=== PATIENT | male | born 1950 | race Hispanic/Latino ===

== ENCOUNTER 2019-01-22 21:35 | Emergency (ER) | payer BC, MEDICARE | END 2019-01-23 02:55 | disposition home or self-care (01) | LOC: C.ER 21:35 ==

== ENCOUNTER 2019-02-26 14:25 | Inpatient (IN) | payer MEDICARE, BC ==
[2019-02-26] MEDS ORDERED: Morphine 4 MG/ML VIAL ONE ×2 (15:11→16:55)
[2019-02-26 15:12] LABS: BASO # 0.1 K/uL (0.0-0.2); BASO % 1.3 % (0.0-2.0); EOS % 0.8 % (0.0-4.0); HEMOGLOBIN 13.7 g/dL (12.0-18.0); LYMPH # 1.5 K/uL (1.0-4.3); LYMPH % 22.8 % (20.0-40.0); MEAN CELL VOLUME 80.5 fL (80.0-94.0); MEAN CORPUSCULAR HEMOGLOBIN 26.8 pg (27.0-31.0); MEAN CORPUSCULAR HGB CONC 33.2 g/dL (33.0-37.0); MEAN PLATELET VOLUME 9.8 fL (7.2-11.7); MONO # 0.5 K/uL (0.0-0.8); MONO % 8.5 % (0.0-10.0); NEUT # 4.2 K/uL (1.8-7.0); NEUT % 66.6 % (50.0-75.0); NRBC % 0.1 % (0.0-2.0); RBC 5.13 Mil/uL (4.40-5.90); WHITE BLOOD COUNT 6.4 K/uL (4.8-10.8)
--- NOTE | 2019-02-26 15:15 | C.PDOC ---
History Of Present Illness 68 y/o male with a PMHx of [place] x4, CAD with stent placement, diabetes, HLD, and s/p bilateral AKA, presents today with complaints of chest pain for the past 2 days. Associated with SOB and nausea. Patient states he was lying down, resting, when pain began. Pain is described as sharp and radiates to his left shoulder and under left breast. Additionally, patient notes his right AKA was recent, and he is experiencing pain to the right stump site. He denies any vomiting, diarrhea, abdominal pain, diaphoresis, or other complaints. Time Seen by Provider: 02/26/19 14:40 Chief Complaint (Nursing): Chest Pain History Per: Patient History/Exam Limitations: no limitations Onset/Duration Of Symptoms: Days (x 2) Current Symptoms Are (Timing): Still Present Past Medical History Reviewed: Historical Data, Nursing Documentation, Vital Signs Vital Signs: Last Vital Signs Temp 98.1 F 02/26/19 14:47 Pulse 83 02/26/19 14:30 Resp 18 02/26/19 14:30 BP 107/55 L 02/26/19 14:30 Pulse Ox 100 02/26/19 14:30 - Medical History PMH: Anxiety, CAD, COPD, Depression, Diabetes, HTN, Hypercholesterolemia, Hyperlipidemia Denies: Chronic Kidney Disease Surgical History: Coronary Stent Other Surgeries: Bilateral above knee amputation - [facility] Procedures DETACHMENT AT RIGHT 3RD TOE, COMPLETE, OPEN APPROACH (12/02/15) ING HERNIA REP-GRAFT NOS (01/31/00) Family History: States: Unknown Family Hx - Social History Hx Alcohol Use: No Hx Substance Use: No - Immunization History Hx Tetanus Toxoid Vaccination: No Hx Influenza Vaccination: No Hx Pneumococcal Vaccination: No Review Of Systems Except As Marked, All Systems Reviewed And Found Negative. Constitutional: Negative for: Fever, Sweats Cardiovascular: Positive for: Chest Pain Respiratory: Positive for: Shortness of Breath Gastrointestinal: Positive for: Nausea. Negative for: Vomiting, Abdominal Pain, Diarrhea Musculoskeletal: Positive for: Shoulder Pain Skin: Negative for: Rash Neurological: Negative for: Weakness, Numbness, Dizziness Physical Exam - Physical Exam Appears: Non-toxic, No Acute Distress Skin: Warm, Dry, No Diaphoretic Head: Atraumatic, Normacephalic Eye(s): bilateral: Normal Inspection, PERRL, EOMI Neck: Normal ROM Chest: Symmetrical, No Deformity, No Tenderness Cardiovascular: Rhythm Regular, No Murmur, No JVD Respiratory: Normal Breath Sounds, No Accessory Muscle Use Gastrointestinal/Abdominal: Soft, No Tenderness, No Distention Extremity: Other (B/L AKA, no apparent lesions or open wounds; There is a bandage covering right stump, no drainage) Neurological/Psych: Oriented x3, Normal Speech ED Course And Treatment - Laboratory Results Result Diagrams: 02/26/19 15:08 02/26/19 15:08 ECG: Interpreted By Me, Viewed By Me Interpretation Of ECG: Left axis deviation, Left anterior fascicular block Rate From EC O2 Sat by Pulse Oximetry: 100 (RA) Pulse Ox Interpretation: Normal - Other Rad CXR X-Ray: Read By Radiologist Interpretation: Accession No. : [id number]. Patient Name / ID : HEAVEN ALVES / [id number]. Exam Date : 02/26/2019 15:34:42 ( Approved ). Study Comment : Sex / Age : M / [id number]. Creator : Walt Ghotra MD. Dictator : Walt Ghotra MD. Inspector : Food Assembler Kitchen : Walt Ghotra MD. Approver2 : Report Date : 02/26/2019 16:26:43. My Comment : * . Date of service: 02/26/2019. PROCEDURE: CHEST RADIOGRAPH, 1 VIEW. HISTORY: chest pain. COMPARISON: None available. FINDINGS: LUNGS: Clear. PLEURA: No pneumothorax or pleural fluid seen. CARDIOVASCULAR: No aortic atherosclerotic calcification present. Normal. OSSEOUS STRUCTURES: No significant abnormalities. VISUALIZED UPPER ABDOMEN: Normal. OTHER FINDINGS: None. IMPRESSION: No active disease. Medical Decision Making Medical Decision Making: Impression: Right stump pain, Chest pain, r/o OK Plan: - Blood work w/ cardiac enzymes - EKG - Chest x-ray - 4 mg IV Morphine - Reassess 17:12 Paged medicine on-call, Dr. Gomez. Awaiting call back. Disposition - Disposition Disposition: HOME/ ROUTINE Disposition Time: 17:23 Condition: GOOD - Clinical Impression Clinical Impression: Chest pain - Scribe Statement The provider has reviewed the documentation as recorded by the Yelena Hughes Provider Attestation: All medical record entries made by the Yelena were at my direction and personally dictated by me. I have reviewed the chart and agree that the record accurately reflects my personal performance of the history, physical exam, medical decision making, and the department course for this patient. I have also personally directed, reviewed, and agree with the discharge instructions and disposition.
[2019-02-26 15:23] LABS: ALB/GLOB RATIO 1.3 (1.0-2.1); ALBUMIN 3.8 g/dL (3.5-5.0); ALT/SGPT 13 U/L (21-72); AST/SGOT 17 U/L (17-59); BLOOD UREA NITROGEN 12 mg/dL (9-20); CALCIUM 9.1 mg/dl (8.6-10.4); GFR NON-AFRICAN AMERICAN > 60
--- NOTE | 2019-02-26 16:30 | RAD ---
Date of service: 02/26/2019 PROCEDURE: CHEST RADIOGRAPH, 1 VIEW HISTORY: chest pain COMPARISON: None available. FINDINGS: LUNGS: Clear. PLEURA: No pneumothorax or pleural fluid seen. CARDIOVASCULAR: No aortic atherosclerotic calcification present. Normal. OSSEOUS STRUCTURES: No significant abnormalities. VISUALIZED UPPER ABDOMEN: Normal. OTHER FINDINGS: None. IMPRESSION: No active disease.
--- NOTE | 2019-02-26 19:23 | CP.PCM.HP ---
History of Present Illness - History of Present Illness History of Present Illness: 68 y/o male with a PMHx of [place] x4, CAD with stent placement, diabetes, HLD, and s/p bilateral AKA, presents today with complaints of chest pain for the past 2 days. Associated with SOB and nausea. Patient states he was lying down, resting, when pain began. Pain is described as sharp and radiates to his left shoulder and under left breast. Additionally, patient notes his right AKA was recent, and he is experiencing pain to the right stump site Present on Admission - Present on Admission Any Indicators Present on Admission: No Review of Systems - Constitutional Constitutional: Weakness. absent: Fever, Weight Loss - EENT Eyes: absent: As Per HPI, Blind Spots, Blurred Vision, Change in Vision, Decreased Night Vision, Diplopia, Discharge, Dry Eye, Exophthalmos, Floaters, Irritation, Itchy Eyes, Loss of Peripheral Vision, Pain, Photophobia, Requires Corrective Lenses, Sees Flashes, Spots in Vision, Tunnel Vision, Other Visual Disturbances, Loss of Vision, Other Nose/Mouth/Throat: absent: As Per HPI, Epistaxis, Nasal Congestion, Nasal Discharge, Nasal Obstruction, Nasal Trauma, Nose Pain, Post Nasal Drip, Sinus Pain, Sinus Pressure, Bleeding Gums, Change in Voice, Dental Pain, Dry Mouth, Dysphagia, Halitosis, Hoarsness, Lip Swelling, Mouth Lesions, Mouth Pain, Odynophagia, Sore Throat, Throat Swelling, Tongue Swelling, Facial Pain, Neck Pain, Neck Mass, Other - Cardiovascular Cardiovascular: Chest Pain at Rest, Dyspnea on Exertion - Respiratory Respiratory: absent: As Per HPI, Cough, Dyspnea, Hemoptysis, Dyspnea on Exertion, Wheezing, Snoring, Stridor, Pain on Inspiration, Chest Congestion, Excessive Mucous Production, Change in Mucous Color, Pain with Coughing, Other - Gastrointestinal Gastrointestinal: absent: As Per HPI, Abdominal Pain, Belching, Bloating, Change in Bowel Habits, Change in Stool Character, Coffee Ground Emesis, Constipation, Cramping, Diarrhea, Dyspepsia, Dysphagia, Early Satiety, Excessive Flatus, Fecal Incontinence, Heartburn, Hematemesis, Hematochezia, Loose Stools, Melena, Nausea, Odynophagia, Temesmus, Vomiting, Other - Genitourinary Genitourinary: absent: As Per HPI, Change in Urinary Stream, Difficulty Urinating, Dysuria, Flank Pain, Hematuria, Pyuria, Nocturia, Urinary Incontinence, Urinary Frequency, Urinary Hesitance, Urinary Urgency, Voiding Freq/Small Amts, Freq UTI, Hx Renal/Bladder Calculi, Hx /Renal Surgery, Hunter dder Distension, Other - Musculoskeletal Musculoskeletal: Muscle Cramps - Integumentary Integumentary: absent: As Per HPI, Acne, Alopecia, Bleeding Lesions, Change in Hair, Change in Nails, Change in Pigmentation, Changing Lesions, Dry Skin, Erythema, Furuncle, Hirsutism, Lesions, New Lesions, Non-Healing Lesions, Photos ensitivity, Pruritus, Rash, Skin Pain, Skin Ulcer, Sores, Striae, Swelling, Unusual Bruising, Wounds, Jaundice, Other - Neurological Neurological: absent: As Per HPI, Abnormal Gait, Abnormal Hearing, Abnormal Movements, Abnormal Speech, Behavioral Changes, Burning Sensations, Confusion, Convulsions, Disequilibrium, Dizziness, Numbness, Focal Weakness, Frequent Falls, Headaches, Lack of Coordination, Loss of Vision, Memory Loss, Paresthesias, Radicular Pain, Restless Legs, Sensory Deficit, Syncope, Tingling, Tremor, Vertigo, Weakness, Other Visual Disturbances, Other Past Patient History - Infectious Disease Hx of Infectious Diseases: None - Past Medical History & Family History Past Medical History?: Yes - Past Social History Smoking Status: Heavy Smoker > 10 Cigarettes Daily - CARDIAC Hx Hypercholesterolemia: Yes Hx Hypertension: Yes - PULMONARY Hx Chronic Obstructive Pulmonary Disease (COPD): Yes - NEUROLOGICAL Hx Neurological Disorder: No - HEENT Hx Cataracts: Yes - RENAL Hx Chronic Kidney Disease: No - ENDOCRINE/METABOLIC Hx Diabetes Mellitus Type 2: Yes - HEMATOLOGICAL/ONCOLOGICAL Hx Blood Disorders: No - INTEGUMENTARY Hx Dermatological Problems: No - MUSCULOSKELETAL/RHEUMATOLOGICAL Hx Spinal Stenosis: Yes - GASTROINTESTINAL Hx Gastrointestinal Disorders: No - GENITOURINARY/GYNECOLOGICAL Hx Genitourinary Disorders: No - PSYCHIATRIC Hx Anxiety: Yes Hx Depression: Yes Hx Substance Use: No - SURGICAL HISTORY Hx Coronary Stent: Yes - ANESTHESIA Hx Anesthesia: Yes Hx Anesthesia Reactions: No Meds Allergies/Adverse Reactions: Allergies Allergy/AdvReac Type Severity Reaction Status Date / Time Penicillins AdvReac passed out Verified 01/22/19 22:03 Physical Exam - Head Exam Head Exam: ATRAUMATIC - Eye Exam Eye Exam: EOMI, Normal appearance, PERRL - ENT Exam ENT Exam: Mucous Membranes Moist, Normal Exam - Neck Exam Neck exam: Positive for: Normal Inspection - Respiratory Exam Respiratory Exam: Clear to Auscultation Bilateral, NORMAL BREATHING PATTERN - GI/Abdominal Exam GI & Abdominal Exam: Normal Bowel Sounds, Soft. absent: Tenderness - Extremities Exam Extremities exam: Negative for: calf tenderness (bilateral above-knee amputation right knee as a bandage with no discharge) - Back Exam Back exam: absent: CVA tenderness (L), CVA tenderness (R) Results - Vital Signs Recent Vital Signs: Last Vital Signs Temp 98.1 F 02/26/19 14:47 Pulse 75 02/26/19 16:47 Resp 18 02/26/19 16:47 BP 126/69 02/26/19 16:47 Pulse Ox 100 02/26/19 17:15 - Labs Result Diagrams: 02/26/19 15:08 02/26/19 15:08 Labs: Laboratory Results - last 24 hr 02/26/19 02/26/19 15:08 15:08 WBC 6.4 RBC 5.13 Hgb 13.7 Hct 41.4 MCV 80.5 MCH 26.8 L MCHC 33.2 RDW 16.0 H Plt Count 233 MPV 9.8 Neut % (Auto) 66.6 Lymph % (Auto) 22.8 [place] % (Auto) 8.5 Eos % (Auto) 0.8 Baso % (Auto) 1.3 Neut # (Auto) 4.2 Lymph # (Auto) 1.5 [place] # (Auto) 0.5 Eos # (Auto) 0.0 Baso # (Auto) 0.1 Sodium 132 Potassium 4.1 Chloride 104 Carbon Dioxide 22 Anion Gap 11 BUN 12 Creatinine 0.5 L Est GFR ( Amer) > 60 Est GFR (Non-Af Amer) > 60 Random Glucose 348 H Calcium 9.1 Total Bilirubin 0.3 AST 17 ALT 13 L Alkaline Phosphatase 108 Troponin I < 0.0120 Total Protein 6.7 Albumin 3.8 Globulin 2.9 Albumin/Globulin Ratio 1.3 Assessment & Plan (1) Type 2 diabetes mellitus with other specified complication Status: Acute Priority: High (2) CAD (coronary artery disease) Status: Chronic Priority: Medium (3) Essential (primary) hypertension Status: Chronic Priority: Medium (4) PVD (peripheral vascular disease) with claudication Status: Chronic Priority: High (5) Chest pain due to coronary artery disease Status: Acute (6) Stented coronary artery Status: Chronic
[2019-02-26] MEDS: oxyCODONE 30 mg Immediate Release Tab PO PRN (23:04)
[2019-02-26] MEDS: Insulin Detemir 100 units/ml Vial (Levemir) SC SCH (23:06)
[2019-02-27] MEDS: oxyCODONE 30 mg Immediate Release Tab PO PRN (05:55)
[2019-02-27] MEDS: (Novolin R) Insulin Human Regular 100 units/ml vial SC SCH ×4 (08:28→21:54)
[2019-02-27 08:38] LABS: CK-MB 0.75 ng/mL (0.0-3.38)
[2019-02-27] MEDS ORDERED: Perflutren Lipid Microsphere 1.5 ML SUS IV ONE (10:30)
[2019-02-27] MEDS: Enoxaparin 30 mg Syringe SC SCH ×2 (11:04→21:15)
--- NOTE | 2019-02-27 11:36 | CP.PCM.PN ---
Subjective - Date & Time of Evaluation Date of Evaluation: 02/27/19 Time of Evaluation: 11:35 - Subjective Subjective: NO FURTHER CP TNI NEG 2 SETS P/E SAME ECHO DEPRESSED LV EF ? CLOT IN LV APEX Objective - Vital Signs/Intake and Output Vital Signs (last 24 hours): Temp Pulse Resp BP Pulse Ox 99.0 F 78 20 131/75 95 02/27/19 07:04 02/27/19 07:15 02/27/19 07:04 02/27/19 11:04 02/27/19 07:04 - Medications Medications: Current Medications Aspirin (Aspirin) 325 mg PO DAILY [facility] Last Admin: 02/27/19 11:04 Dose: 325 mg Enalapril Maleate (Vasotec) 5 mg PO DAILY [facility] Last Admin: 02/27/19 11:04 Dose: 5 mg Enoxaparin Sodium (Lovenox) 30 mg SC Q12 [facility] Last Admin: 02/27/19 11:04 Dose: 30 mg Insulin Detemir (Levemir) 25 unit SC [facility] Last Admin: 02/26/19 23:06 Dose: 25 units Insulin Human Regular (Novolin R) 0 unit SC [facility]; Protocol Last Admin: 02/27/19 08:28 Dose: 6 units Metoprolol Tartrate (Lopressor) 50 mg PO BID [facility] Last Admin: 02/27/19 11:04 Dose: 50 mg Nebivolol (Bystolic) 5 mg PO DAILY [facility] Last Admin: 02/27/19 11:04 Dose: 5 mg Oxycodone HCl (Oxycodone Immediate Release Tab) 60 mg PO Q6H PRN PRN Reason: Pain, moderate (4-7) Last Admin: 02/27/19 05:55 Dose: 60 mg Pregabalin (Lyrica) 75 mg PO TID [facility] Last Admin: 02/27/19 11:04 Dose: 75 mg Rosuvastatin Calcium (Crestor) 10 mg PO [facility] - Labs Labs: 02/26/19 15:08 02/26/19 15:08 Assessment and Plan (1) Type 2 diabetes mellitus with other specified complication Status: Acute (2) CAD (coronary artery disease) Status: Chronic (3) Essential (primary) hypertension Status: Chronic (4) PVD (peripheral vascular disease) with claudication Status: Chronic (5) Chest pain due to coronary artery disease Status: Acute (6) Stented coronary artery Status: Chronic
[2019-02-27 14:44] LABS: CK-MB 0.82 ng/mL (0.0-3.38)
--- NOTE | 2019-02-27 18:34 | CP.PCM.CON ---
History of Present Illness - History of Present Illness History of Present Illness: The pt is a 68 yo man, ex smoker, with sig CV disease. THe patient has had several CT's, PAd, and coronary PCI. He has ischemic cardiomyopathy, but no h/o chf or afib. Pt had a second amputation at [facility] this year. Pt is a , and is taken care of by his son. His son often neglects him (personal observation). pt has been at [facility] for chronic pain syndromes multiple times in the last several months. Pt also has severe back and joint pain. pt now admitted for constant c\shoulder pain, that is associated with motion. TNI are negative. CXR does not show chf. An echo was performed with contrast, demonstrating markedly reduced LV EF, and a small organized non mobile apical thrombus, previously not diagnosed. Review of Systems - Review of Systems All systems: reviewed and no additional remarkable complaints except (as above.) Past Patient History - Infectious Disease Hx of Infectious Diseases: None - Past Medical History & Family History Past Medical History?: Yes - Past Social History Smoking Status: Heavy Smoker > 10 Cigarettes Daily - CARDIAC Hx Hypercholesterolemia: Yes Hx Hypertension: Yes - PULMONARY Hx Chronic Obstructive Pulmonary Disease (COPD): Yes - NEUROLOGICAL Hx Neurological Disorder: No - HEENT Hx Cataracts: Yes - RENAL Hx Chronic Kidney Disease: No - ENDOCRINE/METABOLIC Hx Diabetes Mellitus Type 2: Yes - HEMATOLOGICAL/ONCOLOGICAL Hx Blood Disorders: No - INTEGUMENTARY Hx Dermatological Problems: No - MUSCULOSKELETAL/RHEUMATOLOGICAL Hx Falls: No Hx Spinal Stenosis: Yes - GASTROINTESTINAL Hx Gastrointestinal Disorders: No - GENITOURINARY/GYNECOLOGICAL Hx Genitourinary Disorders: No - PSYCHIATRIC Hx Anxiety: Yes Hx Depression: Yes Hx Substance Use: No - SURGICAL HISTORY Hx Coronary Stent: Yes - ANESTHESIA Hx Anesthesia: Yes Hx Anesthesia Reactions: No Meds Allergies/Adverse Reactions: Allergies Allergy/AdvReac Type Severity Reaction Status Date / Time Penicillins AdvReac passed out Verified 01/22/19 22:03 - Medications Medications: Current Medications Aspirin (Aspirin) 325 mg PO DAILY [facility] Last Admin: 02/27/19 11:04 Dose: 325 mg Enalapril Maleate (Vasotec) 5 mg PO DAILY [facility] Last Admin: 02/27/19 11:04 Dose: 5 mg Enoxaparin Sodium (Lovenox) 30 mg SC Q12 [facility] Last Admin: 02/27/19 11:04 Dose: 30 mg Insulin Detemir (Levemir) 25 unit SC [facility] Last Admin: 02/26/19 23:06 Dose: 25 units Insulin Human Regular (Novolin R) 0 unit SC [facility]; Protocol Last Admin: 02/27/19 18:17 Dose: 3 units Metoprolol Tartrate (Lopressor) 50 mg PO BID [facility] Last Admin: 02/27/19 18:18 Dose: 50 mg Nebivolol (Bystolic) 5 mg PO DAILY [facility] Last Admin: 02/27/19 11:04 Dose: 5 mg Oxycodone HCl (Oxycodone Immediate Release Tab) 60 mg PO Q6H PRN PRN Reason: Pain, moderate (4-7) Last Admin: 02/27/19 05:55 Dose: 60 mg Pregabalin (Lyrica) 75 mg PO TID [facility] Last Admin: 02/27/19 18:18 Dose: 75 mg Rosuvastatin Calcium (Crestor) 10 mg PO [facility] Physical Exam - Constitutional Appears: Older Than Stated Age, Chronically Ill - Head Exam Head Exam: ATRAUMATIC - Eye Exam Eye Exam: EOMI Pupil Exam: NORMAL ACCOMODATION - ENT Exam ENT Exam: Mucous Membranes Moist - Respiratory Exam Respiratory Exam: Clear to Auscultation Bilateral, NORMAL BREATHING PATTERN - Cardiovascular Exam Cardiovascular Exam: REGULAR RHYTHM - GI/Abdominal Exam GI & Abdominal Exam: Normal Bowel Sounds - Exam External exam: NORMAL EXTERNAL EXAM - Extremities Exam Additional comments: bilateral amputee with stump clean - Back Exam Back exam: NORMAL INSPECTION - Neurological Exam Neurological exam: Alert, CN II-XII Intact, Oriented x3, Reflexes Normal - Psychiatric Exam Psychiatric exam: Normal Affect - Skin Skin Exam: Normal Color Results - Vital Signs Recent Vital Signs: Last Vital Signs Temp 98.5 F 02/27/19 15:40 Pulse 67 02/27/19 16:00 Resp 20 02/27/19 15:40 BP 115/68 02/27/19 15:40 Pulse Ox 96 02/27/19 15:40 - Labs Result Diagrams: 02/26/19 15:08 02/26/19 15:08 Labs: Laboratory Results - last 24 hr 02/26/19 02/27/19 02/27/19 21:28 07:21 13:58 POC Glucose (mg/dL) 336 H Total Creatine Kinase 26 L 30 L CK-MB (Mass) 0.75 0.82 Troponin I < 0.0120 < 0.0120 - EKG Data EKG Interpreted by: Myself EKG shows normal: Sinus rhythm (old ILMI) Assessment & Plan - Assessment and Plan (Free Text) Assessment: 1. Chronic CAD: non anginal chest pain. CAD is stable. 2 PAD: stable 3. Ischemic cardiomyopathy B elyse arb. 4. LV thrombus: organized, likely chronic: begin warfarin, low dose. Pt will need bi-weekly INR at home through [facility] while titrating INR, then weekly. 5. Plavix for cad/PAD, warfarin, stop asa, as triple anticoagulation therapy not advised. 6. Pt needs care home care an [place] placement. community services manager consultation is advised
[2019-02-27 19:46] LABS: INR 1.1; PROTHROMBIN TIME 11.9 SECONDS (9.7-12.2)
[2019-02-27 19:59] LABS: CK-MB 0.87 ng/mL (0.0-3.38)
--- NOTE | 2019-02-27 20:15 | CP.PCM.PN ---
<DavyCheng M - Last Filed: 02/28/19 00:01> Subjective - Date & Time of Evaluation Date of Evaluation: 02/27/19 Time of Evaluation: 19:30 - Subjective Subjective: Patient initially admitted to Dr. Gomez. Patient requested to be seen by Dr. Martínez, his outpatient calender tender and hospitalist service. Medicine progress note for Dr. Graff. 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 Patient described the pain as sharp stabbing pain started on left sided chest, 9/10, with radiation to left arm. Patient reported SOB due to inability to take deep breath as he was having chest pain. Patient denies nausea, vomiting, fevers, chills at that time. Patient reports pain began suddenly while he was laying down. At present time, patient reports continued chest pain; however, with improvement, currently 7/10 pain with no radiation. Patient states he shill is unable to have deep inspiration due to pain. 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, L foot 4 years approximately) Meds: Aspirin, plavix, toprolol xl, other "yellow" pill (patient usure of dosage for each medication PSHx: B/L AKA Allergies: Penicillin (reports syncopal episode) FHx: Mother - diabetes, cancer, heart issues; Father - heart problems, diabetes (patient unsure of specific details of each medical problem) SHx: former 2-3 pack tobacco smoker for 30 years; presently only 2-3 cigarette smoker, denies ETOH, denies drug use Objective - Vital Signs/Intake and Output Vital Signs (last 24 hours): Temp Pulse Resp BP Pulse Ox 98.5 F 62 20 104/67 96 02/27/19 15:40 02/27/19 18:00 02/27/19 15:40 02/27/19 18:00 02/27/19 15:40 Intake and Output: 02/27/19 02/28/19 18:59 06:59 Intake Total 520 Output Total 600 Balance -80 - Medications Medications: Current Medications Clopidogrel Bisulfate (Plavix) 75 mg PO DAILY [facility] Enalapril Maleate (Vasotec) 10 mg PO DAILY [facility] Enoxaparin Sodium (Lovenox) 30 mg SC Q12 [facility] Last Admin: 02/27/19 11:04 Dose: 30 mg Insulin Detemir (Levemir) 25 unit SC [facility] Last Admin: 02/26/19 23:06 Dose: 25 units Insulin Human Regular (Novolin R) 0 unit SC ACHS [facility]; Protocol Last Admin: 02/27/19 18:17 Dose: 3 units Metoprolol Tartrate (Lopressor) 50 mg PO BID [facility] Last Admin: 02/27/19 18:32 Dose: Not Given Oxycodone HCl (Oxycodone Immediate Release Tab) 60 mg PO Q6H PRN PRN Reason: Pain, moderate (4-7) Last Admin: 02/27/19 05:55 Dose: 60 mg Pregabalin (Lyrica) 75 mg PO TID [facility] Last Admin: 02/27/19 18:18 Dose: 75 mg Rosuvastatin Calcium (Crestor) 10 mg PO [facility] - Labs Labs: 02/26/19 15:08 02/26/19 15:08 PT 11.9 SECONDS (9.7-12.2) 02/27/19 19:28 INR 1.1 02/27/19 19:28 - Constitutional Appears: Non-toxic, No Acute Distress - Head Exam Head Exam: NORMOCEPHALIC Additional comments: multiple abrasions on top of head - chronic, healing - Eye Exam Eye Exam: EOMI, Normal appearance - ENT Exam ENT Exam: Mucous Membranes Moist - Neck Exam Neck Exam: Full ROM. absent: Tenderness - Respiratory Exam Respiratory Exam: Clear to Ausculation Bilateral, NORMAL BREATHING PATTERN. absent: Rales, Rhonchi, Wheezes - Cardiovascular Exam Cardiovascular Exam: +S1, +S2. absent: Murmur - GI/Abdominal Exam GI & Abdominal Exam: Soft, Normal Bowel Sounds. absent: Firm, Guarding, Rigid - Extremities Exam Extremities Exam: absent: Calf Tenderness, Pedal Edema Additional comments: B/L AKA No bleeding No erythema - Back Exam Back Exam: absent: CVA tenderness (L), CVA tenderness (R) - Neurological Exam Neurological Exam: Alert, Awake, Oriented x3 - Psychiatric Exam Psychiatric exam: Normal Affect, Normal Mood - Skin Skin Exam: Dry, Intact, Normal Color, Warm Assessment and Plan - Assessment and Plan (Free Text) Assessment: 68 year old male w/ PMHx of HTN, DM, CAD s/p stents, admitted for chest pain, now presents with LV apical thrombus Plan: Left ventricle thrombus - INR 1.1 - lovenox 30 mg SC Q12 - coumadin 5 mg HS - f/u AM INR - adjust coumadin dosing according - f/u cardio recs - c/w plavix, d/c aspirin as triple anticoagulation not advised CAD Non anginal chest pain - c/w plavix 75 mg daily, coumadin 5 mg HS for INR goal of 2-3 Ischemic cardiomyopathy w/ reduced EF History of hypertension - reduced EF per cardio - F/u ECHO read - metoprolol tartrate 50 mg PO BID - enalapril maleate 10 mg PO daily Chronic back pain - c/w home medication lyrica 75 mg PO TID History of HLD - c/w home medication rosuvastatin 10 mg PO HS History of diabetes - c/w home insulin levamir 25 units HS - ISS - accuchecks - hypoglyemia protocol PPx - DVT: bridging to coumadin, lovenox 30 mg SC Q12 <Red Graff - Last Filed: 02/28/19 05:28> Objective - Vital Signs/Intake and Output Vital Signs (last 24 hours): Temp Pulse Resp BP Pulse Ox 97.8 F 60 18 96/65 L 97 02/27/19 23:25 02/28/19 03:44 02/27/19 23:25 02/27/19 23:25 02/27/19 23:25 Intake and Output: 02/27/19 02/28/19 18:59 06:59 Intake Total 520 320 Output Total 600 450 Balance -80 -130 - Medications Medications: Current Medications Clopidogrel Bisulfate (Plavix) 75 mg PO DAILY [facility] Dextrose (Glutose 15) 0 gm PO ONCE PRN; Protocol PRN Reason: Hypoglycemia Protocol Dextrose (Dextrose 50% Inj) 0 ml IV STAT PRN; Protocol PRN Reason: Hypoglycemia Protocol Enalapril Maleate (Vasotec) 10 mg PO DAILY [facility] Enoxaparin Sodium (Lovenox) 30 mg SC Q12 [facility] Last Admin: 02/27/19 21:15 Dose: 30 mg Glucagon (Glucagen Diagnostic Kit) 0 mg IM STAT PRN; Protocol PRN Reason: Hypoglycemia Protocol Dextrose (Dextrose 5% In Water 1000 Ml) 1,000 mls @ 0 mls/hr IV .Q0M PRN; Protocol PRN Reason: Hypoglycemia Protocol Insulin Detemir (Levemir) 25 unit SC [facility] Last Admin: 02/27/19 22:06 Dose: 25 units Insulin Human Regular (Novolin R) 0 unit SC [facility]; Protocol Last Admin: 02/27/19 21:54 Dose: Not Given Metoprolol Tartrate (Lopressor) 50 mg PO BID [facility] Last Admin: 02/27/19 18:32 Dose: Not Given Oxycodone HCl (Oxycodone Immediate Release Tab) 60 mg PO Q6H PRN PRN Reason: Pain, moderate (4-7) Last Admin: 02/27/19 05:55 Dose: 60 mg Pregabalin (Lyrica) 75 mg PO TID [facility] Last Admin: 02/27/19 18:18 Dose: 75 mg Rosuvastatin Calcium (Crestor) 10 mg PO [facility] Last Admin: 02/27/19 21:15 Dose: 10 mg - Labs Labs: 02/26/19 15:08 02/26/19 15:08 PT 11.9 SECONDS (9.7-12.2) 02/27/19 19:28 INR 1.1 02/27/19 19:28 Addendum Addendum: 02/28/19 05:18 pt 68 yo male with hx of VA X 4 and multiple stents ischemic cardiomyopathy apical thrombus,DM hyperglycemia AKA .chronic lower back pain c/ cp recurrent since couple of weeks and going to hospital for that , lives with son , pt states it is difficult for him to take his meds due to AKA and son is not home most of the time . PT needs senior living placement as he is finding difficult to take care of himself . son lives with him and son has been resistant for fathers senior living placement .will consult case manger .
[2019-02-27] MEDS: Insulin Detemir 100 units/ml Vial (Levemir) SC SCH (22:06)
--- NOTE | 2019-02-27 23:36 | CARD ---
APPROVED REPORT Date of service: 02/26/2019 EKG Measurement Heart [id number] CT [id number] <Conclusion> Normal sinus rhythm Low voltage QRS Left anterior fascicular block Inferior infarct, age undetermined Anterolateral infarct, age undetermined Abnormal ECG
[2019-02-28] MEDS ORDERED: Glucagon Recombinant 1 mg Inj IM PRN (00:04)
[2019-02-28] MEDS ORDERED: Dextrose 50% SYRINGE Inj (50 ml) IV PRN (00:04)
[2019-02-28] MEDS: (Novolin R) Insulin Human Regular 100 units/ml vial SC SCH ×4 (08:10→21:52)
[2019-02-28 08:43] LABS: BASO % 0.5 % (0.0-2.0); EOS # 0.1 K/uL (0.0-0.7); EOS % 2.6 % (0.0-4.0); HEMOGLOBIN 12.7 g/dL (12.0-18.0); LYMPH # 2.1 K/uL (1.0-4.3); LYMPH % 36.1 % (20.0-40.0); MEAN CORPUSCULAR HEMOGLOBIN 26.8 pg (27.0-31.0); MEAN CORPUSCULAR HGB CONC 32.7 g/dL (33.0-37.0); MEAN PLATELET VOLUME 9.6 fL (7.2-11.7); MONO # 0.7 K/uL (0.0-0.8); NEUT # 2.8 K/uL (1.8-7.0); NEUT % 48.8 % (50.0-75.0); RBC 4.75 Mil/uL (4.40-5.90); RED CELL DISTRIBUTION WIDTH 16.3 % (11.5-14.5); WHITE BLOOD COUNT 5.7 K/uL (4.8-10.8)
[2019-02-28 08:52] LABS: INR 1.1; PROTHROMBIN TIME 11.9 SECONDS (9.7-12.2)
[2019-02-28 09:00] LABS: ALB/GLOB RATIO 1.2 (1.0-2.1); ALBUMIN 3.4 g/dL (3.5-5.0); ALT/SGPT < 6 U/L (21-72); AST/SGOT 13 U/L (17-59); BLOOD UREA NITROGEN 18 mg/dL (9-20); GFR NON-AFRICAN AMERICAN > 60
[2019-02-28] MEDS: Enoxaparin 30 mg Syringe SC SCH ×2 (09:10→21:54)
--- NOTE | 2019-02-28 17:17 | CARD ---
APPROVED REPORT Date of service: 02/27/2019 EXAM: Two-dimensional and M-mode echocardiogram with Doppler and color Doppler. 2D DIMENSIONS IVSd1.3 (0.7-1.1cm)LVDd6.2 (3.9-5.9cm) PWd1.3 (0.7-1.1cm)LA Mbfmva89 (18-58mL) LVDs5.2 (2.5-4.0cm)FS (%) 16.0 % LVEF (%)40.0 (>50%)LVEF (Carlson's)43 % M-Mode DIMENSIONS Left Atrium (MM)4.43 (2.5-4.0cm)Aortic Root4.48 (2.2-3.7cm) Aortic Cusp Exc.2.71 (1.5-2.0cm) Mitral Valve MV E Amijlfch44.2cm/sMV A Rpwpfmhv15.5cm/sE/A ratio0.4 TDI Lateral E' Peak V3.19cm/sMedial E' Peak V4.22cm/sE/Lateral E'11.0 E/Medial E'8.3 LEFT VENTRICLE The Left Ventricle is moderately dilated. There is mild concentric left ventricular hypertrophy. Left ventricle systolic function is moderately impaired. The Ejection Fraction is 40 %. There is global hypokinesis of the left ventricle. There is dyskinetic apex. Tissue Doppler imaging reveals abnormal left ventricular diastolic dysfunction. The apical thrombus is medium enhanced with DEFINITY contrast. RIGHT VENTRICLE The right ventricle is normal size. There is normal right ventricular wall thickness. Systolic function is moderately reduced. ATRIA The left atrium is mildly dilated. The right atrium is mildly dilated. The interatrial septum is intact with no evidence for an atrial septal defect. AORTIC VALVE The aortic valve is normal in structure. No aortic regurgitation is present. There is no aortic valvular stenosis. There is no aortic valvular vegetation. MITRAL VALVE The mitral valve is normal in structure. There is no evidence of mitral valve prolapse. There is no mitral valve stenosis. There is no mitral valve regurgitation noted. TRICUSPID VALVE The tricuspid valve is normal in structure. There is no tricuspid valve regurgitation noted. There is no tricuspid valve prolapse or vegetation. There is no tricuspid valve stenosis. PULMONIC VALVE The pulmonic valve is not well visualized. There is no pulmonic valvular regurgitation. GREAT VESSELS The aortic root is mildly enlarged. PERICARDIAL EFFUSION There is no significant pericardial effusion. <Conclusion> Left ventricle systolic function is moderately impaired. The Ejection Fraction is 40 %. Hypertensive hear disease. Diastolic dysfunction. The apical thrombus is medium enhanced with DEFINITY contrast. No aortic regurgitation is present. There is no mitral valve regurgitation noted. There is no tricuspid valve regurgitation noted. There is no pulmonic valvular regurgitation.
--- NOTE | 2019-02-28 17:58 | CP.PCM.PN ---
<Jacobo Edwards E - Last Filed: 02/28/19 18:32> Subjective - Date & Time of Evaluation Date of Evaluation: 02/28/19 Time of Evaluation: 09:45 - Subjective Subjective: Medicine note ( Dr. Gaxiola's service) Patient was seen and examined at bedside as he was having his breakfast. Patient states that he is doing well and has no acute complaints or issues. As per nursing staff, patient had no acute issues overnight. During this encounter, patient is very agreeable to going to a permanent facility for care. Objective - Vital Signs/Intake and Output Vital Signs (last 24 hours): Temp Pulse Resp BP Pulse Ox 98.0 F 57 L 20 110/63 97 02/28/19 16:26 02/28/19 16:26 02/28/19 16:26 02/28/19 16:26 02/28/19 16:26 Intake and Output: 02/28/19 02/28/19 06:59 18:59 Intake Total 320 600 Output Total 450 Balance -130 600 - Medications Medications: Current Medications Clopidogrel Bisulfate (Plavix) 75 mg PO DAILY [facility] Last Admin: 02/28/19 09:16 Dose: 75 mg Dextrose (Glutose 15) 0 gm PO ONCE PRN; Protocol PRN Reason: Hypoglycemia Protocol Dextrose (Dextrose 50% Inj) 0 ml IV STAT PRN; Protocol PRN Reason: Hypoglycemia Protocol Enalapril Maleate (Vasotec) 10 mg PO DAILY [facility] Last Admin: 02/28/19 09:16 Dose: 10 mg Enoxaparin Sodium (Lovenox) 30 mg SC Q12 [facility] Last Admin: 02/28/19 09:10 Dose: 30 mg Glucagon (Glucagen Diagnostic Kit) 0 mg IM STAT PRN; Protocol PRN Reason: Hypoglycemia Protocol Dextrose (Dextrose 5% In Water 1000 Ml) 1,000 mls @ 0 mls/hr IV .Q0M PRN; Protocol PRN Reason: Hypoglycemia Protocol Insulin Detemir (Levemir) 25 unit SC HS [facility] Last Admin: 02/27/19 22:06 Dose: 25 units Insulin Human Regular (Novolin R) 0 unit SC ACHS [facility]; Protocol Last Admin: 02/28/19 11:39 Dose: 6 units Metoprolol Tartrate (Lopressor) 50 mg PO BID [facility] Last Admin: 02/28/19 09:16 Dose: 50 mg Oxycodone/Acetaminophen (Percocet 5/325 Mg Tab) 1 tab PO Q4H PRN PRN Reason: Pain, moderate (4-7) Stop: 03/03/19 11:01 Pregabalin (Lyrica) 75 mg PO TID [facility] Last Admin: 02/28/19 13:22 Dose: 75 mg Rosuvastatin Calcium (Crestor) 10 mg PO HS [facility] Last Admin: 02/27/19 21:15 Dose: 10 mg - Labs Labs: 02/28/19 08:37 02/28/19 08:37 PT 11.9 SECONDS (9.7-12.2) 02/28/19 08:37 INR 1.1 02/28/19 08:37 APTT 33 SECONDS (21-34) 02/28/19 08:37 - Constitutional Appears: No Acute Distress - Head Exam Head Exam: ATRAUMATIC Additional comments: Multiple scattered healed abrasion on the scalp area - Eye Exam Eye Exam: EOMI - ENT Exam ENT Exam: Mucous Membranes Moist - Respiratory Exam Respiratory Exam: Clear to Ausculation Bilateral, NORMAL BREATHING PATTERN. absent: Prolonged Expiratory Phase, Rhonchi, Wheezes, Respiratory Distress - Cardiovascular Exam Cardiovascular Exam: REGULAR RHYTHM, +S1, +S2. absent: Murmur - GI/Abdominal Exam GI & Abdominal Exam: Soft, Normal Bowel Sounds. absent: Distended, Firm, Guarding, Rigid, Tenderness - Extremities Exam Additional comments: B/L AKA No bleeding No erythema - Neurological Exam Neurological Exam: Alert, Awake, Oriented x3 - Psychiatric Exam Psychiatric exam: Normal Affect - Skin Skin Exam: Normal Color Assessment and Plan (1) Left ventricular thrombus Assessment & Plan: Consultation: Cardiology, Dr. Martínez---> Help appreciated Labs/Imaging: - INR 1.1, repeat INR:1.1 after Coumadin 5mg PO once (02/27/19) - Echo(02/26/19): Diastolic dysfunction. Apical thrombus is medium. Please refer to the EMR for complete impression Management: - lovenox 30 mg SC Q12 - coumadin 7.5 mg HS, f/u INR (03/01/19) Status: Acute (2) Stented coronary artery Assessment & Plan: Continue home medications: - Plavix 75mg PO daily - Lopressor 50mg PO BID - Crestor 10mg PO HS Status: Chronic (3) Ischemic cardiomyopathy Assessment & Plan: Echo (02/26/19): Diastolic dysfunction. LV is systolic function is moderately impaired. EF is 40%. Hypertensive heart disease. Please refer to the EMR for official report Medications: -metoprolol tartrate 50 mg PO BID - enalapril maleate 10 mg PO daily Status: Acute (4) History of hyperlipidemia Assessment & Plan: Crestor 10mg PO HS Status: Acute (5) History of diabetes mellitus Assessment & Plan: Accuchecks ISS- medium dose protocol Levemir 25 units SC HS Hypoglycemia protocol Status: Acute (6) Chronic back pain Assessment & Plan: - Lyrica 75mg PO TID - Percocet 5/325mg 1 tab PO Q4H PRN Status: Acute (7) Prophylactic measure Assessment & Plan: DVT: Lovenox 30mg SC Q12H bridging to coumadin GI: Protonix 40mg PO daily Disposition: awaiting therapeutic INR and possible NH placement pending insurance All plans and management discussed with Dr. Gaxiola Status: Acute <Rigoberto Gaxiola - Last Filed: 03/01/19 07:57> Objective - Vital Signs/Intake and Output Vital Signs (last 24 hours): Temp Pulse Resp BP Pulse Ox 97.6 F 61 20 103/61 97 02/28/19 23:45 03/01/19 01:54 02/28/19 23:45 02/28/19 23:45 02/28/19 23:45 - Medications Medications: Current Medications Clopidogrel Bisulfate (Plavix) 75 mg PO DAILY [facility] Last Admin: 02/28/19 09:16 Dose: 75 mg Dextrose (Glutose 15) 0 gm PO ONCE PRN; Protocol PRN Reason: Hypoglycemia Protocol Dextrose (Dextrose 50% Inj) 0 ml IV STAT PRN; Protocol PRN Reason: Hypoglycemia Protocol Enalapril Maleate (Vasotec) 10 mg PO DAILY [facility] Last Admin: 02/28/19 09:16 Dose: 10 mg Enoxaparin Sodium (Lovenox) 30 mg SC Q12 [facility] Last Admin: 02/28/19 21:54 Dose: 30 mg Glucagon (Glucagen Diagnostic Kit) 0 mg IM STAT PRN; Protocol PRN Reason: Hypoglycemia Protocol Dextrose (Dextrose 5% In Water 1000 Ml) 1,000 mls @ 0 mls/hr IV .Q0M PRN; Protocol PRN Reason: Hypoglycemia Protocol Insulin Detemir (Levemir) 25 unit SC [facility] Last Admin: 02/28/19 21:51 Dose: 25 units Insulin Human Regular (Novolin R) 0 unit SC ACHS [facility]; Protocol Last Admin: 02/28/19 21:52 Dose: 2 units Metoprolol Tartrate (Lopressor) 50 mg PO BID [facility] Last Admin: 02/28/19 18:15 Dose: Not Given Oxycodone/Acetaminophen (Percocet 5/325 Mg Tab) 1 tab PO Q4H PRN PRN Reason: Pain, moderate (4-7) Stop: 03/03/19 11:01 Last Admin: 03/01/19 03:03 Dose: 1 tab Pantoprazole Sodium (Protonix Ec Tab) 40 mg PO DAILY [facility] Pregabalin (Lyrica) 75 mg PO TID [facility] Last Admin: 02/28/19 18:11 Dose: 75 mg Rosuvastatin Calcium (Crestor) 10 mg PO HS [facility] Last Admin: 02/28/19 21:51 Dose: 10 mg - Labs Labs: 02/28/19 08:37 02/28/19 08:37 PT 11.9 SECONDS (9.7-12.2) 02/28/19 08:37 INR 1.1 02/28/19 08:37 APTT 33 SECONDS (21-34) 02/28/19 08:37 Attending/Attestation - Attestation I have personally seen and examined this patient.: Yes I have fully participated in the care of the patient.: Yes I have reviewed all pertinent clinical information, including history, physical exam and plan: Yes Notes (Text): Medical attending: Patient was seen and examined by me with the manager of medical. We went over the above note and I agree with the above The patient explained to us his previous times going to [facility] a lot and we also discussed his home living situatio as well The patient does not feel safe at home. There is no one there to help him he says. He has a son, however he explains the son does not care for him at all and he is often hungry, without medications, and not able to move far since he has bilateral AKA. The patient explained that in the past the son has always brought him back home, but this time he no longer wants to go home but to go to a fdc. I discussed with the weekend behavioral health case manager the situation. Rigoberto Gaxiola
[2019-02-28] MEDS: Oxycodone/Acetaminophen 5/325 mg Tab PO PRN ×2 (18:12→23:05)
[2019-02-28] MEDS: Insulin Detemir 100 units/ml Vial (Levemir) SC SCH (21:51)
[2019-03-01] MEDS: Oxycodone/Acetaminophen 5/325 mg Tab PO PRN ×4 (03:03→21:38)
--- NOTE | 2019-03-01 06:24 | CP.PCM.PN ---
<Cheng Bhatti - Last Filed: 03/01/19 06:21> Subjective - Date & Time of Evaluation Date of Evaluation: 03/01/19 Time of Evaluation: 06:00 - Subjective Subjective: Medicine progress note for hospitalist Dr. Gaxiola. Pt seen and examined at bedside. pt continues to have focal, non radiating, chest pain on left side. Denies fevers,chill, nausea, vomiting, diarrhea, constipation abdominal pain. Objective - Vital Signs/Intake and Output Vital Signs (last 24 hours): Temp Pulse Resp BP Pulse Ox 97.6 F 61 20 103/61 97 02/28/19 23:45 03/01/19 01:54 02/28/19 23:45 02/28/19 23:45 02/28/19 23:45 Intake and Output: 02/28/19 03/01/19 18:59 06:59 Intake Total 600 Balance 600 - Medications Medications: Current Medications Clopidogrel Bisulfate (Plavix) 75 mg PO DAILY [facility] Last Admin: 02/28/19 09:16 Dose: 75 mg Dextrose (Glutose 15) 0 gm PO ONCE PRN; Protocol PRN Reason: Hypoglycemia Protocol Dextrose (Dextrose 50% Inj) 0 ml IV STAT PRN; Protocol PRN Reason: Hypoglycemia Protocol Enalapril Maleate (Vasotec) 10 mg PO DAILY [facility] Last Admin: 02/28/19 09:16 Dose: 10 mg Enoxaparin Sodium (Lovenox) 30 mg SC Q12 [facility] Last Admin: 02/28/19 21:54 Dose: 30 mg Glucagon (Glucagen Diagnostic Kit) 0 mg IM STAT PRN; Protocol PRN Reason: Hypoglycemia Protocol Dextrose (Dextrose 5% In Water 1000 Ml) 1,000 mls @ 0 mls/hr IV .Q0M PRN; Protocol PRN Reason: Hypoglycemia Protocol Insulin Detemir (Levemir) 25 unit SC HS [facility] Last Admin: 02/28/19 21:51 Dose: 25 units Insulin Human Regular (Novolin R) 0 unit SC ACHS [facility]; Protocol Last Admin: 02/28/19 21:52 Dose: 2 units Metoprolol Tartrate (Lopressor) 50 mg PO BID [facility] Last Admin: 02/28/19 18:15 Dose: Not Given Oxycodone/Acetaminophen (Percocet 5/325 Mg Tab) 1 tab PO Q4H PRN PRN Reason: Pain, moderate (4-7) Stop: 03/03/19 11:01 Last Admin: 03/01/19 03:03 Dose: 1 tab Pantoprazole Sodium (Protonix Ec Tab) 40 mg PO DAILY [facility] Pregabalin (Lyrica) 75 mg PO TID [facility] Last Admin: 02/28/19 18:11 Dose: 75 mg Rosuvastatin Calcium (Crestor) 10 mg PO HS [facility] Last Admin: 02/28/19 21:51 Dose: 10 mg - Labs Labs: 02/28/19 08:37 02/28/19 08:37 PT 11.9 SECONDS (9.7-12.2) 02/28/19 08:37 INR 1.1 02/28/19 08:37 APTT 33 SECONDS (21-34) 02/28/19 08:37 - Constitutional Appears: Non-toxic, No Acute Distress, Older Than Stated Age, Chronically Ill - Head Exam Head Exam: NORMOCEPHALIC Additional comments: multiple abrasions on top of head - chronic, healing - Eye Exam Eye Exam: EOMI, Normal appearance - ENT Exam ENT Exam: Mucous Membranes Moist - Respiratory Exam Respiratory Exam: Clear to Ausculation Bilateral, NORMAL BREATHING PATTERN. absent: Rales, Rhonchi, Wheezes - Cardiovascular Exam Cardiovascular Exam: +S1, +S2. absent: Murmur - GI/Abdominal Exam GI & Abdominal Exam: Soft, Normal Bowel Sounds. absent: Guarding, Rigid - Extremities Exam Additional comments: B/L AKA No bleeding No erythema - Back Exam Back Exam: absent: CVA tenderness (L), CVA tenderness (R) - Neurological Exam Neurological Exam: Alert, Awake, Oriented x3 - Psychiatric Exam Psychiatric exam: Normal Affect, Normal Mood - Skin Skin Exam: Dry, Intact, Normal Color, Warm Assessment and Plan - Assessment and Plan (Free Text) Assessment: 68 year old male w/ PMHx of HTN, DM, CAD s/p stents, admitted for chest pain, now presents with LV apical thrombus Plan: Left ventricle thrombus - INR remains at 1.1 post coumadin 5mg - c/w lovenox 30 mg SC Q12 - coumadin 7.5 mg last night, f/u AM lab - adjust coumadin evening dose accordingly - f/u cardio recs - c/w plavix, d/c aspirin as triple anticoagulation not advised CAD Non anginal chest pain - c/w plavix 75 mg daily, coumadin 5 mg HS for INR goal of 2-3 Ischemic cardiomyopathy w/ reduced EF History of hypertension - reduced EF per cardio - F/u ECHO read - metoprolol tartrate 50 mg PO BID - enalapril maleate 10 mg PO daily Chronic back pain - c/w home medication lyrica 75 mg PO TID History of HLD - c/w home medication rosuvastatin 10 mg PO HS History of diabetes - c/w home insulin levamir 25 units HS - will adjust insulin as BS persistently > 250 - ISS - accuchecks - hypoglyemia protocol PPx - DVT: bridging to coumadin, lovenox 30 mg SC Q12 <Rigoberto Gaxiola H - Last Filed: 03/01/19 10:22> Objective - Vital Signs/Intake and Output Vital Signs (last 24 hours): Temp Pulse Resp BP Pulse Ox 98.1 F 56 L 20 130/70 97 03/01/19 07:00 03/01/19 07:00 03/01/19 07:00 03/01/19 09:05 03/01/19 07:00 - Medications Medications: Current Medications Clopidogrel Bisulfate (Plavix) 75 mg PO DAILY [facility] Last Admin: 03/01/19 09:05 Dose: 75 mg Dextrose (Glutose 15) 0 gm PO ONCE PRN; Protocol PRN Reason: Hypoglycemia Protocol Dextrose (Dextrose 50% Inj) 0 ml IV STAT PRN; Protocol PRN Reason: Hypoglycemia Protocol Enalapril Maleate (Vasotec) 10 mg PO DAILY [facility] Last Admin: 03/01/19 09:05 Dose: 10 mg Enoxaparin Sodium (Lovenox) 30 mg SC Q12 [facility] Last Admin: 03/01/19 09:05 Dose: 30 mg Glucagon (Glucagen Diagnostic Kit) 0 mg IM STAT PRN; Protocol PRN Reason: Hypoglycemia Protocol Dextrose (Dextrose 5% In Water 1000 Ml) 1,000 mls @ 0 mls/hr IV .Q0M PRN; Protocol PRN Reason: Hypoglycemia Protocol Insulin Detemir (Levemir) 25 unit SC HS [facility] Last Admin: 02/28/19 21:51 Dose: 25 units Insulin Human Regular (Novolin R) 0 unit SC ACHS [facility]; Protocol Last Admin: 03/01/19 08:14 Dose: 4 units Metoprolol Tartrate (Lopressor) 50 mg PO BID [facility] Last Admin: 03/01/19 09:05 Dose: 50 mg Oxycodone/Acetaminophen (Percocet 5/325 Mg Tab) 1 tab PO Q4H PRN PRN Reason: Pain, moderate (4-7) Stop: 03/03/19 11:01 Last Admin: 03/01/19 08:33 Dose: 1 tab Pantoprazole Sodium (Protonix Ec Tab) 40 mg PO DAILY [facility] Last Admin: 03/01/19 09:08 Dose: 40 mg Pregabalin (Lyrica) 75 mg PO TID [facility] Last Admin: 03/01/19 09:05 Dose: 75 mg Rosuvastatin Calcium (Crestor) 10 mg PO HS [facility] Last Admin: 02/28/19 21:51 Dose: 10 mg - Labs Labs: 03/01/19 08:20 03/01/19 08:20 PT 11.9 SECONDS (9.7-12.2) 03/01/19 08:20 INR 1.1 03/01/19 08:20 APTT 36 SECONDS (21-34) H 03/01/19 08:20 Attending/Attestation - Attestation I have personally seen and examined this patient.: Yes I have fully participated in the care of the patient.: Yes I have reviewed all pertinent clinical information, including history, physical exam and plan: Yes Notes (Text): Medical attending: Patient was seen and examined by me with the medical claims specialist. We went over the above note and I agree with the above Last night the INR was low so we gave Coumadin 7.5, this morning the INR is still low. Continue with the lovenox SC BID Tonight again 7.5 and follow INR Patient reported he has pain bilateral AKA stumps. As mentioned previously the patient does not feel safe at home. There is no one there to help him he says. He has a son, however he explains the son does not care for him at all and he is often hungry, without medications, and not able to move far since he has bilateral AKA. The patient explained that in the past the son has always brought him back home, but this time he no longer wants to go home but to go to a longterm. Rigoberto Gaxiola
[2019-03-01] MEDS: (Novolin R) Insulin Human Regular 100 units/ml vial SC SCH ×5 (08:14→22:12)
[2019-03-01 08:32] LABS: BASO % 0.6 % (0.0-2.0); EOS # 0.1 K/uL (0.0-0.7); EOS % 1.9 % (0.0-4.0); HEMOGLOBIN 13.6 g/dL (12.0-18.0); LYMPH # 2.2 K/uL (1.0-4.3); LYMPH % 36.4 % (20.0-40.0); MEAN CELL VOLUME 81.2 fL (80.0-94.0); MEAN CORPUSCULAR HEMOGLOBIN 26.6 pg (27.0-31.0); MEAN CORPUSCULAR HGB CONC 32.8 g/dL (33.0-37.0); MEAN PLATELET VOLUME 9.6 fL (7.2-11.7); MONO # 0.7 K/uL (0.0-0.8); MONO % 11.4 % (0.0-10.0); NEUT % 49.7 % (50.0-75.0); RBC 5.1 Mil/uL (4.40-5.90); RED CELL DISTRIBUTION WIDTH 16.1 % (11.5-14.5)
[2019-03-01 08:37] LABS: INR 1.1; PROTHROMBIN TIME 11.9 SECONDS (9.7-12.2)
[2019-03-01] MEDS: Enoxaparin 30 mg Syringe SC SCH ×2 (09:05→21:28)
[2019-03-01] MEDS: Pantoprazole 40 mg EC Tab PO SCH (09:08)
[2019-03-01 09:09] LABS: ALB/GLOB RATIO 1.3 (1.0-2.1); ALBUMIN 3.8 g/dL (3.5-5.0); ALT/SGPT 12 U/L (21-72); AST/SGOT 15 U/L (17-59); BLOOD UREA NITROGEN 18 mg/dL (9-20); CALCIUM 9.1 mg/dl (8.6-10.4); GFR NON-AFRICAN AMERICAN > 60
[2019-03-01] MEDS: Insulin Detemir 100 units/ml Vial (Levemir) SC SCH (22:36)
[2019-03-02 07:05] LABS: BASO % 0.7 % (0.0-2.0); EOS # 0.1 K/uL (0.0-0.7); EOS % 2.3 % (0.0-4.0); HEMOGLOBIN 13.2 g/dL (12.0-18.0); LYMPH # 2.1 K/uL (1.0-4.3); LYMPH % 37.1 % (20.0-40.0); MEAN CELL VOLUME 80.9 fL (80.0-94.0); MEAN CORPUSCULAR HEMOGLOBIN 26.8 pg (27.0-31.0); MEAN CORPUSCULAR HGB CONC 33.1 g/dL (33.0-37.0); MEAN PLATELET VOLUME 9.9 fL (7.2-11.7); MONO # 0.6 K/uL (0.0-0.8); MONO % 11.2 % (0.0-10.0); NEUT # 2.8 K/uL (1.8-7.0); NEUT % 48.7 % (50.0-75.0); RBC 4.92 Mil/uL (4.40-5.90); RED CELL DISTRIBUTION WIDTH 16.1 % (11.5-14.5); WHITE BLOOD COUNT 5.8 K/uL (4.8-10.8)
[2019-03-02 07:13] LABS: INR 1.5
[2019-03-02 07:21] LABS: ALB/GLOB RATIO 1.4 (1.0-2.1); ALBUMIN 3.6 g/dL (3.5-5.0); ALT/SGPT 12 U/L (21-72); AST/SGOT 18 U/L (17-59); BLOOD UREA NITROGEN 18 mg/dL (9-20); CALCIUM 8.6 mg/dl (8.6-10.4); GFR NON-AFRICAN AMERICAN > 60
[2019-03-02] MEDS: (Novolin R) Insulin Human Regular 100 units/ml vial SC SCH ×4 (07:50→22:07)
--- NOTE | 2019-03-02 08:15 | CP.PCM.PN ---
<Tammy Cage - Last Filed: 03/02/19 11:06> Subjective - Date & Time of Evaluation Date of Evaluation: 03/02/19 Time of Evaluation: 08:11 - Subjective Subjective: PGY1 Medicine Progress Note for Dr. Short Patient seen and evaluated at bedside. Per overnight, Patient complained of 10/10 chest pain radiating to left arm. Repeat EKG and IRMA neg. Received Nitro x1.repeat EKG and IRMA neg. Received Nitro x1. Currently, Patient denies chest pain. Patient has no new complaints. Tolerating diet without issue. Per Patient, he says he does not have help at home. Patient states he is unable to get into WC ever since getting his second amputation a couple months ago (Left LE). Patient reports he does not have assistance with ADLs at home. Patient would like to go to nursing facility. Patient otherwise denies headache, shortness of breath, abdominal pain, fever, chills, nausea/vomiting. Objective - Vital Signs/Intake and Output Vital Signs (last 24 hours): Temp Pulse Resp BP Pulse Ox 97.6 F 57 L 20 127/70 98 03/02/19 07:00 03/02/19 07:00 03/02/19 07:00 03/02/19 07:00 03/02/19 07:00 Intake and Output: 03/02/19 03/02/19 06:59 18:59 Intake Total 500 Output Total 350 Balance 150 - Medications Medications: Current Medications Clopidogrel Bisulfate (Plavix) 75 mg PO DAILY [facility] Last Admin: 03/01/19 09:05 Dose: 75 mg Dextrose (Glutose 15) 0 gm PO ONCE PRN; Protocol PRN Reason: Hypoglycemia Protocol Dextrose (Dextrose 50% Inj) 0 ml IV STAT PRN; Protocol PRN Reason: Hypoglycemia Protocol Enalapril Maleate (Vasotec) 10 mg PO DAILY [facility] Last Admin: 03/01/19 09:05 Dose: 10 mg Enoxaparin Sodium (Lovenox) 30 mg SC Q12 [facility] Last Admin: 03/01/19 21:28 Dose: 30 mg Glucagon (Glucagen Diagnostic Kit) 0 mg IM STAT PRN; Protocol PRN Reason: Hypoglycemia Protocol Dextrose (Dextrose 5% In Water 1000 Ml) 1,000 mls @ 0 mls/hr IV .Q0M PRN; Protocol PRN Reason: Hypoglycemia Protocol Insulin Detemir (Levemir) 25 unit SC [facility] Last Admin: 03/01/19 22:36 Dose: 25 units Insulin Human Regular (Novolin R) 0 unit SC [facility]; Protocol Last Admin: 03/02/19 07:50 Dose: 4 units Metoprolol Tartrate (Lopressor) 50 mg PO BID [facility] Last Admin: 03/01/19 17:30 Dose: Not Given Oxycodone/Acetaminophen (Percocet 5/325 Mg Tab) 1 tab PO Q4H PRN PRN Reason: Pain, moderate (4-7) Stop: 03/03/19 11:01 Last Admin: 03/01/19 21:38 Dose: 1 tab Pantoprazole Sodium (Protonix Ec Tab) 40 mg PO DAILY [facility] Last Admin: 03/01/19 09:08 Dose: 40 mg Pregabalin (Lyrica) 75 mg PO TID [facility] Last Admin: 03/01/19 17:29 Dose: 75 mg Rosuvastatin Calcium (Crestor) 10 mg PO [facility] Last Admin: 03/01/19 21:28 Dose: 10 mg - Labs Labs: 03/02/19 06:54 03/02/19 06:54 PT 16.0 SECONDS (9.7-12.2) H 03/02/19 06:54 INR 1.5 03/02/19 06:54 APTT 38 SECONDS (21-34) H 03/02/19 06:54 - Additional Findings Additional findings: - Constitutional Appears: Non-toxic, No Acute Distress, Older Than Stated Age, Chronically Ill - Head Exam Head Exam: NORMOCEPHALIC Additional comments: multiple abrasions on top of head - chronic, healing - Eye Exam Eye Exam: EOMI, Normal appearance - ENT Exam ENT Exam: Mucous Membranes Moist - Respiratory Exam Respiratory Exam: Clear to Ausculation Bilateral, NORMAL BREATHING PATTERN. absent: Rales, Rhonchi, Wheezes - Cardiovascular Exam Cardiovascular Exam: +S1, +S2. absent: Murmur - GI/Abdominal Exam GI & Abdominal Exam: Soft, Normal Bowel Sounds. absent: Guarding, Rigid - Extremities Exam Additional comments: B/L AKA No bleeding No erythema - Back Exam Back Exam: absent: CVA tenderness (L), CVA tenderness (R) - Neurological Exam Neurological Exam: Alert, Awake, Oriented x3 - Psychiatric Exam Psychiatric exam: Normal Affect, Normal Mood - Skin Skin Exam: Dry, Intact, Normal Color, Warm Assessment and Plan - Assessment and Plan (Free Text) Assessment: 68 year old male w/ PMHx of HTN, DM, CAD s/p stents, admitted for chest pain, now presents with LV apical thrombus Left ventricle thrombus - INR 03/02: 1.5 - Coumadin 5mg HS today - Continue lovenox 30 mg SC Q12 - Adjust coumadin evening dose accordingly - Cardiology consulted (Dr. Martínez); recommendations appreciated - c/w plavix, d/c aspirin, as triple anticoagulation not advised Chronic CAD - Non anginal chest pain - Continue plavix 75 mg daily - Continue coumadin 5 mg HS for INR goal of 2-3 - INR: 03/02 --> 1.5 - Monitor INR Ischemic cardiomyopathy w/ reduced EF - Patient has History of hypertension - Cardiology consulted (Dr. Martínez); recommendations appreciated - Start low dose Warfarin - ECHO: - Continue metoprolol tartrate 50 mg PO BID - Continue enalapril maleate 10 mg PO daily Chronic back pain - c/w home medication lyrica 75 mg PO TID History of HLD - c/w home medication rosuvastatin 10 mg PO HS History of diabetes - c/w home insulin levamir 25 units HS - will adjust insulin as BS persistently > 250 - ISS - Accuchecks ACHS - hypoglyemia protocol PAD - S/P Bilateral AKA (most recent was left AKA amputation 2 months ago) - Educated on complete cessation of tobacco use (Patient down to 2 cigarettes per day) PPx / Dispo - DVT: On warfarin currently; follow up INR tomorrow. - GI: Protonix 40mg PO daily - PT/OT: Recommends [facility] - Social: Patient is bedbound and unable to get into without assistance. vegetable worker consulted; will follow-up on recommendations Patient seen and case discussed in detail with Dr. Short <Jenn Short - Last Filed: 03/02/19 13:40> Objective - Vital Signs/Intake and Output Vital Signs (last 24 hours): Temp Pulse Resp BP Pulse Ox 97.6 F 58 L 20 120/70 98 03/02/19 07:00 03/02/19 11:23 03/02/19 07:00 03/02/19 09:05 03/02/19 07:00 Intake and Output: 03/02/19 03/02/19 06:59 18:59 Intake Total 500 Output Total 350 Balance 150 - Medications Medications: Current Medications Clopidogrel Bisulfate (Plavix) 75 mg PO DAILY [facility] Last Admin: 03/02/19 09:02 Dose: 75 mg Dextrose (Glutose 15) 0 gm PO ONCE PRN; Protocol PRN Reason: Hypoglycemia Protocol Dextrose (Dextrose 50% Inj) 0 ml IV STAT PRN; Protocol PRN Reason: Hypoglycemia Protocol Enalapril Maleate (Vasotec) 10 mg PO DAILY [facility] Last Admin: 03/02/19 09:05 Dose: 10 mg Enoxaparin Sodium (Lovenox) 30 mg SC Q12 [facility] Last Admin: 03/02/19 09:07 Dose: 30 mg Glucagon (Glucagen Diagnostic Kit) 0 mg IM STAT PRN; Protocol PRN Reason: Hypoglycemia Protocol Dextrose (Dextrose 5% In Water 1000 Ml) 1,000 mls @ 0 mls/hr IV .Q0M PRN; Protocol PRN Reason: Hypoglycemia Protocol Insulin Detemir (Levemir) 25 unit SC [facility] Last Admin: 03/01/19 22:36 Dose: 25 units Insulin Human Regular (Novolin R) 0 unit SC [facility]; Protocol Last Admin: 03/02/19 11:46 Dose: 4 units Metoprolol Tartrate (Lopressor) 50 mg PO BID [facility] Last Admin: 03/02/19 09:07 Dose: 50 mg Oxycodone/Acetaminophen (Percocet 5/325 Mg Tab) 1 tab PO Q4H PRN PRN Reason: Pain, moderate (4-7) Stop: 03/03/19 11:01 Last Admin: 03/02/19 13:00 Dose: 1 tab Pantoprazole Sodium (Protonix Ec Tab) 40 mg PO DAILY [facility] Last Admin: 03/02/19 09:07 Dose: 40 mg Pregabalin (Lyrica) 75 mg PO TID [facility] Last Admin: 03/02/19 13:00 Dose: 75 mg Rosuvastatin Calcium (Crestor) 10 mg PO [facility] Last Admin: 03/01/19 21:28 Dose: 10 mg Warfarin Sodium (Coumadin) 5 mg PO 1800 [facility] Stop: 03/02/19 18:01 - Labs Labs: 03/02/19 06:54 03/02/19 06:54 PT 16.0 SECONDS (9.7-12.2) H 03/02/19 06:54 INR 1.5 03/02/19 06:54 APTT 38 SECONDS (21-34) H 03/02/19 06:54 Attending/Attestation - Attestation I have personally seen and examined this patient.: Yes I have fully participated in the care of the patient.: Yes I have reviewed all pertinent clinical information, including history, physical exam and plan: Yes Notes (Text): Patient has no pain,c/o he needs help at home and wants to go to Rehab. PT recommending rehab. We spoke to the CW. Patient finished his days of rehab. He cannot go to rehab. we have to d/c home with home care. We will give Coumadin with lovenox. d/c Coumadin when INR goes upt ot 2.0. CW spoke to his son and asking him to meet us to discuss about his care at home
[2019-03-02] MEDS: Oxycodone/Acetaminophen 5/325 mg Tab PO PRN ×2 (09:02→13:00)
[2019-03-02] MEDS: Enoxaparin 30 mg Syringe SC SCH ×2 (09:07→22:08)
[2019-03-02] MEDS: Pantoprazole 40 mg EC Tab PO SCH (09:07)
--- NOTE | 2019-03-02 10:55 | CARD ---
APPROVED REPORT Date of service: 03/01/2019 EKG Measurement Heart [id number] <Conclusion> Sinus bradycardia Left axis deviation Inferior infarct, age undetermined Anterolateral infarct, age undetermined Abnormal ECG
[2019-03-02] MEDS: Insulin Detemir 100 units/ml Vial (Levemir) SC SCH (22:08)
[2019-03-03] MEDS: Oxycodone/Acetaminophen 5/325 mg Tab PO PRN (04:46)
[2019-03-03] MEDS: (Novolin R) Insulin Human Regular 100 units/ml vial SC SCH ×4 (07:52→21:10)
[2019-03-03 08:04] LABS: ALB/GLOB RATIO 1.3 (1.0-2.1); ALBUMIN 3.7 g/dL (3.5-5.0); ALT/SGPT 15 U/L (21-72); AST/SGOT 17 U/L (17-59); BLOOD UREA NITROGEN 21 mg/dL (9-20); CALCIUM 9.1 mg/dl (8.6-10.4); GFR NON-AFRICAN AMERICAN > 60
[2019-03-03 08:17] LABS: INR 1.5; PROTHROMBIN TIME 16.5 SECONDS (9.7-12.2)
[2019-03-03 08:21] LABS: BASO % 0.6 % (0.0-2.0); EOS # 0.1 K/uL (0.0-0.7); EOS % 1.3 % (0.0-4.0); HEMOGLOBIN 13.6 g/dL (12.0-18.0); LYMPH # 1.7 K/uL (1.0-4.3); LYMPH % 31.9 % (20.0-40.0); MEAN CELL VOLUME 80.9 fL (80.0-94.0); MEAN CORPUSCULAR HEMOGLOBIN 26.9 pg (27.0-31.0); MEAN CORPUSCULAR HGB CONC 33.3 g/dL (33.0-37.0); MEAN PLATELET VOLUME 10.6 fL (7.2-11.7); MONO # 0.6 K/uL (0.0-0.8); MONO % 10.6 % (0.0-10.0); NEUT # 2.9 K/uL (1.8-7.0); NEUT % 55.6 % (50.0-75.0); NRBC % 0.1 % (0.0-2.0); RBC 5.07 Mil/uL (4.40-5.90); WHITE BLOOD COUNT 5.2 K/uL (4.8-10.8)
[2019-03-03] MEDS: Enoxaparin 30 mg Syringe SC SCH (09:03)
[2019-03-03] MEDS: Pantoprazole 40 mg EC Tab PO SCH (09:04)
--- NOTE | 2019-03-03 09:47 | CP.PCM.PN ---
<Jairo Rosenthal - Last Filed: 03/03/19 17:59> Subjective - Date & Time of Evaluation Date of Evaluation: 03/03/19 Time of Evaluation: 09:46 - Subjective Subjective: PGY-1 Medicine Progress Note for Dr. Short Patient seen and examined at bedside this AM, in no acute distress. No overnight events reported. We are continuing to monitor INR level for goal of 2-3. He denies any active chest pain, palpitations, sob. Does endorse some intermittent discomfort of his RLE s/p 2nd amputation a few months ago. Otherwise, no acute somatic complaints. Patient reports he does not have much help at home for ADLs, has difficulty with transfers to/from wheelchair and is primarily bedbound/on the couch. Patient would ideally benefit from snf but state he would like rehab. Conversations were had regarding home services. Objective - Vital Signs/Intake and Output Vital Signs (last 24 hours): Temp Pulse Resp BP Pulse Ox 97.8 F 59 L 20 112/63 96 03/03/19 07:00 03/03/19 07:00 03/03/19 07:00 03/03/19 09:04 03/03/19 07:00 Intake and Output: 03/03/19 03/03/19 06:59 18:59 Intake Total 500 Output Total 1300 Balance -800 - Medications Medications: Current Medications Acetaminophen (Tylenol 325mg Tab) 650 mg PO Q6 PRN PRN Reason: Pain, Mild (1-3) Last Admin: 03/02/19 18:10 Dose: 650 mg Clopidogrel Bisulfate (Plavix) 75 mg PO DAILY [facility] Last Admin: 03/03/19 09:03 Dose: 75 mg Dextrose (Glutose 15) 0 gm PO ONCE PRN; Protocol PRN Reason: Hypoglycemia Protocol Dextrose (Dextrose 50% Inj) 0 ml IV STAT PRN; Protocol PRN Reason: Hypoglycemia Protocol Docusate Sodium (Colace) 100 mg PO DAILY [facility] Last Admin: 03/03/19 09:03 Dose: 100 mg Enalapril Maleate (Vasotec) 10 mg PO DAILY [facility] Last Admin: 03/03/19 09:04 Dose: 10 mg Enoxaparin Sodium (Lovenox) 80 mg SC Q12 [facility] Glucagon (Glucagen Diagnostic Kit) 0 mg IM STAT PRN; Protocol PRN Reason: Hypoglycemia Protocol Insulin Detemir (Levemir) 25 unit SC [facility] Last Admin: 03/02/19 22:08 Dose: 25 units Insulin Human Regular (Novolin R) 0 unit SC ACHS [facility]; Protocol Last Admin: 03/03/19 07:52 Dose: 6 units Metoprolol Tartrate (Lopressor) 50 mg PO BID [facility] Last Admin: 03/03/19 09:03 Dose: 50 mg Oxycodone/Acetaminophen (Percocet 5/325 Mg Tab) 1 tab PO Q4H PRN PRN Reason: Pain, moderate (4-7) Stop: 03/03/19 11:01 Last Admin: 03/03/19 04:46 Dose: 1 tab Pantoprazole Sodium (Protonix Ec Tab) 40 mg PO DAILY [facility] Last Admin: 03/03/19 09:04 Dose: 40 mg Pregabalin (Lyrica) 75 mg PO TID [facility] Last Admin: 03/03/19 09:03 Dose: 75 mg Rosuvastatin Calcium (Crestor) 10 mg PO HS [facility] Last Admin: 03/02/19 22:07 Dose: 10 mg Warfarin Sodium (Coumadin) 5 mg PO 1800 [facility] Stop: 03/03/19 18:01 - Labs Labs: 03/03/19 07:16 03/03/19 07:16 PT 16.5 SECONDS (9.7-12.2) H 03/03/19 07:16 INR 1.5 03/03/19 07:16 APTT 37.0 SECONDS (21-34) H 03/03/19 07:16 - Constitutional Appears: Non-toxic, No Acute Distress - Head Exam Head Exam: ATRAUMATIC, NORMAL INSPECTION, NORMOCEPHALIC - Eye Exam Eye Exam: EOMI, Normal appearance, PERRL Pupil Exam: NORMAL ACCOMODATION - ENT Exam ENT Exam: Mucous Membranes Moist, Normal Exam - Neck Exam Neck Exam: Full ROM, Normal Inspection - Respiratory Exam Respiratory Exam: Clear to Ausculation Bilateral, NORMAL BREATHING PATTERN. absent: Accessory Muscle Use, Rales, Rhonchi, Wheezes, Respiratory Distress, Stridor - Cardiovascular Exam Cardiovascular Exam: REGULAR RHYTHM, +S1, +S2 - GI/Abdominal Exam GI & Abdominal Exam: Soft, Normal Bowel Sounds. absent: Distended, Firm, Guarding, Rigid, Tenderness, Rebound - Extremities Exam Extremities Exam: Normal Capillary Refill Additional comments: b/l AKA - Back Exam Back Exam: NORMAL INSPECTION - Neurological Exam Neurological Exam: Alert, Awake, CN II-XII Intact, Oriented x3 - Skin Skin Exam: Dry, Intact, Normal Color, Warm Assessment and Plan - Assessment and Plan (Free Text) Assessment: 68 year old male w/ PMHx of HTN, DM, CAD s/p stents, admitted for chest pain, now presents with LV apical thrombus Plan: Left ventricle thrombus - INR (03/03): 1.5 - to give another Coumadin 5mg PO HS today - Continue lovenox 30 mg SC Q12 - Adjust coumadin evening dose accordingly - Cardiology consulted (Dr. Martínez); recommendations appreciated -INR goal 2-3 Hx of CAD with stent placement -Plavix 75 mg daily -Coumadin 5 mg HS for INR goal of 2-3 Ischemic cardiomyopathy w/ reduced EF - Patient has History of hypertension - Cardiology consulted (Dr. Martínez); recommendations appreciated - Start low dose Warfarin, continue to monitor INR and adjust evening dose accordingly -metoprolol tartrate 50 mg PO BID -enalapril maleate 10 mg PO daily Chronic back pain -lyrica 75 mg PO TID History of HLD -rosuvastatin 10 mg PO HS DM -c/w home insulin levamir 25 units HS -Novolog 5 units ACBL -ISS -Accuchecks ACHS -hypoglyemia protocol PAD -s/p Bilateral AKA (most recent was left AKA amputation 2 months ago) -educated on complete cessation of tobacco use (Patient down to 2 cigarettes per day) PPx, Diet, Disposition -DVT ppx: On warfarin currently; follow up INR tomorrow. -GI ppx: Protonix 40mg PO daily -Diet: HHD -PT/OT on case Case discussed with Dr. Deja Rosenthal DO, PGY-1 <Jenn Short - Last Filed: 03/07/19 10:51> Objective - Vital Signs/Intake and Output Vital Signs (last 24 hours): Temp Pulse Resp BP Pulse Ox 98.2 F 55 L 20 110/59 L 95 03/03/19 15:00 03/03/19 16:00 03/03/19 15:00 03/03/19 15:00 03/03/19 15:00 Intake and Output: 03/03/19 03/03/19 06:59 18:59 Intake Total 500 354 Output Total 1300 900 Balance -800 -546 - Medications Medications: Current Medications Acetaminophen (Tylenol 325mg Tab) 650 mg PO Q6 PRN PRN Reason: Pain, Mild (1-3) Last Admin: 03/03/19 17:07 Dose: 650 mg Clopidogrel Bisulfate (Plavix) 75 mg PO DAILY [facility] Last Admin: 03/03/19 09:03 Dose: 75 mg Dextrose (Glutose 15) 0 gm PO ONCE PRN; Protocol PRN Reason: Hypoglycemia Protocol Dextrose (Dextrose 50% Inj) 0 ml IV STAT PRN; Protocol PRN Reason: Hypoglycemia Protocol Docusate Sodium (Colace) 100 mg PO DAILY [facility] Last Admin: 03/03/19 09:03 Dose: 100 mg Enalapril Maleate (Vasotec) 10 mg PO DAILY [facility] Last Admin: 03/03/19 09:04 Dose: 10 mg Enoxaparin Sodium (Lovenox) 80 mg SC Q12 [facility] Last Admin: 03/03/19 10:05 Dose: Not Given Glucagon (Glucagen Diagnostic Kit) 0 mg IM STAT PRN; Protocol PRN Reason: Hypoglycemia Protocol Insulin Aspart (Novolog) 5 unit SC ACBL [facility] Insulin Detemir (Levemir) 25 unit SC HS [facility] Last Admin: 03/02/19 22:08 Dose: 25 units Insulin Human Regular (Novolin R) 0 unit SC ACHS [facility]; Protocol Last Admin: 03/03/19 17:08 Dose: 4 units Metoprolol Tartrate (Lopressor) 50 mg PO BID [facility] Last Admin: 03/03/19 17:07 Dose: 50 mg Pantoprazole Sodium (Protonix Ec Tab) 40 mg PO DAILY [facility] Last Admin: 03/03/19 09:04 Dose: 40 mg Pregabalin (Lyrica) 75 mg PO TID [facility] Last Admin: 03/03/19 17:07 Dose: 75 mg Rosuvastatin Calcium (Crestor) 10 mg PO HS [facility] Last Admin: 03/02/19 22:07 Dose: 10 mg - Labs Labs: 03/03/19 07:16 03/03/19 07:16 PT 16.5 SECONDS (9.7-12.2) H 03/03/19 07:16 INR 1.5 03/03/19 07:16 APTT 37.0 SECONDS (21-34) H 03/03/19 07:16 Attending/Attestation - Attestation I have personally seen and examined this patient.: Yes I have fully participated in the care of the patient.: Yes I have reviewed all pertinent clinical information, including history, physical exam and plan: Yes Notes (Text): seen and examined with the resident. Patient wants to go long term. Lives in a rented apartment with his son. His son works and doesn't help him.Patient cannot transfer himself. Discharge plan discuss with [facility] 1.LV thrombus-continue coumadin with lovenox,follow INR 2.Ischemic cardiomyopathy,lo EF,CAD,PVD 3.Bilat aka 4.DM follow INR,patient cannot go home without proper home care arrangements.we will follow with [facility]
[2019-03-03] MEDS: Enoxaparin 80 mg Syringe SC SCH ×2 (10:05→21:11)
[2019-03-03] MEDS: Insulin Detemir 100 units/ml Vial (Levemir) SC SCH (21:10)
[2019-03-04 06:48] LABS: BASO % 0.6 % (0.0-2.0); EOS # 0.1 K/uL (0.0-0.7); EOS % 1.6 % (0.0-4.0); HEMOGLOBIN 13.7 g/dL (12.0-18.0); LYMPH # 2.5 K/uL (1.0-4.3); LYMPH % 38.7 % (20.0-40.0); MEAN CELL VOLUME 80.9 fL (80.0-94.0); MEAN CORPUSCULAR HEMOGLOBIN 26.2 pg (27.0-31.0); MEAN CORPUSCULAR HGB CONC 32.4 g/dL (33.0-37.0); MEAN PLATELET VOLUME 10.6 fL (7.2-11.7); MONO # 0.8 K/uL (0.0-0.8); MONO % 12.5 % (0.0-10.0); NEUT % 46.6 % (50.0-75.0); NRBC % 0.1 % (0.0-2.0); RBC 5.24 Mil/uL (4.40-5.90); RED CELL DISTRIBUTION WIDTH 16.5 % (11.5-14.5); WHITE BLOOD COUNT 6.5 K/uL (4.8-10.8)
[2019-03-04 06:57] LABS: INR 1.6; PROTHROMBIN TIME 17.5 SECONDS (9.7-12.2)
--- NOTE | 2019-03-04 07:07 | CP.PCM.PN ---
<Jairo Rosenthal - Last Filed: 03/04/19 14:50> Subjective - Date & Time of Evaluation Date of Evaluation: 03/04/19 Time of Evaluation: 07:06 - Subjective Subjective: PGY-1 Medicine Progress Note for Dr. Short Patient seen and examined at bedside this AM, pleasant and sitting comfortably by bedside . He denies any active chest pain, palpitations, sob, cough, abdominal pain. 12 pt ROS reviewed and otherwise negative. Patient is on low dose coumadin with continued monitoring of INR, with goal of 2-3. Patient requires more assistance at home with ADLs, will f/u with CM on possible home services. Objective - Vital Signs/Intake and Output Vital Signs (last 24 hours): Temp Pulse Resp BP Pulse Ox 97.8 F 54 L 20 125/69 97 03/04/19 04:37 03/04/19 04:37 03/04/19 04:37 03/04/19 04:37 03/04/19 04:37 Intake and Output: 03/04/19 03/04/19 06:59 18:59 Intake Total 480 Output Total 400 Balance 80 - Medications Medications: Current Medications Acetaminophen (Tylenol 325mg Tab) 650 mg PO Q6 PRN PRN Reason: Pain, Mild (1-3) Last Admin: 03/04/19 03:11 Dose: 650 mg Clopidogrel Bisulfate (Plavix) 75 mg PO DAILY [facility] Last Admin: 03/03/19 09:03 Dose: 75 mg Dextrose (Glutose 15) 0 gm PO ONCE PRN; Protocol PRN Reason: Hypoglycemia Protocol Dextrose (Dextrose 50% Inj) 0 ml IV STAT PRN; Protocol PRN Reason: Hypoglycemia Protocol Docusate Sodium (Colace) 100 mg PO DAILY [facility] Last Admin: 03/03/19 09:03 Dose: 100 mg Enalapril Maleate (Vasotec) 10 mg PO DAILY [facility] Last Admin: 03/03/19 09:04 Dose: 10 mg Enoxaparin Sodium (Lovenox) 80 mg SC Q12 [facility] Last Admin: 03/03/19 21:11 Dose: 80 mg Glucagon (Glucagen Diagnostic Kit) 0 mg IM STAT PRN; Protocol PRN Reason: Hypoglycemia Protocol Insulin Aspart (Novolog) 5 unit SC ACBL [facility] Insulin Detemir (Levemir) 30 unit SC HS [facility] Last Admin: 03/03/19 21:10 Dose: 30 units Insulin Human Regular (Novolin R) 0 unit SC ACHS [facility]; Protocol Metoprolol Tartrate (Lopressor) 50 mg PO BID [facility] Last Admin: 03/03/19 17:07 Dose: 50 mg Pantoprazole Sodium (Protonix Ec Tab) 40 mg PO DAILY [facility] Last Admin: 03/03/19 09:04 Dose: 40 mg Pregabalin (Lyrica) 75 mg PO TID [facility] Last Admin: 03/03/19 17:07 Dose: 75 mg Rosuvastatin Calcium (Crestor) 10 mg PO HS [facility] Last Admin: 03/03/19 21:10 Dose: 10 mg Tramadol HCl (Ultram) 50 mg PO TID PRN PRN Reason: Pain, moderate (4-7) Last Admin: 03/03/19 23:02 Dose: 50 mg Warfarin Sodium (Coumadin) 2.5 mg PO ONCE ONE Stop: 03/04/19 18:42 - Labs Labs: 03/04/19 06:36 03/03/19 07:16 PT 17.5 SECONDS (9.7-12.2) H 03/04/19 06:36 INR 1.6 03/04/19 06:36 APTT 38.0 SECONDS (21-34) H 03/04/19 06:36 - Constitutional Appears: Non-toxic, No Acute Distress - Head Exam Head Exam: ATRAUMATIC, NORMAL INSPECTION, NORMOCEPHALIC - Eye Exam Eye Exam: EOMI, Normal appearance, PERRL Pupil Exam: NORMAL ACCOMODATION - ENT Exam ENT Exam: Mucous Membranes Moist, Normal Exam - Neck Exam Neck Exam: Full ROM, Normal Inspection - Respiratory Exam Respiratory Exam: Clear to Ausculation Bilateral, NORMAL BREATHING PATTERN. absent: Accessory Muscle Use, Rales, Rhonchi, Wheezes, Respiratory Distress, Stridor - Cardiovascular Exam Cardiovascular Exam: REGULAR RHYTHM, +S1, +S2 - GI/Abdominal Exam GI & Abdominal Exam: Soft, Normal Bowel Sounds. absent: Distended, Firm, Guarding, Rigid, Tenderness, Rebound - Extremities Exam Extremities Exam: Full ROM, Normal Capillary Refill Additional comments: b/l AKA - Back Exam Back Exam: NORMAL INSPECTION - Neurological Exam Neurological Exam: Alert, Awake, Oriented x3 - Skin Skin Exam: Dry, Intact, Normal Color, Warm Assessment and Plan - Assessment and Plan (Free Text) Assessment: 68 year old male w/ PMHx of HTN, DM, CAD s/p stents, admitted for chest pain, now presents with LV apical thrombus Plan: Left ventricle thrombus - INR (03/04): 1.6 -will give 7.5 mg coumadin this evening -remains on therapeutic lovenox 80 mg SC daily -adjust coumadin evening dose accordingly -Cardiology consulted (Dr. Martínez); recommendations appreciated -INR goal 2-3 Hx of CAD with stent placement -Plavix 75 mg daily -Coumadin 5 mg HS for INR goal of 2-3 -not on ASA, as triple anticoagulation is not recommended per Cardiology Ischemic cardiomyopathy w/ reduced EF - Patient has History of hypertension - Cardiology consulted (Dr. Martínez); recommendations appreciated - Start low dose Warfarin, continue to monitor INR and adjust evening dose accordingly -metoprolol tartrate 50 mg PO BID -enalapril maleate 10 mg PO daily Chronic back pain -lyrica 75 mg PO TID History of HLD -rosuvastatin 10 mg PO HS DM -c/w home insulin levemir 25 units HS -Novolog 5 units ACBL -ISS -Accuchecks ACHS -hypoglyemia protocol PAD -s/p Bilateral AKA (most recent was left AKA amputation 2 months ago) -educated on complete cessation of tobacco use (Patient down to 2 cigarettes per day) PPx, Diet, Disposition -DVT ppx: On warfarin currently; follow up INR tomorrow. -GI ppx: Protonix 40mg PO daily -Diet: HHD -PT/OT on case Case discussed with Dr. Deja Rosenthal DO, PGY-1 <Jenn Short - Last Filed: 03/07/19 10:58> Objective - Vital Signs/Intake and Output Vital Signs (last 24 hours): Temp Pulse Resp BP Pulse Ox 97.9 F 52 L 20 140/80 96 03/07/19 07:00 03/07/19 07:00 03/07/19 07:00 03/07/19 09:44 03/07/19 07:00 Intake and Output: 03/07/19 03/07/19 06:59 18:59 Output Total 400 Balance -400 - Medications Medications: Current Medications Acetaminophen (Tylenol 325mg Tab) 650 mg PO Q6 PRN PRN Reason: Pain, Mild (1-3) Last Admin: 03/05/19 11:55 Dose: 650 mg Clopidogrel Bisulfate (Plavix) 75 mg PO DAILY [facility] Last Admin: 03/07/19 09:43 Dose: 75 mg Dextrose (Glutose 15) 0 gm PO ONCE PRN; Protocol PRN Reason: Hypoglycemia Protocol Dextrose (Dextrose 50% Inj) 0 ml IV STAT PRN; Protocol PRN Reason: Hypoglycemia Protocol Docusate Sodium (Colace) 100 mg PO DAILY [facility] Last Admin: 03/07/19 09:43 Dose: 100 mg Enalapril Maleate (Vasotec) 10 mg PO DAILY [facility] Last Admin: 03/07/19 09:44 Dose: 10 mg Glucagon (Glucagen Diagnostic Kit) 0 mg IM STAT PRN; Protocol PRN Reason: Hypoglycemia Protocol Hydrocortisone (Cortizone 0.5% Cream) 1 applic TOP BID [facility] Last Admin: 03/07/19 09:45 Dose: 1 applic Insulin Aspart (Novolog) 5 unit SC ACBL [facility] Last Admin: 03/07/19 08:34 Dose: 5 units Insulin Detemir (Levemir) 20 unit SC HS [facility] Insulin Detemir (Levemir) 15 unit SC ACB [facility] Insulin Human Regular (Novolin R) 0 unit SC ACHS [facility]; Protocol Last Admin: 03/07/19 08:35 Dose: 4 units Metoprolol Tartrate (Lopressor) 50 mg PO BID [facility] Last Admin: 03/07/19 09:45 Dose: Not Given Pantoprazole Sodium (Protonix Ec Tab) 40 mg PO DAILY [facility] Last Admin: 03/07/19 09:44 Dose: 40 mg Pregabalin (Lyrica) 75 mg PO TID [facility] Last Admin: 03/07/19 09:43 Dose: 75 mg Rosuvastatin Calcium (Crestor) 10 mg PO HS [facility] Last Admin: 03/06/19 21:38 Dose: 10 mg Tramadol HCl (Ultram) 50 mg PO TID PRN PRN Reason: Pain, moderate (4-7) Last Admin: 03/07/19 04:44 Dose: 50 mg Warfarin Sodium (Coumadin) 6 mg PO 1800 [facility] Stop: 03/07/19 18:01 - Labs Labs: 03/05/19 07:57 03/05/19 07:57 PT 23.2 SECONDS (9.7-12.2) H 03/07/19 07:16 INR 2.1 03/07/19 07:16 APTT 47.0 SECONDS (21-34) H 03/07/19 07:16 Attending/Attestation - Attestation I have personally seen and examined this patient.: Yes I have fully participated in the care of the patient.: Yes I have reviewed all pertinent clinical information, including history, physical exam and plan: Yes Notes (Text): seen and examined,lying comfortable, c/o pain,continue lyrica, Today's INR 1.6,give coumadin 7.5mg tonight,INR goal 2 to 3 Patient cannot manage himself at home.follow up with [facility] .
[2019-03-04 07:11] LABS: ALB/GLOB RATIO 1.4 (1.0-2.1); ALBUMIN 3.7 g/dL (3.5-5.0); ALT/SGPT 17 U/L (21-72); AST/SGOT 21 U/L (17-59); BLOOD UREA NITROGEN 20 mg/dL (9-20); CALCIUM 8.6 mg/dl (8.6-10.4); GFR NON-AFRICAN AMERICAN > 60
[2019-03-04] MEDS: (Novolin R) Insulin Human Regular 100 units/ml vial SC SCH ×4 (08:09→21:36)
[2019-03-04] MEDS: (Novolog) Insulin Aspart, Recombinant 100 u/ml 10 ml vial SC SCH (08:10)
[2019-03-04] MEDS: Pantoprazole 40 mg EC Tab PO SCH (09:53)
[2019-03-04] MEDS: Enoxaparin 80 mg Syringe SC SCH ×2 (10:08→21:37)
[2019-03-04] MEDS: Insulin Detemir 100 units/ml Vial (Levemir) SC SCH (21:36)
--- NOTE | 2019-03-05 07:00 | CP.PCM.PN ---
<Jairo Rosenthal - Last Filed: 03/05/19 13:57> Subjective - Date & Time of Evaluation Date of Evaluation: 03/05/19 Time of Evaluation: 07:00 - Subjective Subjective: PGY-1 Medicine Progress Note for Dr. Short Patient seen and examined at bedside this AM, in no acute distress. INR continues to trend upward, will continue to monitor for goal of 2-3. Several attempts have been made by SW to reach out to patient's son, who has not followed up. Patient remains an unsafe discharge. He lives on the 2nd floor of a 6 family building with no means of opening the door for home services to enter, no means of checking his bloodwork at home. SW continuing to coordinate. Objective - Vital Signs/Intake and Output Vital Signs (last 24 hours): Temp Pulse Resp BP Pulse Ox 97.7 F 58 L 20 112/67 96 03/04/19 23:35 03/04/19 23:35 03/04/19 23:35 03/04/19 23:35 03/04/19 23:35 Intake and Output: 03/04/19 03/05/19 18:59 06:59 Intake Total 540 Output Total 1150 1050 Balance -610 -1050 - Medications Medications: Current Medications Acetaminophen (Tylenol 325mg Tab) 650 mg PO Q6 PRN PRN Reason: Pain, Mild (1-3) Last Admin: 03/04/19 03:11 Dose: 650 mg Clopidogrel Bisulfate (Plavix) 75 mg PO DAILY [facility] Last Admin: 03/04/19 10:09 Dose: 75 mg Dextrose (Glutose 15) 0 gm PO ONCE PRN; Protocol PRN Reason: Hypoglycemia Protocol Dextrose (Dextrose 50% Inj) 0 ml IV STAT PRN; Protocol PRN Reason: Hypoglycemia Protocol Docusate Sodium (Colace) 100 mg PO DAILY [facility] Last Admin: 03/04/19 09:53 Dose: 100 mg Enalapril Maleate (Vasotec) 10 mg PO DAILY [facility] Last Admin: 03/04/19 10:11 Dose: 10 mg Enoxaparin Sodium (Lovenox) 80 mg SC Q12 [facility] Last Admin: 03/04/19 21:37 Dose: 80 mg Glucagon (Glucagen Diagnostic Kit) 0 mg IM STAT PRN; Protocol PRN Reason: Hypoglycemia Protocol Insulin Aspart (Novolog) 5 unit SC ACBL [facility] Last Admin: 03/04/19 08:10 Dose: 5 units Insulin Detemir (Levemir) 30 unit SC [facility] Last Admin: 03/04/19 21:36 Dose: 30 units Insulin Human Regular (Novolin R) 0 unit SC ACHS [facility]; Protocol Last Admin: 03/04/19 21:36 Dose: 2 units Metoprolol Tartrate (Lopressor) 50 mg PO BID [facility] Last Admin: 03/04/19 17:24 Dose: Not Given Pantoprazole Sodium (Protonix Ec Tab) 40 mg PO DAILY [facility] Last Admin: 03/04/19 09:53 Dose: 40 mg Pregabalin (Lyrica) 75 mg PO TID [facility] Last Admin: 03/04/19 17:20 Dose: 75 mg Rosuvastatin Calcium (Crestor) 10 mg PO [facility] Last Admin: 03/04/19 21:37 Dose: 10 mg Tramadol HCl (Ultram) 50 mg PO TID PRN PRN Reason: Pain, moderate (4-7) Last Admin: 03/05/19 00:55 Dose: 50 mg - Labs Labs: 03/04/19 06:36 03/04/19 06:36 PT 17.5 SECONDS (9.7-12.2) H 03/04/19 06:36 INR 1.6 03/04/19 06:36 APTT 38.0 SECONDS (21-34) H 03/04/19 06:36 - Constitutional Appears: Non-toxic, No Acute Distress - Head Exam Head Exam: ATRAUMATIC, NORMAL INSPECTION, NORMOCEPHALIC - Eye Exam Eye Exam: EOMI, Normal appearance, PERRL Pupil Exam: NORMAL ACCOMODATION - ENT Exam ENT Exam: Mucous Membranes Moist, Normal Exam - Neck Exam Neck Exam: Full ROM, Normal Inspection - Respiratory Exam Respiratory Exam: Clear to Ausculation Bilateral, NORMAL BREATHING PATTERN. absent: Accessory Muscle Use, Rales, Rhonchi, Wheezes, Respiratory Distress - Cardiovascular Exam Cardiovascular Exam: REGULAR RHYTHM, +S1, +S2 - GI/Abdominal Exam GI & Abdominal Exam: Soft, Normal Bowel Sounds. absent: Distended, Firm, Guarding, Tenderness, Rebound - Extremities Exam Extremities Exam: Full ROM, Normal Capillary Refill, Normal Inspection Additional comments: b/l AKA - Neurological Exam Neurological Exam: Alert, Awake, Oriented x3 - Skin Skin Exam: Dry, Intact, Normal Color, Warm Assessment and Plan - Assessment and Plan (Free Text) Assessment: 68 year old male w/ PMHx of HTN, DM, CAD s/p stents, admitted for chest pain, now presents with LV apical thrombus Plan: Left ventricle thrombus - INR (03/05): 1.6 -remains on therapeutic lovenox 80 mg SC daily -adjust coumadin evening dose accordingly -Cardiology consulted (Dr. Ruth); recommendations appreciated -INR goal 2-3 Hx of CAD with stent placement -Plavix 75 mg daily -Coumadin 5 mg HS for INR goal of 2-3 -not on ASA, as triple anticoagulation is not recommended per Cardiology Ischemic cardiomyopathy w/ reduced EF - Patient has History of hypertension - Cardiology consulted (Dr. Ruth); recommendations appreciated - Start low dose Warfarin, continue to monitor INR and adjust evening dose accordingly -metoprolol tartrate 50 mg PO BID -enalapril maleate 10 mg PO daily Chronic back pain -lyrica 75 mg PO TID History of HLD -rosuvastatin 10 mg PO HS DM -c/w home insulin levemir 25 units HS -Novolog 5 units ACBL -ISS -Accuchecks ACHS -hypoglyemia protocol PAD -s/p Bilateral AKA (most recent was left AKA amputation 2 months ago) -educated on complete cessation of tobacco use (Patient down to 2 cigarettes per day) PPx, Diet, Disposition -DVT ppx: On warfarin currently; follow up INR tomorrow. -GI ppx: Protonix 40mg PO daily -Diet: HHD -PT/OT on case Case discussed with Dr. Deja Rosenthal DO, PGY-1 <Jenn Short - Last Filed: 03/07/19 11:38> Objective - Vital Signs/Intake and Output Vital Signs (last 24 hours): Temp Pulse Resp BP Pulse Ox 97.9 F 52 L 20 140/80 96 03/07/19 07:00 03/07/19 07:00 03/07/19 07:00 03/07/19 09:44 03/07/19 07:00 Intake and Output: 03/07/19 03/07/19 06:59 18:59 Output Total 400 Balance -400 - Medications Medications: Current Medications Acetaminophen (Tylenol 325mg Tab) 650 mg PO Q6 PRN PRN Reason: Pain, Mild (1-3) Last Admin: 03/05/19 11:55 Dose: 650 mg Clopidogrel Bisulfate (Plavix) 75 mg PO DAILY [facility] Last Admin: 03/07/19 09:43 Dose: 75 mg Dextrose (Glutose 15) 0 gm PO ONCE PRN; Protocol PRN Reason: Hypoglycemia Protocol Dextrose (Dextrose 50% Inj) 0 ml IV STAT PRN; Protocol PRN Reason: Hypoglycemia Protocol Docusate Sodium (Colace) 100 mg PO DAILY [facility] Last Admin: 03/07/19 09:43 Dose: 100 mg Enalapril Maleate (Vasotec) 10 mg PO DAILY [facility] Last Admin: 03/07/19 09:44 Dose: 10 mg Glucagon (Glucagen Diagnostic Kit) 0 mg IM STAT PRN; Protocol PRN Reason: Hypoglycemia Protocol Hydrocortisone (Cortizone 0.5% Cream) 1 applic TOP BID [facility] Last Admin: 03/07/19 09:45 Dose: 1 applic Insulin Aspart (Novolog) 5 unit SC ACBL [facility] Last Admin: 03/07/19 08:34 Dose: 5 units Insulin Detemir (Levemir) 20 unit SC HS [facility] Insulin Detemir (Levemir) 15 unit SC ACB [facility] Insulin Human Regular (Novolin R) 0 unit SC [facility]; Protocol Last Admin: 03/07/19 08:35 Dose: 4 units Metoprolol Tartrate (Lopressor) 50 mg PO BID [facility] Last Admin: 03/07/19 09:45 Dose: Not Given Pantoprazole Sodium (Protonix Ec Tab) 40 mg PO DAILY [facility] Last Admin: 03/07/19 09:44 Dose: 40 mg Pregabalin (Lyrica) 75 mg PO TID [facility] Last Admin: 03/07/19 09:43 Dose: 75 mg Rosuvastatin Calcium (Crestor) 10 mg PO HS [facility] Last Admin: 03/06/19 21:38 Dose: 10 mg Tramadol HCl (Ultram) 50 mg PO TID PRN PRN Reason: Pain, moderate (4-7) Last Admin: 03/07/19 04:44 Dose: 50 mg Warfarin Sodium (Coumadin) 6 mg PO 1800 [facility] Stop: 03/07/19 18:01 - Labs Labs: 03/05/19 07:57 03/05/19 07:57 PT 23.2 SECONDS (9.7-12.2) H 03/07/19 07:16 INR 2.1 03/07/19 07:16 APTT 47.0 SECONDS (21-34) H 03/07/19 07:16 Attending/Attestation - Attestation I have personally seen and examined this patient.: Yes I have fully participated in the care of the patient.: Yes I have reviewed all pertinent clinical information, including history, physical exam and plan: Yes Notes (Text): Seen and examined with the resident plan discussed continue lovenox and coumadin,follow INR,goal INR 2-3 Discussed with SW about dishcarge plan,Patient follows Dr ruth. Arrange to have home blood test and call DR Ruth to adjust the coumadin dose.
[2019-03-05] MEDS: (Novolin R) Insulin Human Regular 100 units/ml vial SC SCH ×4 (07:31→21:33)
[2019-03-05] MEDS: (Novolog) Insulin Aspart, Recombinant 100 u/ml 10 ml vial SC SCH ×3 (07:32→11:34)
[2019-03-05 08:12] LABS: BASO % 0.9 % (0.0-2.0); EOS # 0.1 K/uL (0.0-0.7); EOS % 1.8 % (0.0-4.0); HEMOGLOBIN 14.5 g/dL (12.0-18.0); LYMPH % 36.4 % (20.0-40.0); MEAN CELL VOLUME 80.9 fL (80.0-94.0); MEAN CORPUSCULAR HGB CONC 33.4 g/dL (33.0-37.0); MEAN PLATELET VOLUME 11.1 fL (7.2-11.7); MONO # 0.6 K/uL (0.0-0.8); MONO % 10.2 % (0.0-10.0); NEUT # 2.8 K/uL (1.8-7.0); NEUT % 50.7 % (50.0-75.0); NRBC % 0.1 % (0.0-2.0); RBC 5.36 Mil/uL (4.40-5.90); RED CELL DISTRIBUTION WIDTH 15.9 % (11.5-14.5); WHITE BLOOD COUNT 5.5 K/uL (4.8-10.8)
[2019-03-05 08:14] LABS: INR 1.6; PROTHROMBIN TIME 17.3 SECONDS (9.7-12.2)
[2019-03-05 08:38] LABS: ALB/GLOB RATIO 1.4 (1.0-2.1); ALT/SGPT 23 U/L (21-72); AST/SGOT 23 U/L (17-59); BLOOD UREA NITROGEN 19 mg/dL (9-20); CALCIUM 9.1 mg/dl (8.6-10.4); GFR NON-AFRICAN AMERICAN > 60
[2019-03-05] MEDS: Enoxaparin 80 mg Syringe SC SCH ×2 (09:26→21:38)
[2019-03-05] MEDS: Pantoprazole 40 mg EC Tab PO SCH (09:26)
[2019-03-05] MEDS: Insulin Detemir 100 units/ml Vial (Levemir) SC SCH (21:39)
[2019-03-06] MEDS: (Novolog) Insulin Aspart, Recombinant 100 u/ml 10 ml vial SC SCH ×2 (07:39→12:15)
[2019-03-06] MEDS: (Novolin R) Insulin Human Regular 100 units/ml vial SC SCH ×4 (07:40→21:33)
[2019-03-06 07:45] VITALS: RESP 20
--- NOTE | 2019-03-06 07:53 | CP.PCM.PN ---
<Jairo Rosenthal - Last Filed: 03/06/19 10:56> Subjective - Date & Time of Evaluation Date of Evaluation: 03/06/19 Time of Evaluation: 07:52 - Subjective Subjective: PGY-1 Medicine Progress Note for Dr. Short Patient seen and examined sitting by bedside this AM. No acute overnight events reported. Denies any chest pain, palpitations, sob. INR continues to increase slowly, monitoring for goal of 2-3. Spoke to patient's son on phone about discharge plans, need for home services setup and means of accessing patient's apartment. Son says that he is off from work on Saturday and can come to speak to SW then. He may be able to provide set of keys. If patient ends up being discharged today, he will need home blood checks and lovenox per Dr. Short. There might be an issue with compliance. Objective - Vital Signs/Intake and Output Vital Signs (last 24 hours): Temp Pulse Resp BP Pulse Ox 98.2 F 60 20 126/76 95 03/06/19 07:00 03/06/19 07:00 03/06/19 07:00 03/06/19 07:00 03/06/19 07:00 Intake and Output: 03/06/19 03/06/19 06:59 18:59 Intake Total 500 Output Total 850 Balance -350 - Medications Medications: Current Medications Acetaminophen (Tylenol 325mg Tab) 650 mg PO Q6 PRN PRN Reason: Pain, Mild (1-3) Last Admin: 03/05/19 11:55 Dose: 650 mg Clopidogrel Bisulfate (Plavix) 75 mg PO DAILY [facility] Last Admin: 03/05/19 09:25 Dose: 75 mg Dextrose (Glutose 15) 0 gm PO ONCE PRN; Protocol PRN Reason: Hypoglycemia Protocol Dextrose (Dextrose 50% Inj) 0 ml IV STAT PRN; Protocol PRN Reason: Hypoglycemia Protocol Docusate Sodium (Colace) 100 mg PO DAILY [facility] Last Admin: 03/05/19 09:26 Dose: 100 mg Enalapril Maleate (Vasotec) 10 mg PO DAILY [facility] Last Admin: 03/05/19 09:26 Dose: 10 mg Enoxaparin Sodium (Lovenox) 80 mg SC Q12 [facility] Last Admin: 03/05/19 21:38 Dose: 80 mg Glucagon (Glucagen Diagnostic Kit) 0 mg IM STAT PRN; Protocol PRN Reason: Hypoglycemia Protocol Hydrocortisone (Cortizone 0.5% Cream) 1 applic TOP BID [facility] Last Admin: 03/05/19 17:35 Dose: 1 appful Insulin Aspart (Novolog) 5 unit SC ACBL [facility] Last Admin: 03/06/19 07:39 Dose: 5 units Insulin Detemir (Levemir) 30 unit SC HS [facility] Last Admin: 03/05/19 21:39 Dose: 30 units Insulin Human Regular (Novolin R) 0 unit SC ACHS [facility]; Protocol Last Admin: 03/06/19 07:40 Dose: 6 units Metoprolol Tartrate (Lopressor) 50 mg PO BID [facility] Last Admin: 03/05/19 17:34 Dose: Not Given Pantoprazole Sodium (Protonix Ec Tab) 40 mg PO DAILY [facility] Last Admin: 03/05/19 09:26 Dose: 40 mg Pregabalin (Lyrica) 75 mg PO TID [facility] Last Admin: 03/05/19 17:31 Dose: 75 mg Rosuvastatin Calcium (Crestor) 10 mg PO [facility] Last Admin: 03/05/19 21:37 Dose: 10 mg Tramadol HCl (Ultram) 50 mg PO TID PRN PRN Reason: Pain, moderate (4-7) Last Admin: 03/05/19 21:38 Dose: 50 mg - Labs Labs: 03/05/19 07:57 03/05/19 07:57 PT 17.3 SECONDS (9.7-12.2) H 03/05/19 07:57 INR 1.6 03/05/19 07:57 APTT 45.0 SECONDS (21-34) H D 03/05/19 07:57 - Constitutional Appears: Non-toxic, No Acute Distress - Head Exam Head Exam: ATRAUMATIC, NORMAL INSPECTION, NORMOCEPHALIC - Eye Exam Eye Exam: EOMI, Normal appearance, PERRL Pupil Exam: NORMAL ACCOMODATION - ENT Exam ENT Exam: Mucous Membranes Moist, Normal Exam - Neck Exam Neck Exam: Full ROM, Normal Inspection - Respiratory Exam Respiratory Exam: Clear to Ausculation Bilateral, NORMAL BREATHING PATTERN. absent: Accessory Muscle Use, Rales, Rhonchi, Wheezes, Respiratory Distress, Stridor - Cardiovascular Exam Cardiovascular Exam: REGULAR RHYTHM, +S1, +S2 - GI/Abdominal Exam GI & Abdominal Exam: Soft, Normal Bowel Sounds. absent: Distended, Firm, Guarding, Rigid, Tenderness, Rebound - Extremities Exam Extremities Exam: Full ROM, Normal Capillary Refill Additional comments: b/l AKA - Back Exam Back Exam: NORMAL INSPECTION - Neurological Exam Neurological Exam: Alert, Awake, Oriented x3 - Psychiatric Exam Psychiatric exam: Normal Affect, Normal Mood - Skin Skin Exam: Dry, Intact, Normal Color, Warm Assessment and Plan - Assessment and Plan (Free Text) Assessment: 68 year old male w/ PMHx of HTN, DM, CAD s/p stents, admitted for chest pain, now presents with LV apical thrombus. Plan: Left ventricle thrombus - INR (03/06): 1.7 -remains on therapeutic lovenox 80 mg SC daily -adjust coumadin evening dose accordingly -Cardiology consulted (Dr. Martínez); recommendations appreciated -INR goal 2-3 Hx of CAD with stent placement -Plavix 75 mg daily -Coumadin 5 mg HS for INR goal of 2-3 -not on ASA, as triple anticoagulation is not recommended per Cardiology Ischemic cardiomyopathy w/ reduced EF - Patient has History of hypertension - Cardiology consulted (Dr. Martínez); recommendations appreciated - Start low dose Warfarin, continue to monitor INR and adjust evening dose accordingly -metoprolol tartrate 50 mg PO BID -enalapril maleate 10 mg PO daily Chronic back pain -lyrica 75 mg PO TID History of HLD -rosuvastatin 10 mg PO HS DM -c/w home insulin levemir 25 units HS -Novolog 5 units ACBL -ISS -Accuchecks ACHS -hypoglyemia protocol PAD -s/p Bilateral AKA (most recent was left AKA amputation 2 months ago) -educated on complete cessation of tobacco use (Patient down to 2 cigarettes per day) PPx, Diet, Disposition -DVT ppx: On warfarin currently; follow up INR tomorrow. -GI ppx: Protonix 40mg PO daily -Diet: HHD -PT/OT on case Case discussed with Dr. Deja Rosenthal DO, PGY-1 <Jenn Short - Last Filed: 03/07/19 11:31> Objective - Vital Signs/Intake and Output Vital Signs (last 24 hours): Temp Pulse Resp BP Pulse Ox 97.9 F 52 L 20 140/80 96 03/07/19 07:00 03/07/19 07:00 03/07/19 07:00 03/07/19 09:44 03/07/19 07:00 Intake and Output: 03/07/19 03/07/19 06:59 18:59 Output Total 400 Balance -400 - Medications Medications: Current Medications Acetaminophen (Tylenol 325mg Tab) 650 mg PO Q6 PRN PRN Reason: Pain, Mild (1-3) Last Admin: 03/05/19 11:55 Dose: 650 mg Clopidogrel Bisulfate (Plavix) 75 mg PO DAILY [facility] Last Admin: 03/07/19 09:43 Dose: 75 mg Dextrose (Glutose 15) 0 gm PO ONCE PRN; Protocol PRN Reason: Hypoglycemia Protocol Dextrose (Dextrose 50% Inj) 0 ml IV STAT PRN; Protocol PRN Reason: Hypoglycemia Protocol Docusate Sodium (Colace) 100 mg PO DAILY [facility] Last Admin: 03/07/19 09:43 Dose: 100 mg Enalapril Maleate (Vasotec) 10 mg PO DAILY [facility] Last Admin: 03/07/19 09:44 Dose: 10 mg Glucagon (Glucagen Diagnostic Kit) 0 mg IM STAT PRN; Protocol PRN Reason: Hypoglycemia Protocol Hydrocortisone (Cortizone 0.5% Cream) 1 applic TOP BID [facility] Last Admin: 03/07/19 09:45 Dose: 1 applic Insulin Aspart (Novolog) 5 unit SC ACBL [facility] Last Admin: 03/07/19 08:34 Dose: 5 units Insulin Detemir (Levemir) 20 unit SC HS [facility] Insulin Detemir (Levemir) 15 unit SC ACB [facility] Insulin Human Regular (Novolin R) 0 unit SC ACHS [facility]; Protocol Last Admin: 03/07/19 08:35 Dose: 4 units Metoprolol Tartrate (Lopressor) 50 mg PO BID [facility] Last Admin: 03/07/19 09:45 Dose: Not Given Pantoprazole Sodium (Protonix Ec Tab) 40 mg PO DAILY [facility] Last Admin: 03/07/19 09:44 Dose: 40 mg Pregabalin (Lyrica) 75 mg PO TID [facility] Last Admin: 03/07/19 09:43 Dose: 75 mg Rosuvastatin Calcium (Crestor) 10 mg PO HS [facility] Last Admin: 03/06/19 21:38 Dose: 10 mg Tramadol HCl (Ultram) 50 mg PO TID PRN PRN Reason: Pain, moderate (4-7) Last Admin: 03/07/19 04:44 Dose: 50 mg Warfarin Sodium (Coumadin) 6 mg PO 1800 [facility] Stop: 03/07/19 18:01 - Labs Labs: 03/05/19 07:57 03/05/19 07:57 PT 23.2 SECONDS (9.7-12.2) H 03/07/19 07:16 INR 2.1 03/07/19 07:16 APTT 47.0 SECONDS (21-34) H 03/07/19 07:16 Attending/Attestation - Attestation I have personally seen and examined this patient.: Yes I have fully participated in the care of the patient.: Yes I have reviewed all pertinent clinical information, including history, physical exam and plan: Yes Notes (Text): seen and examined with the resident. patient is lying on chair comfortable Patient should go home on Lovenox and coumadin.Need to have INR monitored.Son is willing to discuss with SW about options . As per patient son doesn't help and he caanot reach the door to open it for home care service. we will follow ZEE
[2019-03-06 08:25] LABS: INR 1.7; PROTHROMBIN TIME 18.4 SECONDS (9.7-12.2)
[2019-03-06] MEDS: Enoxaparin 80 mg Syringe SC SCH ×2 (09:06→21:38)
[2019-03-06] MEDS: Pantoprazole 40 mg EC Tab PO SCH (09:06)
[2019-03-06] MEDS ORDERED: Oxycodone/Acetaminophen 5/325 mg Tab PO ONE (21:12)
[2019-03-06] MEDS: Insulin Detemir 100 units/ml Vial (Levemir) SC SCH (21:37)
--- NOTE | 2019-03-07 00:06 | CP.PCM.PN ---
<ChristophSudeepkain - Last Filed: 03/07/19 00:03> Subjective - Date & Time of Evaluation Date of Evaluation: 03/07/19 Time of Evaluation: 00:03 - Subjective Subjective: Medicine Progress Note for Dr. Short's service S/E at bedside Reported moderate amount of pain in his right foot, states he has not gotten his home pain meds Denies fevers, chills, chest pain, sob, n.v, constipation or diarrhea. Objective - Vital Signs/Intake and Output Vital Signs (last 24 hours): Temp Pulse Resp BP Pulse Ox 98.6 F 54 L 20 104/63 97 03/06/19 15:00 03/06/19 15:00 03/06/19 15:00 03/06/19 15:00 03/06/19 15:00 Intake and Output: 03/06/19 03/07/19 18:59 06:59 Output Total 400 Balance -400 - Medications Medications: Current Medications Acetaminophen (Tylenol 325mg Tab) 650 mg PO Q6 PRN PRN Reason: Pain, Mild (1-3) Last Admin: 03/05/19 11:55 Dose: 650 mg Clopidogrel Bisulfate (Plavix) 75 mg PO DAILY [facility] Last Admin: 03/06/19 09:05 Dose: 75 mg Dextrose (Glutose 15) 0 gm PO ONCE PRN; Protocol PRN Reason: Hypoglycemia Protocol Dextrose (Dextrose 50% Inj) 0 ml IV STAT PRN; Protocol PRN Reason: Hypoglycemia Protocol Docusate Sodium (Colace) 100 mg PO DAILY [facility] Last Admin: 03/06/19 09:06 Dose: 100 mg Enalapril Maleate (Vasotec) 10 mg PO DAILY [facility] Last Admin: 03/06/19 09:05 Dose: 10 mg Enoxaparin Sodium (Lovenox) 80 mg SC Q12 [facility] Last Admin: 03/06/19 21:38 Dose: 80 mg Glucagon (Glucagen Diagnostic Kit) 0 mg IM STAT PRN; Protocol PRN Reason: Hypoglycemia Protocol Hydrocortisone (Cortizone 0.5% Cream) 1 applic TOP BID [facility] Last Admin: 03/06/19 17:31 Dose: 1 applic Insulin Aspart (Novolog) 5 unit SC ACBL [facility] Last Admin: 03/06/19 12:15 Dose: 5 units Insulin Detemir (Levemir) 30 unit SC HS [facility] Last Admin: 03/06/19 21:37 Dose: 30 units Insulin Human Regular (Novolin R) 0 unit SC ACHS [facility]; Protocol Last Admin: 03/06/19 21:33 Dose: Not Given Metoprolol Tartrate (Lopressor) 50 mg PO BID [facility] Last Admin: 03/06/19 17:32 Dose: Not Given Pantoprazole Sodium (Protonix Ec Tab) 40 mg PO DAILY [facility] Last Admin: 03/06/19 09:06 Dose: 40 mg Pregabalin (Lyrica) 75 mg PO TID [facility] Last Admin: 03/06/19 17:28 Dose: 75 mg Rosuvastatin Calcium (Crestor) 10 mg PO [facility] Last Admin: 03/06/19 21:38 Dose: 10 mg Tramadol HCl (Ultram) 50 mg PO TID PRN PRN Reason: Pain, moderate (4-7) Last Admin: 03/06/19 11:14 Dose: 50 mg - Labs Labs: 03/05/19 07:57 03/05/19 07:57 PT 18.4 SECONDS (9.7-12.2) H 03/06/19 08:08 INR 1.7 03/06/19 08:08 APTT 45.0 SECONDS (21-34) H D 03/05/19 07:57 - Additional Findings Additional findings: - Constitutional Appears: Non-toxic, No Acute Distress - Head Exam Head Exam: ATRAUMATIC, NORMAL INSPECTION, NORMOCEPHALIC - Eye Exam Eye Exam: EOMI, Normal appearance, PERRL Pupil Exam: NORMAL ACCOMODATION - ENT Exam ENT Exam: Mucous Membranes Moist, Normal Exam - Neck Exam Neck Exam: Full ROM, Normal Inspection - Respiratory Exam Respiratory Exam: Clear to Ausculation Bilateral, NORMAL BREATHING PATTERN. absent: Accessory Muscle Use, Rales, Rhonchi, Wheezes, Respiratory Distress - Cardiovascular Exam Cardiovascular Exam: REGULAR RHYTHM, +S1, +S2 - GI/Abdominal Exam GI & Abdominal Exam: Soft, Normal Bowel Sounds. absent: Distended, Firm, Guarding, Tenderness, Rebound - Extremities Exam Extremities Exam: Full ROM, Normal Capillary Refill, Normal Inspection Additional comments: b/l AKA - Neurological Exam Neurological Exam: Alert, Awake, Oriented x3 - Skin Skin Exam: Dry, Intact, Normal Color, Warm Assessment and Plan - Assessment and Plan (Free Text) Assessment: 68 year old male w/ PMHx of HTN, DM, CAD s/p stents, admitted for chest pain, now presents with LV apical thrombus. Plan: Left ventricle thrombus - INR (03/06): 1.7 -remains on therapeutic lovenox 80 mg SC daily -adjust coumadin evening dose accordingly -Cardiology consulted (Dr. Martínez); recommendations appreciated -INR goal 2-3 Hx of CAD with stent placement -Plavix 75 mg daily -Coumadin 5 mg HS for INR goal of 2-3 -not on ASA, as triple anticoagulation is not recommended per Cardiology Ischemic cardiomyopathy w/ reduced EF - Patient has History of hypertension - Cardiology consulted (Dr. Martínez); recommendations appreciated - Start low dose Warfarin, continue to monitor INR and adjust evening dose accordingly -metoprolol tartrate 50 mg PO BID -enalapril maleate 10 mg PO daily Chronic back pain -lyrica 75 mg PO TID History of HLD -rosuvastatin 10 mg PO HS DM -c/w home insulin levemir 25 units HS -Novolog 5 units ACBL -ISS -Accuchecks ACHS -hypoglyemia protocol PAD -s/p Bilateral AKA (most recent was left AKA amputation 2 months ago) - given 1 x dose of percocet, recommend confirming home narcotics for better pain control -educated on complete cessation of tobacco use (Patient down to 2 cigarettes per day) PPx, Diet, Disposition -DVT ppx: On warfarin currently; follow up INR tomorrow. -GI ppx: Protonix 40mg PO daily -Diet: HHD -PT/OT on case Case discussed with Dr. Deja Rosenthal DO, PGY-1 <Jenn Short - Last Filed: 03/07/19 11:02> Objective - Vital Signs/Intake and Output Vital Signs (last 24 hours): Temp Pulse Resp BP Pulse Ox 97.9 F 52 L 20 140/80 96 03/07/19 07:00 03/07/19 07:00 03/07/19 07:00 03/07/19 09:44 03/07/19 07:00 Intake and Output: 03/07/19 03/07/19 06:59 18:59 Output Total 400 Balance -400 - Medications Medications: Current Medications Acetaminophen (Tylenol 325mg Tab) 650 mg PO Q6 PRN PRN Reason: Pain, Mild (1-3) Last Admin: 03/05/19 11:55 Dose: 650 mg Clopidogrel Bisulfate (Plavix) 75 mg PO DAILY [facility] Last Admin: 03/07/19 09:43 Dose: 75 mg Dextrose (Glutose 15) 0 gm PO ONCE PRN; Protocol PRN Reason: Hypoglycemia Protocol Dextrose (Dextrose 50% Inj) 0 ml IV STAT PRN; Protocol PRN Reason: Hypoglycemia Protocol Docusate Sodium (Colace) 100 mg PO DAILY [facility] Last Admin: 03/07/19 09:43 Dose: 100 mg Enalapril Maleate (Vasotec) 10 mg PO DAILY [facility] Last Admin: 03/07/19 09:44 Dose: 10 mg Glucagon (Glucagen Diagnostic Kit) 0 mg IM STAT PRN; Protocol PRN Reason: Hypoglycemia Protocol Hydrocortisone (Cortizone 0.5% Cream) 1 applic TOP BID [facility] Last Admin: 03/07/19 09:45 Dose: 1 applic Insulin Aspart (Novolog) 5 unit SC ACBL [facility] Last Admin: 03/07/19 08:34 Dose: 5 units Insulin Detemir (Levemir) 20 unit SC HS [facility] Insulin Detemir (Levemir) 15 unit SC ACB [facility] Insulin Human Regular (Novolin R) 0 unit SC ACHS [facility]; Protocol Last Admin: 03/07/19 08:35 Dose: 4 units Metoprolol Tartrate (Lopressor) 50 mg PO BID [facility] Last Admin: 03/07/19 09:45 Dose: Not Given Pantoprazole Sodium (Protonix Ec Tab) 40 mg PO DAILY [facility] Last Admin: 03/07/19 09:44 Dose: 40 mg Pregabalin (Lyrica) 75 mg PO TID [facility] Last Admin: 03/07/19 09:43 Dose: 75 mg Rosuvastatin Calcium (Crestor) 10 mg PO HS [facility] Last Admin: 03/06/19 21:38 Dose: 10 mg Tramadol HCl (Ultram) 50 mg PO TID PRN PRN Reason: Pain, moderate (4-7) Last Admin: 03/07/19 04:44 Dose: 50 mg Warfarin Sodium (Coumadin) 6 mg PO 1800 [facility] Stop: 03/07/19 18:01 - Labs Labs: 03/05/19 07:57 04/25/19 07:57 PT 23.2 SECONDS (9.7-12.2) H 03/07/19 07:16 INR 2.1 03/07/19 07:16 APTT 47.0 SECONDS (21-34) H 03/07/19 07:16 Attending/Attestation - Attestation I have personally seen and examined this patient.: Yes I have fully participated in the care of the patient.: Yes I have reviewed all pertinent clinical information, including history, physical exam and plan: Yes Notes (Text): seen and examined by me. lying comfortable INR 2.1 today,continue Coumadin,Discharge home with home care arrangement.Patient is bilateral AKA. Having difficulty in opening the door for home care service.Follow SW
[2019-03-07 07:41] LABS: INR 2.1; PROTHROMBIN TIME 23.2 SECONDS (9.7-12.2)
[2019-03-07] MEDS: (Novolog) Insulin Aspart, Recombinant 100 u/ml 10 ml vial SC SCH ×2 (08:34→11:55)
[2019-03-07] MEDS: (Novolin R) Insulin Human Regular 100 units/ml vial SC SCH ×4 (08:35→21:21)
[2019-03-07] MEDS: Pantoprazole 40 mg EC Tab PO SCH (09:44)
[2019-03-07] MEDS ORDERED: Enoxaparin 30 mg Syringe SC SCH (10:00)
[2019-03-07] MEDS: Insulin Detemir 100 units/ml Vial (Levemir) SC SCH (21:21)
[2019-03-07] MEDS ORDERED: Oxycodone/Acetaminophen 5/325 mg Tab PO ONE (22:53)
--- NOTE | 2019-03-08 00:47 | CP.PCM.PN ---
Subjective - Date & Time of Evaluation Date of Evaluation: 03/08/19 Time of Evaluation: 00:44 - Subjective Subjective: Medicine Progress note for Dr. Angel's service S/E at bedside Reported pain in his left leg Denies fevers, chest pain, sob, n/v, constipation or diarrhea, and dysuria. Objective - Vital Signs/Intake and Output Vital Signs (last 24 hours): Temp Pulse Resp BP Pulse Ox 98 F 64 20 111/66 95 03/07/19 17:12 03/07/19 17:12 03/07/19 17:12 03/07/19 17:12 03/07/19 17:12 Intake and Output: 03/07/19 03/08/19 18:59 06:59 Intake Total 480 Output Total 850 Balance -370 - Medications Medications: Current Medications Acetaminophen (Tylenol 325mg Tab) 650 mg PO Q6 PRN PRN Reason: Pain, Mild (1-3) Last Admin: 03/05/19 11:55 Dose: 650 mg Clopidogrel Bisulfate (Plavix) 75 mg PO DAILY [facility] Last Admin: 03/07/19 09:43 Dose: 75 mg Dextrose (Glutose 15) 0 gm PO ONCE PRN; Protocol PRN Reason: Hypoglycemia Protocol Dextrose (Dextrose 50% Inj) 0 ml IV STAT PRN; Protocol PRN Reason: Hypoglycemia Protocol Docusate Sodium (Colace) 100 mg PO DAILY [facility] Last Admin: 03/07/19 09:43 Dose: 100 mg Enalapril Maleate (Vasotec) 10 mg PO DAILY [facility] Last Admin: 03/07/19 09:44 Dose: 10 mg Glucagon (Glucagen Diagnostic Kit) 0 mg IM STAT PRN; Protocol PRN Reason: Hypoglycemia Protocol Hydrocortisone (Cortizone 0.5% Cream) 1 applic TOP BID [facility] Last Admin: 03/07/19 18:04 Dose: 1 applic Insulin Aspart (Novolog) 5 unit SC ACBL [facility] Last Admin: 03/07/19 11:55 Dose: 5 units Insulin Detemir (Levemir) 20 unit SC HS [facility] Last Admin: 03/07/19 21:21 Dose: 20 units Insulin Detemir (Levemir) 15 unit SC ACB [facility] Insulin Human Regular (Novolin R) 0 unit SC ACHS [facility]; Protocol Last Admin: 03/07/19 21:21 Dose: Not Given Metoprolol Tartrate (Lopressor) 50 mg PO BID [facility] Last Admin: 03/07/19 17:38 Dose: 50 mg Pantoprazole Sodium (Protonix Ec Tab) 40 mg PO DAILY [facility] Last Admin: 03/07/19 09:44 Dose: 40 mg Pregabalin (Lyrica) 75 mg PO TID [facility] Last Admin: 03/07/19 17:37 Dose: 75 mg Rosuvastatin Calcium (Crestor) 10 mg PO HS [facility] Last Admin: 03/07/19 21:21 Dose: 10 mg Tramadol HCl (Ultram) 50 mg PO TID PRN PRN Reason: Pain, moderate (4-7) Last Admin: 03/07/19 21:43 Dose: 50 mg - Labs Labs: 03/05/19 07:57 03/05/19 07:57 PT 23.2 SECONDS (9.7-12.2) H 03/07/19 07:16 INR 2.1 03/07/19 07:16 APTT 47.0 SECONDS (21-34) H 03/07/19 07:16 - Additional Findings Additional findings: - Constitutional Appears: Non-toxic, No Acute Distress - Head Exam Head Exam: ATRAUMATIC, NORMAL INSPECTION, NORMOCEPHALIC - Eye Exam Eye Exam: EOMI, Normal appearance, PERRL Pupil Exam: NORMAL ACCOMODATION - ENT Exam ENT Exam: Mucous Membranes Moist, Normal Exam - Neck Exam Neck Exam: Full ROM, Normal Inspection - Respiratory Exam Respiratory Exam: Clear to Ausculation Bilateral, NORMAL BREATHING PATTERN. absent: Accessory Muscle Use, Rales, Rhonchi, Wheezes, Respiratory Distress - Cardiovascular Exam Cardiovascular Exam: REGULAR RHYTHM, +S1, +S2 - GI/Abdominal Exam GI & Abdominal Exam: Soft, Normal Bowel Sounds. absent: Distended, Firm, Guarding, Tenderness, Rebound - Extremities Exam Extremities Exam: Full ROM, Normal Capillary Refill, Normal Inspection Additional comments: b/l AKA - Neurological Exam Neurological Exam: Alert, Awake, Oriented x3 - Skin Skin Exam: Dry, Intact, Normal Color, Warm Assessment and Plan - Assessment and Plan (Free Text) Assessment: 68 year old male w/ PMHx of HTN, DM, CAD s/p stents, admitted for chest pain, now presents with LV apical thrombus. Plan: Left ventricle thrombus - INR (03/06): 1.7 -remains on therapeutic lovenox 80 mg SC daily -adjust coumadin evening dose accordingly -Cardiology consulted (Dr. Martínez); recommendations appreciated -INR goal 2-3 Hx of CAD with stent placement -Plavix 75 mg daily -Coumadin 5 mg HS for INR goal of 2-3 -not on ASA, as triple anticoagulation is not recommended per Cardiology Ischemic cardiomyopathy w/ reduced EF - Patient has History of hypertension - Cardiology consulted (Dr. Martínez); recommendations appreciated - Start low dose Warfarin, continue to monitor INR and adjust evening dose accordingly -metoprolol tartrate 50 mg PO BID -enalapril maleate 10 mg PO daily Chronic back pain -lyrica 75 mg PO TID History of HLD -rosuvastatin 10 mg PO HS DM -c/w home insulin levemir 25 units HS -Novolog 5 units ACBL -ISS -Accuchecks ACHS -hypoglyemia protocol PAD -s/p Bilateral AKA (most recent was left AKA amputation 2 months ago) - given 1 x dose of percocet, recommend confirming home narcotics for better pain control -educated on complete cessation of tobacco use (Patient down to 2 cigarettes per day) PPx, Diet, Disposition -DVT ppx: On warfarin currently; follow up INR tomorrow. -GI ppx: Protonix 40mg PO daily -Diet: HHD -PT/OT on case Case discussed with Dr. Deja Hawthorne, PGY-1
[2019-03-08] MEDS: Insulin Detemir 100 units/ml Vial (Levemir) SC SCH ×2 (07:55→22:24)
[2019-03-08] MEDS: (Novolog) Insulin Aspart, Recombinant 100 u/ml 10 ml vial SC SCH ×2 (07:57→12:20)
[2019-03-08] MEDS: (Novolin R) Insulin Human Regular 100 units/ml vial SC SCH ×4 (07:57→21:41)
[2019-03-08 08:09] LABS: INR 2.1; PROTHROMBIN TIME 23.5 SECONDS (9.7-12.2)
[2019-03-08 08:20] LABS: HEMOGLOBIN 14.1 g/dL (12.0-18.0); MEAN CELL VOLUME 81.2 fL (80.0-94.0); MEAN CORPUSCULAR HEMOGLOBIN 27.2 pg (27.0-31.0); MEAN CORPUSCULAR HGB CONC 33.5 g/dL (33.0-37.0); MEAN PLATELET VOLUME 10.7 fL (7.2-11.7); RBC 5.19 Mil/uL (4.40-5.90); RED CELL DISTRIBUTION WIDTH 16.4 % (11.5-14.5); WHITE BLOOD COUNT 6.1 K/uL (4.8-10.8)
[2019-03-08 08:21] LABS: ALB/GLOB RATIO 1.3 (1.0-2.1); ALBUMIN 3.8 g/dL (3.5-5.0); ALT/SGPT 32 U/L (21-72); AST/SGOT 33 U/L (17-59); BLOOD UREA NITROGEN 24 mg/dL (9-20); CALCIUM 8.9 mg/dl (8.6-10.4); GFR NON-AFRICAN AMERICAN > 60
[2019-03-08] MEDS: Pantoprazole 40 mg EC Tab PO SCH (10:03)
[2019-03-09 07:14] LABS: HEMOGLOBIN 14.4 g/dL (12.0-18.0); MEAN CORPUSCULAR HEMOGLOBIN 26.8 pg (27.0-31.0); MEAN CORPUSCULAR HGB CONC 32.7 g/dL (33.0-37.0); RBC 5.37 Mil/uL (4.40-5.90); RED CELL DISTRIBUTION WIDTH 16.5 % (11.5-14.5); WHITE BLOOD COUNT 5.9 K/uL (4.8-10.8)
--- NOTE | 2019-03-09 07:34 | CP.PCM.PN ---
<Jairo Rosenthal - Last Filed: 03/09/19 11:16> Subjective - Date & Time of Evaluation Date of Evaluation: 03/09/19 Time of Evaluation: 07:34 - Subjective Subjective: PGY-1 Medicine Progress Note for Dr. Gaxiola Patient seen and examined at bedside this AM. No acute somatic complaints or overnight events reported. Continues to have intermittent L leg pain. Denies fevers, chest pain, sob, n/v, constipation or diarrhea, and dysuria. Objective - Vital Signs/Intake and Output Vital Signs (last 24 hours): Temp Pulse Resp BP Pulse Ox 98.4 F 54 L 20 117/52 L 97 03/08/19 23:40 03/08/19 23:40 03/08/19 23:40 03/08/19 23:40 03/08/19 23:40 Intake and Output: 03/09/19 03/09/19 06:59 18:59 Output Total 600 Balance -600 - Medications Medications: Current Medications Acetaminophen (Tylenol 325mg Tab) 650 mg PO Q6 PRN PRN Reason: Pain, Mild (1-3) Last Admin: 03/09/19 01:27 Dose: 650 mg Clopidogrel Bisulfate (Plavix) 75 mg PO DAILY [facility] Last Admin: 03/08/19 10:03 Dose: 75 mg Dextrose (Glutose 15) 0 gm PO ONCE PRN; Protocol PRN Reason: Hypoglycemia Protocol Dextrose (Dextrose 50% Inj) 0 ml IV STAT PRN; Protocol PRN Reason: Hypoglycemia Protocol Docusate Sodium (Colace) 100 mg PO DAILY [facility] Last Admin: 03/08/19 14:16 Dose: 100 mg Enalapril Maleate (Vasotec) 10 mg PO DAILY [facility] Last Admin: 03/08/19 10:03 Dose: 10 mg Glucagon (Glucagen Diagnostic Kit) 0 mg IM STAT PRN; Protocol PRN Reason: Hypoglycemia Protocol Hydrocortisone (Cortizone 0.5% Cream) 1 applic TOP BID [facility] Last Admin: 03/08/19 18:54 Dose: 1 applic Insulin Aspart (Novolog) 5 unit SC ACBL [facility] Last Admin: 03/08/19 12:20 Dose: 5 units Insulin Detemir (Levemir) 20 unit SC HS [facility] Last Admin: 03/08/19 22:24 Dose: 20 units Insulin Detemir (Levemir) 15 unit SC ACB [facility] Last Admin: 03/08/19 07:55 Dose: 15 u Insulin Human Regular (Novolin R) 0 unit SC ACHS [facility]; Protocol Last Admin: 03/08/19 21:41 Dose: Not Given Metoprolol Tartrate (Lopressor) 50 mg PO BID [facility] Last Admin: 03/08/19 18:22 Dose: Not Given Pantoprazole Sodium (Protonix Ec Tab) 40 mg PO DAILY [facility] Last Admin: 03/08/19 10:03 Dose: 40 mg Pregabalin (Lyrica) 75 mg PO TID [facility] Last Admin: 03/08/19 18:53 Dose: 75 mg Rosuvastatin Calcium (Crestor) 10 mg PO HS [facility] Last Admin: 03/08/19 22:23 Dose: 10 mg Tramadol HCl (Ultram) 50 mg PO TID PRN PRN Reason: Pain, moderate (4-7) Last Admin: 03/08/19 22:23 Dose: 50 mg - Labs Labs: 03/09/19 07:01 03/08/19 07:47 PT 23.5 SECONDS (9.7-12.2) H 03/08/19 07:47 INR 2.1 03/08/19 07:47 APTT 47.0 SECONDS (21-34) H 03/07/19 07:16 - Constitutional Appears: Non-toxic, No Acute Distress - Head Exam Head Exam: ATRAUMATIC, NORMAL INSPECTION, NORMOCEPHALIC - Eye Exam Eye Exam: EOMI, Normal appearance Pupil Exam: NORMAL ACCOMODATION - ENT Exam ENT Exam: Mucous Membranes Moist, Normal Exam - Neck Exam Neck Exam: Full ROM, Normal Inspection - Respiratory Exam Respiratory Exam: Clear to Ausculation Bilateral, NORMAL BREATHING PATTERN. absent: Accessory Muscle Use, Rales, Rhonchi, Wheezes, Respiratory Distress, Stridor - Cardiovascular Exam Cardiovascular Exam: REGULAR RHYTHM, +S1, +S2 - GI/Abdominal Exam GI & Abdominal Exam: Soft, Normal Bowel Sounds - Extremities Exam Extremities Exam: Full ROM, Normal Capillary Refill. absent: Calf Tenderness, Pedal Edema Additional comments: b/l AKA - Back Exam Back Exam: NORMAL INSPECTION - Neurological Exam Neurological Exam: Alert, Awake, Oriented x3 - Skin Skin Exam: Dry, Intact, Normal Color, Warm Assessment and Plan - Assessment and Plan (Free Text) Assessment: 68 year old male w/ PMHx of HTN, DM, CAD s/p stents, admitted for chest pain, now presents with LV apical thrombus. Plan: Left ventricle thrombus - INR (03/09): 2.1 -Cardiology consulted (Dr. Martínez); recommendations appreciated Hx of CAD with stent placement -Plavix 75 mg daily -not on ASA, as triple anticoagulation is not recommended per Cardiology Ischemic cardiomyopathy w/ reduced EF - Patient has History of hypertension - Cardiology consulted (Dr. Martínez); recommendations appreciated - Start low dose Warfarin, continue to monitor INR and adjust evening dose accordingly -metoprolol tartrate 50 mg PO BID -enalapril maleate 10 mg PO daily Chronic back pain -lyrica 75 mg PO TID History of HLD -rosuvastatin 10 mg PO HS DM -c/w home insulin levemir 25 units HS -Novolog 5 units ACBL -ISS -Accuchecks ACHS -hypoglyemia protocol PAD -s/p Bilateral AKA (most recent was left AKA amputation 2 months ago) -educated on complete cessation of tobacco use (Patient down to 2 cigarettes per day) PPx, Diet, Disposition -DVT ppx: on coumadiin -GI ppx: Protonix 40mg PO daily -Diet: HHD -PT/OT on case -Dispo: Having difficulty in opening the door for home care service. Follow SW. Case discussed with Dr. Khalida Rosenthal DO, PGY-1 <Rigoberto Gaxiola - Last Filed: 03/09/19 13:46> Objective - Vital Signs/Intake and Output Vital Signs (last 24 hours): Temp Pulse Resp BP Pulse Ox 97.5 F L 55 L 20 148/86 96 03/09/19 07:00 03/09/19 07:00 03/09/19 07:00 03/09/19 09:51 03/09/19 07:00 Intake and Output: 03/09/19 03/09/19 06:59 18:59 Output Total 600 Balance -600 - Medications Medications: Current Medications Acetaminophen (Tylenol 325mg Tab) 650 mg PO Q6 PRN PRN Reason: Pain, Mild (1-3) Last Admin: 03/09/19 12:10 Dose: 650 mg Clopidogrel Bisulfate (Plavix) 75 mg PO DAILY [facility] Last Admin: 03/09/19 09:51 Dose: 75 mg Dextrose (Glutose 15) 0 gm PO ONCE PRN; Protocol PRN Reason: Hypoglycemia Protocol Dextrose (Dextrose 50% Inj) 0 ml IV STAT PRN; Protocol PRN Reason: Hypoglycemia Protocol Docusate Sodium (Colace) 100 mg PO DAILY [facility] Last Admin: 03/09/19 09:51 Dose: 100 mg Enalapril Maleate (Vasotec) 10 mg PO DAILY [facility] Last Admin: 03/09/19 09:51 Dose: 10 mg Glucagon (Glucagen Diagnostic Kit) 0 mg IM STAT PRN; Protocol PRN Reason: Hypoglycemia Protocol Hydrocortisone (Cortizone 0.5% Cream) 1 applic TOP BID [facility] Last Admin: 03/09/19 10:00 Dose: 1 applic Insulin Aspart (Novolog) 5 unit SC ACBL [facility] Last Admin: 03/09/19 12:11 Dose: 5 units Insulin Detemir (Levemir) 20 unit SC HS [facility] Last Admin: 03/08/19 22:24 Dose: 20 units Insulin Detemir (Levemir) 15 unit SC ACB [facility] Last Admin: 03/09/19 07:46 Dose: 15 u Insulin Human Regular (Novolin R) 0 unit SC [facility]; Protocol Last Admin: 03/09/19 12:22 Dose: 2 units Metoprolol Tartrate (Lopressor) 50 mg PO BID [facility] Last Admin: 03/09/19 09:53 Dose: 50 mg Pantoprazole Sodium (Protonix Ec Tab) 40 mg PO DAILY [facility] Last Admin: 03/09/19 09:52 Dose: 40 mg Pregabalin (Lyrica) 75 mg PO TID [facility] Last Admin: 03/09/19 13:04 Dose: 75 mg Rosuvastatin Calcium (Crestor) 10 mg PO [facility] Last Admin: 03/08/19 22:23 Dose: 10 mg Tramadol HCl (Ultram) 50 mg PO TID PRN PRN Reason: Pain, moderate (4-7) Last Admin: 03/09/19 09:49 Dose: 50 mg - Labs Labs: 03/09/19 07:01 03/09/19 07:01 PT 23.1 SECONDS (9.7-12.2) H 03/09/19 07:01 INR 2.1 03/09/19 07:01 APTT 47.0 SECONDS (21-34) H 03/07/19 07:16 Attending/Attestation - Attestation I have personally seen and examined this patient.: Yes I have fully participated in the care of the patient.: Yes I have reviewed all pertinent clinical information, including history, physical exam and plan: Yes Notes (Text): 03/09/19 13:44 Medical attending: Patient was seen and examined by me. Agree with the above note by the resident Patient was not in any acute distress when I came and saw this morning with the medical residents If we can confirm that caregivers can be given keys to the house then we will consider discharge soon. Rigoberto Gaxiola
[2019-03-09 07:42] LABS: ALB/GLOB RATIO 1.4 (1.0-2.1); ALBUMIN 4.1 g/dL (3.5-5.0); ALT/SGPT 33 U/L (21-72); AST/SGOT 27 U/L (17-59); BLOOD UREA NITROGEN 29 mg/dL (9-20); CALCIUM 8.9 mg/dl (8.6-10.4); GFR NON-AFRICAN AMERICAN > 60
[2019-03-09] MEDS: Insulin Detemir 100 units/ml Vial (Levemir) SC SCH ×2 (07:46→21:22)
[2019-03-09] MEDS: (Novolin R) Insulin Human Regular 100 units/ml vial SC SCH ×4 (07:46→21:57)
[2019-03-09] MEDS: (Novolog) Insulin Aspart, Recombinant 100 u/ml 10 ml vial SC SCH ×2 (07:47→12:11)
[2019-03-09 08:13] LABS: INR 2.1; PROTHROMBIN TIME 23.1 SECONDS (9.7-12.2)
[2019-03-09] MEDS: Pantoprazole 40 mg EC Tab PO SCH (09:52)
[2019-03-10 06:32] LABS: BASO % 0.6 % (0.0-2.0); EOS # 0.1 K/uL (0.0-0.7); EOS % 1.7 % (0.0-4.0); HEMOGLOBIN 13.2 g/dL (12.0-18.0); LYMPH # 2.5 K/uL (1.0-4.3); LYMPH % 40.6 % (20.0-40.0); MEAN CELL VOLUME 80.8 fL (80.0-94.0); MEAN CORPUSCULAR HEMOGLOBIN 26.9 pg (27.0-31.0); MEAN CORPUSCULAR HGB CONC 33.2 g/dL (33.0-37.0); MEAN PLATELET VOLUME 10.7 fL (7.2-11.7); MONO # 0.6 K/uL (0.0-0.8); MONO % 10.3 % (0.0-10.0); NEUT # 2.9 K/uL (1.8-7.0); NEUT % 46.8 % (50.0-75.0); NRBC % 0.1 % (0.0-2.0); RBC 4.92 Mil/uL (4.40-5.90); WHITE BLOOD COUNT 6.3 K/uL (4.8-10.8)
[2019-03-10 06:54] LABS: INR 1.8; PROTHROMBIN TIME 19.9 SECONDS (9.7-12.2)
[2019-03-10 07:09] LABS: ALB/GLOB RATIO 1.4 (1.0-2.1); ALBUMIN 3.6 g/dL (3.5-5.0); ALT/SGPT 27 U/L (21-72); AST/SGOT 28 U/L (17-59); BLOOD UREA NITROGEN 30 mg/dL (9-20); CALCIUM 8.8 mg/dl (8.6-10.4); GFR NON-AFRICAN AMERICAN > 60
--- NOTE | 2019-03-10 07:17 | CP.PCM.PN ---
<Jairo Rosenthal - Last Filed: 03/10/19 13:10> Subjective - Date & Time of Evaluation Date of Evaluation: 03/10/19 Time of Evaluation: 07:16 - Subjective Subjective: PGY-1 Medicine Progress Note for Dr. Gaxiola Patient seen and examined at bedside, in no acute distress. No acute overnight events reported. Patient's son continues to avoid social workers' messages and requests, making it difficult to obtain set of keys for renal social worker to access patient's apartment. Patient is essentially couch/bed bound at home with limited ability to transfer himself in/out of wheelchair, has difficulty opening door for home services to enter home. Safe discharge plan not yet set up. Adult Protective Services have been contacted, per SW. Objective - Vital Signs/Intake and Output Vital Signs (last 24 hours): Temp Pulse Resp BP Pulse Ox 98.5 F 50 L 20 108/62 95 03/09/19 23:40 03/09/19 23:40 03/09/19 23:40 03/09/19 23:40 03/09/19 23:40 Intake and Output: 03/10/19 03/10/19 06:59 18:59 Output Total 400 Balance -400 - Medications Medications: Current Medications Acetaminophen (Tylenol 325mg Tab) 650 mg PO Q6 PRN PRN Reason: Pain, Mild (1-3) Last Admin: 03/09/19 20:34 Dose: 650 mg Clopidogrel Bisulfate (Plavix) 75 mg PO DAILY [facility] Last Admin: 03/09/19 09:51 Dose: 75 mg Dextrose (Glutose 15) 0 gm PO ONCE PRN; Protocol PRN Reason: Hypoglycemia Protocol Dextrose (Dextrose 50% Inj) 0 ml IV STAT PRN; Protocol PRN Reason: Hypoglycemia Protocol Docusate Sodium (Colace) 100 mg PO DAILY [facility] Last Admin: 03/09/19 09:51 Dose: 100 mg Enalapril Maleate (Vasotec) 10 mg PO DAILY [facility] Last Admin: 03/09/19 09:51 Dose: 10 mg Glucagon (Glucagen Diagnostic Kit) 0 mg IM STAT PRN; Protocol PRN Reason: Hypoglycemia Protocol Hydrocortisone (Cortizone 0.5% Cream) 1 applic TOP BID [facility] Last Admin: 03/09/19 18:03 Dose: 1 applic Insulin Aspart (Novolog) 5 unit SC ACBL [facility] Last Admin: 04/29/19 12:11 Dose: 5 units Insulin Detemir (Levemir) 20 unit SC HS [facility] Last Admin: 03/09/19 21:22 Dose: 20 units Insulin Detemir (Levemir) 15 unit SC ACB [facility] Last Admin: 03/09/19 07:46 Dose: 15 u Insulin Human Regular (Novolin R) 0 unit SC ACHS [facility]; Protocol Last Admin: 03/09/19 21:57 Dose: Not Given Metoprolol Tartrate (Lopressor) 50 mg PO BID [facility] Last Admin: 03/09/19 18:03 Dose: 50 mg Pantoprazole Sodium (Protonix Ec Tab) 40 mg PO DAILY [facility] Last Admin: 03/09/19 09:52 Dose: 40 mg Pregabalin (Lyrica) 75 mg PO TID [facility] Last Admin: 03/09/19 17:59 Dose: 75 mg Rosuvastatin Calcium (Crestor) [address] [facility] Last Admin: 03/09/19 21:22 Dose: 10 mg Tramadol HCl (Ultram) 50 mg PO TID PRN PRN Reason: Pain, moderate (4-7) Last Admin: 03/10/19 02:53 Dose: 50 mg Warfarin Sodium (Coumadin) 5 mg PO 1800 [facility] Stop: 03/10/19 18:01 - Labs Labs: 03/10/19 06:23 03/10/19 06:23 PT 19.9 SECONDS (9.7-12.2) H 03/10/19 06:23 INR 1.8 03/10/19 06:23 APTT 39.0 SECONDS (21-34) H D 03/10/19 06:23 - Constitutional Appears: Non-toxic, No Acute Distress - Head Exam Head Exam: ATRAUMATIC, NORMAL INSPECTION, NORMOCEPHALIC - Eye Exam Eye Exam: EOMI, Normal appearance, PERRL Pupil Exam: NORMAL ACCOMODATION - ENT Exam ENT Exam: Mucous Membranes Moist, Normal Exam - Neck Exam Neck Exam: Full ROM, Normal Inspection - Respiratory Exam Respiratory Exam: Clear to Ausculation Bilateral, NORMAL BREATHING PATTERN. absent: Accessory Muscle Use, Rales, Rhonchi, Wheezes, Respiratory Distress, Stridor - Cardiovascular Exam Cardiovascular Exam: REGULAR RHYTHM, +S1, +S2 - GI/Abdominal Exam GI & Abdominal Exam: Soft, Normal Bowel Sounds. absent: Distended, Firm, Guarding, Rigid, Tenderness, Rebound - Extremities Exam Extremities Exam: Full ROM, Normal Capillary Refill, Normal Inspection. absent: Calf Tenderness, Pedal Edema - Back Exam Back Exam: NORMAL INSPECTION - Neurological Exam Neurological Exam: Alert, Awake, Oriented x3 - Skin Skin Exam: Dry, Intact, Normal Color, Warm Assessment and Plan - Assessment and Plan (Free Text) Assessment: 68 year old male w/ PMHx of HTN, DM, CAD s/p stents, admitted for chest pain, now presents with LV apical thrombus. Plan: Left ventricle thrombus - INR (03/10): 1.8 -will give 5 mg Coumadin this evening -INR goal 2-3 -Cardiology consulted (Dr. Martínez); recommendations appreciated Hx of CAD with stent placement -Plavix 75 mg daily -not on ASA, as triple anticoagulation is not recommended per Cardiology Ischemic cardiomyopathy w/ reduced EF - Patient has History of hypertension - Cardiology consulted (Dr. Martínez); recommendations appreciated - Start low dose Warfarin, continue to monitor INR and adjust evening dose accordingly -metoprolol tartrate 50 mg PO BID -enalapril maleate 10 mg PO daily Chronic back pain -lyrica 75 mg PO TID History of HLD -rosuvastatin 10 mg PO HS DM -c/w home insulin levemir 25 units HS -Novolog 5 units ACBL -ISS -Accuchecks ACHS -hypoglyemia protocol PAD -s/p Bilateral AKA (most recent was left AKA amputation 2 months ago) -educated on complete cessation of tobacco use (Patient down to 2 cigarettes per day) PPx, Diet, Disposition -DVT ppx: on coumadiin -GI ppx: Protonix 40mg PO daily -Diet: HHD -PT/OT on case -Dispo: Having difficulty in opening the door for home care service. Follow SW. Case discussed with Dr. Khalida Rosenthal DO, PGY-1 <Rigoberto Gaxiola - Last Filed: 03/10/19 15:44> Objective - Vital Signs/Intake and Output Vital Signs (last 24 hours): Temp Pulse Resp BP Pulse Ox 97.8 F 49 L 20 106/92 H 96 03/10/19 07:00 03/10/19 07:00 03/10/19 07:00 03/10/19 10:17 03/10/19 07:00 Intake and Output: 03/10/19 03/10/19 06:59 18:59 Output Total 400 Balance -400 - Medications Medications: Current Medications Acetaminophen (Tylenol 325mg Tab) 650 mg PO Q6 PRN PRN Reason: Pain, Mild (1-3) Last Admin: 03/09/19 20:34 Dose: 650 mg Clopidogrel Bisulfate (Plavix) 75 mg PO DAILY [facility] Last Admin: 03/10/19 10:16 Dose: 75 mg Dextrose (Glutose 15) 0 gm PO ONCE PRN; Protocol PRN Reason: Hypoglycemia Protocol Dextrose (Dextrose 50% Inj) 0 ml IV STAT PRN; Protocol PRN Reason: Hypoglycemia Protocol Docusate Sodium (Colace) 100 mg PO DAILY [facility] Last Admin: 03/10/19 10:16 Dose: Not Given Enalapril Maleate (Vasotec) 10 mg PO DAILY [facility] Last Admin: 03/10/19 10:17 Dose: 10 mg Glucagon (Glucagen Diagnostic Kit) 0 mg IM STAT PRN; Protocol PRN Reason: Hypoglycemia Protocol Hydrocortisone (Cortizone 0.5% Cream) 1 applic TOP BID [facility] Last Admin: 03/10/19 10:15 Dose: Not Given Insulin Aspart (Novolog) 5 unit SC ACBL [facility] Last Admin: 03/10/19 12:34 Dose: 5 units Insulin Detemir (Levemir) 20 unit SC HS [facility] Last Admin: 03/09/19 21:22 Dose: 20 units Insulin Detemir (Levemir) 15 unit SC ACB [facility] Last Admin: 03/10/19 08:03 Dose: 15 u Insulin Human Regular (Novolin R) 0 unit SC ACHS [facility]; Protocol Last Admin: 03/10/19 12:16 Dose: 8 units Metoprolol Tartrate (Lopressor) 50 mg PO BID [facility] Last Admin: 03/10/19 10:16 Dose: 50 mg Pantoprazole Sodium (Protonix Ec Tab) 40 mg PO DAILY [facility] Last Admin: 03/10/19 10:17 Dose: 40 mg Pregabalin (Lyrica) 75 mg PO TID [facility] Last Admin: 03/10/19 13:29 Dose: 75 mg Rosuvastatin Calcium (Crestor) [address] [facility] Last Admin: 03/09/19 21:22 Dose: 10 mg Tramadol HCl (Ultram) 50 mg PO TID PRN PRN Reason: Pain, moderate (4-7) Last Admin: 03/10/19 10:30 Dose: 50 mg Warfarin Sodium (Coumadin) 5 mg PO 1800 [facility] Stop: 03/10/19 18:01 - Labs Labs: 03/10/19 06:23 03/10/19 06:23 PT 19.9 SECONDS (9.7-12.2) H 03/10/19 06:23 INR 1.8 03/10/19 06:23 APTT 39.0 SECONDS (21-34) H D 03/10/19 06:23 Attending/Attestation - Attestation I have personally seen and examined this patient.: Yes I have fully participated in the care of the patient.: Yes I have reviewed all pertinent clinical information, including history, physical exam and plan: Yes Notes (Text): 03/10/19 15:41 Medical attending: Patient was seen and examined by me. Agree with the above n ote by the biomedical equipment tech The patient did not have any acute events overnight. I tried to call adult protective service [phone] to reach a Louisa Dominique, however the message was that they are closed I left a message. Perhaps tommorow he can be discharged however provided that [employer] have the keys to enter the house (the case workers explain that they are having a hard time working with the patient's son) Rigoberto Gaxiola
[2019-03-10] MEDS: Insulin Detemir 100 units/ml Vial (Levemir) SC SCH ×2 (08:03→21:53)
[2019-03-10] MEDS: (Novolin R) Insulin Human Regular 100 units/ml vial SC SCH ×4 (08:04→21:40)
[2019-03-10] MEDS: (Novolog) Insulin Aspart, Recombinant 100 u/ml 10 ml vial SC SCH ×2 (08:05→12:34)
[2019-03-10] MEDS: Pantoprazole 40 mg EC Tab PO SCH (10:17)
[2019-03-11] MEDS: Insulin Detemir 100 units/ml Vial (Levemir) SC SCH (08:15)
[2019-03-11] MEDS: (Novolin R) Insulin Human Regular 100 units/ml vial SC SCH ×3 (08:15→17:25)
[2019-03-11] MEDS: (Novolog) Insulin Aspart, Recombinant 100 u/ml 10 ml vial SC SCH ×2 (08:57→13:00)
[2019-03-11] MEDS: Pantoprazole 40 mg EC Tab PO SCH (09:16)
--- NOTE | 2019-03-11 09:45 | CP.PCM.DIS ---
<Jairo Rosenthal - Last Filed: 03/11/19 12:06> Provider - Provider Date of Admission: 02/26/19 17:23 Attending physician: Jenn Short MD Consults: 02/27/19 20:41 Case Management Referral Routine Comment: b/l amputation aka Physician Instructions: pt finding difficult to care for himself Reason For Exam: snf placement Reason for Referral: Discharge Planning 02/27/19 22:12 Cardiology Consult Routine Comment: Consulting Provider: Farshad Martínez Consulting Physician: Farshad Martínez Reason for Consult: chest pain Time Spent in preparation of Discharge (in minutes): 40 Diagnosis - Discharge Diagnosis (1) Left ventricular thrombus Status: Acute (2) Ischemic cardiomyopathy Status: Acute (3) Chronic pain Status: Acute (4) History of diabetes mellitus Status: Acute Hospital Course - Lab Results Lab Results: Most Recent Lab Values WBC 6.3 K/uL (4.8-10.8) 03/10/19 06:23 RBC 4.92 Mil/uL (4.40-5.90) 03/10/19 06:23 Hgb 13.2 g/dL (12.0-18.0) 03/10/19 06:23 Hct 39.8 % (35.0-51.0) 03/10/19 06:23 MCV 80.8 fL (80.0-94.0) 03/10/19 06:23 MCH 26.9 pg (27.0-31.0) L 03/10/19 06:23 MCHC 33.2 g/dL (33.0-37.0) 03/10/19 06:23 RDW 16.0 % (11.5-14.5) H 03/10/19 06:23 Plt Count 202 K/uL (130-400) 03/10/19 06:23 MPV 10.7 fL (7.2-11.7) 03/10/19 06:23 Neut % (Auto) 46.8 % (50.0-75.0) L 03/10/19 06:23 Lymph % (Auto) 40.6 % (20.0-40.0) H 03/10/19 06:23 Bond % (Auto) 10.3 % (0.0-10.0) H 03/10/19 06:23 Eos % (Auto) 1.7 % (0.0-4.0) 03/10/19 06:23 Baso % (Auto) 0.6 % (0.0-2.0) 03/10/19 06:23 Neut # (Auto) 2.9 K/uL (1.8-7.0) 03/10/19 06:23 Lymph # (Auto) 2.5 K/uL (1.0-4.3) 03/10/19 06:23 Bond # (Auto) 0.6 K/uL (0.0-0.8) 03/10/19 06:23 Eos # (Auto) 0.1 K/uL (0.0-0.7) 03/10/19 06:23 Baso # (Auto) 0.0 K/uL (0.0-0.2) 03/10/19 06:23 PT 19.9 SECONDS (9.7-12.2) H 03/10/19 06:23 INR 1.8 03/10/19 06:23 APTT 39.0 SECONDS (21-34) H D 03/10/19 06:23 Sodium 137 mmol/L (132-148) 03/10/19 06:23 Potassium 4.3 mmol/L (3.6-5.2) 03/10/19 06:23 Chloride 103 mmol/L (98-107) 03/10/19 06:23 Carbon Dioxide 24 mmol/L (22-30) 03/10/19 06:23 Anion Gap 15 (10-20) 03/10/19 06:23 BUN 30 mg/dL (9-20) H 03/10/19 06:23 Creatinine 0.9 mg/dL (0.8-1.5) 03/10/19 06:23 Est GFR ( Amer) > 60 03/10/19 06:23 Est GFR (Non-Af Amer) > 60 03/10/19 06:23 POC Glucose (mg/dL) 250 mg/dL (65-110) H 03/10/19 20:37 Random Glucose 215 mg/dL (75-110) H 03/10/19 06:23 Calcium 8.8 mg/dl (8.6-10.4) 03/10/19 06:23 Phosphorus 3.6 mg/dL (2.5-4.5) 03/10/19 06:23 Magnesium 1.9 mg/dL (1.6-2.3) 03/10/19 06:23 Total Bilirubin 0.2 mg/dL (0.2-1.3) 03/10/19 06:23 AST 28 U/L (17-59) 03/10/19 06:23 ALT 27 U/L (21-72) 03/10/19 06:23 Alkaline Phosphatase 104 U/L (38-126) 03/10/19 06:23 Total Creatine Kinase 26 U/L (55-170) L 03/01/19 21:12 CK-MB (Mass) 1.00 ng/mL (0.0-3.38) 03/01/19 21:12 Troponin I < 0.0120 ng/mL (0.00-0.120) 03/01/19 21:12 Total Protein 6.3 g/dL (6.3-8.3) 03/10/19 06:23 Albumin 3.6 g/dL (3.5-5.0) 03/10/19 06:23 Globulin 2.7 gm/dL (2.2-3.9) 03/10/19 06:23 Albumin/Globulin Ratio 1.4 (1.0-2.1) 03/10/19 06:23 - Hospital Course Hospital Course: HPI: 68 year old male with a past medical history of of SD x4, CAD with stent placement, diabetes, HLD, and s/p bilateral AKA, presents today with c omplaints of chest pain for the past 2 days. Associated with SOB and nausea. Patient states he was lying down, resting, when pain began. Pain is described as sharp and radiates to his left shoulder and under left breast. Additionally, patient notes his right AKA was recent, and he is experiencing pain to the right stump site. The following is a summary of hospital course. For full detail, please refer to EMR: Left ventricle thrombus -Cardiology consulted (Dr. Martínez); recommendations appreciated Hx of CAD with stent placement -Plavix 75 mg daily -not on ASA, as triple anticoagulation is not recommended per Cardiology Ischemic cardiomyopathy w/ reduced EF - Patient has History of hypertension - Cardiology consulted (Dr. Martínez); recommendations appreciated - Start low dose Warfarin, continue to monitor INR and adjust evening dose accordingly -metoprolol tartrate 50 mg PO BID -enalapril maleate 10 mg PO daily Chronic back pain -lyrica 75 mg PO TID History of HLD -rosuvastatin 10 mg PO HS DM -c/w home insulin levemir 25 units HS -Novolog 5 units ACBL -ISS -Accuchecks ACHS -hypoglyemia protocol PAD -s/p Bilateral AKA (most recent was left AKA amputation 2 months ago) -educated on complete cessation of tobacco use (Patient down to 2 cigarettes per day) PPx, Diet, Disposition -DVT ppx: on coumadiin -GI ppx: Protonix 40mg PO daily -Diet: HHD -PT/OT on case -Dispo: Having difficulty in opening the door for home care service. Follow SW. On discharge: Patient is medically stable for discharge to home as per Dr. Gaxiola. Patient's son (Segundo Vann) was notified and amenable to discharge plan. Patient and son will need to provide a set of keys for home service agency to enter. Arrangements have been made for lock box to store keys outside home for service agency when patient's son is not home. Patient is instructed to take medications as prescribed. Patient will need to monitor INR levels at home with twice weekly bloodwork initially and then ofelia suazo, per recommendations from Cardiology (Dr. Martínez). Script has been provided for 2 week supply of coumadin. Please take as directed and follow up with Dr. Martínez. There has been issue with patient remaining bed bound and couch bound to inability to adequately transfer himself to and from wheelchair post-2nd amputation. Patient states that son neglects him and is not frequently home. Adult Protective services agency was notified and case was opened with agent Louisa Fox . Medical attending spoke with agency on day of discharge and was informed that a home visit would occur within the next 48 hours. If symptoms worsen or persist, please return to ED immediately. - Date & Time of H&P Date of H&P: 03/11/19 Time of H&P: 12:07 Discharge Exam - Head Exam Head Exam: ATRAUMATIC, NORMAL INSPECTION, NORMOCEPHALIC - Eye Exam Eye Exam: EOMI, Normal appearance, PERRL Pupil Exam: NORMAL ACCOMODATION - ENT Exam ENT Exam: Mucous Membranes Moist, Normal Exam - Neck Exam Neck exam: Full Rom, Normal Inspection - Respiratory Exam Respiratory Exam: Clear to PA & Lateral, NORMAL BREATHING PATTERN, UNREMARKABLE. absent: Accessory Muscle Use, Respiratory Distress - Cardiovascular Exam Cardiovascular Exam: REGULAR RHYTHM, +S1, +S2 - GI/Abdominal Exam GI & Abdominal Exam: Normal Bowel Sounds, Soft, Unremarkable. absent: Distended, Firm, Guarding, Rebound, Rigid, Tenderness - Extremities Exam Additional comments: b/l AKA - Back Exam Back exam: NORMAL INSPECTION - Neurological Exam Neurological exam: Alert, CN II-XII Intact, Oriented x3 - Psychiatric Exam Psychiatric exam: Normal Affect, Normal Mood - Skin Skin Exam: Dry, Intact, Normal Color, Warm Discharge Plan - Discharge Medications Prescriptions: Clopidogrel [Plavix] 75 mg PO DAILY #30 tab Enalapril Maleate [Vasotec] 10 mg PO DAILY #30 tab Metoprolol Tartrate [Lopressor] 50 mg PO BID #60 tab Warfarin [Coumadin] 5 mg PO 1800 #14 tab - Follow Up Plan Condition: GOOD Disposition: HOME/ ROUTINE Instructions: Diabetes Exchange Diet, Vitamin K Diet, Diabetes Diet , Chest Pain (DC), Coronary Heart Disease (DC), Cardiomyopathy (DC), Warfarin, Clot Dissolving Drugs for Heart Attack or Stroke Additional Instructions: Patient is medically stable for discharge to home as per Dr. Gaxiola. Patient's son (Segundo Vann) was notified and amenable to discharge plan. Patient and son will need to provide a set of keys for home service agency to enter. Arrangements have been made for lock box to store keys outside home for service agency when patient's son is not home. Patient is instructed to take medications as prescribed. Patient will need to monitor INR levels at home with twice weekly bloodwork initially and then weekly, per recommendations from Cardiology (Dr. Martínez). Script has been provided for 2 week supply of coumadin. Please take as directed and follow up with Dr. Martínez. There has been issue with patient remaining bed bound and couch bound to inability to adequately transfer himself to and from wheelchair post-2nd amputation. Patient states that son neglects him and is not frequently home. Adult Protective services agency was notified and case was opened with agent Louisa Fox . Medical attending spoke with agency on day of discharge and was informed that a home visit would occur within the next 48 hours. If symptoms worsen or persist, please return to ED immediately. Referrals: Farshad Martínez MD [Staff Provider] - <GaxiolaRigoberto Griffin - Last Filed: 03/11/19 14:02> Provider - Provider Date of Admission: 02/26/19 17:23 Attending physician: Jenn Short MD Consults: 02/27/19 20:41 Case Management Referral Routine Comment: b/l amputation aka Physician Instructions: pt finding difficult to care for himself Reason For Exam: snf placement Reason for Referral: Discharge Planning 02/27/19 22:12 Cardiology Consult Routine Comment: Consulting Provider: Farshad Martínez Consulting Physician: Farshad Martínez Reason for Consult: chest pain Hospital Course - Lab Results Lab Results: Most Recent Lab Values WBC 6.3 K/uL (4.8-10.8) 03/10/19 06:23 RBC 4.92 Mil/uL (4.40-5.90) 03/10/19 06:23 Hgb 13.2 g/dL (12.0-18.0) 03/10/19 06:23 Hct 39.8 % (35.0-51.0) 03/10/19 06:23 MCV 80.8 fL (80.0-94.0) 03/10/19 06:23 MCH 26.9 pg (27.0-31.0) L 03/10/19 06:23 MCHC 33.2 g/dL (33.0-37.0) 03/10/19 06:23 RDW 16.0 % (11.5-14.5) H 03/10/19 06:23 Plt Count 202 K/uL (130-400) 03/10/19 06:23 MPV 10.7 fL (7.2-11.7) 03/10/19 06:23 Neut % (Auto) 46.8 % (50.0-75.0) L 03/10/19 06:23 Lymph % (Auto) 40.6 % (20.0-40.0) H 03/10/19 06:23 Bond % (Auto) 10.3 % (0.0-10.0) H 03/10/19 06:23 Eos % (Auto) 1.7 % (0.0-4.0) 03/10/19 06:23 Baso % (Auto) 0.6 % (0.0-2.0) 03/10/19 06:23 Neut # (Auto) 2.9 K/uL (1.8-7.0) 03/10/19 06:23 Lymph # (Auto) 2.5 K/uL (1.0-4.3) 03/10/19 06:23 Bond # (Auto) 0.6 K/uL (0.0-0.8) 03/10/19 06:23 Eos # (Auto) 0.1 K/uL (0.0-0.7) 03/10/19 06:23 Baso # (Auto) 0.0 K/uL (0.0-0.2) 03/10/19 06:23 PT 14.2 SECONDS (9.7-12.2) H D 03/11/19 11:25 INR 1.3 D 03/11/19 11:25 APTT 39.0 SECONDS (21-34) H D 03/10/19 06:23 Sodium 137 mmol/L (132-148) 03/10/19 06:23 Potassium 4.3 mmol/L (3.6-5.2) 03/10/19 06:23 Chloride 103 mmol/L (98-107) 03/10/19 06:23 Carbon Dioxide 24 mmol/L (22-30) 03/10/19 06:23 Anion Gap 15 (10-20) 03/10/19 06:23 BUN 30 mg/dL (9-20) H 03/10/19 06:23 Creatinine 0.9 mg/dL (0.8-1.5) 03/10/19 06:23 Est GFR ( Amer) > 60 03/10/19 06:23 Est GFR (Non-Af Amer) > 60 03/10/19 06:23 POC Glucose (mg/dL) 194 mg/dL (65-110) H 03/11/19 13:02 Random Glucose 215 mg/dL (75-110) H 03/10/19 06:23 Calcium 8.8 mg/dl (8.6-10.4) 03/10/19 06:23 Phosphorus 3.6 mg/dL (2.5-4.5) 03/10/19 06:23 Magnesium 1.9 mg/dL (1.6-2.3) 03/10/19 06:23 Total Bilirubin 0.2 mg/dL (0.2-1.3) 03/10/19 06:23 AST 28 U/L (17-59) 03/10/19 06:23 ALT 27 U/L (21-72) 03/10/19 06:23 Alkaline Phosphatase 104 U/L (38-126) 03/10/19 06:23 Total Creatine Kinase 26 U/L (55-170) L 03/01/19 21:12 CK-MB (Mass) 1.00 ng/mL (0.0-3.38) 03/01/19 21:12 Troponin I < 0.0120 ng/mL (0.00-0.120) 03/01/19 21:12 Total Protein 6.3 g/dL (6.3-8.3) 03/10/19 06:23 Albumin 3.6 g/dL (3.5-5.0) 03/10/19 06:23 Globulin 2.7 gm/dL (2.2-3.9) 03/10/19 06:23 Albumin/Globulin Ratio 1.4 (1.0-2.1) 03/10/19 06:23 Attending/Attestation - Attestation I have personally seen and examined this patient.: Yes I have fully participated in the care of the patient.: Yes I have reviewed all pertinent clinical information, including history, physical exam and plan: Yes Notes (Text): 03/11/19 13:52 Medical attending: Patient was seen and examined by me. Agree with the above note by the resident The patient was not in any acute distress when I came and saw him this morning. I then spoke with Adult Protective Services and notified them that we are intending to discharge patient soon. They explained that they may not be able to get to his home today but that they will try to be there tomorrow to speak with him. I went back and spoke with the patient again and informed him. There will be a lock box provided with the keys to the house. The keys will be provided so that the [facility] service can access the house if the family is not around to open the door and enter and see him Rigoberto Gaxiola
[2019-03-11 11:36] LABS: INR 1.3; PROTHROMBIN TIME 14.2 SECONDS (9.7-12.2)
[2019-03-11 17:23] VITALS: BP 117/68; PULSE 52; TEMP 97.8; O2SAT 96
== END 2019-03-11 19:30 | disposition home or self-care (01) | DRG 303 ==
LOC: C.ER 14:25 → C.9E 17:23 → C.6T 18:42
PROVIDERS: ADMIT Internal Medicine; ATTEND Internal Medicine
DX: I51.3 Intracardiac thrombosis, not elsewhere classified (principal); I25.10 Atherosclerotic heart disease of native coronary artery without angina pectoris; I25.2 Old myocardial infarction; J44.9 Chronic obstructive pulmonary disease, unspecified; Z95.5 Presence of coronary angioplasty implant and graft; F32.9 Major depressive disorder, single episode, unspecified; F41.9 Anxiety disorder, unspecified; E11.51 Type 2 diabetes mellitus with diabetic peripheral angiopathy without gangrene; E78.00 Pure hypercholesterolemia, unspecified; I10 Essential (primary) hypertension; I25.5 Ischemic cardiomyopathy; G89.29 Other chronic pain; M54.9 Dorsalgia, unspecified; Z79.4 Long term (current) use of insulin; Z87.891 Personal history of nicotine dependence; Z89.612 Acquired absence of left leg above knee; Z89.611 Acquired absence of right leg above knee

== ENCOUNTER 2019-03-14 20:47 | Inpatient (IN) | payer MEDICARE, BC ==
--- NOTE | 2019-03-14 21:27 | C.PDOC ---
History Of Present Illness 68-year-old male brought to the ED by ambulance for evaluation of left-sided chest pain radiating to the left arm which began 3 hours [employer]. Patient was instructed by ambulance to take Aspirin 342mg prior to their arrival. Patient has an extensive past medical history which includes CAD with stents, [place] X4, cardiomyopathy, Diabetes, Hyperlipidemia, Left Ventricular Thrombus, and is currently on Coumadin. Patient's corporate analyst is Dr. Martínez. Patient was recently admitted to [facility] for the same complaint and was discharged on 03/11. Patient denies shortness of breath, nausea, vomiting, abdominal pain. Time Seen by Provider: 03/14/19 21:04 Chief Complaint (Nursing): Upper Extremity Problem/Injury History Per: Patient, EMS History/Exam Limitations: no limitations Onset/Duration Of Symptoms: Hrs (3) Current Symptoms Are (Timing): Still Present Quality: "Pain" Severity: Moderate Additional History Per: Patient Past Medical History Reviewed: Historical Data, Nursing Documentation, Vital Signs Vital Signs: Last Vital Signs Temp 98.4 F 03/14/19 21:02 Pulse 62 03/14/19 21:02 Resp 16 03/14/19 21:02 BP 99/55 L 03/14/19 21:02 Pulse Ox 95 03/14/19 21:02 Primary Care Provider: FAMILY PROVIDER,NO - Medical History PMH: Anxiety, CAD, COPD, Depression, Diabetes, HTN, Hypercholesterolemia, Hyperlipidemia Surgical History: Coronary Stent - [facility] Procedures DETACHMENT AT RIGHT 3RD TOE, COMPLETE, OPEN APPROACH (12/02/15) ING HERNIA REP-GRAFT NOS (01/31/00) Family History: States: No Known Family Hx - Social History Hx Alcohol Use: No Hx Substance Use: No - Immunization History Hx Tetanus Toxoid Vaccination: No Hx Influenza Vaccination: No Hx Pneumococcal Vaccination: No Review Of Systems Constitutional: Negative for: Fever, Chills Cardiovascular: Positive for: Chest Pain (left-sided ) Respiratory: Negative for: Cough, Shortness of Breath Gastrointestinal: Negative for: Nausea, Vomiting, Abdominal Pain, Diarrhea Musculoskeletal: Positive for: Arm Pain (left) Skin: Negative for: Rash Neurological: Negative for: Weakness, Numbness, Headache, Dizziness Physical Exam - Physical Exam Appears: Well, Non-toxic, Other (in mild pain ) Skin: Normal Color, Warm, Dry Head: Normacephalic Eye(s): bilateral: Normal Inspection Oral Mucosa: Moist Neck: Supple Cardiovascular: Rhythm Regular, No Murmur Respiratory: Normal Breath Sounds, No Rales, No Rhonchi, No Wheezing, Other (speaking in full sentences ) Gastrointestinal/Abdominal: Normal Exam, Bowel Sounds, Soft, No Tenderness, No Guarding, No Rebound Extremity: Other (bilateral above-knee amputations ) Neurological/Psych: Oriented x3 ED Course And Treatment - Laboratory Results Result Diagrams: 03/22/19 07:54 03/22/19 07:55 ECG: Interpreted By Me, Viewed By Me (NSR 63 bpm, left axis deviation, low voltage QRS, Q waves II, III, aVF, T wave inversions I, II, aVL, V2-V6) ECG Interpretation: Abnormal O2 Sat by Pulse Oximetry: 95 (on RA) Pulse Ox Interpretation: Normal - Radiology CXR: Interpreted by Me, Viewed By Me CXR Interpretation: Yes: No Acute Disease. No: Infiltrates ( ) Progress Note: Blood work, EKG, CXR ordered and reviewed. Patient took ASA prior to ED arrival. - Physician Consult Information Physician Contacted: Arianne Rajan Outcome Of Conversation: Discussed patient with cardio (covering Dr. Martínez)- knows patient very well. Recommends IRMA x2 and if negative patient can follow up with Dr. Martínez in the office saturday/saturday. Patient to be obs tele under medicine electronic publisher Dr. Yvan Carrasco. Disposition - Disposition Disposition: HOSPITALIZED Disposition Time: 22:58 Condition: STABLE - Clinical Impression Clinical Impression: Chest pain - Scribe Statement The provider has reviewed the documentation as recorded by the Scribe (Ghislaine Carrasco) Provider Attestation: All medical record entries made by the Scribe were at my direction and pers onally dictated by me. I have reviewed the chart and agree that the record accurately reflects my personal performance of the history, physical exam, medical decision making, and the department course for this patient. I have also personally directed, reviewed, and agree with the discharge instructions and disposition. Decision To Admit - Pt Status Changed To: Hospital Disposition Of: Observation - . Bed Request Type: Telemetry Admitting Physician: Bobo Carrasco Patient Diagnosis: Chest pain
[2019-03-14 21:47] LABS: BASO # 0.1 K/uL (0.0-0.2); BASO % 0.8 % (0.0-2.0); EOS # 0.1 K/uL (0.0-0.7); EOS % 0.8 % (0.0-4.0); LYMPH # 2.6 K/uL (1.0-4.3); LYMPH % 34.9 % (20.0-40.0); MEAN CELL VOLUME 80.9 fL (80.0-94.0); MEAN CORPUSCULAR HEMOGLOBIN 26.1 pg (27.0-31.0); MEAN CORPUSCULAR HGB CONC 32.3 g/dL (33.0-37.0); MEAN PLATELET VOLUME 10.3 fL (7.2-11.7); MONO # 0.7 K/uL (0.0-0.8); MONO % 9.8 % (0.0-10.0); NEUT % 53.7 % (50.0-75.0); NRBC % 0.1 % (0.0-2.0); RBC 5.37 Mil/uL (4.40-5.90); RED CELL DISTRIBUTION WIDTH 16.3 % (11.5-14.5); WHITE BLOOD COUNT 7.5 K/uL (4.8-10.8)
[2019-03-14 21:56] LABS: INR 1.1; PROTHROMBIN TIME 12.4 SECONDS (9.7-12.2)
[2019-03-14 22:39] LABS: ALB/GLOB RATIO 1.3 (1.0-2.1); ALBUMIN 3.8 g/dL (3.5-5.0); ALT/SGPT 28 U/L (21-72); AST/SGOT 19 U/L (17-59); BLOOD UREA NITROGEN 21 mg/dL (9-20); CALCIUM 9.2 mg/dl (8.6-10.4); GFR NON-AFRICAN AMERICAN > 60
[2019-03-14 22:49] LABS: B-TYPE NATRIURETIC PEPTIDE 313 pg/mL (0-900)
[2019-03-15 00:33] VITALS: RESP 20
[2019-03-15] MEDS ORDERED: Glucagon Recombinant 1 mg Inj IM PRN (02:00)
[2019-03-15] MEDS ORDERED: Dextrose 50% SYRINGE Inj (50 ml) IV PRN (02:00)
[2019-03-15 06:33] LABS: CK-MB 1.41 ng/mL (0.0-3.38)
[2019-03-15] MEDS: (Novolog) Insulin Aspart, Recombinant 100 u/ml 10 ml vial SC SCH ×3 (08:04→17:13)
[2019-03-15] MEDS: Pantoprazole 40 mg EC Tab PO SCH (09:50)
[2019-03-15] MEDS: Enoxaparin 40 mg Syringe SC SCH (09:53)
--- NOTE | 2019-03-15 10:39 | RAD ---
Date of service: 03/14/2019 PROCEDURE: CHEST RADIOGRAPH, 1 VIEW HISTORY: CP COMPARISON: None available. FINDINGS: LUNGS: Small bibasilar opacities are noted likely atelectasis. PLEURA: No pneumothorax or pleural fluid seen. CARDIOVASCULAR: No aortic atherosclerotic calcification present. Normal. OSSEOUS STRUCTURES: No significant abnormalities. VISUALIZED UPPER ABDOMEN: Normal. OTHER FINDINGS: None. IMPRESSION: Small bibasilar opacities may represent atelectasis.
--- NOTE | 2019-03-15 13:28 | CP.PCM.HP ---
History of Present Illness - History of Present Illness History of Present Illness: Medical History PMH: Anxiety, CAD, COPD, Depression, Diabetes, HTN, Hypercholesterolemia, Hyperlipidemia Surgical History: Coronary Stent - [facility] Procedures DETACHMENT AT RIGHT 3RD TOE, COMPLETE, OPEN APPROACH (12/02/15) ING HERNIA REP-GRAFT NOS (01/31/00) Family History: States: No Known Family Hx - Social History Hx Alcohol Use: No Hx Substance Use: No - Immunization History Hx Tetanus Toxoid Vaccination: No Hx Influenza Vaccination: No Hx Pneumococcal Vaccination: No Review Of Systems Constitutional: Negative for: Fever, Chills Cardiovascular: Positive for: Chest Pain (left-sided ) Respiratory: Negative for: Cough, Shortness of Breath Gastrointestinal: Negative for: Nausea, Vomiting, Abdominal Pain, Diarrhea Musculoskeletal: Positive for: Arm Pain (left) Skin: Negative for: Rash Neurological: Negative for: Weakness, Numbness, Headache, Dizziness Past Patient History - Infectious Disease Hx of Infectious Diseases: None - Past Medical History & Family History Past Medical History?: Yes - Past Social History Smoking Status: Heavy Smoker > 10 Cigarettes Daily - CARDIAC Hx Hypercholesterolemia: Yes Hx Hypertension: Yes - PULMONARY Hx Chronic Obstructive Pulmonary Disease (COPD): Yes - NEUROLOGICAL Hx Neurological Disorder: No - HEENT Hx Cataracts: Yes - RENAL Hx Chronic Kidney Disease: No - ENDOCRINE/METABOLIC Hx Diabetes Mellitus Type 2: Yes - HEMATOLOGICAL/ONCOLOGICAL Hx Blood Disorders: No - INTEGUMENTARY Hx Dermatological Problems: No - MUSCULOSKELETAL/RHEUMATOLOGICAL Hx Falls: No Hx Spinal Stenosis: Yes - GASTROINTESTINAL Hx Gastrointestinal Disorders: No - GENITOURINARY/GYNECOLOGICAL Hx Genitourinary Disorders: No - PSYCHIATRIC Hx Anxiety: Yes Hx Depression: Yes Hx Substance Use: No - SURGICAL HISTORY Hx Coronary Stent: Yes - ANESTHESIA Hx Anesthesia: Yes Hx Anesthesia Reactions: No Meds Home Medications: Home Medication List Medication Instructions Recorded Confirmed Type Losartan [Cozaar] 50 mg PO DAILY 30 Days tab 03/23/19 Rx traMADol [Ultram] 50 mg PO TID #15 tab 03/23/19 Rx Allergies/Adverse Reactions: Allergies Allergy/AdvReac Type Severity Reaction Status Date / Time ciprofloxacin AdvReac RASH, Verified 03/19/19 07:22 ITCHINESS Penicillins AdvReac passed out Verified 01/22/19 22:03 Physical Exam - Constitutional Appears: Well - Head Exam Head Exam: ATRAUMATIC, NORMAL INSPECTION, NORMOCEPHALIC - Eye Exam Eye Exam: EOMI, Normal appearance, PERRL Pupil Exam: NORMAL ACCOMODATION, PERRL - ENT Exam ENT Exam: Mucous Membranes Moist, Normal Exam - Neck Exam Neck exam: Positive for: Normal Inspection - Respiratory Exam Respiratory Exam: Decreased Breath Sounds - Cardiovascular Exam Cardiovascular Exam: REGULAR RHYTHM, +S1, +S2 - GI/Abdominal Exam GI & Abdominal Exam: Diminished Bowel Sounds, Soft - Rectal Exam Rectal Exam: Deferred - Neurological Exam Neurological exam: Oriented x3 Results - Vital Signs Recent Vital Signs: Last Vital Signs Temp 98.6 F 03/15/19 08:53 Pulse 61 03/15/19 11:03 Resp 20 03/15/19 08:53 BP 138/66 03/15/19 08:53 Pulse Ox 98 03/15/19 08:53 - Labs Result Diagrams: 03/22/19 07:54 03/22/19 07:55 Labs: Laboratory Results - last 24 hr 03/14/19 03/14/19 03/14/19 21:44 21:44 22:20 WBC 7.5 RBC 5.37 Hgb 14.0 Hct 43.5 MCV 80.9 MCH 26.1 L MCHC 32.3 L RDW 16.3 H Plt Count 256 MPV 10.3 Neut % (Auto) 53.7 Lymph % (Auto) 34.9 [place] % (Auto) 9.8 Eos % (Auto) 0.8 Baso % (Auto) 0.8 Neut # (Auto) 4.0 Lymph # (Auto) 2.6 [place] # (Auto) 0.7 Eos # (Auto) 0.1 Baso # (Auto) 0.1 PT 12.4 H INR 1.1 APTT 27.0 Sodium 138 Potassium 4.1 Chloride 104 Carbon Dioxide 22 Anion Gap 16 BUN 21 H Creatinine 0.7 L Est GFR ( Amer) > 60 Est GFR (Non-Af Amer) > 60 POC Glucose (mg/dL) Random Glucose 316 H D Calcium 9.2 Total Bilirubin 0.2 AST 19 ALT 28 Alkaline Phosphatase 105 Total Creatine Kinase 46 L CK-MB (Mass) 1.50 Troponin I < 0.0120 NT-Pro-B Natriuret Pep 313 Total Protein 6.8 Albumin 3.8 Globulin 3.0 Albumin/Globulin Ratio 1.3 03/15/19 03/15/19 03/15/19 02:35 06:04 06:17 WBC RBC Hgb Hct MCV MCH MCHC RDW Plt Count MPV Neut % (Auto) Lymph % (Auto) [place] % (Auto) Eos % (Auto) Baso % (Auto) Neut # (Auto) Lymph # (Auto) [place] # (Auto) Eos # (Auto) Baso # (Auto) PT INR APTT Sodium Potassium Chloride Carbon Dioxide Anion Gap BUN Creatinine Est GFR ( Amer) Est GFR (Non-Af Amer) POC Glucose (mg/dL) 391 H 296 H Random Glucose Calcium Total Bilirubin AST ALT Alkaline Phosphatase Total Creatine Kinase 38 L CK-MB (Mass) 1.41 Troponin I < 0.0120 NT-Pro-B Natriuret Pep Total Protein Albumin Globulin Albumin/Globulin Ratio 03/15/19 11:56 WBC RBC Hgb Hct MCV MCH MCHC RDW Plt Count MPV Neut % (Auto) Lymph % (Auto) [place] % (Auto) Eos % (Auto) Baso % (Auto) Neut # (Auto) Lymph # (Auto) [place] # (Auto) Eos # (Auto) Baso # (Auto) PT INR APTT Sodium Potassium Chloride Carbon Dioxide Anion Gap BUN Creatinine Est GFR ( Amer) Est GFR (Non-Af Amer) POC Glucose (mg/dL) 225 H Random Glucose Calcium Total Bilirubin AST ALT Alkaline Phosphatase Total Creatine Kinase CK-MB (Mass) Troponin I NT-Pro-B Natriuret Pep Total Protein Albumin Globulin Albumin/Globulin Ratio
[2019-03-15] MEDS ORDERED: Insulin Detemir 100 units/ml Vial (Levemir) SC SCH (22:00)
[2019-03-16] MEDS ORDERED: (Novolog) Insulin Aspart, Recombinant 100 u/ml 10 ml vial SC SCH ×2 (07:30→13:22)
[2019-03-16] MEDS: (Novolog) Insulin Aspart, Recombinant 100 u/ml 10 ml vial SC SCH ×6 (08:36→21:50)
[2019-03-16] MEDS: Enoxaparin 40 mg Syringe SC SCH (09:38)
[2019-03-16] MEDS: Pantoprazole 40 mg EC Tab PO SCH (09:39)
--- NOTE | 2019-03-16 11:34 | CP.PCM.CON ---
<Rachel Law - Last Filed: 03/16/19 12:40> History of Present Illness - History of Present Illness History of Present Illness: GI Fellow PGY5 Consult Note This is a 68 year old male with a past medical history of of [place] x4, CAD with stent placement, diabetes, HLD, and s/p bilateral AKA, CHF, Ischemic Cardiomyopthay, Left ventricle Thrombus on OAC who presents with complaints of chest pain and left arm pain for the past 2 days. Associated with SOB. GI was consulted for acute abdominal pain, nausea and dry heaves. Pt reports eating a tuna sandwich at 2am and soon after had abdominal pain with nausea sensation, denies vomiting. Denies prior episodes, no prior EGD. Had a colonoscopy years ago with polyps. Denies rectal bleeding or hematemesis. Pt reports elevated BG at home with sugars in 400s, uncontrolled. ROS: A 12pt ROS was negative except as above Pmhx: As stated in HPI PsHx: As stated above SHx: Denies tobacco, drugs, etoh FH: Neg for GI malignancy Past Patient History - Infectious Disease Hx of Infectious Diseases: None - Past Medical History & Family History Past Medical History?: Yes - Past Social History Smoking Status: Heavy Smoker > 10 Cigarettes Daily - CARDIAC Hx Hypercholesterolemia: Yes Hx Hypertension: Yes - PULMONARY Hx Chronic Obstructive Pulmonary Disease (COPD): Yes - NEUROLOGICAL Hx Neurological Disorder: No - HEENT Hx Cataracts: Yes - RENAL Hx Chronic Kidney Disease: No - ENDOCRINE/METABOLIC Hx Diabetes Mellitus Type 2: Yes - HEMATOLOGICAL/ONCOLOGICAL Hx Blood Disorders: No - INTEGUMENTARY Hx Dermatological Problems: No - MUSCULOSKELETAL/RHEUMATOLOGICAL Hx Falls: No Hx Spinal Stenosis: Yes - GASTROINTESTINAL Hx Gastrointestinal Disorders: No - GENITOURINARY/GYNECOLOGICAL Hx Genitourinary Disorders: No - PSYCHIATRIC Hx Anxiety: Yes Hx Depression: Yes Hx Substance Use: No - SURGICAL HISTORY Hx Coronary Stent: Yes - ANESTHESIA Hx Anesthesia: Yes Hx Anesthesia Reactions: No Meds Allergies/Adverse Reactions: Allergies Allergy/AdvReac Type Severity Reaction Status Date / Time Penicillins AdvReac passed out Verified 01/22/19 22:03 - Medications Medications: Current Medications Aspirin (Aspirin) 325 mg PO DAILY [facility] Last Admin: 03/16/19 09:38 Dose: 325 mg Clopidogrel Bisulfate (Plavix) 75 mg PO DAILY [facility] Last Admin: 03/16/19 09:39 Dose: 75 mg Dextrose (Dextrose 50% Inj) 0 ml IV STAT PRN; Protocol PRN Reason: Hypoglycemia Protocol Dextrose (Glutose 15) 0 gm PO ONCE PRN; Protocol PRN Reason: Hypoglycemia Protocol Enoxaparin Sodium (Lovenox) 40 mg SC DAILY [facility] Last Admin: 03/16/19 09:38 Dose: 40 mg Glucagon (Glucagen Diagnostic Kit) 0 mg IM STAT PRN; Protocol PRN Reason: Hypoglycemia Protocol Dextrose (Dextrose 5% In Water 1000 Ml) 1,000 mls @ 0 mls/hr IV .Q0M PRN; Protocol PRN Reason: Hypoglycemia Protocol Ibuprofen (Motrin Tab) 800 mg PO Q8H PRN PRN Reason: Pain, moderate (4-7) Last Admin: 03/16/19 04:27 Dose: 800 mg Insulin Aspart (Novolog) 5 unit SC AC [facility] Last Admin: 03/16/19 11:16 Dose: 5 units Insulin Aspart (Novolog) 0 unit SC ACHS [facility]; Protocol Last Admin: 03/16/19 11:17 Dose: 6 unit Insulin Detemir (Levemir) 25 unit SC [facility] Last Admin: 03/15/19 21:32 Dose: 25 unit Metoprolol Tartrate (Lopressor) 50 mg PO BID [facility] Last Admin: 03/16/19 09:38 Dose: 50 mg Pantoprazole Sodium (Protonix Inj) 40 mg IVP DAILY [facility] Pregabalin (Lyrica) 75 mg PO TID [facility] Last Admin: 03/16/19 09:39 Dose: 75 mg Physical Exam - Constitutional Appears: Non-toxic, No Acute Distress, Chronically Ill - Head Exam Head Exam: ATRAUMATIC, NORMAL INSPECTION, NORMOCEPHALIC - Eye Exam Eye Exam: EOMI, Normal appearance, PERRL - ENT Exam ENT Exam: Mucous Membranes Moist, Normal Exam - Neck Exam Neck exam: Positive for: Normal Inspection - Respiratory Exam Respiratory Exam: Clear to Auscultation Bilateral, NORMAL BREATHING PATTERN - Cardiovascular Exam Cardiovascular Exam: REGULAR RHYTHM, RRR, +S1, +S2 - GI/Abdominal Exam GI & Abdominal Exam: Normal Bowel Sounds, Soft - Rectal Exam Rectal Exam: Deferred - Extremities Exam Additional comments: BL AKA - Neurological Exam Neurological exam: Alert, Oriented x3 - Psychiatric Exam Psychiatric exam: Normal Affect, Normal Mood - Skin Skin Exam: Dry, Intact, Normal Color, Warm Results - Vital Signs Recent Vital Signs: Last Vital Signs Temp 97.9 F 03/16/19 07:00 Pulse 67 03/16/19 09:28 Resp 20 03/16/19 07:00 BP 156/77 H 03/16/19 09:28 Pulse Ox 96 03/16/19 07:00 - Labs Result Diagrams: 03/14/19 21:44 03/14/19 22:20 Labs: Laboratory Results - last 24 hr 03/15/19 03/15/19 03/15/19 11:56 14:05 16:51 POC Glucose (mg/dL) 225 H 324 H Total Creatine Kinase 39 L CK-MB (Mass) 1.30 Troponin I < 0.0120 03/15/19 03/16/19 03/16/19 21:13 06:29 10:59 POC Glucose (mg/dL) 386 H 339 H 414 H* Total Creatine Kinase CK-MB (Mass) Troponin I Assessment & Plan - Assessment and Plan (Free Text) Assessment: 1. Abd pain and Nausea 2. Diabetes, uncontrolled BG 3. CAD 4. Chest pain 5. Left ventricle Thrombus -Pt with acute onset of abdominal pain likely from uncontrolled diabetes and underlying DM/gastroparesis -Recommend clear liquid diet for now and advance to small frequent meals as tolerated -Recommend tight glyciemic control -Anti-emetics prns -PPI daily -No plan for endoscopic evaluation due to significant cardiac hx and chest pain -Will continue to follow pt closely <Manav Canchola - Last Filed: 03/16/19 13:35> Meds - Medications Medications: Current Medications Aspirin (Aspirin) 325 mg PO DAILY [facility] Last Admin: 03/16/19 09:38 Dose: 325 mg Clopidogrel Bisulfate (Plavix) 75 mg PO DAILY [facility] Last Admin: 03/16/19 09:39 Dose: 75 mg Dextrose (Dextrose 50% Inj) 0 ml IV STAT PRN; Protocol PRN Reason: Hypoglycemia Protocol Dextrose (Glutose 15) 0 gm PO ONCE PRN; Protocol PRN Reason: Hypoglycemia Protocol Enoxaparin Sodium (Lovenox) 40 mg SC DAILY [facility] Last Admin: 03/16/19 09:38 Dose: 40 mg Famotidine (Pepcid) 20 mg IVP BID [facility] Glucagon (Glucagen Diagnostic Kit) 0 mg IM STAT PRN; Protocol PRN Reason: Hypoglycemia Protocol Dextrose (Dextrose 5% In Water 1000 Ml) 1,000 mls @ 0 mls/hr IV .Q0M PRN; Protocol PRN Reason: Hypoglycemia Protocol Insulin Aspart (Novolog) 0 unit SC ACHS [facility]; Protocol Last Admin: 03/16/19 11:17 Dose: 6 unit Insulin Aspart (Novolog) 8 unit SC AC PATRICK Insulin Detemir (Levemir) 25 unit SC HS [facility] Last Admin: 03/15/19 21:32 Dose: 25 unit Metoclopramide HCl (Reglan) 10 mg IVP BID PRN PRN Reason: nausea Last Admin: 03/16/19 13:09 Dose: 10 mg Metoprolol Tartrate (Lopressor) 50 mg PO BID [facility] Last Admin: 03/16/19 09:38 Dose: 50 mg Morphine Sulfate (Morphine) 2 mg IVP Q6 PRN PRN Reason: Pain, moderate (4-7) Pregabalin (Lyrica) 75 mg PO TID [facility] Last Admin: 03/16/19 13:07 Dose: 75 mg Results - Vital Signs Recent Vital Signs: Last Vital Signs Temp 97.9 F 03/16/19 07:00 Pulse 51 L 03/16/19 11:52 Resp 20 03/16/19 07:00 BP 156/77 H 03/16/19 09:28 Pulse Ox 96 03/16/19 07:00 - Labs Result Diagrams: 03/14/19 21:44 03/14/19 22:20 Labs: Laboratory Results - last 24 hr 03/15/19 03/15/19 03/15/19 14:05 16:51 21:13 POC Glucose (mg/dL) 324 H 386 H Total Creatine Kinase 39 L CK-MB (Mass) 1.30 Troponin I < 0.0120 03/16/19 03/16/19 06:29 10:59 POC Glucose (mg/dL) 339 H 414 H* Total Creatine Kinase CK-MB (Mass) Troponin I Attending/Attestation - Attestation I have personally seen and examined this patient.: Yes I have fully participated in the care of the patient.: Yes I have reviewed all pertinent clinical information: Yes Notes (Text): 03/16/19 13:29 I have seen and examined patient with GI fellow. Agree with above documentation with the following additions. In brief, this is a 68 year old male with history of CAD/[place] s/p stent on plavix, PVD s/p bilateral BKA, DM, LV thrombus, hyp erlipidemia who presents to hospital with complaint of chest pain. He describes ongoing sharp pressure like left sided chest pain that is associated with nausea. GI called for evaluation of abdominal pain which began yesterday after eating tuna sandwich. He describes a bilateral R and LLQ pain that is associated with nausea and non-bloody emesis. He denies diarrhea, fever/chills, weight loss, rectal bleeding, or change in bowel habits. He does report recent uncontrolled DM, often with FS >400. He had a colonoscopy several years ago which showed polyps as per patient, no prior EGD. Additional physical exam: Abdomen: no palpable hepato/splenomegaly, LLQ subcutaneous mobile nodule present CAD/[place] s/p stent PVD s/p bilateral BKA DM LV thrombus Abdominal pain - Clear liquid diet as tolerated - Etiology for abdominal pain is likely multifactorial in setting of uncontrolled DM - Anti-emetic therapy PRN - Continue with h2 elyse therapy - Maintain strict glycemic control - Follow up cardiology recommendations given ongoing chest pain - Currently no planned endoscopic intervention, patient is high risk for procedure with anesthesia. Will continue to monitor patient clinical course.
--- NOTE | 2019-03-16 16:56 | CP.PCM.CON ---
History of Present Illness - History of Present Illness History of Present Illness: The pt is a 68 yo man, ex smoker, with sig CV disease. THe patient has had several NV's, PAd, and coronary PCI. He has ischemic cardiomyopathy, but no h/o chf or afib. Pt had a second amputation at [place] this year. Pt is a , and is taken care of by his son. His son often neglects him (personal observation). pt has been at [facility] for chronic pain syndromes multiple times in the last several months. Pt also has severe back and joint pain. pt was recently admitted for constant c\shoulder pain, that was associated with motion. TNI was negative. CXR does not show chf. last month, an echo was performed with contrast, demonstrating markedly reduced LV EF, and a small organized non mobile apical thrombus, previously not diagnosed. Warfarin was begun. The patient now returns with abdominal pain. The shoulder pain is unchanged and chronic. GI eval was perfomed, and it is though that the patient has gastroparesis. Review of Systems - Review of Systems All systems: reviewed and no additional remarkable complaints except (as above. No N/V. last bm this AM.) Past Patient History - Infectious Disease Hx of Infectious Diseases: None - Past Medical History & Family History Past Medical History?: Yes - Past Social History Smoking Status: Heavy Smoker > 10 Cigarettes Daily - CARDIAC Hx Hypercholesterolemia: Yes Hx Hypertension: Yes - PULMONARY Hx Chronic Obstructive Pulmonary Disease (COPD): Yes - NEUROLOGICAL Hx Neurological Disorder: No - HEENT Hx Cataracts: Yes - RENAL Hx Chronic Kidney Disease: No - ENDOCRINE/METABOLIC Hx Diabetes Mellitus Type 2: Yes - HEMATOLOGICAL/ONCOLOGICAL Hx Blood Disorders: No - INTEGUMENTARY Hx Dermatological Problems: No - MUSCULOSKELETAL/RHEUMATOLOGICAL Hx Falls: No Hx Spinal Stenosis: Yes - GASTROINTESTINAL Hx Gastrointestinal Disorders: No - GENITOURINARY/GYNECOLOGICAL Hx Genitourinary Disorders: No - PSYCHIATRIC Hx Anxiety: Yes Hx Depression: Yes Hx Substance Use: No - SURGICAL HISTORY Hx Coronary Stent: Yes - ANESTHESIA Hx Anesthesia: Yes Hx Anesthesia Reactions: No Meds Allergies/Adverse Reactions: Allergies Allergy/AdvReac Type Severity Reaction Status Date / Time Penicillins AdvReac passed out Verified 01/22/19 22:03 - Medications Medications: Current Medications Aspirin (Aspirin) 325 mg PO DAILY [facility] Last Admin: 03/16/19 09:38 Dose: 325 mg Clopidogrel Bisulfate (Plavix) 75 mg PO DAILY [facility] Last Admin: 03/16/19 09:39 Dose: 75 mg Dextrose (Dextrose 50% Inj) 0 ml IV STAT PRN; Protocol PRN Reason: Hypoglycemia Protocol Dextrose (Glutose 15) 0 gm PO ONCE PRN; Protocol PRN Reason: Hypoglycemia Protocol Enoxaparin Sodium (Lovenox) 40 mg SC DAILY [facility] Last Admin: 03/16/19 09:38 Dose: 40 mg Famotidine (Pepcid) 20 mg IVP BID [facility] Glucagon (Glucagen Diagnostic Kit) 0 mg IM STAT PRN; Protocol PRN Reason: Hypoglycemia Protocol Dextrose (Dextrose 5% In Water 1000 Ml) 1,000 mls @ 0 mls/hr IV .Q0M PRN; Protocol PRN Reason: Hypoglycemia Protocol Insulin Aspart (Novolog) 0 unit SC ACHS [facility]; Protocol Last Admin: 03/16/19 11:17 Dose: 6 unit Insulin Aspart (Novolog) 8 unit SC AC [facility] Insulin Detemir (Levemir) 30 unit SC HS [facility] Metoclopramide HCl (Reglan) 10 mg IVP BID PRN PRN Reason: nausea Last Admin: 03/16/19 13:09 Dose: 10 mg Metoprolol Tartrate (Lopressor) 50 mg PO BID [facility] Last Admin: 03/16/19 09:38 Dose: 50 mg Morphine Sulfate (Morphine) 2 mg IVP Q6 PRN PRN Reason: Pain, moderate (4-7) Last Admin: 03/16/19 13:41 Dose: 2 mg Pregabalin (Lyrica) 75 mg PO TID [facility] Last Admin: 03/16/19 13:07 Dose: 75 mg Physical Exam - Constitutional Appears: Chronically Ill - Head Exam Head Exam: ATRAUMATIC - Eye Exam Eye Exam: EOMI Pupil Exam: NORMAL ACCOMODATION - ENT Exam ENT Exam: Mucous Membranes Moist - Neck Exam Neck exam: Positive for: Normal Inspection - Respiratory Exam Respiratory Exam: Clear to Auscultation Bilateral, NORMAL BREATHING PATTERN - Cardiovascular Exam Cardiovascular Exam: REGULAR RHYTHM - GI/Abdominal Exam GI & Abdominal Exam: Normal Bowel Sounds, Soft - Extremities Exam Additional comments: bilateral amputee - Back Exam Additional comments: scarring from previous heating pad - Neurological Exam Neurological exam: Alert, CN II-XII Intact, Oriented x3 - Psychiatric Exam Psychiatric exam: Anxious - Skin Skin Exam: Dry, Normal Color Results - Vital Signs Recent Vital Signs: Last Vital Signs Temp 98.6 F 03/16/19 15:00 Pulse 52 L 03/16/19 16:00 Resp 20 03/16/19 15:00 BP 163/79 H 03/16/19 15:00 Pulse Ox 98 03/16/19 15:00 - Labs Result Diagrams: 03/14/19 21:44 03/14/19 22:20 Labs: Laboratory Results - last 24 hr 03/15/19 03/15/19 03/16/19 16:51 21:13 06:29 POC Glucose (mg/dL) 324 H 386 H 339 H 03/16/19 10:59 POC Glucose (mg/dL) 414 H* - EKG Data EKG shows normal: Sinus rhythm Rate: Normal (nsr, old IMI, old AMI) Assessment & Plan - Assessment and Plan (Free Text) Assessment: 1. Left am pain is chronic, positional and non anginal. TNI are negative. 2/ Cardiomyopathy: pt is on a b elyse, needs to be on andres inhib: will add arb. 3. Pt has LV thrombus: needs INR checked weekly at home. INR is sub-therapeutic. As pt is being worked up for abd pain, will wait until w/u is complete before starting warfarin. meanwhile, lovenox 1 mg/kg min is advised until inr is 2 - 3. 4. It is not advised that pt receive triple anticoagulation, Stop asa, contine plavix 75 with warfarin upon d/c
--- NOTE | 2019-03-16 18:34 | CT ---
Date of service: 03/16/2019 PROCEDURE: CT scan abdomen pelvis 03/16/2019 HISTORY: Severe abdominal pain COMPARISON: Comparison made with CT scan of the abdomen and pelvis 05/02/2012. TECHNIQUE: Contiguous helical/transaxial sections of the abdomen pelvis performed without oral or intravenous contrast material. Additional 2D sagittal and coronal reformats generated. Radiation dose: Total exam DLP = 1217.24 mGy-cm. This CT exam was performed using one or more of the following dose reduction techniques: Automated exposure control, adjustment of the mA and/or kV according to patient size, and/or use of iterative reconstruction technique. FINDINGS: LOWER THORAX: Mild atelectasis both posterior lung bases right greater than left. There also appears to be some scattered scarring changes both lung bases. Small nodular opacity seen in the left posterior sulcus soft to represent postinflammatory sequela or scarring. Heart size within range of normal. Small hiatal hernia. LIVER: The liver exhibits normal size and attenuation pattern without masses collections or calcifications. GALLBLADDER AND BILE DUCTS: Gallbladder physiologically distended. No evidence of intraluminal gallbladder calculi. PANCREAS: Underlying pancreas is atrophic and fatty replaced however there are infiltration changes seen in the mesentery about the pancreas, particularly at the level of the pancreatic head region.. Particular at the level of the pancreatic head. There is a 7.3 mm calcification in the expected location of the distal common bile duct at the level of the pancreatic head region. Collectively the findings could be secondary to choledocholithiasis and acute pancreatitis. Additionally, there are infiltration surrounding the duodenum which could be reactive secondary to a pancreatitis. Alternately, the possibility of a inflammatory process of the duodenum such as peptic ulcer disease not excluded although the former is favored.. Clinical correlation recommended. Consider follow-up MRCP for further evaluation of these findings. SPLEEN: Spleen exhibits normal size and attenuation pattern without mass collection or calcification. ADRENALS: Slightly nodular appearing left adrenal gland. KIDNEYS AND URETERS: Kidneys demonstrate symmetric size. No evidence of nephrolithiasis or hydronephrosis. Some minimal infiltration in the perinephric fat bilaterally nonspecific. BLADDER: Urinary bladder is incompletely distended. No evidence of intraluminal urinary bladder calculi. REPRODUCTIVE: Prostate gland measures approximately 4.2 cm in transverse dimension. Prostatic calcifications present. APPENDIX: Appendix is not seen with certainty. BOWEL: Evaluation of the bowel is somewhat limited due to the lack of oral contrast material. The stomach is partially distended with food debris liquid and air.. As mentioned above, there appears to be dilatation of the proximal duodenum which is fluid-filled and questionable wall thickening. Infiltration changes in the adjacent mesentery present. It is unclear whether these findings could represent sequela of a duodenal inflammation/duodenitis or peptic ulcer disease versus of reactive changes secondary to suspected calculus within the distal common bile duct with secondary pancreatitis changes and infiltration although the latter is more likely. There is also localized dilatation of a short segment of the proximal and jejunum. Large amount of stool is present within the cecum and proximal, ascending and transverse colon consistent with fecal retention/constipation. There appears to be a few scattered colonic diverticula along the left colon however no radiographic evidence of acute diverticulitis. PERITONEUM: Infiltration changes and suspected fluid in the region the peripancreatic region particularly at the level of the head and adjacent to the duodenum. Some fluid in the right para renal space felt to be present. LYMPH NODES: Unremarkable. No enlarged lymph nodes. VASCULATURE: Unremarkable. No aortic aneurysm. Mild aortic atherosclerotic calcification or mural plaque present. Note made of what appears represent a subcutaneous stent graft right proximal thigh with an anastomosis at the level of the right femoral artery BONES: Multilevel degenerative spondylosis of the thoracic and lumbar spine. There is also a mild levoscoliosis. OTHER FINDINGS: None. IMPRESSION: Underlying pancreas is atrophic and fatty replaced however there are infiltration changes seen in the mesentery about the pancreas, particularly at the level of the pancreatic head region.. Particular at the level of the pancreatic head. There is a 7.3 mm calcification in the expected location of the distal common bile duct at the level of the pancreatic head region. Collectively the findings could be secondary to choledocholithiasis and acute pancreatitis. Additionally, there are infiltration surrounding the duodenum which is locally dilated and exhibit slight thick-walled appearance. Findings could be reactive secondary to acute pancreatitis. Alternately, the possibility of an inflammatory process of the duodenum duodenitis or peptic ulcer disease not excluded although pancreatitis related to obstructing common bile duct stone is favored. Clinical correlation recommended. Consider follow-up MRCP for further evaluation of these findings. Findings are consistent with constipation. Few scattered colonic diverticula without radiographic evidence of acute diverticulitis.
--- NOTE | 2019-03-16 19:41 | CP.PCM.PN ---
Subjective - Date & Time of Evaluation Date of Evaluation: 03/16/19 - Subjective Subjective: patient examined today c/o nausea c/o vomiting no diarrhea no dizziness no fever no shortness of breath Objective - Vital Signs/Intake and Output Vital Signs (last 24 hours): Temp Pulse Resp BP Pulse Ox 98.6 F 52 L 20 149/75 98 03/16/19 15:00 03/16/19 16:00 03/16/19 15:00 03/16/19 17:57 03/16/19 15:00 Intake and Output: 03/16/19 03/17/19 18:59 06:59 Output Total 600 Balance -600 - Medications Medications: Current Medications Clopidogrel Bisulfate (Plavix) 75 mg PO DAILY [facility] Last Admin: 03/16/19 09:39 Dose: 75 mg Dextrose (Dextrose 50% Inj) 0 ml IV STAT PRN; Protocol PRN Reason: Hypoglycemia Protocol Dextrose (Glutose 15) 0 gm PO ONCE PRN; Protocol PRN Reason: Hypoglycemia Protocol Enoxaparin Sodium (Lovenox) 60 mg SC Q12 [facility] Famotidine (Pepcid) 20 mg IVP BID [facility] Glucagon (Glucagen Diagnostic Kit) 0 mg IM STAT PRN; Protocol PRN Reason: Hypoglycemia Protocol Dextrose (Dextrose 5% In Water 1000 Ml) 1,000 mls @ 0 mls/hr IV .Q0M PRN; Protocol PRN Reason: Hypoglycemia Protocol Insulin Aspart (Novolog) 0 unit SC ACHS [facility]; Protocol Last Admin: 03/16/19 17:58 Dose: Not Given Insulin Aspart (Novolog) 8 unit SC AC [facility] Last Admin: 03/16/19 17:58 Dose: Not Given Insulin Detemir (Levemir) 30 unit SC HS [facility] Losartan Potassium (Cozaar) 50 mg PO DAILY [facility] Last Admin: 03/16/19 17:56 Dose: 50 mg Metoclopramide HCl (Reglan) 10 mg IVP BID PRN PRN Reason: nausea Last Admin: 03/16/19 13:09 Dose: 10 mg Metoprolol Tartrate (Lopressor) 50 mg PO BID [facility] Last Admin: 03/16/19 17:51 Dose: Not Given Morphine Sulfate (Morphine) 2 mg IVP Q6 PRN PRN Reason: Pain, moderate (4-7) Last Admin: 03/16/19 13:41 Dose: 2 mg Pregabalin (Lyrica) 75 mg PO TID [facility] Last Admin: 03/16/19 17:56 Dose: 75 mg - Labs Labs: 03/14/19 21:44 03/14/19 22:20 PT 12.4 SECONDS (9.7-12.2) H 03/14/19 21:44 INR 1.1 03/14/19 21:44 APTT 27.0 SECONDS (21-34) 03/14/19 21:44 - Constitutional Appears: Well - Head Exam Head Exam: ATRAUMATIC, NORMAL INSPECTION, NORMOCEPHALIC - Eye Exam Eye Exam: EOMI, Normal appearance, PERRL Pupil Exam: NORMAL ACCOMODATION, PERRL - ENT Exam ENT Exam: Mucous Membranes Moist, Normal Exam - Neck Exam Neck Exam: Full ROM, Normal Inspection. absent: Lymphadenopathy - Respiratory Exam Respiratory Exam: Decreased Breath Sounds - Cardiovascular Exam Cardiovascular Exam: REGULAR RHYTHM, +S1, +S2 - GI/Abdominal Exam GI & Abdominal Exam: Soft, Diminished Bowel Sounds - Rectal Exam Rectal Exam: Deferred - Neurological Exam Neurological Exam: Oriented x3 Assessment and Plan - Assessment and Plan (Free Text) Plan: plan discussed with patient and family moderate complexity of care medications reviewed labs reviewed vitals reviewed cozaar dextrose 5% dextrose 50% glucagen diagnostic kit glutose 15 levemir lopressor lovenox lyrica morphine novolog pepcid plavix reglan
--- NOTE | 2019-03-16 19:47 | CARD ---
APPROVED REPORT Date of service: 03/14/2019 EKG Measurement Heart [id number] <Conclusion> Normal sinus rhythm Left axis deviation Low voltage QRS Inferior infarct, age undetermined Anterolateral infarct, age undetermined Abnormal ECG
[2019-03-16] MEDS: Enoxaparin 60 mg Syringe SC SCH (21:58)
[2019-03-16] MEDS: Insulin Detemir 100 units/ml Vial (Levemir) SC SCH ×2 (21:58→22:08)
[2019-03-16] MEDS ORDERED: Dextrose 5%/0.45% NS 1,000 ML IV SCH (23:30)
[2019-03-16] MEDS: metroNIDAZOLE IV 250mg/50 ml 250 MG/50 ML BAG IVPB SCH (23:34)
[2019-03-17] MEDS: Ciprofloxacin 400mg/200ml D5W 400 MG/200 ML BAG IVPB SCH ×3 (00:09→22:23)
[2019-03-17] MEDS: metroNIDAZOLE IV 250mg/50 ml 250 MG/50 ML BAG IVPB SCH ×3 (06:12→22:23)
[2019-03-17] MEDS: (Novolog) Insulin Aspart, Recombinant 100 u/ml 10 ml vial SC SCH ×4 (08:08→21:28)
[2019-03-17 08:23] LABS: HEMOGLOBIN 14.5 g/dL (12.0-18.0); MEAN CELL VOLUME 80.6 fL (80.0-94.0); MEAN CORPUSCULAR HEMOGLOBIN 26.2 pg (27.0-31.0); MEAN CORPUSCULAR HGB CONC 32.5 g/dL (33.0-37.0); RBC 5.55 Mil/uL (4.40-5.90); RED CELL DISTRIBUTION WIDTH 16.7 % (11.5-14.5)
[2019-03-17 08:28] LABS: WHITE BLOOD COUNT 11.8 K/uL (4.8-10.8)
[2019-03-17 08:46] LABS: ALB/GLOB RATIO 1.3 (1.0-2.1); ALBUMIN 3.8 g/dL (3.5-5.0); ALT/SGPT 15 U/L (21-72); AST/SGOT 15 U/L (17-59); BLOOD UREA NITROGEN 12 mg/dL (9-20); CALCIUM 8.8 mg/dl (8.6-10.4); GFR NON-AFRICAN AMERICAN > 60
[2019-03-17 08:50] LABS: AMYLASE 579 U/L (30-110)
[2019-03-17 09:03] LABS: LIPASE 7229 U/L (23-300)
[2019-03-17] MEDS: Enoxaparin 60 mg Syringe SC SCH ×2 (09:23→21:42)
--- NOTE | 2019-03-17 09:30 | CP.PCM.PN ---
<Rachel Law - Last Filed: 03/17/19 09:27> Subjective - Date & Time of Evaluation Date of Evaluation: 03/17/19 Time of Evaluation: 08:00 - Subjective Subjective: GI Fellow PGY5 Progress Note Pt seen and evaluated at bedside, pt reports abdominal pain is still present with mild improvement. No BM in one week. Denies eoth hx or prior pancreatitis. ROS: A 12pt ROS was negative except as above. Objective - Vital Signs/Intake and Output Vital Signs (last 24 hours): Temp Pulse Resp BP Pulse Ox 98.6 F 75 20 150/70 94 L 03/17/19 08:13 03/17/19 08:13 03/17/19 08:13 03/17/19 08:13 03/17/19 08:13 Intake and Output: 03/17/19 03/17/19 06:59 18:59 Intake Total 720 Output Total 400 Balance 320 - Medications Medications: Current Medications Clopidogrel Bisulfate (Plavix) 75 mg PO DAILY [facility] Last Admin: 03/16/19 09:39 Dose: 75 mg Dextrose (Dextrose 50% Inj) 0 ml IV STAT PRN; Protocol PRN Reason: Hypoglycemia Protocol Dextrose (Glutose 15) 0 gm PO ONCE PRN; Protocol PRN Reason: Hypoglycemia Protocol Enoxaparin Sodium (Lovenox) 60 mg SC Q12 [facility] Last Admin: 03/16/19 21:58 Dose: 60 mg Glucagon (Glucagen Diagnostic Kit) 0 mg IM STAT PRN; Protocol PRN Reason: Hypoglycemia Protocol Dextrose (Dextrose 5% In Water 1000 Ml) 1,000 mls @ 0 mls/hr IV .Q0M PRN; Protocol PRN Reason: Hypoglycemia Protocol Metronidazole (Flagyl) 250 mg in 50 mls @ 100 mls/hr IVPB Q8H [facility]; Protocol Stop: 03/21/19 23:01 Last Admin: 03/17/19 06:12 Dose: 100 mls/hr Ciprofloxacin (Cipro 400mg/200ml Dsw) 400 mg in 200 mls @ 133 mls/hr IVPB Q12H [facility]; Protocol Last Admin: 03/17/19 00:09 Dose: 133 mls/hr Lactated Ringer's (Lactated Ringer's) 1,000 mls @ 150 mls/hr IV .Q6H40M [facility] Insulin Aspart (Novolog) 0 unit SC ACHS [facility]; Protocol Last Admin: 03/17/19 08:08 Dose: Not Given Insulin Aspart (Novolog) 8 unit SC AC [facility] Last Admin: 03/16/19 17:58 Dose: Not Given Insulin Detemir (Levemir) 30 unit SC HS [facility] Last Admin: 03/16/19 22:08 Dose: Not Given Losartan Potassium (Cozaar) 50 mg PO DAILY [facility] Last Admin: 03/16/19 17:56 Dose: 50 mg Metoclopramide HCl (Reglan) 10 mg IVP BID PRN PRN Reason: nausea Last Admin: 03/16/19 13:09 Dose: 10 mg Metoprolol Tartrate (Lopressor) 50 mg PO BID [facility] Last Admin: 03/16/19 17:51 Dose: Not Given Morphine Sulfate (Morphine) 2 mg IVP Q6 PRN PRN Reason: Pain, moderate (4-7) Last Admin: 03/17/19 02:05 Dose: 2 mg Pantoprazole Sodium (Protonix Inj) 40 mg IVP DAILY [facility] Pregabalin (Lyrica) 75 mg PO TID [facility] Last Admin: 03/16/19 17:56 Dose: 75 mg - Labs Labs: 03/17/19 07:57 03/17/19 07:57 PT 12.4 SECONDS (9.7-12.2) H 03/14/19 21:44 INR 1.1 03/14/19 21:44 APTT 27.0 SECONDS (21-34) 03/14/19 21:44 - Constitutional Appears: Non-toxic, No Acute Distress, Older Than Stated Age, Chronically Ill - Head Exam Head Exam: ATRAUMATIC, NORMAL INSPECTION, NORMOCEPHALIC - Eye Exam Eye Exam: EOMI, Normal appearance, PERRL - ENT Exam ENT Exam: Mucous Membranes Dry, Normal Exam - Neck Exam Neck Exam: Full ROM, Normal Inspection - Respiratory Exam Respiratory Exam: Decreased Breath Sounds, NORMAL BREATHING PATTERN - Cardiovascular Exam Cardiovascular Exam: REGULAR RHYTHM, RRR, +S1, +S2 - GI/Abdominal Exam GI & Abdominal Exam: Soft, Tenderness, Normal Bowel Sounds. absent: Distended, Guarding, Organomegaly - Extremities Exam Additional comments: bl bka - Neurological Exam Neurological Exam: Alert, Awake, Oriented x3 - Psychiatric Exam Psychiatric exam: Normal Affect, Normal Mood - Skin Skin Exam: Dry, Intact, Normal Color, Warm Assessment and Plan - Assessment and Plan (Free Text) Assessment: 1. Abd pain and Nausea 2. Diabetes, uncontrolled BG 3. CAD 4. Chest pain 5. Left ventricle Thrombus 6. Acute Pancreatitis 7. Constipation -Pt with acute onset of abdominal pain likely from Acute Pancreatitis on CT imaging and elevated Lipase -LR at 150cc/hr -NPO -MRCP ordered to r/o CBD stone -Monitor volume status with Systolic and Diastolic CHF -Pt also with uncontrolled diabetes and possible underlying DM/gastroparesis -Recommend tight glyciemic control -Anti-emetics prns -PPI daily -Miralax bid for severe constipation -No plan for endoscopic evaluation due to significant cardiac hx and chest pain -Will continue to follow pt closely <Manav Canchola - Last Filed: 03/17/19 13:51> Objective - Vital Signs/Intake and Output Vital Signs (last 24 hours): Temp Pulse Resp BP Pulse Ox 98.6 F 63 20 150/70 94 L 03/17/19 08:13 03/17/19 12:17 03/17/19 08:13 03/17/19 08:13 03/17/19 08:13 Intake and Output: 03/17/19 03/17/19 06:59 18:59 Intake Total 720 Output Total 400 Balance 320 - Medications Medications: Current Medications Clopidogrel Bisulfate (Plavix) 75 mg PO DAILY [facility] Last Admin: 03/17/19 09:23 Dose: 75 mg Dextrose (Dextrose 50% Inj) 0 ml IV STAT PRN; Protocol PRN Reason: Hypoglycemia Protocol Dextrose (Glutose 15) 0 gm PO ONCE PRN; Protocol PRN Reason: Hypoglycemia Protocol Enoxaparin Sodium (Lovenox) 60 mg SC Q12 [facility] Last Admin: 03/17/19 09:23 Dose: 60 mg Famotidine (Pepcid) 20 mg IVP Q12H [facility] Last Admin: 03/17/19 10:07 Dose: Not Given Glucagon (Glucagen Diagnostic Kit) 0 mg IM STAT PRN; Protocol PRN Reason: Hypoglycemia Protocol Dextrose (Dextrose 5% In Water 1000 Ml) 1,000 mls @ 0 mls/hr IV .Q0M PRN; Protocol PRN Reason: Hypoglycemia Protocol Metronidazole (Flagyl) 250 mg in 50 mls @ 100 mls/hr IVPB Q8H [facility]; Protocol Stop: 03/21/19 23:01 Last Admin: 03/17/19 06:12 Dose: 100 mls/hr Ciprofloxacin (Cipro 400mg/200ml Dsw) 400 mg in 200 mls @ 133 mls/hr IVPB Q12H [facility]; Protocol Last Admin: 03/17/19 10:01 Dose: 133 mls/hr Lactated Ringer's (Lactated Ringer's) 1,000 mls @ 150 mls/hr IV .Q6H40M [facility] Last Admin: 03/17/19 09:59 Dose: 150 mls/hr Insulin Aspart (Novolog) 0 unit SC ACHS [facility]; Protocol Last Admin: 03/17/19 12:29 Dose: Not Given Insulin Aspart (Novolog) 8 unit SC AC [facility] Last Admin: 03/16/19 17:58 Dose: Not Given Insulin Detemir (Levemir) 30 unit SC HS [facility] Last Admin: 03/16/19 22:08 Dose: Not Given Losartan Potassium (Cozaar) 50 mg PO DAILY [facility] Last Admin: 03/17/19 09:23 Dose: 50 mg Metoclopramide HCl (Reglan) 10 mg IVP BID PRN PRN Reason: nausea Last Admin: 03/17/19 11:52 Dose: 10 mg Metoprolol Tartrate (Lopressor) 50 mg PO BID [facility] Last Admin: 03/17/19 09:23 Dose: 50 mg Morphine Sulfate (Morphine) 2 mg IVP Q6 PRN PRN Reason: Pain, moderate (4-7) Last Admin: 03/17/19 11:46 Dose: 2 mg Polyethylene Glycol (Miralax) 17 gm PO BID [facility] Last Admin: 03/17/19 11:45 Dose: 17 gm Pregabalin (Lyrica) 75 mg PO TID [facility] Last Admin: 03/17/19 13:09 Dose: 75 mg - Labs Labs: 03/17/19 07:57 03/17/19 07:57 PT 12.4 SECONDS (9.7-12.2) H 03/14/19 21:44 INR 1.1 03/14/19 21:44 APTT 27.0 SECONDS (21-34) 03/14/19 21:44 Attending/Attestation - Attestation I have personally seen and examined this patient.: Yes I have fully participated in the care of the patient.: Yes I have reviewed all pertinent clinical information, including history, physical exam and plan: Yes Notes (Text): 03/17/19 13:46 I have seen and examined patient with GI fellow. No acute events overnight, he is seen resting in bed comfortably watching television. He reports ongoing bilateral lower quadrant abdominal pain, slightly improved compared to prior day. He denies nausea, vomiting, fever/chills. He is hungry asking for his diet to be advanced. He has not had any bowel movement in the past 6 days. DM CAD LV thrombus Abdominal pain, acute pancreatitis - Clear liquid diet as tolerated - Will increase IVF rate given clinical features of pancreatitis - Obtain MRCP for further evaluation of biliary system, r/o choledocholithiasis - Maintain bowel regimen to prevent constipation - Follow up cardiology recommendations given patient complaint of chest pain - Will continue to monitor patient clinical course
[2019-03-17] MEDS: Lactated Ringer's 1,000 ML IV SCH ×3 (09:59→21:43)
[2019-03-17] MEDS: POLYETHYLENE GLYCOL 3350 17 GM/Dose PACKET PO SCH ×3 (10:07→17:28)
--- NOTE | 2019-03-17 15:53 | MRI ---
Date of service: 03/17/2019 PROCEDURE: Magnetic Resonance Cholangiopancreatography HISTORY: COMPARISON: None available. TECHNIQUE: Multiplanar, multisequence MR images of the abdomen were obtained, including heavily T2 weighted MRCP images of the biliary system. Rotating maximum intensity projection images of the biliary system were generated. FINDINGS: MRCP: The common bile duct measures 6 mm in diameter. No filling defect is identified. There is no demonstrated intrahepatic biliary dilatation. LIVER: Normal size, contour and signal intensity. No mass. No biliary ductal dilatation. No evidence of diffuse fatty infiltration. GALLBLADDER: Unremarkable. SPLEEN: Unremarkable. PANCREAS: Normal size. No focal mass. There is mild dilatation of the pancreatic duct in the body of the pancreas, up to 5 mm. Significance uncertain. The calculus identified within what was believed to be the intrapancreatic portion of the distal CBD on CT examination of the previous day is not identified on the current examination. There is peripancreatic edema without masood fluid collection. ADRENALS: Unremarkable. KIDNEYS: Unremarkable. AORTA: No aneurysm. ASCITES: None. OTHER FINDINGS: Marked circumferential mural thickening of the 2nd portion of the duodenum common nonspecific. This may be seen in association with acute pancreatitis. IMPRESSION: Findings consistent with acute pancreatitis. No peripancreatic fluid collection. No evidence of pancreatic ductal obstruction or biliary obstruction. There is mild dilatation of the body portion of the pancreatic duct, up to 5 mm. This is of uncertain significance. No intrahepatic biliary dilatation. No evidence of cholelithiasis.
[2019-03-17 16:44] LABS: HDL CHOLESTEROL 32 mg/dL (30-70)
[2019-03-17 16:55] LABS: LDL CHOLESTEROL 69 mg/dL (0-129)
--- NOTE | 2019-03-17 19:18 | CP.PCM.PN ---
Subjective - Date & Time of Evaluation Date of Evaluation: 03/17/19 - Subjective Subjective: patient was examined today c/o nausea c/o vomiting no fever no dizziness no shortness no diarrhea Objective - Vital Signs/Intake and Output Vital Signs (last 24 hours): Temp Pulse Resp BP Pulse Ox 98 F 75 20 147/79 96 03/17/19 15:00 03/17/19 17:34 03/17/19 15:00 03/17/19 17:34 03/17/19 15:00 Intake and Output: 03/17/19 03/18/19 18:59 06:59 Intake Total 820 Output Total 700 Balance 120 - Medications Medications: Current Medications Clopidogrel Bisulfate (Plavix) 75 mg PO DAILY [facility] Last Admin: 03/17/19 09:23 Dose: 75 mg Dextrose (Dextrose 50% Inj) 0 ml IV STAT PRN; Protocol PRN Reason: Hypoglycemia Protocol Dextrose (Glutose 15) 0 gm PO ONCE PRN; Protocol PRN Reason: Hypoglycemia Protocol Enoxaparin Sodium (Lovenox) 60 mg SC Q12 [facility] Last Admin: 03/17/19 09:23 Dose: 60 mg Glucagon (Glucagen Diagnostic Kit) 0 mg IM STAT PRN; Protocol PRN Reason: Hypoglycemia Protocol Dextrose (Dextrose 5% In Water 1000 Ml) 1,000 mls @ 0 mls/hr IV .Q0M PRN; Protocol PRN Reason: Hypoglycemia Protocol Metronidazole (Flagyl) 250 mg in 50 mls @ 100 mls/hr IVPB Q8H [facility]; Protocol Stop: 03/21/19 23:01 Last Admin: 03/17/19 14:38 Dose: 100 mls/hr Ciprofloxacin (Cipro 400mg/200ml Dsw) 400 mg in 200 mls @ 133 mls/hr IVPB Q12H [facility]; Protocol Last Admin: 03/17/19 10:01 Dose: 133 mls/hr Lactated Ringer's (Lactated Ringer's) 1,000 mls @ 150 mls/hr IV .Q6H40M [facility] Last Admin: 03/17/19 16:10 Dose: Not Given Insulin Aspart (Novolog) 0 unit SC ACHS [facility]; Protocol Last Admin: 03/17/19 17:27 Dose: 2 unit Insulin Aspart (Novolog) 8 unit SC AC [facility] Last Admin: 03/16/19 17:58 Dose: Not Given Insulin Detemir (Levemir) 30 unit SC [facility] Last Admin: 03/16/19 22:08 Dose: Not Given Losartan Potassium (Cozaar) 50 mg PO DAILY [facility] Last Admin: 03/17/19 09:23 Dose: 50 mg Metoclopramide HCl (Reglan) 10 mg IVP BID PRN PRN Reason: nausea Last Admin: 03/17/19 11:52 Dose: 10 mg Metoprolol Tartrate (Lopressor) 50 mg PO BID [facility] Last Admin: 03/17/19 17:28 Dose: 50 mg Morphine Sulfate (Morphine) 2 mg IVP Q6 PRN PRN Reason: Pain, moderate (4-7) Last Admin: 03/17/19 18:24 Dose: 2 mg Pantoprazole Sodium (Protonix Inj) 40 mg IVP DAILY [facility] Polyethylene Glycol (Miralax) 17 gm PO BID [facility] Last Admin: 03/17/19 17:28 Dose: 17 gm Pregabalin (Lyrica) 75 mg PO TID [facility] Last Admin: 03/17/19 17:27 Dose: 75 mg - Labs Labs: 03/17/19 07:57 03/17/19 07:57 PT 12.4 SECONDS (9.7-12.2) H 03/14/19 21:44 INR 1.1 03/14/19 21:44 APTT 27.0 SECONDS (21-34) 03/14/19 21:44 - Constitutional Appears: Well - Head Exam Head Exam: ATRAUMATIC, NORMAL INSPECTION, NORMOCEPHALIC - Eye Exam Eye Exam: EOMI, Normal appearance, PERRL Pupil Exam: NORMAL ACCOMODATION, PERRL - ENT Exam ENT Exam: Mucous Membranes Moist, Normal Exam - Neck Exam Neck Exam: Full ROM, Normal Inspection. absent: Lymphadenopathy - Respiratory Exam Respiratory Exam: Decreased Breath Sounds - Cardiovascular Exam Cardiovascular Exam: REGULAR RHYTHM, +S1, +S2 - GI/Abdominal Exam GI & Abdominal Exam: Soft, Diminished Bowel Sounds - Rectal Exam Rectal Exam: Deferred - Neurological Exam Neurological Exam: Oriented x3 Assessment and Plan - Assessment and Plan (Free Text) Plan: labs reviewed vitals reviewed medications reviewed moderate complexity of care plan discussed with patient malinda becky dextrose 5% dextrose 50% flagyl glucagen diagnostic kit gutose 15 lactated ringers levemir lopressor lovenox lyrica miralax morphine novolog plavix protonix inj reglan
[2019-03-18] MEDS: metroNIDAZOLE IV 250mg/50 ml 250 MG/50 ML BAG IVPB SCH ×3 (06:05→22:00)
[2019-03-18] MEDS: Lactated Ringer's 1,000 ML IV SCH ×3 (06:13→17:09)
[2019-03-18 07:31] LABS: MEAN CELL VOLUME 80.3 fL (80.0-94.0); MEAN CORPUSCULAR HEMOGLOBIN 26.9 pg (27.0-31.0); MEAN CORPUSCULAR HGB CONC 33.5 g/dL (33.0-37.0); MEAN PLATELET VOLUME 10.4 fL (7.2-11.7); RBC 4.84 Mil/uL (4.40-5.90); RED CELL DISTRIBUTION WIDTH 16.3 % (11.5-14.5); WHITE BLOOD COUNT 7.2 K/uL (4.8-10.8)
[2019-03-18] MEDS: (Novolog) Insulin Aspart, Recombinant 100 u/ml 10 ml vial SC SCH ×4 (08:00→22:01)
[2019-03-18 08:34] LABS: ALB/GLOB RATIO 1.2 (1.0-2.1); ALBUMIN 3.2 g/dL (3.5-5.0); ALT/SGPT 22 U/L (21-72); AST/SGOT 16 U/L (17-59); BLOOD UREA NITROGEN 8 mg/dL (9-20); CALCIUM 8.5 mg/dl (8.6-10.4); GFR NON-AFRICAN AMERICAN > 60; LIPASE 3064 U/L (23-300)
[2019-03-18] MEDS: Enoxaparin 60 mg Syringe SC SCH ×2 (10:04→21:42)
[2019-03-18] MEDS: POLYETHYLENE GLYCOL 3350 17 GM/Dose PACKET PO SCH ×2 (10:13→17:12)
[2019-03-18] MEDS: Ciprofloxacin 400mg/200ml D5W 400 MG/200 ML BAG IVPB SCH (10:14)
[2019-03-18] MEDS ORDERED: HYDROmorphone 0.5 mg/0.5 ml ISec IVP ONE (11:00)
--- NOTE | 2019-03-18 11:18 | CP.PCM.PN ---
<ThanhRachel - Last Filed: 03/18/19 11:20> Subjective - Date & Time of Evaluation Date of Evaluation: 03/18/19 Time of Evaluation: 07:00 - Subjective Subjective: GI Fellow PGY5 Pt seen and examined at bedside, pt feels much better this am, abdominal pain better, no N/V. ROS: A 12pt ROS was negative except as above Objective - Vital Signs/Intake and Output Vital Signs (last 24 hours): Temp Pulse Resp BP Pulse Ox 97.8 F 75 20 113/62 96 03/18/19 07:10 03/18/19 07:10 03/18/19 07:10 03/18/19 07:10 03/18/19 07:10 Intake and Output: 03/18/19 03/18/19 06:59 18:59 Intake Total 1680 Output Total 700 Balance 980 - Medications Medications: Current Medications Clopidogrel Bisulfate (Plavix) 75 mg PO DAILY [facility] Last Admin: 03/18/19 10:04 Dose: 75 mg Dextrose (Dextrose 50% Inj) 0 ml IV STAT PRN; Protocol PRN Reason: Hypoglycemia Protocol Dextrose (Glutose 15) 0 gm PO ONCE PRN; Protocol PRN Reason: Hypoglycemia Protocol Enoxaparin Sodium (Lovenox) 60 mg SC Q12 [facility] Last Admin: 03/18/19 10:04 Dose: 60 mg Famotidine (Pepcid) 20 mg IVP DAILY [facility] Glucagon (Glucagen Diagnostic Kit) 0 mg IM STAT PRN; Protocol PRN Reason: Hypoglycemia Protocol Metronidazole (Flagyl) 250 mg in 50 mls @ 100 mls/hr IVPB Q8H [facility]; Protocol Stop: 03/21/19 23:01 Last Admin: 03/18/19 06:05 Dose: 100 mls/hr Ciprofloxacin (Cipro 400mg/200ml Dsw) 400 mg in 200 mls @ 133 mls/hr IVPB Q12H [facility]; Protocol Last Admin: 03/18/19 10:14 Dose: 133 mls/hr Lactated Ringer's (Lactated Ringer's) 1,000 mls @ 150 mls/hr IV .Q6H40M [facility] Last Admin: 03/18/19 06:13 Dose: 150 mls/hr Insulin Aspart (Novolog) 0 unit SC ACHS [facility]; Protocol Last Admin: 03/18/19 08:00 Dose: 1 unit Insulin Aspart (Novolog) 8 unit SC AC [facility] Last Admin: 03/16/19 17:58 Dose: Not Given Insulin Detemir (Levemir) 30 unit SC HS [facility] Last Admin: 03/16/19 22:08 Dose: Not Given Losartan Potassium (Cozaar) 50 mg PO DAILY [facility] Last Admin: 03/18/19 10:04 Dose: 50 mg Metoclopramide HCl (Reglan) 10 mg IVP BID PRN PRN Reason: nausea Last Admin: 03/17/19 11:52 Dose: 10 mg Metoprolol Tartrate (Lopressor) 50 mg PO BID [facility] Last Admin: 03/18/19 10:13 Dose: 50 mg Morphine Sulfate (Morphine) 2 mg IVP Q6 PRN PRN Reason: Pain, moderate (4-7) Last Admin: 03/18/19 06:06 Dose: 2 mg Polyethylene Glycol (Miralax) 17 gm PO BID [facility] Last Admin: 03/18/19 10:13 Dose: 17 gm Pregabalin (Lyrica) 75 mg PO TID [facility] Last Admin: 03/18/19 10:04 Dose: 75 mg - Labs Labs: 03/18/19 07:17 03/18/19 07:17 PT 12.4 SECONDS (9.7-12.2) H 03/14/19 21:44 INR 1.1 03/14/19 21:44 APTT 27.0 SECONDS (21-34) 03/14/19 21:44 - Constitutional Appears: Non-toxic, No Acute Distress, Chronically Ill - Head Exam Head Exam: ATRAUMATIC, NORMAL INSPECTION, NORMOCEPHALIC - Eye Exam Eye Exam: EOMI, Normal appearance, PERRL Pupil Exam: PERRL - ENT Exam ENT Exam: Mucous Membranes Moist - Respiratory Exam Respiratory Exam: Clear to Ausculation Bilateral, NORMAL BREATHING PATTERN - Cardiovascular Exam Cardiovascular Exam: REGULAR RHYTHM, RRR, +S1, +S2 - GI/Abdominal Exam GI & Abdominal Exam: Soft, Normal Bowel Sounds. absent: Distended, Guarding, Tenderness, Organomegaly - Neurological Exam Neurological Exam: Alert, Awake, Oriented x3 - Psychiatric Exam Psychiatric exam: Normal Affect, Normal Mood - Skin Skin Exam: Dry, Intact, Normal Color, Warm Assessment and Plan - Assessment and Plan (Free Text) Assessment: 1. Abd pain and Nausea 2. Diabetes, uncontrolled BG 3. CAD 4. Chest pain 5. Left ventricle Thrombus 6. Acute Pancreatitis, dilated PD 7. Constipation -Pt with acute onset of abdominal pain likely from Acute Pancreatitis on CT imaging and elevated Lipase -LR at 125cc/hr -Advance to full liquids -MRCP ordered to r/o CBD stone which is negative, +acute pancreatitis and dilated PD -Recommend outpatient repeat imaging or EUS after resolution of acute pancreatitis to r/o underlying etiology for acute pancreatitis -Pt also with uncontrolled diabetes and possible underlying DM/gastroparesis -Recommend tight glyciemic control -Anti-emetics prns -PPI daily -Miralax bid for severe constipation -No plan for endoscopic evaluation due to significant cardiac hx and chest pain -Will continue to follow pt closely <Manav Canchola - Last Filed: 03/18/19 11:52> Objective - Vital Signs/Intake and Output Vital Signs (last 24 hours): Temp Pulse Resp BP Pulse Ox 97.8 F 75 20 113/62 96 03/18/19 07:10 03/18/19 07:10 03/18/19 07:10 03/18/19 07:10 03/18/19 07:10 Intake and Output: 03/18/19 03/18/19 06:59 18:59 Intake Total 1680 Output Total 700 Balance 980 - Medications Medications: Current Medications Clopidogrel Bisulfate (Plavix) 75 mg PO DAILY [facility] Last Admin: 03/18/19 10:04 Dose: 75 mg Dextrose (Dextrose 50% Inj) 0 ml IV STAT PRN; Protocol PRN Reason: Hypoglycemia Protocol Dextrose (Glutose 15) 0 gm PO ONCE PRN; Protocol PRN Reason: Hypoglycemia Protocol Enoxaparin Sodium (Lovenox) 60 mg SC Q12 [facility] Last Admin: 03/18/19 10:04 Dose: 60 mg Famotidine (Pepcid) 20 mg IVP DAILY [facility] Glucagon (Glucagen Diagnostic Kit) 0 mg IM STAT PRN; Protocol PRN Reason: Hypoglycemia Protocol Metronidazole (Flagyl) 250 mg in 50 mls @ 100 mls/hr IVPB Q8H [facility]; Protocol Stop: 03/21/19 23:01 Last Admin: 03/18/19 06:05 Dose: 100 mls/hr Ciprofloxacin (Cipro 400mg/200ml Dsw) 400 mg in 200 mls @ 133 mls/hr IVPB Q12H [facility]; Protocol Last Admin: 03/18/19 10:14 Dose: 133 mls/hr Lactated Ringer's (Lactated Ringer's) 1,000 mls @ 150 mls/hr IV .Q6H40M [facility] Last Admin: 03/18/19 06:13 Dose: 150 mls/hr Insulin Aspart (Novolog) 0 unit SC ACHS [facility]; Protocol Last Admin: 03/18/19 08:00 Dose: 1 unit Insulin Aspart (Novolog) 8 unit SC AC [facility] Last Admin: 03/16/19 17:58 Dose: Not Given Insulin Detemir (Levemir) 30 unit SC HS [facility] Last Admin: 03/16/19 22:08 Dose: Not Given Losartan Potassium (Cozaar) 50 mg PO DAILY [facility] Last Admin: 03/18/19 10:04 Dose: 50 mg Metoclopramide HCl (Reglan) 10 mg IVP BID PRN PRN Reason: nausea Last Admin: 03/17/19 11:52 Dose: 10 mg Metoprolol Tartrate (Lopressor) 50 mg PO BID [facility] Last Admin: 03/18/19 10:13 Dose: 50 mg Morphine Sulfate (Morphine) 2 mg IVP Q6 PRN PRN Reason: Pain, moderate (4-7) Last Admin: 03/18/19 06:06 Dose: 2 mg Polyethylene Glycol (Miralax) 17 gm PO BID [facility] Last Admin: 03/18/19 10:13 Dose: 17 gm Pregabalin (Lyrica) 75 mg PO TID [facility] Last Admin: 03/18/19 10:04 Dose: 75 mg - Labs Labs: 03/18/19 07:17 03/18/19 07:17 PT 12.4 SECONDS (9.7-12.2) H 03/14/19 21:44 INR 1.1 03/14/19 21:44 APTT 27.0 SECONDS (21-34) 03/14/19 21:44 Attending/Attestation - Attestation I have personally seen and examined this patient.: Yes I have fully participated in the care of the patient.: Yes I have reviewed all pertinent clinical information, including history, physical exam and plan: Yes Notes (Text): 03/18/19 11:49 I have seen and examined patient with GI fellow. No acute events overnight, his abdominal pain has significantly improved. He denies nausea, vomiting, fever/chills. Tolerating PO liquids without difficulty. No bowel movements over past several days. Review of vitals from today are normal. DM CAD LV thrombus PVD s/p bilateral BKA Constipation Abdominal pain, acute pancreatitis - Advance to full liquid diet as tolerated - Continue with IVF hydration, supportive care - Strict glycemic control - Maintain bowel regimen to prevent recurrent constipation - Etiology for pancreatitis remains unclear, lipid panel normal. Would suggest repeat imaging with CT vs EUS as outpatient following resolution of acute inflammatory process to rule out underlying mass lesion. - Will continue to monitor patient clinical course
[2019-03-18] MEDS ORDERED: DiphenhydrAMINE 50 mg/ml Inj IVP ONE (11:45)
--- NOTE | 2019-03-18 20:59 | CP.PCM.PN ---
Subjective - Date & Time of Evaluation Date of Evaluation: 03/18/19 Time of Evaluation: 09:25 - Subjective Subjective: patient examined today c/o nausea no vomiting no dizziness no diarrhea no fever no shortness of breath Objective - Vital Signs/Intake and Output Vital Signs (last 24 hours): Temp Pulse Resp BP Pulse Ox 98.2 F 85 20 115/65 97 03/18/19 15:00 03/18/19 19:17 03/18/19 15:00 03/18/19 19:17 03/18/19 15:00 - Medications Medications: Current Medications Clopidogrel Bisulfate (Plavix) 75 mg PO DAILY [facility] Last Admin: 03/18/19 10:04 Dose: 75 mg Dextrose (Dextrose 50% Inj) 0 ml IV STAT PRN; Protocol PRN Reason: Hypoglycemia Protocol Dextrose (Glutose 15) 0 gm PO ONCE PRN; Protocol PRN Reason: Hypoglycemia Protocol Diphenhydramine HCl (Benadryl) 25 mg IVP Q8 [facility] Stop: 03/20/19 22:01 Enoxaparin Sodium (Lovenox) 60 mg SC Q12 [facility] Last Admin: 03/18/19 10:04 Dose: 60 mg Glucagon (Glucagen Diagnostic Kit) 0 mg IM STAT PRN; Protocol PRN Reason: Hypoglycemia Protocol Metronidazole (Flagyl) 250 mg in 50 mls @ 100 mls/hr IVPB Q8H [facility]; Protocol Stop: 03/21/19 23:01 Last Admin: 03/18/19 14:29 Dose: 100 mls/hr Lactated Ringer's (Lactated Ringer's) 1,000 mls @ 125 mls/hr IV .Q8H [facility] Last Admin: 03/18/19 17:09 Dose: 125 mls/hr Insulin Aspart (Novolog) 0 unit SC ACHS [facility]; Protocol Last Admin: 03/18/19 17:08 Dose: 3 unit Insulin Aspart (Novolog) 8 unit SC AC [facility] Last Admin: 03/16/19 17:58 Dose: Not Given Insulin Detemir (Levemir) 30 unit SC HS [facility] Last Admin: 03/16/19 22:08 Dose: Not Given Losartan Potassium (Cozaar) 50 mg PO DAILY [facility] Last Admin: 03/18/19 10:04 Dose: 50 mg Metoclopramide HCl (Reglan) 10 mg IVP BID PRN PRN Reason: nausea Last Admin: 03/17/19 11:52 Dose: 10 mg Metoprolol Tartrate (Lopressor) 50 mg PO BID [facility] Last Admin: 03/18/19 18:37 Dose: 50 mg Morphine Sulfate (Morphine) 2 mg IVP Q6 PRN PRN Reason: Pain, moderate (4-7) Last Admin: 03/18/19 19:13 Dose: 2 mg Pantoprazole Sodium (Protonix Inj) 40 mg IVP DAILY [facility] Polyethylene Glycol (Miralax) 17 gm PO BID [facility] Last Admin: 03/18/19 17:12 Dose: 17 gm Pregabalin (Lyrica) 75 mg PO TID [facility] Last Admin: 03/18/19 17:07 Dose: 75 mg - Labs Labs: 03/18/19 07:17 03/18/19 07:17 PT 12.4 SECONDS (9.7-12.2) H 03/14/19 21:44 INR 1.1 03/14/19 21:44 APTT 27.0 SECONDS (21-34) 03/14/19 21:44 - Constitutional Appears: Well - Head Exam Head Exam: ATRAUMATIC, NORMAL INSPECTION, NORMOCEPHALIC - Eye Exam Eye Exam: EOMI, Normal appearance, PERRL Pupil Exam: NORMAL ACCOMODATION, PERRL - ENT Exam ENT Exam: Mucous Membranes Moist, Normal Exam - Neck Exam Neck Exam: Full ROM, Normal Inspection. absent: Lymphadenopathy - Respiratory Exam Respiratory Exam: Decreased Breath Sounds - Cardiovascular Exam Cardiovascular Exam: REGULAR RHYTHM, +S1, +S2 - GI/Abdominal Exam GI & Abdominal Exam: Soft, Diminished Bowel Sounds - Rectal Exam Rectal Exam: Deferred - Neurological Exam Neurological Exam: Oriented x3 Assessment and Plan - Assessment and Plan (Free Text) Plan: labs reviewed vitals reviewed medications reviewed moderate complexity of care plan discussed with patient malinda pena dextrose 5% dextrose 50% flagyl glucagen diagnostic kit gutose 15 lactated ringers levemir lopressor lovenox lyrica miralax morphine novolog plavix protonix inj reglan lipase 3084 decreased from yesterday
[2019-03-18] MEDS: DiphenhydrAMINE 50 mg/ml Inj IVP SCH (21:43)
[2019-03-19] MEDS: Lactated Ringer's 1,000 ML IV SCH ×6 (01:09→23:00)
[2019-03-19] MEDS: metroNIDAZOLE IV 250mg/50 ml 250 MG/50 ML BAG IVPB SCH ×3 (06:09→22:38)
[2019-03-19] MEDS: DiphenhydrAMINE 50 mg/ml Inj IVP SCH ×3 (06:11→22:37)
[2019-03-19] MEDS: (Novolog) Insulin Aspart, Recombinant 100 u/ml 10 ml vial SC SCH ×4 (08:21→22:37)
--- NOTE | 2019-03-19 08:21 | CP.PCM.PN ---
<Rachel Law - Last Filed: 03/19/19 08:18> Subjective - Date & Time of Evaluation Date of Evaluation: 03/19/19 Time of Evaluation: 07:00 - Subjective Subjective: GI Fellow PGY5 Progress Note Pt seen and evaluated at bedside, pt reports pain is better and hungry. Had 1 small BM last night. ROS: A 12pt ROS was negative except as above. Objective - Vital Signs/Intake and Output Vital Signs (last 24 hours): Temp Pulse Resp BP Pulse Ox 98.7 F 90 20 138/62 96 03/19/19 07:25 03/19/19 07:25 03/19/19 07:25 03/19/19 07:25 03/19/19 07:25 Intake and Output: 03/19/19 03/19/19 06:59 18:59 Intake Total 2780 Output Total 2050 Balance 730 - Medications Medications: Current Medications Clopidogrel Bisulfate (Plavix) 75 mg PO DAILY [facility] Last Admin: 03/18/19 10:04 Dose: 75 mg Dextrose (Dextrose 50% Inj) 0 ml IV STAT PRN; Protocol PRN Reason: Hypoglycemia Protocol Dextrose (Glutose 15) 0 gm PO ONCE PRN; Protocol PRN Reason: Hypoglycemia Protocol Diphenhydramine HCl (Benadryl) 25 mg IVP Q8 [facility] Stop: 03/20/19 22:01 Last Admin: 03/19/19 06:11 Dose: 25 mg Enoxaparin Sodium (Lovenox) 60 mg SC Q12 [facility] Last Admin: 03/18/19 21:42 Dose: 60 mg Glucagon (Glucagen Diagnostic Kit) 0 mg IM STAT PRN; Protocol PRN Reason: Hypoglycemia Protocol Metronidazole (Flagyl) 250 mg in 50 mls @ 100 mls/hr IVPB Q8H [facility]; Protocol Stop: 03/21/19 23:01 Last Admin: 03/19/19 06:09 Dose: 100 mls/hr Lactated Ringer's (Lactated Ringer's) 1,000 mls @ 125 mls/hr IV .Q8H [facility] Last Admin: 03/19/19 06:10 Dose: 125 mls/hr Insulin Aspart (Novolog) 0 unit SC ACHS [facility]; Protocol Last Admin: 03/18/19 22:01 Dose: Not Given Insulin Aspart (Novolog) 8 unit SC AC [facility] Last Admin: 03/16/19 17:58 Dose: Not Given Insulin Detemir (Levemir) 30 unit SC HS [facility] Last Admin: 03/16/19 22:08 Dose: Not Given Losartan Potassium (Cozaar) 50 mg PO DAILY [facility] Last Admin: 03/18/19 10:04 Dose: 50 mg Metoclopramide HCl (Reglan) 10 mg IVP BID PRN PRN Reason: nausea Last Admin: 03/17/19 11:52 Dose: 10 mg Metoprolol Tartrate (Lopressor) 50 mg PO BID [facility] Last Admin: 03/18/19 18:37 Dose: 50 mg Morphine Sulfate (Morphine) 2 mg IVP Q6 PRN PRN Reason: Pain, moderate (4-7) Last Admin: 03/19/19 01:06 Dose: 2 mg Pantoprazole Sodium (Protonix Inj) 40 mg IVP DAILY [facility] Polyethylene Glycol (Miralax) 17 gm PO BID [facility] Last Admin: 03/18/19 17:12 Dose: 17 gm Pregabalin (Lyrica) 75 mg PO TID [facility] Last Admin: 03/18/19 17:07 Dose: 75 mg - Labs Labs: 03/18/19 07:17 03/18/19 07:17 PT 12.4 SECONDS (9.7-12.2) H 03/14/19 21:44 INR 1.1 03/14/19 21:44 APTT 27.0 SECONDS (21-34) 03/14/19 21:44 - Constitutional Appears: Non-toxic, No Acute Distress - Head Exam Head Exam: ATRAUMATIC, NORMAL INSPECTION, NORMOCEPHALIC - Eye Exam Eye Exam: EOMI, Normal appearance, PERRL - ENT Exam ENT Exam: Mucous Membranes Moist, Normal Exam - Neck Exam Neck Exam: Full ROM, Normal Inspection - Respiratory Exam Respiratory Exam: Clear to Ausculation Bilateral, NORMAL BREATHING PATTERN - Cardiovascular Exam Cardiovascular Exam: REGULAR RHYTHM, RRR, +S1, +S2 - GI/Abdominal Exam GI & Abdominal Exam: Soft, Normal Bowel Sounds. absent: Distended, Firm, Guarding, Rigid, Tenderness - Rectal Exam Rectal Exam: Deferred - Extremities Exam Additional comments: BL BKA - Neurological Exam Neurological Exam: Alert, Awake, Oriented x3 - Psychiatric Exam Psychiatric exam: Normal Affect - Skin Skin Exam: Dry, Intact, Normal Color, Warm Assessment and Plan - Assessment and Plan (Free Text) Assessment: 1. Abd pain and Nausea 2. Diabetes, uncontrolled BG 3. CAD 4. Chest pain 5. Left ventricle Thrombus 6. Acute Pancreatitis, dilated PD 7. Constipation -Pt with acute onset of abdominal pain from Acute Pancreatitis on CT imaging and elevated Lipase -LR at 100cc/hr -Advance to regular diet -MRCP ordered to r/o CBD stone which is negative, +acute pancreatitis and dila brandon PD -Recommend outpatient repeat imaging or EUS after resolution of acute pancreatitis to r/o underlying etiology for acute pancreatitis -Pt also with uncontrolled diabetes and possible underlying DM/gastroparesis -Recommend tight glyciemic control -Anti-emetics prns -PPI daily -Miralax bid for severe constipation -Please call with any questions or concerns <Manav Canchola - Last Filed: 03/19/19 10:47> Objective - Vital Signs/Intake and Output Vital Signs (last 24 hours): Temp Pulse Resp BP Pulse Ox 98.7 F 90 20 138/62 96 03/19/19 07:25 03/19/19 07:25 03/19/19 07:25 03/19/19 07:25 03/19/19 07:25 Intake and Output: 03/19/19 03/19/19 06:59 18:59 Intake Total 2780 Output Total 2050 Balance 730 - Medications Medications: Current Medications Clopidogrel Bisulfate (Plavix) 75 mg PO DAILY [facility] Last Admin: 03/19/19 10:14 Dose: 75 mg Dextrose (Dextrose 50% Inj) 0 ml IV STAT PRN; Protocol PRN Reason: Hypoglycemia Protocol Dextrose (Glutose 15) 0 gm PO ONCE PRN; Protocol PRN Reason: Hypoglycemia Protocol Diphenhydramine HCl (Benadryl) 25 mg IVP Q8 [facility] Stop: 03/20/19 22:01 Last Admin: 03/19/19 06:11 Dose: 25 mg Enoxaparin Sodium (Lovenox) 60 mg SC Q12 [facility] Last Admin: 03/19/19 10:15 Dose: 60 mg Glucagon (Glucagen Diagnostic Kit) 0 mg IM STAT PRN; Protocol PRN Reason: Hypoglycemia Protocol Metronidazole (Flagyl) 250 mg in 50 mls @ 100 mls/hr IVPB Q8H [facility]; Protocol Stop: 03/21/19 23:01 Last Admin: 03/19/19 06:09 Dose: 100 mls/hr Lactated Ringer's (Lactated Ringer's) 1,000 mls @ 125 mls/hr IV .Q8H [facility] Last Admin: 03/19/19 10:13 Dose: Not Given Insulin Aspart (Novolog) 0 unit SC ACHS [facility]; Protocol Last Admin: 03/19/19 08:21 Dose: 2 unit Insulin Aspart (Novolog) 8 unit SC AC [facility] Last Admin: 03/16/19 17:58 Dose: Not Given Insulin Detemir (Levemir) 30 unit SC HS [facility] Last Admin: 03/16/19 22:08 Dose: Not Given Losartan Potassium (Cozaar) 50 mg PO DAILY [facility] Last Admin: 03/19/19 10:14 Dose: 50 mg Metoclopramide HCl (Reglan) 10 mg IVP BID PRN PRN Reason: nausea Last Admin: 03/17/19 11:52 Dose: 10 mg Metoprolol Tartrate (Lopressor) 50 mg PO BID [facility] Last Admin: 03/19/19 10:14 Dose: 50 mg Morphine Sulfate (Morphine) 2 mg IVP Q6 PRN PRN Reason: Pain, moderate (4-7) Last Admin: 03/19/19 01:06 Dose: 2 mg Pantoprazole Sodium (Protonix Inj) 40 mg IVP DAILY [facility] Last Admin: 03/19/19 10:14 Dose: 40 mg Polyethylene Glycol (Miralax) 17 gm PO BID [facility] Last Admin: 03/19/19 10:15 Dose: Not Given Pregabalin (Lyrica) 75 mg PO TID [facility] Last Admin: 03/19/19 10:14 Dose: 75 mg - Labs Labs: 03/18/19 07:17 03/18/19 07:17 PT 12.4 SECONDS (9.7-12.2) H 03/14/19 21:44 INR 1.1 03/14/19 21:44 APTT 27.0 SECONDS (21-34) 03/14/19 21:44 Attending/Attestation - Attestation I have personally seen and examined this patient.: Yes I have fully participated in the care of the patient.: Yes I have reviewed all pertinent clinical information, including history, physical exam and plan: Yes Notes (Text): 03/19/19 10:44 I have seen and examined patient with GI fellow. No acute events overnight, he is seen resting in bed comfortably. He denies abdominal pain, nausea, vomiting, fever/chills. Had a small bowel movement last evening. Tolerating PO liquids, asking for diet to be advanced. Review of vitals from today are normal. DM CAD LV Thrombus Constipation Abdominal pain - acute pancreatitis of unclear etiology - Advance to low fat diet as tolerated - Continue with IVF hydration, supportive care - Maintain bowel regimen to prevent recurrent constipation - Maintain strict glycemic control - Given isolated PD dilation up to 5 mm, patient would benefit from outpatient repeat MRI vs EUS for additional evaluation of pancreas to rule out underlying mass lesion. This should be scheduled following resolution of acute inflammatory process. No further planned GI intervention at this time, will sign off case. Please reconsult as necessary, thank you.
[2019-03-19] MEDS: Enoxaparin 60 mg Syringe SC SCH ×2 (10:15→21:24)
[2019-03-19] MEDS: POLYETHYLENE GLYCOL 3350 17 GM/Dose PACKET PO SCH ×2 (10:15→17:16)
[2019-03-19 14:28] LABS: AMYLASE 241 U/L (30-110); LIPASE 4495 U/L (23-300)
--- NOTE | 2019-03-19 18:50 | CP.PCM.PN ---
Subjective - Date & Time of Evaluation Date of Evaluation: 03/19/19 Time of Evaluation: 10:12 - Subjective Subjective: patient examined today nausea present no vomiting no dizziness no fever no shortness of breath no diarrhea pain much better Objective - Vital Signs/Intake and Output Vital Signs (last 24 hours): Temp Pulse Resp BP Pulse Ox 99 F 73 20 142/85 94 L 03/19/19 16:00 03/19/19 17:19 03/19/19 16:00 03/19/19 17:19 03/19/19 16:00 Intake and Output: 03/19/19 03/19/19 06:59 18:59 Intake Total 2780 Output Total 2050 Balance 730 - Medications Medications: Current Medications Clopidogrel Bisulfate (Plavix) 75 mg PO DAILY [facility] Last Admin: 03/19/19 10:14 Dose: 75 mg Dextrose (Dextrose 50% Inj) 0 ml IV STAT PRN; Protocol PRN Reason: Hypoglycemia Protocol Dextrose (Glutose 15) 0 gm PO ONCE PRN; Protocol PRN Reason: Hypoglycemia Protocol Diphenhydramine HCl (Benadryl) 25 mg IVP Q8 [facility] Stop: 03/20/19 22:01 Last Admin: 03/19/19 13:17 Dose: 25 mg Enoxaparin Sodium (Lovenox) 60 mg SC Q12 [facility] Last Admin: 03/19/19 10:15 Dose: 60 mg Glucagon (Glucagen Diagnostic Kit) 0 mg IM STAT PRN; Protocol PRN Reason: Hypoglycemia Protocol Metronidazole (Flagyl) 250 mg in 50 mls @ 100 mls/hr IVPB Q8H [facility]; Protocol Stop: 03/21/19 23:01 Last Admin: 03/19/19 14:54 Dose: 100 mls/hr Lactated Ringer's (Lactated Ringer's) 1,000 mls @ 125 mls/hr IV .Q8H [facility] Last Admin: 03/19/19 10:13 Dose: Not Given Insulin Aspart (Novolog) 0 unit SC ACHS [facility]; Protocol Last Admin: 03/19/19 17:15 Dose: 4 unit Insulin Aspart (Novolog) 8 unit SC AC [facility] Last Admin: 03/16/19 17:58 Dose: Not Given Insulin Detemir (Levemir) 30 unit SC HS [facility] Last Admin: 03/16/19 22:08 Dose: Not Given Losartan Potassium (Cozaar) 50 mg PO DAILY [facility] Last Admin: 03/19/19 10:14 Dose: 50 mg Metoclopramide HCl (Reglan) 10 mg IVP BID PRN PRN Reason: nausea Last Admin: 03/17/19 11:52 Dose: 10 mg Metoprolol Tartrate (Lopressor) 50 mg PO BID [facility] Last Admin: 03/19/19 17:16 Dose: 50 mg Morphine Sulfate (Morphine) 2 mg IVP Q6 PRN PRN Reason: Pain, moderate (4-7) Last Admin: 03/19/19 14:57 Dose: 2 mg Pantoprazole Sodium (Protonix Inj) 40 mg IVP DAILY [facility] Last Admin: 03/19/19 10:14 Dose: 40 mg Polyethylene Glycol (Miralax) 17 gm PO BID [facility] Last Admin: 03/19/19 17:16 Dose: 17 gm Pregabalin (Lyrica) 75 mg PO TID [facility] Last Admin: 03/19/19 17:16 Dose: 75 mg - Labs Labs: 03/18/19 07:17 03/18/19 07:17 PT 12.4 SECONDS (9.7-12.2) H 03/14/19 21:44 INR 1.1 03/14/19 21:44 APTT 27.0 SECONDS (21-34) 03/14/19 21:44 - Constitutional Appears: Well - Head Exam Head Exam: ATRAUMATIC, NORMAL INSPECTION, NORMOCEPHALIC - Eye Exam Eye Exam: EOMI, Normal appearance, PERRL Pupil Exam: NORMAL ACCOMODATION, PERRL - ENT Exam ENT Exam: Mucous Membranes Moist, Normal Exam - Neck Exam Neck Exam: Full ROM, Normal Inspection. absent: Lymphadenopathy - Respiratory Exam Respiratory Exam: Decreased Breath Sounds - Cardiovascular Exam Cardiovascular Exam: REGULAR RHYTHM, +S1, +S2 - GI/Abdominal Exam GI & Abdominal Exam: Soft, Diminished Bowel Sounds - Rectal Exam Rectal Exam: Deferred - Neurological Exam Neurological Exam: Oriented x3 Assessment and Plan (1) Chest pain Status: Acute (2) Chest pain due to coronary artery disease Status: Acute (3) Chronic back pain Status: Acute (4) Chronic pain Status: Acute (5) History of diabetes mellitus Status: Acute (6) History of hyperlipidemia Status: Acute (7) Ischemic cardiomyopathy Status: Acute (8) Left ventricular thrombus Status: Acute (9) Prophylactic measure Status: Acute (10) Tobacco use Status: Acute (11) Toe gangrene Status: Acute (12) Type 2 diabetes mellitus with other specified complication Status: Acute (13) CAD (coronary artery disease) Status: Chronic (14) Essential (primary) hypertension Status: Chronic (15) PVD (peripheral vascular disease) with claudication Status: Chronic (16) Stented coronary artery Status: Chronic - Assessment and Plan (Free Text) Plan: cipro cozaar dextrose 5% dextrose 50% flagyl glucagen diagnostic kit gutose 15 lactated ringers labs reviewed vitals reviewed medications reviewed moderate complexity of care plan discussed with patientStatus post bowel movements Pain is much better has decreased significantly Status post GI MR CP to rule out the CBD stone which was negative dilated pancreatic duct Outpatient esophageal ultrasound after resolution of acute pancreatitis IV fluid Fingerstick between 200-300 Lipase is gone up again 4495 Amylase is 241 Continue Benadryl Continue losartan IV fluid IV metronidazole Lingula lactated Ringer's Metoprolol Insulin Plavix Metoclopramide Protonix IV Follow-up with economic consultant Hemoglobin 13 WBC 7.2 Creatinine 0.8 Potassium 3.9
[2019-03-20] MEDS: metroNIDAZOLE IV 250mg/50 ml 250 MG/50 ML BAG IVPB SCH ×3 (06:11→22:17)
[2019-03-20] MEDS: DiphenhydrAMINE 50 mg/ml Inj IVP SCH ×3 (06:11→22:17)
[2019-03-20] MEDS: (Novolog) Insulin Aspart, Recombinant 100 u/ml 10 ml vial SC SCH ×4 (08:14→22:18)
[2019-03-20] MEDS: Lactated Ringer's 1,000 ML IV SCH (08:14)
[2019-03-20] MEDS: Enoxaparin 60 mg Syringe SC SCH ×2 (10:16→22:18)
[2019-03-20] MEDS: POLYETHYLENE GLYCOL 3350 17 GM/Dose PACKET PO SCH ×2 (10:16→17:07)
[2019-03-20 14:22] LABS: AMYLASE 176 U/L (30-110); BLOOD UREA NITROGEN 10 mg/dL (9-20); CALCIUM 8.8 mg/dl (8.6-10.4); GFR NON-AFRICAN AMERICAN > 60; LIPASE 1805 U/L (23-300)
--- NOTE | 2019-03-20 20:05 | CP.PCM.PN ---
Subjective - Date & Time of Evaluation Date of Evaluation: 03/20/19 - Subjective Subjective: patient examined today no nausea no vomiting no fever no diarrhea no dizziness no shortness of breath Objective - Vital Signs/Intake and Output Vital Signs (last 24 hours): Temp Pulse Resp BP Pulse Ox 98.6 F 80 20 131/73 96 03/20/19 15:00 03/20/19 15:20 03/20/19 15:00 03/20/19 15:00 03/20/19 15:00 - Medications Medications: Current Medications Clopidogrel Bisulfate (Plavix) 75 mg PO DAILY [facility] Last Admin: 03/20/19 10:16 Dose: 75 mg Dextrose (Dextrose 50% Inj) 0 ml IV STAT PRN; Protocol PRN Reason: Hypoglycemia Protocol Dextrose (Glutose 15) 0 gm PO ONCE PRN; Protocol PRN Reason: Hypoglycemia Protocol Diphenhydramine HCl (Benadryl) 25 mg IVP Q8 [facility] Stop: 03/20/19 22:01 Last Admin: 03/20/19 13:27 Dose: 25 mg Enoxaparin Sodium (Lovenox) 60 mg SC Q12 [facility] Last Admin: 03/20/19 10:16 Dose: 60 mg Glucagon (Glucagen Diagnostic Kit) 0 mg IM STAT PRN; Protocol PRN Reason: Hypoglycemia Protocol Metronidazole (Flagyl) 250 mg in 50 mls @ 100 mls/hr IVPB Q8H [facility]; Protocol Stop: 03/21/19 23:01 Last Admin: 03/20/19 14:29 Dose: 100 mls/hr Insulin Aspart (Novolog) 0 unit SC ACHS [facility]; Protocol Last Admin: 03/20/19 17:05 Dose: 4 unit Insulin Aspart (Novolog) 8 unit SC AC [facility] Last Admin: 03/16/19 17:58 Dose: Not Given Insulin Detemir (Levemir) 30 unit SC HS [facility] Last Admin: 03/16/19 22:08 Dose: Not Given Losartan Potassium (Cozaar) 50 mg PO DAILY [facility] Last Admin: 03/20/19 10:16 Dose: 50 mg Metoclopramide HCl (Reglan) 10 mg IVP BID PRN PRN Reason: nausea Last Admin: 03/17/19 11:52 Dose: 10 mg Metoprolol Tartrate (Lopressor) 50 mg PO BID [facility] Last Admin: 03/20/19 17:06 Dose: 50 mg Pantoprazole Sodium (Protonix Inj) 40 mg IVP DAILY [facility] Last Admin: 03/20/19 10:15 Dose: 40 mg Polyethylene Glycol (Miralax) 17 gm PO BID [facility] Last Admin: 03/20/19 17:07 Dose: Not Given Pregabalin (Lyrica) 75 mg PO TID [facility] Last Admin: 03/20/19 17:06 Dose: 75 mg - Labs Labs: 03/18/19 07:17 03/20/19 13:53 PT 12.4 SECONDS (9.7-12.2) H 03/14/19 21:44 INR 1.1 03/14/19 21:44 APTT 27.0 SECONDS (21-34) 03/14/19 21:44 - Constitutional Appears: Well - Head Exam Head Exam: ATRAUMATIC, NORMAL INSPECTION, NORMOCEPHALIC - Eye Exam Eye Exam: EOMI, Normal appearance, PERRL Pupil Exam: NORMAL ACCOMODATION, PERRL - ENT Exam ENT Exam: Mucous Membranes Moist, Normal Exam - Neck Exam Neck Exam: Full ROM, Normal Inspection. absent: Lymphadenopathy - Respiratory Exam Respiratory Exam: Decreased Breath Sounds - Cardiovascular Exam Cardiovascular Exam: REGULAR RHYTHM, +S1, +S2 - GI/Abdominal Exam GI & Abdominal Exam: Soft, Diminished Bowel Sounds - Rectal Exam Rectal Exam: Deferred - Neurological Exam Neurological Exam: Oriented x3 Assessment and Plan (1) Chest pain Status: Acute (2) Chest pain due to coronary artery disease Status: Acute (3) Chronic back pain Status: Acute (4) Chronic pain Status: Acute (5) History of diabetes mellitus Status: Acute (6) History of hyperlipidemia Status: Acute (7) Ischemic cardiomyopathy Status: Acute (8) Left ventricular thrombus Status: Acute (9) Prophylactic measure Status: Acute (10) Tobacco use Status: Acute (11) Toe gangrene Status: Acute (12) Type 2 diabetes mellitus with other specified complication Status: Acute (13) CAD (coronary artery disease) Status: Chronic (14) Essential (primary) hypertension Status: Chronic (15) PVD (peripheral vascular disease) with claudication Status: Chronic (16) Stented coronary artery Status: Chronic - Assessment and Plan (Free Text) Plan: benadryl cozaar dextrose 5% dextrose 50% flagyl glucagen diagnostic kit gutose 15 levemir lopressor lovenox lyrica miralax novolog plavix protonix inj reglan labs reviewed vitals reviewed medications reviewed moderate complexity of care plan discussed with patient
[2019-03-21] MEDS: metroNIDAZOLE IV 250mg/50 ml 250 MG/50 ML BAG IVPB SCH ×3 (07:30→22:21)
[2019-03-21] MEDS: POLYETHYLENE GLYCOL 3350 17 GM/Dose PACKET PO SCH ×2 (10:27→19:25)
[2019-03-21] MEDS: (Novolog) Insulin Aspart, Recombinant 100 u/ml 10 ml vial SC SCH ×4 (10:35→21:39)
[2019-03-21] MEDS: Enoxaparin 60 mg Syringe SC SCH ×2 (10:35→22:21)
[2019-03-21 13:42] LABS: HEMOGLOBIN 12.6 g/dL (12.0-18.0); MEAN CELL VOLUME 80.8 fL (80.0-94.0); MEAN CORPUSCULAR HEMOGLOBIN 26.3 pg (27.0-31.0); MEAN CORPUSCULAR HGB CONC 32.5 g/dL (33.0-37.0); MEAN PLATELET VOLUME 10.4 fL (7.2-11.7); RBC 4.8 Mil/uL (4.40-5.90); RED CELL DISTRIBUTION WIDTH 16.6 % (11.5-14.5); WHITE BLOOD COUNT 5.6 K/uL (4.8-10.8)
[2019-03-21 13:59] LABS: BLOOD UREA NITROGEN 14 mg/dL (9-20); CALCIUM 8.8 mg/dl (8.6-10.4); GFR NON-AFRICAN AMERICAN > 60
[2019-03-21 14:14] LABS: INR 1.2; PROTHROMBIN TIME 12.6 SECONDS (9.7-12.2)
--- NOTE | 2019-03-21 15:54 | CP.PCM.PN ---
Subjective - Date & Time of Evaluation Date of Evaluation: 03/21/19 - Subjective Subjective: patient examined today no nausea no vomiting no fever no shortness of breath no diarrhea no dizziness Objective - Vital Signs/Intake and Output Vital Signs (last 24 hours): Temp Pulse Resp BP Pulse Ox 97.8 F 86 20 144/77 99 03/21/19 08:56 03/21/19 08:56 03/21/19 08:56 03/21/19 08:56 03/21/19 08:56 - Medications Medications: Current Medications Clopidogrel Bisulfate (Plavix) 75 mg PO DAILY [facility] Last Admin: 03/21/19 10:35 Dose: 75 mg Dextrose (Dextrose 50% Inj) 0 ml IV STAT PRN; Protocol PRN Reason: Hypoglycemia Protocol Dextrose (Glutose 15) 0 gm PO ONCE PRN; Protocol PRN Reason: Hypoglycemia Protocol Enoxaparin Sodium (Lovenox) 60 mg SC Q12 [facility] Last Admin: 03/21/19 10:35 Dose: 60 mg Glucagon (Glucagen Diagnostic Kit) 0 mg IM STAT PRN; Protocol PRN Reason: Hypoglycemia Protocol Metronidazole (Flagyl) 250 mg in 50 mls @ 100 mls/hr IVPB Q8H [facility]; Protocol Stop: 03/21/19 23:01 Last Admin: 03/21/19 14:20 Dose: 100 mls/hr Insulin Aspart (Novolog) 0 unit SC ACHS [facility]; Protocol Last Admin: 03/21/19 13:19 Dose: 5 unit Insulin Aspart (Novolog) 8 unit SC AC [facility] Last Admin: 03/16/19 17:58 Dose: Not Given Insulin Detemir (Levemir) 30 unit SC HS [facility] Last Admin: 03/16/19 22:08 Dose: Not Given Losartan Potassium (Cozaar) 50 mg PO DAILY [facility] Last Admin: 03/21/19 10:27 Dose: 50 mg Metoclopramide HCl (Reglan) 10 mg IVP BID PRN PRN Reason: nausea Last Admin: 03/17/19 11:52 Dose: 10 mg Metoprolol Tartrate (Lopressor) 50 mg PO BID [facility] Last Admin: 03/21/19 10:35 Dose: 50 mg Morphine Sulfate (Morphine) 2 mg IVP Q6 PRN PRN Reason: Pain, moderate (4-7) Last Admin: 03/21/19 10:30 Dose: 2 mg Pantoprazole Sodium (Protonix Inj) 40 mg IVP DAILY [facility] Last Admin: 03/21/19 10:27 Dose: 40 mg Polyethylene Glycol (Miralax) 17 gm PO BID [facility] Last Admin: 03/21/19 10:27 Dose: Not Given Pregabalin (Lyrica) 75 mg PO TID [facility] Last Admin: 03/21/19 13:19 Dose: 75 mg - Labs Labs: 03/21/19 13:35 03/21/19 13:35 PT 12.6 SECONDS (9.7-12.2) H 03/21/19 13:35 INR 1.2 03/21/19 13:35 APTT 27.0 SECONDS (21-34) 03/14/19 21:44 - Constitutional Appears: Well - Head Exam Head Exam: ATRAUMATIC, NORMAL INSPECTION, NORMOCEPHALIC - Eye Exam Eye Exam: EOMI, Normal appearance, PERRL Pupil Exam: NORMAL ACCOMODATION, PERRL - ENT Exam ENT Exam: Mucous Membranes Moist, Normal Exam - Neck Exam Neck Exam: Full ROM, Normal Inspection. absent: Lymphadenopathy - Respiratory Exam Respiratory Exam: Decreased Breath Sounds - Cardiovascular Exam Cardiovascular Exam: REGULAR RHYTHM, +S1, +S2 - GI/Abdominal Exam GI & Abdominal Exam: Soft, Diminished Bowel Sounds - Rectal Exam Rectal Exam: Deferred - Neurological Exam Neurological Exam: Oriented x3 Assessment and Plan (1) Chest pain Status: Acute (2) Chest pain due to coronary artery disease Status: Acute (3) Chronic back pain Status: Acute (4) Chronic pain Status: Acute (5) History of diabetes mellitus Status: Acute (6) History of hyperlipidemia Status: Acute (7) Ischemic cardiomyopathy Status: Acute (8) Left ventricular thrombus Status: Acute (9) Prophylactic measure Status: Acute (10) Tobacco use Status: Acute (11) Toe gangrene Status: Acute (12) Type 2 diabetes mellitus with other specified complication Status: Acute (13) CAD (coronary artery disease) Status: Chronic (14) Essential (primary) hypertension Status: Chronic (15) PVD (peripheral vascular disease) with claudication Status: Chronic (16) Stented coronary artery Status: Chronic - Assessment and Plan (Free Text) Plan: labs reviewed vitals reviewed medications reviewed moderate complexity of care plan discussed with patient steven pena dextrose 5% dextrose 50% flagyl glucagen diagnostic kit gutose 15 levemir lopressor lovenox lyrica miralax novolog plavix protonix inj reglan morphine
[2019-03-22 08:03] LABS: BASO % 0.5 % (0.0-2.0); EOS # 0.2 K/uL (0.0-0.7); EOS % 3.6 % (0.0-4.0); HEMOGLOBIN 13.1 g/dL (12.0-18.0); LYMPH % 36.8 % (20.0-40.0); MEAN CELL VOLUME 80.5 fL (80.0-94.0); MEAN CORPUSCULAR HGB CONC 33.5 g/dL (33.0-37.0); MEAN PLATELET VOLUME 10.4 fL (7.2-11.7); MONO # 0.6 K/uL (0.0-0.8); MONO % 11.8 % (0.0-10.0); NEUT # 2.5 K/uL (1.8-7.0); NEUT % 47.3 % (50.0-75.0); NRBC % 0.1 % (0.0-2.0); RBC 4.86 Mil/uL (4.40-5.90); RED CELL DISTRIBUTION WIDTH 16.8 % (11.5-14.5); WHITE BLOOD COUNT 5.3 K/uL (4.8-10.8)
[2019-03-22 08:33] LABS: ALB/GLOB RATIO 1.2 (1.0-2.1); ALBUMIN 3.6 g/dL (3.5-5.0); ALT/SGPT 19 U/L (21-72); AST/SGOT 16 U/L (17-59); BLOOD UREA NITROGEN 16 mg/dL (9-20); CALCIUM 8.6 mg/dl (8.6-10.4); GFR NON-AFRICAN AMERICAN > 60; LIPASE 224 U/L (23-300)
[2019-03-22] MEDS: (Novolog) Insulin Aspart, Recombinant 100 u/ml 10 ml vial SC SCH ×4 (08:34→21:31)
[2019-03-22] MEDS: POLYETHYLENE GLYCOL 3350 17 GM/Dose PACKET PO SCH ×2 (10:04→17:16)
[2019-03-22] MEDS: Enoxaparin 60 mg Syringe SC SCH ×2 (10:07→21:47)
[2019-03-22 12:16] LABS: INR 1.1; PROTHROMBIN TIME 11.7 SECONDS (9.7-12.2)
--- NOTE | 2019-03-22 15:21 | CP.PCM.PN ---
Subjective - Date & Time of Evaluation Date of Evaluation: 03/22/19 Time of Evaluation: 11:15 - Subjective Subjective: patient examined today no nausea no vmitng no dizziness no diarrhea no fever no shortness of breath Objective - Vital Signs/Intake and Output Vital Signs (last 24 hours): Temp Pulse Resp BP Pulse Ox 97.8 F 72 20 117/67 96 03/22/19 07:39 03/22/19 07:39 03/22/19 07:39 03/22/19 07:39 03/22/19 07:39 Intake and Output: 03/22/19 03/22/19 06:59 18:59 Intake Total 400 Output Total 2000 Balance -1600 - Medications Medications: Current Medications Clopidogrel Bisulfate (Plavix) 75 mg PO DAILY [facility] Last Admin: 03/22/19 10:04 Dose: 75 mg Dextrose (Dextrose 50% Inj) 0 ml IV STAT PRN; Protocol PRN Reason: Hypoglycemia Protocol Dextrose (Glutose 15) 0 gm PO ONCE PRN; Protocol PRN Reason: Hypoglycemia Protocol Enoxaparin Sodium (Lovenox) 60 mg SC Q12 [facility] Last Admin: 03/22/19 10:07 Dose: 60 mg Glucagon (Glucagen Diagnostic Kit) 0 mg IM STAT PRN; Protocol PRN Reason: Hypoglycemia Protocol Insulin Aspart (Novolog) 0 unit SC ACHS [facility]; Protocol Last Admin: 03/22/19 13:04 Dose: 5 unit Insulin Aspart (Novolog) 8 unit SC AC [facility] Last Admin: 03/16/19 17:58 Dose: Not Given Insulin Detemir (Levemir) 30 unit SC HS [facility] Last Admin: 03/16/19 22:08 Dose: Not Given Losartan Potassium (Cozaar) 50 mg PO DAILY [facility] Last Admin: 03/22/19 10:05 Dose: 50 mg Metoclopramide HCl (Reglan) 10 mg IVP BID PRN PRN Reason: nausea Last Admin: 03/17/19 11:52 Dose: 10 mg Metoprolol Tartrate (Lopressor) 50 mg PO BID [facility] Last Admin: 03/22/19 10:05 Dose: 50 mg Morphine Sulfate (Morphine) 2 mg IVP Q6 PRN PRN Reason: Pain, moderate (4-7) Last Admin: 03/22/19 14:14 Dose: 2 mg Pantoprazole Sodium (Protonix Inj) 40 mg IVP DAILY [facility] Last Admin: 03/22/19 10:05 Dose: 40 mg Polyethylene Glycol (Miralax) 17 gm PO BID [facility] Last Admin: 03/22/19 10:04 Dose: Not Given Pregabalin (Lyrica) 75 mg PO TID [facility] Last Admin: 03/22/19 13:04 Dose: 75 mg - Labs Labs: 03/22/19 07:54 03/22/19 07:55 PT 11.7 SECONDS (9.7-12.2) 03/22/19 10:53 INR 1.1 03/22/19 10:53 APTT 27.0 SECONDS (21-34) 03/14/19 21:44 - Constitutional Appears: Well - Head Exam Head Exam: ATRAUMATIC, NORMAL INSPECTION, NORMOCEPHALIC - Eye Exam Eye Exam: EOMI, Normal appearance, PERRL Pupil Exam: NORMAL ACCOMODATION, PERRL - ENT Exam ENT Exam: Mucous Membranes Moist, Normal Exam - Neck Exam Neck Exam: Full ROM, Normal Inspection. absent: Lymphadenopathy - Respiratory Exam Respiratory Exam: Decreased Breath Sounds - Cardiovascular Exam Cardiovascular Exam: REGULAR RHYTHM, +S1, +S2 - GI/Abdominal Exam GI & Abdominal Exam: Soft, Diminished Bowel Sounds - Rectal Exam Rectal Exam: Deferred - Neurological Exam Neurological Exam: Oriented x3 Assessment and Plan (1) Chest pain Status: Acute (2) Chest pain due to coronary artery disease Status: Acute (3) Chronic back pain Status: Acute (4) Chronic pain Status: Acute (5) History of diabetes mellitus Status: Acute (6) History of hyperlipidemia Status: Acute (7) Ischemic cardiomyopathy Status: Acute (8) Left ventricular thrombus Status: Acute (9) Prophylactic measure Status: Acute (10) Tobacco use Status: Acute (11) Toe gangrene Status: Acute (12) Type 2 diabetes mellitus with other specified complication Status: Acute (13) CAD (coronary artery disease) Status: Chronic (14) Essential (primary) hypertension Status: Chronic (15) PVD (peripheral vascular disease) with claudication Status: Chronic (16) Stented coronary artery Status: Chronic - Assessment and Plan (Free Text) Plan: moderate complexity of care plan discussed with patient labs reviewed vitals reviewed steven pena dextrose 5% dextrose 50% flagyl glucagen diagnostic kit gutose 15 levemir lopressor lovenox lyrica miralax novolog plavix protonix inj reglan morphine medications reviewed Lipase 224 Abdominal pain much better Discharge tomorrow with the aids social worker help
[2019-03-23 06:45] LABS: INR 1.2; PROTHROMBIN TIME 12.7 SECONDS (9.7-12.2)
[2019-03-23] MEDS: (Novolog) Insulin Aspart, Recombinant 100 u/ml 10 ml vial SC SCH ×3 (07:50→17:08)
[2019-03-23] MEDS: Enoxaparin 60 mg Syringe SC SCH (09:31)
[2019-03-23] MEDS: POLYETHYLENE GLYCOL 3350 17 GM/Dose PACKET PO SCH (10:59)
[2019-03-23 15:59] VITALS: BP 127/68; PULSE 63; TEMP 98; O2SAT 96
--- NOTE | 2019-03-23 21:29 | CP.PCM.DIS ---
Provider - Provider Date of Admission: 03/16/19 23:50 Attending physician: Betty Carrasco MD Consults: 03/14/19 22:59 Physician Consult Stat Comment: chest pain Consulting Provider: Farshad Zamudio Consulting Physician: Farshad Zamudio Reason for Consult: cardiology Additional Comments: already spoken with (Dr. Rajan) Time Spent in preparation of Discharge (in minutes): 30 Diagnosis - Discharge Diagnosis (1) Chest pain Status: Acute (2) Chest pain due to coronary artery disease Status: Acute (3) Chronic back pain Status: Acute (4) Chronic pain Status: Acute (5) History of diabetes mellitus Status: Acute (6) History of hyperlipidemia Status: Acute (7) Ischemic cardiomyopathy Status: Acute (8) Left ventricular thrombus Status: Acute (9) Prophylactic measure Status: Acute (10) Tobacco use Status: Acute Priority: High (11) Toe gangrene Status: Acute Priority: High (12) Type 2 diabetes mellitus with other specified complication Status: Acute Priority: High (13) CAD (coronary artery disease) Status: Chronic Priority: Medium (14) Essential (primary) hypertension Status: Chronic Priority: Medium (15) PVD (peripheral vascular disease) with claudication Status: Chronic Priority: High (16) Stented coronary artery Status: Chronic Hospital Course - Lab Results Lab Results: Most Recent Lab Values WBC 5.3 K/uL (4.8-10.8) 03/22/19 07:54 RBC 4.86 Mil/uL (4.40-5.90) 03/22/19 07:54 Hgb 13.1 g/dL (12.0-18.0) 03/22/19 07:54 Hct 39.2 % (35.0-51.0) 03/22/19 07:54 MCV 80.5 fL (80.0-94.0) 03/22/19 07:54 MCH 27.0 pg (27.0-31.0) 03/22/19 07:54 MCHC 33.5 g/dL (33.0-37.0) 03/22/19 07:54 RDW 16.8 % (11.5-14.5) H 03/22/19 07:54 Plt Count 168 K/uL (130-400) 03/22/19 07:54 MPV 10.4 fL (7.2-11.7) 03/22/19 07:54 Neut % (Auto) 47.3 % (50.0-75.0) L 03/22/19 07:54 Lymph % (Auto) 36.8 % (20.0-40.0) 03/22/19 07:54 [place] % (Auto) 11.8 % (0.0-10.0) H 03/22/19 07:54 Eos % (Auto) 3.6 % (0.0-4.0) 03/22/19 07:54 Baso % (Auto) 0.5 % (0.0-2.0) 03/22/19 07:54 Neut # (Auto) 2.5 K/uL (1.8-7.0) 03/22/19 07:54 Lymph # (Auto) 2.0 K/uL (1.0-4.3) 03/22/19 07:54 [place] # (Auto) 0.6 K/uL (0.0-0.8) 03/22/19 07:54 Eos # (Auto) 0.2 K/uL (0.0-0.7) 03/22/19 07:54 Baso # (Auto) 0.0 K/uL (0.0-0.2) 03/22/19 07:54 PT 12.7 SECONDS (9.7-12.2) H 03/23/19 06:25 INR 1.2 03/23/19 06:25 APTT 27.0 SECONDS (21-34) 03/14/19 21:44 Sodium 137 mmol/L (132-148) 03/22/19 07:55 Potassium 4.2 mmol/L (3.6-5.2) 03/22/19 07:55 Chloride 100 mmol/L (98-107) 03/22/19 07:55 Carbon Dioxide 23 mmol/L (22-30) 03/22/19 07:55 Anion Gap 18 (10-20) 03/22/19 07:55 BUN 16 mg/dL (9-20) 03/22/19 07:55 Creatinine 0.6 mg/dL (0.8-1.5) L 03/22/19 07:55 Est GFR ( Amer) > 60 03/22/19 07:55 Est GFR (Non-Af Amer) > 60 03/22/19 07:55 POC Glucose (mg/dL) 391 mg/dL (65-110) H 03/23/19 16:14 Random Glucose 316 mg/dL (75-110) H 03/22/19 07:55 Calcium 8.6 mg/dl (8.6-10.4) 03/22/19 07:55 Total Bilirubin 0.3 mg/dL (0.2-1.3) 03/22/19 07:55 AST 16 U/L (17-59) L 03/22/19 07:55 ALT 19 U/L (21-72) L 03/22/19 07:55 Alkaline Phosphatase 91 U/L (38-126) 03/22/19 07:55 Total Creatine Kinase 39 U/L (55-170) L 03/15/19 14:05 CK-MB (Mass) 1.30 ng/mL (0.0-3.38) 03/15/19 14:05 Troponin I < 0.0120 ng/mL (0.00-0.120) 03/15/19 14:05 NT-Pro-B Natriuret Pep 313 pg/mL (0-900) 03/14/19 22:20 Total Protein 6.7 g/dL (6.3-8.3) 03/22/19 07:55 Albumin 3.6 g/dL (3.5-5.0) 03/22/19 07:55 Globulin 3.0 gm/dL (2.2-3.9) 03/22/19 07:55 Albumin/Globulin Ratio 1.2 (1.0-2.1) 03/22/19 07:55 Triglycerides 124 mg/dL (0-149) 03/17/19 16:26 Cholesterol 111 mg/dL (0-199) 03/17/19 16:26 LDL Cholesterol Direct 69 mg/dL (0-129) 03/17/19 16:26 HDL Cholesterol 32 mg/dL (30-70) 03/17/19 16:26 Amylase 176 U/L (30-110) H D 03/20/19 13:53 Lipase 224 U/L (23-300) 03/22/19 07:55 - Hospital Course Hospital Course: 68-year-old male who was brought in because of the left-sided chest pain with history of multiple medical problems came in with chest pain started having severe abdominal pain underwent CAT scan which revealed diverticulitis as well as pancreatitis eventually started on IV therapy n.p.o. amylase lipase was very high status post seen by [employer] doctor GI doctor patient's pain is much better today eventually decided to discharge within normal advised her to follow-up with the PMD in 48 hours patient understood patient is for discharge Moderate to high complexity of care. Plan of care discussed with patient &/or family & staff. Medications reviewed and reconciled. Labs reviewed. Vitals reviewed. Discharge Exam - Head Exam Head Exam: ATRAUMATIC, NORMAL INSPECTION, NORMOCEPHALIC - Eye Exam Eye Exam: EOMI, Normal appearance, PERRL Pupil Exam: NORMAL ACCOMODATION, PERRL - Respiratory Exam Respiratory Exam: Decreased Breath Sounds - Cardiovascular Exam Cardiovascular Exam: REGULAR RHYTHM, +S1, +S2 - GI/Abdominal Exam GI & Abdominal Exam: Diminished Bowel Sounds, Soft - Rectal Exam Rectal Exam: Deferred - Extremities Exam Additional comments: bilat amputation of both lower limb - Neurological Exam Neurological exam: Oriented x3 Discharge Plan - Discharge Medications Prescriptions: Losartan [Cozaar] 50 mg PO DAILY 30 Days tab traMADol [Ultram] 50 mg PO TID #15 tab - Follow Up Plan Condition: STABLE Disposition: HOME/ ROUTINE Instructions: Heart Healthy Diet, Chest Pain (DC), Coronary Heart Disease (DC), Losartan, Tramadol, Warfarin, Back Pain (GEN) Additional Instructions: FOLLOW UP WITH DR Yvan CARRASCO IN HIS OFFICE ----CALL FOR APPOINTMENT FOLLOW UP WITH DR ZAMUDIO IN HIS OFFICE ADDRESS YOUR BLOOD WORK INR AT YOUR VISIT CONTINUE HOME MEDICATION NEW PRESCRIPTION GIVEN INR TWICE A WEEK AND [place]ARTAN 50 MG PO DAILY TRAMADOL 50 MG PO TID FOR 5 DAYS ACTIVITY TOLERATED CALL DR Yvan CARRASCO OR GO TO THE EMERGENCY ROOM IF SYMPTOM RETURN OR WORSENING Referrals: Farshad Zamudio MD [Staff Provider] - Manav Canchola MD [Staff Provider] - Bobo Carrasco MD [Staff Provider] -
== END 2019-03-23 20:14 | disposition home or self-care (01) | DRG 302 ==
LOC: C.ER 20:47 → C.6T 22:58 → OBSVTOIN 03-16 23:50 → C.6T 03-22 14:27
PROVIDERS: ADMIT Internal Medicine Nephrology; ATTEND Internal Medicine Nephrology
DX: I25.10 Atherosclerotic heart disease of native coronary artery without angina pectoris (principal); K85.90 Acute pancreatitis without necrosis or infection, unspecified; I50.40 Unspecified combined systolic (congestive) and diastolic (congestive) heart failure; E11.52 Type 2 diabetes mellitus with diabetic peripheral angiopathy with gangrene; K57.92 Diverticulitis of intestine, part unspecified, without perforation or abscess without bleeding; E11.43 Type 2 diabetes mellitus with diabetic autonomic (poly)neuropathy; E11.65 Type 2 diabetes mellitus with hyperglycemia; K31.84 Gastroparesis; E11.51 Type 2 diabetes mellitus with diabetic peripheral angiopathy without gangrene; I11.0 Hypertensive heart disease with heart failure; I25.5 Ischemic cardiomyopathy; I51.3 Intracardiac thrombosis, not elsewhere classified; K59.00 Constipation, unspecified; J44.9 Chronic obstructive pulmonary disease, unspecified; E78.5 Hyperlipidemia, unspecified; E78.00 Pure hypercholesterolemia, unspecified; Z95.5 Presence of coronary angioplasty implant and graft; Z89.611 Acquired absence of right leg above knee; Z89.612 Acquired absence of left leg above knee; R07.9 Chest pain, unspecified; M79.602 Pain in left arm; Z79.01 Long term (current) use of anticoagulants; Z51.81 Encounter for therapeutic drug level monitoring; Z89.512 Acquired absence of left leg below knee; Z89.511 Acquired absence of right leg below knee; G89.29 Other chronic pain; M54.9 Dorsalgia, unspecified; Z88.1 Allergy status to other antibiotic agents; E11.69 Type 2 diabetes mellitus with other specified complication; I25.2 Old myocardial infarction; Z72.0 Tobacco use; Z79.899 Other long term (current) drug therapy

== ENCOUNTER 2019-03-28 13:37 | Inpatient (IN) | payer MEDICARE, BC ==
[2019-03-28 13:51] VITALS: BMI 54.9
[2019-03-28 14:18] LABS: BASO % 0.6 % (0.0-2.0); EOS % 0.8 % (0.0-4.0); HEMOGLOBIN 14.2 g/dL (12.0-18.0); LYMPH # 1.8 K/uL (1.0-4.3); LYMPH % 31.9 % (20.0-40.0); MEAN CELL VOLUME 79.1 fL (80.0-94.0); MEAN CORPUSCULAR HEMOGLOBIN 26.8 pg (27.0-31.0); MEAN CORPUSCULAR HGB CONC 33.8 g/dL (33.0-37.0); MEAN PLATELET VOLUME 9.5 fL (7.2-11.7); MONO # 0.6 K/uL (0.0-0.8); MONO % 10.9 % (0.0-10.0); NEUT # 3.1 K/uL (1.8-7.0); NEUT % 55.8 % (50.0-75.0); NRBC % 0.1 % (0.0-2.0); RBC 5.32 Mil/uL (4.40-5.90); RED CELL DISTRIBUTION WIDTH 16.1 % (11.5-14.5); WHITE BLOOD COUNT 5.6 K/uL (4.8-10.8)
--- NOTE | 2019-03-28 14:18 | C.PDOC ---
History Of Present Illness 68 y/o male, with history of diabetes, ischemic cardiomyopathy, HTN, HLD, PVD, CAD with 7 stents and AKA, presents to ED complaining of constant left-sided chest pain since 7am this morning, associated with nausea. States it feels s imilar to last time when he visited here in the ER. Patient took aspirin without any relief. Rates the pain 7/10. He denies abdominal pain, vomiting, diarrhea, or other complaints. Time Seen by Provider: 03/28/19 13:54 Chief Complaint (Nursing): Chest Pain History Per: Patient History/Exam Limitations: no limitations Onset/Duration Of Symptoms: Hrs Current Symptoms Are (Timing): Still Present Quality: "Pain" Associated Symptoms: Nausea Past Medical History Reviewed: Historical Data, Nursing Documentation, Vital Signs Primary Care Provider: Non [facility] Provider, - Medical History PMH: Anxiety, CAD, COPD, Depression, Diabetes, HTN, Hypercholesterolemia, Hyperlipidemia Denies: Chronic Kidney Disease Surgical History: Coronary Stent (x7) - [facility] Procedures DETACHMENT AT RIGHT 3RD TOE, COMPLETE, OPEN APPROACH (12/02/15) ING HERNIA REP-GRAFT NOS (01/31/00) Family History: States: No Known Family Hx - Social History Hx Alcohol Use: No Hx Substance Use: No - Immunization History Hx Tetanus Toxoid Vaccination: No Hx Influenza Vaccination: No Hx Pneumococcal Vaccination: No Review Of Systems Except As Marked, All Systems Reviewed And Found Negative. Constitutional: Negative for: Fever, Chills, Sweats Cardiovascular: Positive for: Chest Pain (left-sided). Negative for: Light Headedness Respiratory: Negative for: Cough, Shortness of Breath Gastrointestinal: Positive for: Nausea. Negative for: Vomiting, Abdominal Pain, Diarrhea Neurological: Negative for: Weakness, Numbness, Headache, Dizziness Physical Exam - Physical Exam Appears: Non-toxic, No Acute Distress Skin: Warm, Dry Head: Normacephalic Eye(s): bilateral: Normal Inspection Oral Mucosa: Moist Neck: Supple Cardiovascular: Rhythm Regular, No Murmur Respiratory: Normal Breath Sounds, No Rales, No Rhonchi, No Wheezing Gastrointestinal/Abdominal: Soft, No Tenderness Extremity: Other (bilateral AKA) Neurological/Psych: Oriented x3, Normal Speech ED Course And Treatment - Laboratory Results Result Diagrams: 03/28/19 14:13 03/28/19 14:13 ECG: Interpreted By Me, Viewed By Me ECG Rhythm: Sinus Rhythm ECG Interpretation: No Changes From Prior (No changes from EKG on 03/16) Interpretation Of ECG: Left axis deviation, Normal QRS, Normal [place] intervals Rate From EC - Other Rad CXR X-Ray: Read By Radiologist Interpretation: FINDINGS: Examination limited by habitus and hypoinflation. LUNGS: Mild left basilar atelectasis. Please note that chest x-ray has limited sensitivity for the detection of pulmonary masses. PLEURA: No significant pleural effusion identified. No definite pneumothorax . CARDIOVASCULAR: Heart size appears within normal limits. OSSEOUS STRUCTURES: No acute osseous abnormality identified. VISUALIZED UPPER ABDOMEN: Unremarkable. OTHER FINDINGS: None. IMPRESSION: Mild left basilar atelectasis. Medical Decision Making Medical Decision Making: Plan - EKG - Bloodwork - CXR Prior records reviewed. Patient was admitted to on 03/16/19 and discharged on 03/23/19 for chest pain. Results of w/u d/w patient. Given patient's extensive history and significant cardiac risk factors the dickson is to admit for further evaluation and management. Patient agreeable w/POC. Disposition Counseled Patient/Family Regarding: Studies Performed, Diagnosis, Need For Followup - Disposition Disposition: HOSPITALIZED Disposition Time: 14:50 Condition: STABLE - Clinical Impression Clinical Impression: Chest pain, Hyperglycemia - Scribe Statement The provider has reviewed the documentation as recorded by the Yelena Gant Provider Attestation: All medical record entries made by the Yelena were at my direction and personally dictated by me. I have reviewed the chart and agree that the record accurately reflects my personal performance of the history, physical exam, medical decision making, and the department course for this patient. I have also personally directed, reviewed, and agree with the discharge instructions and disposition.
[2019-03-28 14:25] LABS: INR 1.2; PROTHROMBIN TIME 12.6 SECONDS (9.7-12.2)
[2019-03-28 14:34] LABS: ALB/GLOB RATIO 1.2 (1.0-2.1); ALT/SGPT 24 U/L (21-72); AST/SGOT 15 U/L (17-59); BLOOD UREA NITROGEN 13 mg/dL (9-20); CALCIUM 9.3 mg/dl (8.6-10.4); GFR NON-AFRICAN AMERICAN > 60
[2019-03-28 14:43] LABS: B-TYPE NATRIURETIC PEPTIDE 394 pg/mL (0-900)
--- NOTE | 2019-03-28 15:44 | RAD ---
HISTORY: chest pain COMPARISON: Chest x-ray performed 03/14/19 TECHNIQUE: Chest, one view. FINDINGS: Examination limited by habitus and hypoinflation. LUNGS: Mild left basilar atelectasis. Please note that chest x-ray has limited sensitivity for the detection of pulmonary masses. PLEURA: No significant pleural effusion identified. No definite pneumothorax . CARDIOVASCULAR: Heart size appears within normal limits. OSSEOUS STRUCTURES: No acute osseous abnormality identified. VISUALIZED UPPER ABDOMEN: Unremarkable. OTHER FINDINGS: None. IMPRESSION: Mild left basilar atelectasis.
[2019-03-28] MEDS ORDERED: Pneumococcal 23-Valent Vaccine SC ONE (19:05)
[2019-03-28] MEDS: Insulin Detemir 100 units/ml Vial (Levemir) SC SCH (22:10)
[2019-03-28] MEDS: (Novolog) Insulin Aspart, Recombinant 100 u/ml 10 ml vial SC SCH (22:11)
[2019-03-28 23:10] LABS: CK-MB 0.83 ng/mL (0.0-3.38)
--- NOTE | 2019-03-28 23:26 | CP.PCM.HP ---
History of Present Illness - History of Present Illness History of Present Illness: 68-year-old male patient presents to the ED complaining of constant left-sided chest pain since morning, associated with nausea.he says it feels similar to last time when he visited ER.patient took aspirin but it did not work.rates the pain 7 out of 10.past medical history of anxiety, CAD, COPD, depression, diabetes, hypertension, hypercholesterolemia, hyperlipidemia.past surgical history of coronary stent * 7. No history of abdominal pain, vomiting, diarrhea, fever, chills.no history of lightheadedness, cough, shortness of kirstie th.no history of weakness, numbness, headache, dizziness. Past Medical History Reviewed: Historical Data, Nursing Documentation, Vital Signs - Medical History PMH: Anxiety, CAD, COPD, Depression, Diabetes, HTN, Hypercholesterolemia, Hyperlipidemia Denies: Chronic Kidney Disease Surgical History: Coronary Stent (x7) - [facility] Procedures DETACHMENT AT RIGHT 3RD TOE, COMPLETE, OPEN APPROACH (12/02/15) ING HERNIA REP-GRAFT NOS (01/31/00) Family History: States: No Known Family Hx - Social History Hx Alcohol Use: No Hx Substance Use: No - Immunization History Hx Tetanus Toxoid Vaccination: No Hx Influenza Vaccination: No Hx Pneumococcal Vaccination: No Review Of Systems Except As Marked, All Systems Reviewed And Found Negative. Constitutional: Negative for: Fever, Chills, Sweats Cardiovascular: Positive for: Chest Pain (left-sided). Negative for: Light Headedness Respiratory: Negative for: Cough, Shortness of Breath Gastrointestinal: Positive for: Nausea. Negative for: Vomiting, Abdominal Pain, Diarrhea Neurological: Negative for: Weakness, Numbness, Headache, Dizziness Past Patient History - Infectious Disease Hx of Infectious Diseases: None - Past Medical History & Family History Past Medical History?: Yes - Past Social History Smoking Status: Heavy Smoker > 10 Cigarettes Daily - CARDIAC Hx Hypercholesterolemia: Yes Hx Hypertension: Yes - PULMONARY Hx Chronic Obstructive Pulmonary Disease (COPD): Yes - NEUROLOGICAL Hx Neurological Disorder: No - HEENT Hx Cataracts: Yes - RENAL Hx Chronic Kidney Disease: No - ENDOCRINE/METABOLIC Hx Diabetes Mellitus Type 2: Yes - HEMATOLOGICAL/ONCOLOGICAL Hx Blood Disorders: No - INTEGUMENTARY Hx Dermatological Problems: No - MUSCULOSKELETAL/RHEUMATOLOGICAL Hx Falls: No Hx Spinal Stenosis: Yes - GASTROINTESTINAL Hx Gastrointestinal Disorders: No - GENITOURINARY/GYNECOLOGICAL Hx Genitourinary Disorders: No - PSYCHIATRIC Hx Anxiety: Yes Hx Depression: Yes Hx Substance Use: No - SURGICAL HISTORY Hx Coronary Stent: Yes (x7) - ANESTHESIA Hx Anesthesia: Yes Hx Anesthesia Reactions: No Meds Allergies/Adverse Reactions: Allergies Allergy/AdvReac Type Severity Reaction Status Date / Time ciprofloxacin AdvReac RASH, Verified 03/28/19 13:50 ITCHINESS Penicillins AdvReac passed out Verified 03/28/19 13:50 Physical Exam - Constitutional Appears: Well - Head Exam Head Exam: ATRAUMATIC, NORMAL INSPECTION, NORMOCEPHALIC - Eye Exam Eye Exam: EOMI, Normal appearance, PERRL Pupil Exam: NORMAL ACCOMODATION, PERRL - ENT Exam ENT Exam: Mucous Membranes Moist, Normal Exam - Neck Exam Neck exam: Positive for: Normal Inspection - Respiratory Exam Respiratory Exam: Decreased Breath Sounds - Cardiovascular Exam Cardiovascular Exam: REGULAR RHYTHM, +S1, +S2 - GI/Abdominal Exam GI & Abdominal Exam: Diminished Bowel Sounds, Soft - Rectal Exam Rectal Exam: Deferred - Neurological Exam Neurological exam: Oriented x3 Results - Vital Signs Recent Vital Signs: Last Vital Signs Temp 97.7 F 03/28/19 16:00 Pulse 88 03/28/19 20:00 Resp 16 03/28/19 16:00 BP 113/60 03/28/19 16:00 Pulse Ox 98 03/28/19 16:00 - Labs Result Diagrams: 03/28/19 14:13 03/28/19 14:13 Labs: Laboratory Results - last 24 hr 03/28/19 03/28/19 03/28/19 14:13 14:13 14:13 WBC 5.6 RBC 5.32 Hgb 14.2 Hct 42.1 MCV 79.1 L MCH 26.8 L MCHC 33.8 RDW 16.1 H Plt Count 302 D MPV 9.5 Neut % (Auto) 55.8 Lymph % (Auto) 31.9 [place] % (Auto) 10.9 H Eos % (Auto) 0.8 Baso % (Auto) 0.6 Neut # (Auto) 3.1 Lymph # (Auto) 1.8 [place] # (Auto) 0.6 Eos # (Auto) 0.0 Baso # (Auto) 0.0 PT 12.6 H INR 1.2 APTT 31.0 Sodium 134 Potassium 4.2 Chloride 101 Carbon Dioxide 23 Anion Gap 14 BUN 13 Creatinine 0.6 L Est GFR ( Amer) > 60 Est GFR (Non-Af Amer) > 60 Random Glucose 325 H Calcium 9.3 Total Bilirubin 0.4 AST 15 L ALT 24 Alkaline Phosphatase 106 Total Creatine Kinase CK-MB (Mass) Troponin I < 0.0120 NT-Pro-B Natriuret Pep 394 Total Protein 7.3 Albumin 4.0 Globulin 3.4 Albumin/Globulin Ratio 1.2 03/28/19 22:42 WBC RBC Hgb Hct MCV MCH MCHC RDW Plt Count MPV Neut % (Auto) Lymph % (Auto) [place] % (Auto) Eos % (Auto) Baso % (Auto) Neut # (Auto) Lymph # (Auto) [place] # (Auto) Eos # (Auto) Baso # (Auto) PT INR APTT Sodium Potassium Chloride Carbon Dioxide Anion Gap BUN Creatinine Est GFR ( Amer) Est GFR (Non-Af Amer) Random Glucose Calcium Total Bilirubin AST ALT Alkaline Phosphatase Total Creatine Kinase 27 L CK-MB (Mass) 0.83 Troponin I < 0.0120 NT-Pro-B Natriuret Pep Total Protein Albumin Globulin Albumin/Globulin Ratio Assessment & Plan - Assessment and Plan (Free Text) Assessment: Plan WBC 5.6 Hemoglobin 14.2 Hematocrit 42.1 Platelets 302 Sodium 134 Potassium 4.2 Bicarbonate 23 BUN 13 Creatinine 0.6 Glucose 325 ECGsinus rhythm, no changes from prior on 03/16, left axis deviation, normal QRS, normal [place] intervals, rate 84 Chest x-raymild left basilar atelectasis Moderate to high complexity of care. Plan of care discussed with patient &/or famil nexty & staff. Medications reviewed and reconciled. Labs reviewed. Vitals reviewed.
[2019-03-29 08:10] LABS: LIPASE 469 U/L (23-300)
[2019-03-29] MEDS: (Novolog) Insulin Aspart, Recombinant 100 u/ml 10 ml vial SC SCH ×7 (08:10→22:36)
[2019-03-29 08:16] LABS: INR 1.1; PROTHROMBIN TIME 12.2 SECONDS (9.7-12.2)
[2019-03-29 08:22] LABS: CK-MB 0.83 ng/mL (0.0-3.38)
--- NOTE | 2019-03-29 08:27 | CP.PCM.CON ---
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 GI was consulted for acute abdominal pain, nausea and dry heaves. Pt was recently admitted for similiar complaints 2 weeks prior. At that time, he was found to have acute pancreatitis of unclear etiology and was discharged post resolution of pain. Pt states that he was asymptomatic until 4 days prior and had again a gradual onset of left sided chest pain and then associated epigastric abd pain, which radiated like a belt from his epigastrum. Denies any recent weightloss, vomiting, diarrhea, rectal bleeding. Pt continues to smooke, but denies any ETOH use. He denies ant recent change in medication was continues to have uncontrolled DM. initial troponins were neg this admission. ROS: A 12pt ROS was negative except as above Pmhx: As stated in HPI PsHx: As stated above SHx: Denies tobacco, drugs, etoh FH: Neg for GI malignancy Past Patient History - Infectious Disease Hx of Infectious Diseases: None - Past Medical History & Family History Past Medical History?: Yes - Past Social History Smoking Status: Heavy Smoker > 10 Cigarettes Daily - CARDIAC Hx Hypercholesterolemia: Yes Hx Hypertension: Yes - PULMONARY Hx Chronic Obstructive Pulmonary Disease (COPD): Yes - NEUROLOGICAL Hx Neurological Disorder: No - HEENT Hx Cataracts: Yes - RENAL Hx Chronic Kidney Disease: No - ENDOCRINE/METABOLIC Hx Diabetes Mellitus Type 2: Yes - HEMATOLOGICAL/ONCOLOGICAL Hx Blood Disorders: No - INTEGUMENTARY Hx Dermatological Problems: No - MUSCULOSKELETAL/RHEUMATOLOGICAL Hx Falls: No Hx Spinal Stenosis: Yes - GASTROINTESTINAL Hx Gastrointestinal Disorders: No - GENITOURINARY/GYNECOLOGICAL Hx Genitourinary Disorders: No - PSYCHIATRIC Hx Anxiety: Yes Hx Depression: Yes Hx Substance Use: No - SURGICAL HISTORY Hx Coronary Stent: Yes (x7) - ANESTHESIA Hx Anesthesia: Yes Hx Anesthesia Reactions: No Meds Allergies/Adverse Reactions: Allergies Allergy/AdvReac Type Severity Reaction Status Date / Time ciprofloxacin AdvReac RASH, Verified 03/28/19 13:50 ITCHINESS Penicillins AdvReac passed out Verified 03/28/19 13:50 - Medications Medications: Current Medications Clopidogrel Bisulfate (Plavix) 75 mg PO DAILY [facility] Enalapril Maleate (Vasotec) 5 mg PO DAILY [facility] Ibuprofen (Motrin Tab) 800 mg PO Q8H PRN PRN Reason: Pain, moderate (4-7) Last Admin: 03/29/19 01:20 Dose: 800 mg Insulin Aspart (Novolog) 5 unit SC AC [facility] Last Admin: 03/29/19 08:10 Dose: 5 units Insulin Aspart (Novolog) 0 unit SC ACHS [facility]; Protocol Last Admin: 03/29/19 08:10 Dose: 6 units Insulin Detemir (Levemir) 25 unit SC HS [facility] Last Admin: 03/28/19 22:10 Dose: 25 units Lorazepam (Ativan) 2 mg PO HS PRN PRN Reason: Anxiety Losartan Potassium (Cozaar) 50 mg PO DAILY [facility] Metoprolol Tartrate (Lopressor) 50 mg PO BID [facility] Pantoprazole Sodium (Protonix Ec Tab) 40 mg PO DAILY PRN PRN Reason: Heartburn Pregabalin (Lyrica) 75 mg PO TID [facility] Rosuvastatin Calcium (Crestor) 10 mg PO HS [facility] Last Admin: 03/28/19 22:10 Dose: 10 mg Tramadol HCl (Ultram) 50 mg PO TID [facility] Last Admin: 03/28/19 19:21 Dose: 50 mg Warfarin Sodium (Coumadin) 5 mg PO 1800 [facility] Physical Exam - Constitutional Appears: No Acute Distress, Chronically Ill - Head Exam Head Exam: ATRAUMATIC, NORMOCEPHALIC - Eye Exam Eye Exam: Normal appearance - ENT Exam ENT Exam: Mucous Membranes Moist, Normal Exam - Neck Exam Neck exam: Positive for: Normal Inspection - Respiratory Exam Respiratory Exam: Clear to Auscultation Bilateral, NORMAL BREATHING PATTERN. absent: Rales, Rhonchi, Wheezes, Respiratory Distress - Cardiovascular Exam Cardiovascular Exam: REGULAR RHYTHM, +S1, +S2 - GI/Abdominal Exam GI & Abdominal Exam: Distended, Normal Bowel Sounds, Soft, Tenderness (epigastrum). absent: Firm, Guarding, Hernia, Pulsatile Mass, Rigid - Extremities Exam Additional comments: AKA x2 - Neurological Exam Neurological exam: Alert, Oriented x3 - Psychiatric Exam Psychiatric exam: Normal Affect, Normal Mood - Skin Skin Exam: Dry, Intact, Normal Color, Warm Results - Vital Signs Recent Vital Signs: Last Vital Signs Temp 98.3 F 03/28/19 23:40 Pulse 57 L 03/29/19 04:12 Resp 20 03/28/19 23:40 BP 115/70 03/28/19 23:40 Pulse Ox 98 03/28/19 23:40 - Labs Result Diagrams: 03/28/19 14:13 03/28/19 14:13 Labs: Laboratory Results - last 24 hr 03/28/19 03/28/19 03/28/19 14:13 14:13 14:13 WBC 5.6 RBC 5.32 Hgb 14.2 Hct 42.1 MCV 79.1 L MCH 26.8 L MCHC 33.8 RDW 16.1 H Plt Count 302 D MPV 9.5 Neut % (Auto) 55.8 Lymph % (Auto) 31.9 [place] % (Auto) 10.9 H Eos % (Auto) 0.8 Baso % (Auto) 0.6 Neut # (Auto) 3.1 Lymph # (Auto) 1.8 [place] # (Auto) 0.6 Eos # (Auto) 0.0 Baso # (Auto) 0.0 PT 12.6 H INR 1.2 APTT 31.0 Sodium 134 Potassium 4.2 Chloride 101 Carbon Dioxide 23 Anion Gap 14 BUN 13 Creatinine 0.6 L Est GFR ( Amer) > 60 Est GFR (Non-Af Amer) > 60 POC Glucose (mg/dL) Random Glucose 325 H Calcium 9.3 Total Bilirubin 0.4 AST 15 L ALT 24 Alkaline Phosphatase 106 Total Creatine Kinase CK-MB (Mass) Troponin I < 0.0120 NT-Pro-B Natriuret Pep 394 Total Protein 7.3 Albumin 4.0 Globulin 3.4 Albumin/Globulin Ratio 1.2 Lipase 03/28/19 03/28/19 03/29/19 20:58 22:42 02:00 WBC RBC Hgb Hct MCV MCH MCHC RDW Plt Count MPV Neut % (Auto) Lymph % (Auto) [place] % (Auto) Eos % (Auto) Baso % (Auto) Neut # (Auto) Lymph # (Auto) [place] # (Auto) Eos # (Auto) Baso # (Auto) PT INR APTT Sodium Potassium Chloride Carbon Dioxide Anion Gap BUN Creatinine Est GFR ( Amer) Est GFR (Non-Af Amer) POC Glucose (mg/dL) 414 H* 310 H Random Glucose Calcium Total Bilirubin AST ALT Alkaline Phosphatase Total Creatine Kinase 27 L CK-MB (Mass) 0.83 Troponin I < 0.0120 NT-Pro-B Natriuret Pep Total Protein Albumin Globulin Albumin/Globulin Ratio Lipase 03/29/19 03/29/19 07:49 07:49 WBC RBC Hgb Hct MCV MCH MCHC RDW Plt Count MPV Neut % (Auto) Lymph % (Auto) [place] % (Auto) Eos % (Auto) Baso % (Auto) Neut # (Auto) Lymph # (Auto) [place] # (Auto) Eos # (Auto) Baso # (Auto) PT 12.2 INR 1.1 APTT Sodium Potassium Chloride Carbon Dioxide Anion Gap BUN Creatinine Est GFR ( Amer) Est GFR (Non-Af Amer) POC Glucose (mg/dL) Random Glucose Calcium Total Bilirubin AST ALT Alkaline Phosphatase Total Creatine Kinase 27 L CK-MB (Mass) 0.83 Troponin I < 0.0120 NT-Pro-B Natriuret Pep Total Protein Albumin Globulin Albumin/Globulin Ratio Lipase 469 H Assessment & Plan - Assessment and Plan (Free Text) Assessment: 1. Abd pain and Nausea 2. Diabetes, uncontrolled BG 3. CAD 4. Chest pain 5. Left ventricle Thrombus 6. Acute Pancreatitis, dilated PD 7. Constipation -check lipase, if elevated, will get CT pancreas protocol -continue LR at 100cc/hr -will keep clear liquid for now -will also get abd u/s to rule out gallstones -Recommend tight glyciemic control -Anti-emetics prns -PPI daily -Miralax bid for severe constipation will D/w Dr. Canchola <Manav Canchola Y - Last Filed: 03/29/19 14:39> Meds - Medications Medications: Current Medications Clopidogrel Bisulfate (Plavix) 75 mg PO DAILY [facility] Last Admin: 03/29/19 09:19 Dose: 75 mg Enalapril Maleate (Vasotec) 5 mg PO DAILY [facility] Last Admin: 03/29/19 09:19 Dose: 5 mg Lactated Ringer's (Lactated Ringer's) 1,000 mls @ 100 mls/hr IV .Q10H [facility] Last Admin: 03/29/19 10:20 Dose: 100 mls/hr Ibuprofen (Motrin Tab) 800 mg PO Q8H PRN PRN Reason: Pain, moderate (4-7) Last Admin: 03/29/19 09:18 Dose: 800 mg Insulin Aspart (Novolog) 5 unit SC AC [facility] Last Admin: 03/29/19 11:49 Dose: 5 units Insulin Aspart (Novolog) 0 unit SC ACHS [facility]; Protocol Last Admin: 03/29/19 11:50 Dose: 6 units Insulin Detemir (Levemir) 25 unit SC HS [facility] Last Admin: 03/28/19 22:10 Dose: 25 units Lidocaine (Lidoderm) 1 ea TD DAILY [facility] Lorazepam (Ativan) 2 mg PO HS PRN PRN Reason: Anxiety Losartan Potassium (Cozaar) 50 mg PO DAILY [facility] Last Admin: 03/29/19 09:20 Dose: 50 mg Metoprolol Tartrate (Lopressor) 50 mg PO BID [facility] Last Admin: 03/29/19 09:30 Dose: 50 mg Pantoprazole Sodium (Protonix Ec Tab) 40 mg PO DAILY PRN PRN Reason: Heartburn Last Admin: 03/29/19 09:20 Dose: 40 mg Pregabalin (Lyrica) 75 mg PO TID [facility] Last Admin: 03/29/19 13:09 Dose: 75 mg Rosuvastatin Calcium (Crestor) 10 mg PO [facility] Last Admin: 03/28/19 22:10 Dose: 10 mg Tramadol HCl (Ultram) 50 mg PO TID [facility] Last Admin: 03/29/19 13:08 Dose: 50 mg Warfarin Sodium (Coumadin) 5 mg PO 1800 [facility] Results - Vital Signs Recent Vital Signs: Last Vital Signs Temp 97.5 F L 03/29/19 07:00 Pulse 60 03/29/19 13:26 Resp 20 03/29/19 07:00 BP 138/70 03/29/19 09:19 Pulse Ox 97 03/29/19 07:00 - Labs Result Diagrams: 03/28/19 14:13 03/28/19 14:13 Labs: Laboratory Results - last 24 hr 03/28/19 03/28/19 03/28/19 14:13 20:58 22:42 PT INR Sodium 134 Potassium 4.2 Chloride 101 Carbon Dioxide 23 Anion Gap 14 BUN 13 Creatinine 0.6 L Est GFR ( Amer) > 60 Est GFR (Non-Af Amer) > 60 POC Glucose (mg/dL) 414 H* Random Glucose 325 H Calcium 9.3 Total Bilirubin 0.4 AST 15 L ALT 24 Alkaline Phosphatase 106 Total Creatine Kinase 27 L CK-MB (Mass) 0.83 Troponin I < 0.0120 < 0.0120 NT-Pro-B Natriuret Pep 394 Total Protein 7.3 Albumin 4.0 Globulin 3.4 Albumin/Globulin Ratio 1.2 Lipase 03/29/19 03/29/19 03/29/19 02:00 07:49 07:49 PT 12.2 INR 1.1 Sodium Potassium Chloride Carbon Dioxide Anion Gap BUN Creatinine Est GFR ( Amer) Est GFR (Non-Af Amer) POC Glucose (mg/dL) 310 H Random Glucose Calcium Total Bilirubin AST ALT Alkaline Phosphatase Total Creatine Kinase 27 L CK-MB (Mass) 0.83 Troponin I < 0.0120 NT-Pro-B Natriuret Pep Total Protein Albumin Globulin Albumin/Globulin Ratio Lipase 469 H Attending/Attestation - Attestation I have personally seen and examined this patient.: Yes I have fully participated in the care of the patient.: Yes I have reviewed all pertinent clinical information: Yes Notes (Text): 03/29/19 14:33 I have seen and examined patient with GI fellow. Agree with above documentation with the following additions. In brief, this is a 68 year old male with history of CAD s/p stent, DM, CHF, PVD s/p bilateral BKA, LV thrombus who presents to hospital with complaint of progressive chest and abdominal pain. He was recently hospitalized with similar complaints and was found to have acute pancreatitis of unclear etiology. He describes sharp epigastric pain, 8/10 intensity that radiates to bilateral upper quadrants but denies nausea, vomiting, fever/chills, weight loss, rectal bleeding, or change in bowel habits. He adamantly denies recent ETOH use, abdominal trauma, or change in medications. Additional physical examination: Abdomen: no palpable hepato/splenomegaly CAD s/p stent DM CHF PVD s/p bilateral BKA LV thrombus Abdominal pain, recent pancreatitis of unclear etiology - Liquid diet as tolerated - Continue with IVF hydration, supportive care - Anti-emetic therapy PRN - Pain control - Given recurrent abdominal pain, prior history of weight loss, and ongoing cigarette smoking will obtain MRI abdomen with contrast for further evaluation of pancreas to rule out mass lesion - Maintain bowel regimen to prevent constipation - Will continue to monitor patient clinical course
[2019-03-29] MEDS: Pantoprazole 40 mg EC Tab PO PRN (09:20)
[2019-03-29] MEDS: Lactated Ringer's 1,000 ML IV SCH ×2 (10:20→19:30)
--- NOTE | 2019-03-29 11:14 | CP.PCM.PN ---
Subjective - Date & Time of Evaluation Date of Evaluation: 03/29/19 - Subjective Subjective: no c/o vomiting, no diarrhea, no fever Objective - Vital Signs/Intake and Output Vital Signs (last 24 hours): Temp Pulse Resp BP Pulse Ox 97.5 F L 67 20 138/70 97 03/29/19 07:00 03/29/19 07:42 03/29/19 07:00 03/29/19 09:19 03/29/19 07:00 - Medications Medications: Current Medications Clopidogrel Bisulfate (Plavix) 75 mg PO DAILY [facility] Last Admin: 03/29/19 09:19 Dose: 75 mg Enalapril Maleate (Vasotec) 5 mg PO DAILY [facility] Last Admin: 03/29/19 09:19 Dose: 5 mg Lactated Ringer's (Lactated Ringer's) 1,000 mls @ 100 mls/hr IV .Q10H [facility] Ibuprofen (Motrin Tab) 800 mg PO Q8H PRN PRN Reason: Pain, moderate (4-7) Last Admin: 03/29/19 09:18 Dose: 800 mg Insulin Aspart (Novolog) 5 unit SC AC [facility] Last Admin: 03/29/19 08:10 Dose: 5 units Insulin Aspart (Novolog) 0 unit SC ACHS [facility]; Protocol Last Admin: 03/29/19 08:10 Dose: 6 units Insulin Detemir (Levemir) [address] [facility] Last Admin: 03/28/19 22:10 Dose: 25 units Lorazepam (Ativan) 2 mg PO HS PRN PRN Reason: Anxiety Losartan Potassium (Cozaar) 50 mg PO DAILY [facility] Last Admin: 03/29/19 09:20 Dose: 50 mg Metoprolol Tartrate (Lopressor) 50 mg PO BID [facility] Last Admin: 03/29/19 09:30 Dose: 50 mg Pantoprazole Sodium (Protonix Ec Tab) 40 mg PO DAILY PRN PRN Reason: Heartburn Last Admin: 03/29/19 09:20 Dose: 40 mg Pregabalin (Lyrica) 75 mg PO TID [facility] Last Admin: 03/29/19 09:20 Dose: 75 mg Rosuvastatin Calcium (Crestor) 10 mg PO HS [facility] Last Admin: 03/28/19 22:10 Dose: 10 mg Tramadol HCl (Ultram) 50 mg PO TID [facility] Last Admin: 03/28/19 19:21 Dose: 50 mg Warfarin Sodium (Coumadin) 5 mg PO 1800 [facility] - Labs Labs: 03/28/19 14:13 03/28/19 14:13 PT 12.2 SECONDS (9.7-12.2) 03/29/19 07:49 INR 1.1 03/29/19 07:49 APTT 31.0 SECONDS (21-34) 03/28/19 14:13 - Constitutional Appears: Well - Head Exam Head Exam: ATRAUMATIC, NORMAL INSPECTION, NORMOCEPHALIC - Eye Exam Eye Exam: EOMI, Normal appearance, PERRL Pupil Exam: NORMAL ACCOMODATION, PERRL - ENT Exam ENT Exam: Mucous Membranes Moist, Normal Exam - Neck Exam Neck Exam: Full ROM, Normal Inspection. absent: Lymphadenopathy - Respiratory Exam Respiratory Exam: Decreased Breath Sounds - Cardiovascular Exam Cardiovascular Exam: REGULAR RHYTHM, +S1, +S2 - GI/Abdominal Exam GI & Abdominal Exam: Soft, Diminished Bowel Sounds - Rectal Exam Rectal Exam: Deferred - Neurological Exam Neurological Exam: Oriented x3 Assessment and Plan (1) Chest pain Status: Acute (2) Hyperglycemia Status: Acute (3) Chest pain due to coronary artery disease Status: Acute (4) Chronic back pain Status: Acute (5) Chronic pain Status: Acute (6) History of diabetes mellitus Status: Acute (7) History of hyperlipidemia Status: Acute (8) Ischemic cardiomyopathy Status: Acute (9) Left ventricular thrombus Status: Acute (10) Prophylactic measure Status: Acute (11) Tobacco use Status: Acute (12) Toe gangrene Status: Acute (13) Type 2 diabetes mellitus with other specified complication Status: Acute (14) CAD (coronary artery disease) Status: Chronic (15) Essential (primary) hypertension Status: Chronic (16) PVD (peripheral vascular disease) with claudication Status: Chronic (17) Stented coronary artery Status: Chronic - Assessment and Plan (Free Text) Plan: Creatinine 0.6 Glucose 325 Plavix Vasotec Motrin NovoLog Levemir ativan Cozaar Lopressor Protonix Lidocaine Crestor Ultram Coumadin Moderate to high complexity of care. Plan of care discussed with patient &/or family & staff. Medications reviewed and reconciled. Labs reviewed. Vitals reviewed.
--- NOTE | 2019-03-29 12:33 | CP.PCM.CON ---
History of Present Illness - History of Present Illness History of Present Illness: Podiatry consult note for Dr. Carrillo, 68 year old male with a past medical history of of SC x4, CAD with stent placement, diabetes, HLD, and s/p bilateral AKA, CHF, Ischemic Cardiomyopthay, Left ventricle Thrombus on OAC seen and evaluated for complains of right AKA stump pain. Denies f/n/v/sob. Denies any other complains ROS: A 12pt ROS was negative except as above Pmhx: As stated in HPI PsHx: As stated above SHx: Denies tobacco, drugs, etoh FH: Neg for GI malignancy Past Patient History - Infectious Disease Hx of Infectious Diseases: None - Past Medical History & Family History Past Medical History?: Yes - Past Social History Smoking Status: Heavy Smoker > 10 Cigarettes Daily - CARDIAC Hx Hypercholesterolemia: Yes Hx Hypertension: Yes - PULMONARY Hx Chronic Obstructive Pulmonary Disease (COPD): Yes - NEUROLOGICAL Hx Neurological Disorder: No - HEENT Hx Cataracts: Yes - RENAL Hx Chronic Kidney Disease: No - ENDOCRINE/METABOLIC Hx Diabetes Mellitus Type 2: Yes - HEMATOLOGICAL/ONCOLOGICAL Hx Blood Disorders: No - INTEGUMENTARY Hx Dermatological Problems: No - MUSCULOSKELETAL/RHEUMATOLOGICAL Hx Falls: No Hx Spinal Stenosis: Yes - GASTROINTESTINAL Hx Gastrointestinal Disorders: No - GENITOURINARY/GYNECOLOGICAL Hx Genitourinary Disorders: No - PSYCHIATRIC Hx Anxiety: Yes Hx Depression: Yes Hx Substance Use: No - SURGICAL HISTORY Hx Coronary Stent: Yes (x7) - ANESTHESIA Hx Anesthesia: Yes Hx Anesthesia Reactions: No Meds Allergies/Adverse Reactions: Allergies Allergy/AdvReac Type Severity Reaction Status Date / Time ciprofloxacin AdvReac RASH, Verified 03/28/19 13:50 ITCHINESS Penicillins AdvReac passed out Verified 03/28/19 13:50 - Medications Medications: Current Medications Clopidogrel Bisulfate (Plavix) 75 mg PO DAILY [facility] Last Admin: 03/29/19 09:19 Dose: 75 mg Enalapril Maleate (Vasotec) 5 mg PO DAILY [facility] Last Admin: 03/29/19 09:19 Dose: 5 mg Lactated Ringer's (Lactated Ringer's) 1,000 mls @ 100 mls/hr IV .Q10H [facility] Ibuprofen (Motrin Tab) 800 mg PO Q8H PRN PRN Reason: Pain, moderate (4-7) Last Admin: 03/29/19 09:18 Dose: 800 mg Insulin Aspart (Novolog) 5 unit SC AC [facility] Last Admin: 03/29/19 11:49 Dose: 5 units Insulin Aspart (Novolog) 0 unit SC ACHS [facility]; Protocol Last Admin: 03/29/19 11:50 Dose: 6 units Insulin Detemir (Levemir) 25 unit SC HS [facility] Last Admin: 03/28/19 22:10 Dose: 25 units Lorazepam (Ativan) 2 mg PO HS PRN PRN Reason: Anxiety Losartan Potassium (Cozaar) 50 mg PO DAILY [facility] Last Admin: 03/29/19 09:20 Dose: 50 mg Metoprolol Tartrate (Lopressor) 50 mg PO BID [facility] Last Admin: 03/29/19 09:30 Dose: 50 mg Pantoprazole Sodium (Protonix Ec Tab) 40 mg PO DAILY PRN PRN Reason: Heartburn Last Admin: 03/29/19 09:20 Dose: 40 mg Pregabalin (Lyrica) 75 mg PO TID [facility] Last Admin: 03/29/19 09:20 Dose: 75 mg Rosuvastatin Calcium (Crestor) 10 mg PO HS [facility] Last Admin: 03/28/19 22:10 Dose: 10 mg Tramadol HCl (Ultram) 50 mg PO TID [facility] Last Admin: 03/29/19 11:35 Dose: 50 mg Warfarin Sodium (Coumadin) 5 mg PO 1800 [facility] Physical Exam - Constitutional Appears: Well, Non-toxic, No Acute Distress - Head Exam Head Exam: ATRAUMATIC, NORMOCEPHALIC - Eye Exam Eye Exam: Normal appearance - ENT Exam ENT Exam: Mucous Membranes Moist - Respiratory Exam Respiratory Exam: NORMAL BREATHING PATTERN - Cardiovascular Exam Cardiovascular Exam: REGULAR RHYTHM, +S1, +S2 - Extremities Exam Extremities exam: Positive for: normal inspection Additional comments: B/L AKA amputations. Well healed surgical sites, no open lesions. - Back Exam Back exam: NORMAL INSPECTION Results - Vital Signs Recent Vital Signs: Last Vital Signs Temp 97.5 F L 03/29/19 07:00 Pulse 67 03/29/19 07:42 Resp 20 03/29/19 07:00 BP 138/70 03/29/19 09:19 Pulse Ox 97 03/29/19 07:00 - Labs Result Diagrams: 03/28/19 14:13 03/28/19 14:13 Labs: Laboratory Results - last 24 hr 03/28/19 03/28/19 03/28/19 14:13 14:13 14:13 WBC 5.6 RBC 5.32 Hgb 14.2 Hct 42.1 MCV 79.1 L MCH 26.8 L MCHC 33.8 RDW 16.1 H Plt Count 302 D MPV 9.5 Neut % (Auto) 55.8 Lymph % (Auto) 31.9 [place] % (Auto) 10.9 H Eos % (Auto) 0.8 Baso % (Auto) 0.6 Neut # (Auto) 3.1 Lymph # (Auto) 1.8 [place] # (Auto) 0.6 Eos # (Auto) 0.0 Baso # (Auto) 0.0 PT 12.6 H INR 1.2 APTT 31.0 Sodium 134 Potassium 4.2 Chloride 101 Carbon Dioxide 23 Anion Gap 14 BUN 13 Creatinine 0.6 L Est GFR ( Amer) > 60 Est GFR (Non-Af Amer) > 60 POC Glucose (mg/dL) Random Glucose 325 H Calcium 9.3 Total Bilirubin 0.4 AST 15 L ALT 24 Alkaline Phosphatase 106 Total Creatine Kinase CK-MB (Mass) Troponin I < 0.0120 NT-Pro-B Natriuret Pep 394 Total Protein 7.3 Albumin 4.0 Globulin 3.4 Albumin/Globulin Ratio 1.2 Lipase 03/28/19 03/28/19 03/29/19 20:58 22:42 02:00 WBC RBC Hgb Hct MCV MCH MCHC RDW Plt Count MPV Neut % (Auto) Lymph % (Auto) [place] % (Auto) Eos % (Auto) Baso % (Auto) Neut # (Auto) Lymph # (Auto) [place] # (Auto) Eos # (Auto) Baso # (Auto) PT INR APTT Sodium Potassium Chloride Carbon Dioxide Anion Gap BUN Creatinine Est GFR ( Amer) Est GFR (Non-Af Amer) POC Glucose (mg/dL) 414 H* 310 H Random Glucose Calcium Total Bilirubin AST ALT Alkaline Phosphatase Total Creatine Kinase 27 L CK-MB (Mass) 0.83 Troponin I < 0.0120 NT-Pro-B Natriuret Pep Total Protein Albumin Globulin Albumin/Globulin Ratio Lipase 03/29/19 03/29/19 07:49 07:49 WBC RBC Hgb Hct MCV MCH MCHC RDW Plt Count MPV Neut % (Auto) Lymph % (Auto) [place] % (Auto) Eos % (Auto) Baso % (Auto) Neut # (Auto) Lymph # (Auto) [place] # (Auto) Eos # (Auto) Baso # (Auto) PT 12.2 INR 1.1 APTT Sodium Potassium Chloride Carbon Dioxide Anion Gap BUN Creatinine Est GFR ( Amer) Est GFR (Non-Af Amer) POC Glucose (mg/dL) Random Glucose Calcium Total Bilirubin AST ALT Alkaline Phosphatase Total Creatine Kinase 27 L CK-MB (Mass) 0.83 Troponin I < 0.0120 NT-Pro-B Natriuret Pep Total Protein Albumin Globulin Albumin/Globulin Ratio Lipase 469 H Assessment & Plan - Assessment and Plan (Free Text) Assessment: 68 yo male seen and evaluated with b/L SHARI for right stump pain Plan: PAtient seen and evaluated chart, lab and vitals reviewed case discussed with Dr. Carrillo lidoderm patch ordered for right thigh patient to follow up as outpatient with orthopedic doctor Thank you for the consult podiatry will sign off at this time.
--- NOTE | 2019-03-29 15:34 | CP.PCM.CON ---
History of Present Illness - History of Present Illness History of Present Illness: CC: CHest pain HPI: 68 year old man with following chronic medical problems: 1. HTN is chronic and stable 2. Diabetes is chronic and stable on insulin 3. Hyperlipidemia is chronic and stable on statin Presents with chest pain Past Patient History - Infectious Disease Hx of Infectious Diseases: None - Past Medical History & Family History Past Medical History?: Yes - Past Social History Smoking Status: Heavy Smoker > 10 Cigarettes Daily - CARDIAC Hx Hypercholesterolemia: Yes Hx Hypertension: Yes - PULMONARY Hx Chronic Obstructive Pulmonary Disease (COPD): Yes - NEUROLOGICAL Hx Neurological Disorder: No - HEENT Hx Cataracts: Yes - RENAL Hx Chronic Kidney Disease: No - ENDOCRINE/METABOLIC Hx Diabetes Mellitus Type 2: Yes - HEMATOLOGICAL/ONCOLOGICAL Hx Blood Disorders: No - INTEGUMENTARY Hx Dermatological Problems: No - MUSCULOSKELETAL/RHEUMATOLOGICAL Hx Falls: No Hx Spinal Stenosis: Yes - GASTROINTESTINAL Hx Gastrointestinal Disorders: No - GENITOURINARY/GYNECOLOGICAL Hx Genitourinary Disorders: No - PSYCHIATRIC Hx Anxiety: Yes Hx Depression: Yes Hx Substance Use: No - SURGICAL HISTORY Hx Coronary Stent: Yes (x7) - ANESTHESIA Hx Anesthesia: Yes Hx Anesthesia Reactions: No Meds Allergies/Adverse Reactions: Allergies Allergy/AdvReac Type Severity Reaction Status Date / Time ciprofloxacin AdvReac RASH, Verified 03/28/19 13:50 ITCHINESS Penicillins AdvReac passed out Verified 03/28/19 13:50 - Medications Medications: Current Medications Clopidogrel Bisulfate (Plavix) 75 mg PO DAILY [facility] Last Admin: 03/29/19 09:19 Dose: 75 mg Enalapril Maleate (Vasotec) 5 mg PO DAILY [facility] Last Admin: 03/29/19 09:19 Dose: 5 mg Lactated Ringer's (Lactated Ringer's) 1,000 mls @ 100 mls/hr IV .Q10H [facility] Last Admin: 03/29/19 10:20 Dose: 100 mls/hr Ibuprofen (Motrin Tab) 800 mg PO Q8H PRN PRN Reason: Pain, moderate (4-7) Last Admin: 03/29/19 09:18 Dose: 800 mg Insulin Aspart (Novolog) 5 unit SC AC [facility] Last Admin: 03/29/19 11:49 Dose: 5 units Insulin Aspart (Novolog) 0 unit SC ACHS [facility]; Protocol Last Admin: 03/29/19 11:50 Dose: 6 units Insulin Detemir (Levemir) 25 unit SC HS [facility] Last Admin: 03/28/19 22:10 Dose: 25 units Lidocaine (Lidoderm) 1 ea TD DAILY [facility] Lorazepam (Ativan) 2 mg PO HS PRN PRN Reason: Anxiety Losartan Potassium (Cozaar) 50 mg PO DAILY [facility] Last Admin: 03/29/19 09:20 Dose: 50 mg Metoprolol Tartrate (Lopressor) 50 mg PO BID [facility] Last Admin: 03/29/19 09:30 Dose: 50 mg Pantoprazole Sodium (Protonix Ec Tab) 40 mg PO DAILY PRN PRN Reason: Heartburn Last Admin: 03/29/19 09:20 Dose: 40 mg Pregabalin (Lyrica) 75 mg PO TID [facility] Last Admin: 03/29/19 13:09 Dose: 75 mg Rosuvastatin Calcium (Crestor) 10 mg PO HS [facility] Last Admin: 03/28/19 22:10 Dose: 10 mg Tramadol HCl (Ultram) 50 mg PO TID [facility] Last Admin: 03/29/19 13:08 Dose: 50 mg Warfarin Sodium (Coumadin) 5 mg PO 1800 [facility] Results - Vital Signs Recent Vital Signs: Last Vital Signs Temp 97.5 F L 03/29/19 07:00 Pulse 60 03/29/19 13:26 Resp 20 03/29/19 07:00 BP 138/70 03/29/19 09:19 Pulse Ox 97 03/29/19 07:00 - Labs Result Diagrams: 03/28/19 14:13 03/28/19 14:13 Labs: Laboratory Results - last 24 hr 03/28/19 03/28/19 03/29/19 20:58 22:42 02:00 PT INR POC Glucose (mg/dL) 414 H* 310 H Total Creatine Kinase 27 L CK-MB (Mass) 0.83 Troponin I < 0.0120 Lipase 03/29/19 03/29/19 07:49 07:49 PT 12.2 INR 1.1 POC Glucose (mg/dL) Total Creatine Kinase 27 L CK-MB (Mass) 0.83 Troponin I < 0.0120 Lipase 469 H Assessment & Plan - Assessment and Plan (Free Text) Assessment: Upon interview patient informed me 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 i informed nursing staff to contact his primary beer maker.
[2019-03-29] MEDS: Insulin Detemir 100 units/ml Vial (Levemir) SC SCH (22:35)
[2019-03-30] MEDS: Lactated Ringer's 1,000 ML IV SCH ×3 (00:46→15:39)
--- NOTE | 2019-03-30 07:25 | CP.PCM.PN ---
Subjective - Date & Time of Evaluation Date of Evaluation: 03/30/19 Time of Evaluation: 07:00 - Subjective Subjective: GI Fellow PGY5 Progress Note Pt seen and evaluated at bedside, pt says abdominal better this am, tolerating liquids. ROS: A 12pt ROS was negative except as above. Objective - Vital Signs/Intake and Output Vital Signs (last 24 hours): Temp Pulse Resp BP Pulse Ox 97.3 F L 56 L 20 95/51 L 94 L 03/29/19 23:35 03/30/19 00:20 03/29/19 23:35 03/29/19 23:35 03/29/19 23:35 - Medications Medications: Current Medications Clopidogrel Bisulfate (Plavix) 75 mg PO DAILY [facility] Last Admin: 03/29/19 09:19 Dose: 75 mg Enalapril Maleate (Vasotec) 5 mg PO DAILY [facility] Last Admin: 03/29/19 09:19 Dose: 5 mg Lactated Ringer's (Lactated Ringer's) 1,000 mls @ 100 mls/hr IV .Q10H [facility] Last Admin: 03/30/19 06:01 Dose: Not Given Ibuprofen (Motrin Tab) 800 mg PO Q8H PRN PRN Reason: Pain, moderate (4-7) Last Admin: 03/30/19 03:14 Dose: 800 mg Insulin Aspart (Novolog) 5 unit SC AC [facility] Last Admin: 03/29/19 16:56 Dose: Not Given Insulin Aspart (Novolog) 0 unit SC ACHS [facility]; Protocol Last Admin: 03/29/19 22:36 Dose: Not Given Insulin Detemir (Levemir) 25 unit SC HS [facility] Last Admin: 03/29/19 22:35 Dose: 25 units Lidocaine (Lidoderm) 1 ea TD DAILY [facility] Lorazepam (Ativan) 2 mg PO HS PRN PRN Reason: Anxiety Losartan Potassium (Cozaar) 50 mg PO DAILY [facility] Last Admin: 03/29/19 09:20 Dose: 50 mg Metoprolol Tartrate (Lopressor) 50 mg PO BID [facility] Last Admin: 03/29/19 19:21 Dose: Not Given Pantoprazole Sodium (Protonix Ec Tab) 40 mg PO DAILY PRN PRN Reason: Heartburn Last Admin: 03/29/19 09:20 Dose: 40 mg Pregabalin (Lyrica) 75 mg PO TID [facility] Last Admin: 03/29/19 17:05 Dose: 75 mg Rosuvastatin Calcium (Crestor) 10 mg PO HS [facility] Last Admin: 03/29/19 21:37 Dose: 10 mg Tramadol HCl (Ultram) 50 mg PO TID [facility] Last Admin: 03/29/19 17:06 Dose: 50 mg Warfarin Sodium (Coumadin) 5 mg PO 1800 [facility] Last Admin: 03/29/19 17:06 Dose: 5 mg - Labs Labs: 03/28/19 14:13 03/28/19 14:13 PT 12.2 SECONDS (9.7-12.2) 03/29/19 07:49 INR 1.1 03/29/19 07:49 APTT 31.0 SECONDS (21-34) 03/28/19 14:13 - Constitutional Appears: Non-toxic, No Acute Distress - Head Exam Head Exam: ATRAUMATIC, NORMAL INSPECTION, NORMOCEPHALIC - Eye Exam Eye Exam: EOMI, Normal appearance, PERRL - ENT Exam ENT Exam: Mucous Membranes Moist, Normal Exam - Neck Exam Neck Exam: Full ROM, Normal Inspection - Respiratory Exam Respiratory Exam: Clear to Ausculation Bilateral, NORMAL BREATHING PATTERN - Cardiovascular Exam Cardiovascular Exam: REGULAR RHYTHM, RRR, +S1, +S2 - GI/Abdominal Exam GI & Abdominal Exam: Soft, Normal Bowel Sounds. absent: Distended, Firm, Guarding, Tenderness, Organomegaly - Rectal Exam Rectal Exam: Deferred - Extremities Exam Additional comments: BL BKA - Neurological Exam Neurological Exam: Alert, Awake, Oriented x3 - Psychiatric Exam Psychiatric exam: Normal Affect, Normal Mood - Skin Skin Exam: Dry, Intact, Normal Color, Warm Assessment and Plan - Assessment and Plan (Free Text) Assessment: 1. Abd pain and Nausea 2. Diabetes, uncontrolled BG 3. CAD 4. Chest pain 5. Left ventricle Thrombus 6. Acute Pancreatitis, dilated PD 7. Constipation -Borderline lipase elevation-MRI ordered to r/o underlying etiology -Continue LR at 100cc/hr -Advance diet to diabetic, low fat small frequent meals -Will also get abd u/s to rule out gallstones -Recommend tight glyciemic control -Anti-emetics prns -PPI daily -Miralax bid for severe constipation -Medical management per primary team -Will continue to follow closely
[2019-03-30 07:56] LABS: INR 1.1; PROTHROMBIN TIME 11.9 SECONDS (9.7-12.2)
[2019-03-30] MEDS: (Novolog) Insulin Aspart, Recombinant 100 u/ml 10 ml vial SC SCH ×7 (08:03→21:05)
[2019-03-30] MEDS: Lidocaine 5% Patch TD SCH (09:13)
[2019-03-30] MEDS ORDERED: Gadodiamide 287 mg/ml 20 ml IV ONE (12:15)
--- NOTE | 2019-03-30 13:53 | MRI ---
Date of service: 03/30/2019 PROCEDURE: MRI Abdomen with and without contrast HISTORY: Recurrent pancreatitis COMPARISON: 03/16/2019 CT scan. TECHNIQUE: Multisequence, multiplanar MR images of the abdomen with and without gadolinium contrast enhancement. Severely limited due to respiratory motion artifact. FINDINGS: LIVER: Unremarkable. GALLBLADDER: Unremarkable. SPLEEN: Wedge-shaped defect in the spleen possibly representing an old infarct. PANCREAS: Unremarkable. ADRENALS: Unremarkable. KIDNEYS: Unremarkable. AORTA: No aneurysm. ASCITES: None. PERITONEUM: Unremarkable. LYMPH NODES: Unremarkable. OTHER FINDINGS: Zone of diminished enhancement in the left ventricular apex, possibly representing an old infarct; correlate clinically. 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
--- NOTE | 2019-03-30 20:00 | CP.PCM.CON ---
History of Present Illness - History of Present Illness History of Present Illness: The pt is a 68 yo man, ex smoker, with sig CV disease. THe patient has had several NC's, PAD, and coronary PCI. He has ischemic cardiomyopathy, but no h/o chf or afib. Pt had a second amputation at [facility] earlier in 2019. . Pt is a , and is taken care of by his son. His son often neglects him (personal observation). pt has been at [facility] for chronic pain syndromes multiple times in the last several months. Pt also has severe back and joint pain. pt was recently admitted for constant c\shoulder pain, that was associated with motion. TNI was negative. CXR does not show chf. February 2019, an echo was performed with contrast, demonstrating markedly reduced LV EF, and a small organized non mobile apical thrombus, previously not diagnosed. Warfarin was begun. the patient has not been able to follow INR at home, and was placed on Eliquis his last discharge, The patient now returns with left leg stump pain and left shoulder pain. . The shoulder pain is unchanged and chronic. GI eval was perfomed recently for ab dominal pain and it is though that the patient has gastroparesis. The patient has been admitted her at , but was admitted at [facility] multiple times this year for the same problem. He was sent home from The [facility] ER two days ago, and the ER doctor told me that he was on eliquis, not warfarin. Review of Systems - Review of Systems All systems: reviewed and no additional remarkable complaints except (as above) Review of Systems: e Past Patient History - Infectious Disease Hx of Infectious Diseases: None - Past Medical History & Family History Past Medical History?: Yes - Past Social History Smoking Status: Heavy Smoker > 10 Cigarettes Daily - CARDIAC Hx Hypercholesterolemia: Yes Hx Hypertension: Yes - PULMONARY Hx Chronic Obstructive Pulmonary Disease (COPD): Yes - NEUROLOGICAL Hx Neurological Disorder: No - HEENT Hx Cataracts: Yes - RENAL Hx Chronic Kidney Disease: No - ENDOCRINE/METABOLIC Hx Diabetes Mellitus Type 2: Yes - HEMATOLOGICAL/ONCOLOGICAL Hx Blood Disorders: No - INTEGUMENTARY Hx Dermatological Problems: No - MUSCULOSKELETAL/RHEUMATOLOGICAL Hx Falls: No Hx Spinal Stenosis: Yes - GASTROINTESTINAL Hx Gastrointestinal Disorders: No - GENITOURINARY/GYNECOLOGICAL Hx Genitourinary Disorders: No - PSYCHIATRIC Hx Anxiety: Yes Hx Depression: Yes Hx Substance Use: No - SURGICAL HISTORY Hx Coronary Stent: Yes (x7) - ANESTHESIA Hx Anesthesia: Yes Hx Anesthesia Reactions: No Meds Allergies/Adverse Reactions: Allergies Allergy/AdvReac Type Severity Reaction Status Date / Time ciprofloxacin AdvReac RASH, Verified 03/28/19 13:50 ITCHINESS Penicillins AdvReac passed out Verified 03/28/19 13:50 - Medications Medications: Current Medications Clopidogrel Bisulfate (Plavix) 75 mg PO DAILY [facility] Last Admin: 03/30/19 09:14 Dose: 75 mg Enalapril Maleate (Vasotec) 5 mg PO DAILY [facility] Last Admin: 03/30/19 09:17 Dose: 5 mg Lactated Ringer's (Lactated Ringer's) 1,000 mls @ 100 mls/hr IV .Q10H [facility] Last Admin: 03/30/19 15:39 Dose: 100 mls/hr Ibuprofen (Motrin Tab) 800 mg PO Q8H PRN PRN Reason: Pain, moderate (4-7) Last Admin: 03/30/19 03:14 Dose: 800 mg Insulin Aspart (Novolog) 5 unit SC AC [facility] Last Admin: 03/30/19 16:44 Dose: Not Given Insulin Aspart (Novolog) 0 unit SC ACHS [facility]; Protocol Last Admin: 03/30/19 16:44 Dose: Not Given Insulin Detemir (Levemir) 25 unit SC HS [facility] Last Admin: 03/29/19 22:35 Dose: 25 units Lidocaine (Lidoderm) 1 ea TD DAILY [facility] Last Admin: 03/30/19 09:13 Dose: Not Given Lorazepam (Ativan) 2 mg PO HS PRN PRN Reason: Anxiety Losartan Potassium (Cozaar) 50 mg PO DAILY [facility] Last Admin: 03/30/19 09:14 Dose: 50 mg Metoprolol Tartrate (Lopressor) 50 mg PO BID [facility] Last Admin: 03/30/19 17:40 Dose: Not Given Pantoprazole Sodium (Protonix Ec Tab) 40 mg PO DAILY PRN PRN Reason: Heartburn Last Admin: 03/29/19 09:20 Dose: 40 mg Pregabalin (Lyrica) 75 mg PO TID [facility] Last Admin: 03/30/19 17:37 Dose: 75 mg Rosuvastatin Calcium (Crestor) 10 mg PO HS [facility] Last Admin: 03/29/19 21:37 Dose: 10 mg Tramadol HCl (Ultram) 50 mg PO TID [facility] Last Admin: 03/30/19 17:37 Dose: 50 mg Warfarin Sodium (Coumadin) 5 mg PO 1800 [facility] Last Admin: 03/30/19 17:37 Dose: 5 mg Physical Exam - Constitutional Appears: Chronically Ill - Head Exam Head Exam: ATRAUMATIC - Eye Exam Eye Exam: Periorbital tenderness - ENT Exam ENT Exam: Mucous Membranes Moist - Respiratory Exam Respiratory Exam: Clear to Auscultation Bilateral - Cardiovascular Exam Cardiovascular Exam: REGULAR RHYTHM - GI/Abdominal Exam GI & Abdominal Exam: Normal Bowel Sounds - Extremities Exam Extremities exam: Positive for: normal inspection (bilateral amputee, stumps are well healed. ) - Back Exam Back exam: NORMAL INSPECTION - Neurological Exam Neurological exam: Alert, CN II-XII Intact, Oriented x3 - Psychiatric Exam Psychiatric exam: Normal Affect Results - Vital Signs Recent Vital Signs: Last Vital Signs Temp 97.4 F L 03/30/19 16:00 Pulse 61 03/30/19 16:00 Resp 18 03/30/19 16:00 BP 131/74 03/30/19 16:00 Pulse Ox 97 03/30/19 16:00 - Labs Result Diagrams: 03/28/19 14:13 03/28/19 14:13 Labs: Laboratory Results - last 24 hr 03/30/19 07:37 PT 11.9 INR 1.1 - EKG Data EKG Interpreted by: Myself EKG shows normal: Sinus rhythm (Old inferolateral NC) Assessment & Plan - Assessment and Plan (Free Text) Assessment: 1. Non anginal shoulder pain 2. P is on appropriate meds for ischemic cardiomyopathy. No CHF. 3. Pt has a small Lv thrombus: NOAC not approved for this, but pt has no had therapeuic arb with warfarin. Therefore, I will stop warfarin, change to eliquis (based on age and weight, cr). 4. Pt to stay on plavix for CAD. Although he is on PPI, he is at increased risk of gastric bleeding with the addition of nsaids. Also increases risk of CHF in cardiomyopathy. Consider pain consultation. 4. Pt has a poor home situation, cannot care for himself, should be in a usp, please have social work see the patient.
--- NOTE | 2019-03-30 20:53 | CP.PCM.PN ---
Subjective - Date & Time of Evaluation Date of Evaluation: 03/30/19 - Subjective Subjective: patient examined today no nausea no vomiting no fever no dizziness no diarrhea no shortness of breath Objective - Vital Signs/Intake and Output Vital Signs (last 24 hours): Temp Pulse Resp BP Pulse Ox 97.4 F L 61 18 131/74 97 03/30/19 16:00 03/30/19 16:00 03/30/19 16:00 03/30/19 16:00 03/30/19 16:00 - Medications Medications: Current Medications Apixaban (Eliquis) 5 mg PO DAILY [facility] Clopidogrel Bisulfate (Plavix) 75 mg PO DAILY [facility] Last Admin: 03/30/19 09:14 Dose: 75 mg Enalapril Maleate (Vasotec) 5 mg PO DAILY [facility] Last Admin: 03/30/19 09:17 Dose: 5 mg Lactated Ringer's (Lactated Ringer's) 1,000 mls @ 100 mls/hr IV .Q10H [facility] Last Admin: 03/30/19 15:39 Dose: 100 mls/hr Ibuprofen (Motrin Tab) 800 mg PO Q8H PRN PRN Reason: Pain, moderate (4-7) Last Admin: 03/30/19 03:14 Dose: 800 mg Insulin Aspart (Novolog) 5 unit SC AC [facility] Last Admin: 03/30/19 16:44 Dose: Not Given Insulin Aspart (Novolog) 0 unit SC ACHS [facility]; Protocol Last Admin: 03/30/19 16:44 Dose: Not Given Insulin Detemir (Levemir) 25 unit SC HS [facility] Last Admin: 03/29/19 22:35 Dose: 25 units Lidocaine (Lidoderm) 1 ea TD DAILY [facility] Last Admin: 03/30/19 09:13 Dose: Not Given Lorazepam (Ativan) 2 mg PO HS PRN PRN Reason: Anxiety Losartan Potassium (Cozaar) 50 mg PO DAILY [facility] Last Admin: 03/30/19 09:14 Dose: 50 mg Metoprolol Tartrate (Lopressor) 50 mg PO BID [facility] Last Admin: 03/30/19 17:40 Dose: Not Given Pantoprazole Sodium (Protonix Ec Tab) 40 mg PO DAILY PRN PRN Reason: Heartburn Last Admin: 03/29/19 09:20 Dose: 40 mg Pregabalin (Lyrica) 75 mg PO TID [facility] Last Admin: 03/30/19 17:37 Dose: 75 mg Rosuvastatin Calcium (Crestor) 10 mg PO HS [facility] Last Admin: 03/29/19 21:37 Dose: 10 mg Tramadol HCl (Ultram) 50 mg PO TID [facility] Last Admin: 03/30/19 17:37 Dose: 50 mg - Labs Labs: 03/28/19 14:13 03/28/19 14:13 PT 11.9 SECONDS (9.7-12.2) 03/30/19 07:37 INR 1.1 03/30/19 07:37 APTT 31.0 SECONDS (21-34) 03/28/19 14:13 - Constitutional Appears: Well - Head Exam Head Exam: ATRAUMATIC, NORMAL INSPECTION, NORMOCEPHALIC - Eye Exam Eye Exam: EOMI, Normal appearance, PERRL Pupil Exam: NORMAL ACCOMODATION, PERRL - ENT Exam ENT Exam: Mucous Membranes Moist, Normal Exam - Neck Exam Neck Exam: Full ROM, Normal Inspection. absent: Lymphadenopathy - Respiratory Exam Respiratory Exam: Decreased Breath Sounds - Cardiovascular Exam Cardiovascular Exam: REGULAR RHYTHM, +S1, +S2 - GI/Abdominal Exam GI & Abdominal Exam: Soft, Diminished Bowel Sounds - Rectal Exam Rectal Exam: Deferred - Neurological Exam Neurological Exam: Oriented x3 Assessment and Plan (1) Chest pain Status: Acute (2) Hyperglycemia Status: Acute (3) Chest pain due to coronary artery disease Status: Acute (4) Chronic back pain Status: Acute (5) Chronic pain Status: Acute (6) History of diabetes mellitus Status: Acute (7) History of hyperlipidemia Status: Acute (8) Ischemic cardiomyopathy Status: Acute (9) Left ventricular thrombus Status: Acute (10) Prophylactic measure Status: Acute (11) Tobacco use Status: Acute (12) Toe gangrene Status: Acute (13) Type 2 diabetes mellitus with other specified complication Status: Acute (14) CAD (coronary artery disease) Status: Chronic (15) Essential (primary) hypertension Status: Chronic (16) PVD (peripheral vascular disease) with claudication Status: Chronic (17) Stented coronary artery Status: Chronic - Assessment and Plan (Free Text) Plan: plan discussed with patient mdoerate complexity of care cr 0.6 glucose 325 Plavix Vasotec Motrin NovoLog Levemir ativan Cozaar Lopressor Protonix Lidocaine Crestor Ultram Coumadin medications reviewed vitals reviewed labs reviewed
[2019-03-30] MEDS: Insulin Detemir 100 units/ml Vial (Levemir) SC SCH (21:44)
[2019-03-31] MEDS: Lactated Ringer's 1,000 ML IV SCH ×4 (01:30→21:57)
[2019-03-31 06:57] LABS: INR 1.2; PROTHROMBIN TIME 12.6 SECONDS (9.7-12.2)
[2019-03-31] MEDS: (Novolog) Insulin Aspart, Recombinant 100 u/ml 10 ml vial SC SCH ×7 (08:00→22:07)
--- NOTE | 2019-03-31 08:00 | CP.PCM.PN ---
<aRchel Law - Last Filed: 03/31/19 08:01> Subjective - Date & Time of Evaluation Date of Evaluation: 03/31/19 Time of Evaluation: 07:00 - Subjective Subjective: GI Fellow PGY5 Progress Note Pt seen and evaluated at bedside, pt reports feeling better, less abdominal pain, complaining of phantom pain. Tolerated diet last night. Reports not taking insulin at home because cant access the fridge. No support at home. ROS: A 12pt ROS was negative except as above. Objective - Vital Signs/Intake and Output Vital Signs (last 24 hours): Temp Pulse Resp BP Pulse Ox 97.6 F 44 L 20 104/61 96 03/30/19 23:30 03/31/19 04:44 03/30/19 23:30 03/30/19 23:30 03/30/19 23:30 Intake and Output: 03/31/19 03/31/19 06:59 18:59 Intake Total 1600 Output Total 600 Balance 1000 - Medications Medications: Current Medications Apixaban (Eliquis) 5 mg PO DAILY [facility] Clopidogrel Bisulfate (Plavix) 75 mg PO DAILY [facility] Last Admin: 03/30/19 09:14 Dose: 75 mg Enalapril Maleate (Vasotec) 5 mg PO DAILY [facility] Last Admin: 03/30/19 09:17 Dose: 5 mg Lactated Ringer's (Lactated Ringer's) 1,000 mls @ 100 mls/hr IV .Q10H [facility] Last Admin: 03/31/19 01:30 Dose: 100 mls/hr Ibuprofen (Motrin Tab) 800 mg PO Q8H PRN PRN Reason: Pain, moderate (4-7) Last Admin: 03/31/19 00:01 Dose: 800 mg Insulin Aspart (Novolog) 5 unit SC AC [facility] Last Admin: 03/30/19 16:44 Dose: Not Given Insulin Aspart (Novolog) 0 unit SC ACHS [facility]; Protocol Last Admin: 03/30/19 21:05 Dose: Not Given Insulin Detemir (Levemir) 25 unit SC HS [facility] Last Admin: 03/30/19 21:44 Dose: 25 units Lidocaine (Lidoderm) 1 ea TD DAILY [facility] Last Admin: 03/30/19 09:13 Dose: Not Given Lorazepam (Ativan) 2 mg PO HS PRN PRN Reason: Anxiety Losartan Potassium (Cozaar) 50 mg PO DAILY [facility] Last Admin: 03/30/19 09:14 Dose: 50 mg Metoprolol Tartrate (Lopressor) 50 mg PO BID [facility] Last Admin: 03/30/19 17:40 Dose: Not Given Pantoprazole Sodium (Protonix Ec Tab) 40 mg PO DAILY PRN PRN Reason: Heartburn Last Admin: 03/29/19 09:20 Dose: 40 mg Pregabalin (Lyrica) 75 mg PO TID [facility] Last Admin: 03/30/19 17:37 Dose: 75 mg Rosuvastatin Calcium (Crestor) 10 mg PO HS [facility] Last Admin: 03/30/19 21:43 Dose: 10 mg Tramadol HCl (Ultram) 50 mg PO TID [facility] Last Admin: 03/30/19 17:37 Dose: 50 mg - Labs Labs: 03/28/19 14:13 03/28/19 14:13 PT 12.6 SECONDS (9.7-12.2) H 03/31/19 06:35 INR 1.2 03/31/19 06:35 APTT 31.0 SECONDS (21-34) 03/28/19 14:13 - Constitutional Appears: Non-toxic, No Acute Distress - Head Exam Head Exam: ATRAUMATIC, NORMAL INSPECTION, NORMOCEPHALIC - Eye Exam Eye Exam: EOMI, Normal appearance, PERRL - ENT Exam ENT Exam: Mucous Membranes Moist, Normal Exam - Neck Exam Neck Exam: Full ROM, Normal Inspection - Respiratory Exam Respiratory Exam: Clear to Ausculation Bilateral, NORMAL BREATHING PATTERN - Cardiovascular Exam Cardiovascular Exam: REGULAR RHYTHM, +S1, +S2 - GI/Abdominal Exam GI & Abdominal Exam: Soft, Normal Bowel Sounds. absent: Distended, Firm, Guarding, Tenderness - Neurological Exam Neurological Exam: Alert, Awake, Oriented x3 - Psychiatric Exam Psychiatric exam: Normal Affect, Normal Mood - Skin Skin Exam: Dry, Intact, Normal Color, Warm Assessment and Plan - Assessment and Plan (Free Text) Assessment: 1. Abd pain and Nausea 2. Diabetes, uncontrolled BG 3. CAD 4. Chest pain 5. Left ventricle Thrombus 6. Acute Pancreatitis, dilated PD 7. Constipation -MRCP reviewed with no underlying pancreatic lesion -Advance to low fat diet with small meals -Recommend tight glyceimic control -Anti-emetics prns -PPI daily -Miralax bid for severe constipation -Medical management per primary team -Will continue to follow pt closely <Manav Canchola - Last Filed: 03/31/19 17:30> Objective - Vital Signs/Intake and Output Vital Signs (last 24 hours): Temp Pulse Resp BP Pulse Ox 97.2 F L 55 L 20 125/69 96 03/31/19 16:00 03/31/19 16:00 03/31/19 16:00 03/31/19 16:00 03/31/19 16:00 Intake and Output: 03/31/19 03/31/19 06:59 18:59 Intake Total 1600 Output Total 600 Balance 1000 - Medications Medications: Current Medications Apixaban (Eliquis) 5 mg PO DAILY [facility] Last Admin: 03/31/19 10:01 Dose: 5 mg Clopidogrel Bisulfate (Plavix) 75 mg PO DAILY [facility] Last Admin: 03/31/19 10:01 Dose: 75 mg Enalapril Maleate (Vasotec) 5 mg PO DAILY [facility] Last Admin: 03/31/19 10:01 Dose: 5 mg Lactated Ringer's (Lactated Ringer's) 1,000 mls @ 100 mls/hr IV .Q10H [facility] Last Admin: 03/31/19 14:00 Dose: 100 mls/hr Ibuprofen (Motrin Tab) 800 mg PO Q8H PRN PRN Reason: Pain, moderate (4-7) Last Admin: 03/31/19 16:03 Dose: 800 mg Insulin Aspart (Novolog) 5 unit SC AC [facility] Last Admin: 03/31/19 17:20 Dose: Not Given Insulin Aspart (Novolog) 0 unit SC ACHS [facility]; Protocol Last Admin: 03/31/19 17:20 Dose: Not Given Insulin Detemir (Levemir) 25 unit SC HS [facility] Last Admin: 03/30/19 21:44 Dose: 25 units Lidocaine (Lidoderm) 1 ea TD DAILY [facility] Last Admin: 03/31/19 10:00 Dose: 1 ea Lorazepam (Ativan) 2 mg PO HS PRN PRN Reason: Anxiety Losartan Potassium (Cozaar) 50 mg PO DAILY [facility] Last Admin: 03/31/19 10:01 Dose: 50 mg Metoprolol Tartrate (Lopressor) 50 mg PO BID [facility] Last Admin: 03/31/19 17:20 Dose: Not Given Pantoprazole Sodium (Protonix Ec Tab) 40 mg PO DAILY PRN PRN Reason: Heartburn Last Admin: 03/31/19 10:01 Dose: 40 mg Pregabalin (Lyrica) 75 mg PO TID [facility] Last Admin: 03/31/19 13:57 Dose: 75 mg Rosuvastatin Calcium (Crestor) 10 mg PO HS [facility] Last Admin: 03/30/19 21:43 Dose: 10 mg Tramadol HCl (Ultram) 50 mg PO TID [facility] Last Admin: 03/31/19 13:57 Dose: 50 mg - Labs Labs: 03/28/19 14:13 03/28/19 14:13 PT 12.6 SECONDS (9.7-12.2) H 03/31/19 06:35 INR 1.2 03/31/19 06:35 APTT 31.0 SECONDS (21-34) 03/28/19 14:13 Attending/Attestation - Attestation I have personally seen and examined this patient.: Yes I have fully participated in the care of the patient.: Yes I have reviewed all pertinent clinical information, including history, physical exam and plan: Yes Notes (Text): 03/31/19 17:28 I have seen and examined patient. No acute events overnight, he reports pain at right stump site. He otherwise denies abdominal pain, nausea, vomiting, fever/chills. Tolerating PO diet without difficulty. Abdominal pain, resolved MRCP reviewed by me showing no focal pancreatic abnormalities DM CAD PVD s/p bilateral BKA Constipation - Low fat diabetic diet as tolerated - Obtain IGG4 given unclear etiology of pancreatitis - Maintain bowel regimen for prevention of constipation - Strict glycemic control - Will continue to monitor patient clinical course
[2019-03-31] MEDS: Lidocaine 5% Patch TD SCH (10:00)
[2019-03-31] MEDS: Pantoprazole 40 mg EC Tab PO PRN (10:01)
[2019-03-31 12:29] VITALS: RESP 20
--- NOTE | 2019-03-31 16:51 | CP.PCM.PN ---
Subjective - Date & Time of Evaluation Date of Evaluation: 03/31/19 - Subjective Subjective: patient examined today no nausea no vomiting no fever no dizziness no diarrhea no shortness of breath Objective - Vital Signs/Intake and Output Vital Signs (last 24 hours): Temp Pulse Resp BP Pulse Ox 97.2 F L 55 L 20 125/69 96 03/31/19 16:00 03/31/19 16:00 03/31/19 16:00 03/31/19 16:00 03/31/19 16:00 Intake and Output: 03/31/19 03/31/19 06:59 18:59 Intake Total 1600 Output Total 600 Balance 1000 - Medications Medications: Current Medications Apixaban (Eliquis) 5 mg PO DAILY [facility] Last Admin: 03/31/19 10:01 Dose: 5 mg Clopidogrel Bisulfate (Plavix) 75 mg PO DAILY [facility] Last Admin: 03/31/19 10:01 Dose: 75 mg Enalapril Maleate (Vasotec) 5 mg PO DAILY [facility] Last Admin: 03/31/19 10:01 Dose: 5 mg Lactated Ringer's (Lactated Ringer's) 1,000 mls @ 100 mls/hr IV .Q10H [facility] Last Admin: 03/31/19 14:00 Dose: 100 mls/hr Ibuprofen (Motrin Tab) 800 mg PO Q8H PRN PRN Reason: Pain, moderate (4-7) Last Admin: 03/31/19 16:03 Dose: 800 mg Insulin Aspart (Novolog) 5 unit SC AC [facility] Last Admin: 03/31/19 13:54 Dose: 5 units Insulin Aspart (Novolog) 0 unit SC ACHS [facility]; Protocol Last Admin: 03/31/19 13:55 Dose: 8 units Insulin Detemir (Levemir) 25 unit SC HS [facility] Last Admin: 03/30/19 21:44 Dose: 25 units Lidocaine (Lidoderm) 1 ea TD DAILY [facility] Last Admin: 03/31/19 10:00 Dose: 1 ea Lorazepam (Ativan) 2 mg PO HS PRN PRN Reason: Anxiety Losartan Potassium (Cozaar) 50 mg PO DAILY [facility] Last Admin: 03/31/19 10:01 Dose: 50 mg Metoprolol Tartrate (Lopressor) 50 mg PO BID [facility] Last Admin: 03/31/19 10:08 Dose: 50 mg Pantoprazole Sodium (Protonix Ec Tab) 40 mg PO DAILY PRN PRN Reason: Heartburn Last Admin: 03/31/19 10:01 Dose: 40 mg Pregabalin (Lyrica) 75 mg PO TID [facility] Last Admin: 03/31/19 13:57 Dose: 75 mg Rosuvastatin Calcium (Crestor) 10 mg PO HS [facility] Last Admin: 03/30/19 21:43 Dose: 10 mg Tramadol HCl (Ultram) 50 mg PO TID [facility] Last Admin: 03/31/19 13:57 Dose: 50 mg - Labs Labs: 03/28/19 14:13 03/28/19 14:13 PT 12.6 SECONDS (9.7-12.2) H 03/31/19 06:35 INR 1.2 03/31/19 06:35 APTT 31.0 SECONDS (21-34) 03/28/19 14:13 - Constitutional Appears: Well - Head Exam Head Exam: ATRAUMATIC, NORMAL INSPECTION, NORMOCEPHALIC - Eye Exam Eye Exam: EOMI, Normal appearance, PERRL Pupil Exam: NORMAL ACCOMODATION, PERRL - ENT Exam ENT Exam: Mucous Membranes Moist, Normal Exam - Neck Exam Neck Exam: Full ROM, Normal Inspection. absent: Lymphadenopathy - Respiratory Exam Respiratory Exam: Decreased Breath Sounds - Cardiovascular Exam Cardiovascular Exam: REGULAR RHYTHM, +S1, +S2 - GI/Abdominal Exam GI & Abdominal Exam: Soft, Diminished Bowel Sounds - Rectal Exam Rectal Exam: Deferred - Neurological Exam Neurological Exam: Oriented x3 Assessment and Plan (1) Chest pain Status: Acute (2) Hyperglycemia Status: Acute (3) Chest pain due to coronary artery disease Status: Acute (4) Chronic back pain Status: Acute (5) Chronic pain Status: Acute (6) History of diabetes mellitus Status: Acute (7) History of hyperlipidemia Status: Acute (8) Ischemic cardiomyopathy Status: Acute (9) Left ventricular thrombus Status: Acute (10) Prophylactic measure Status: Acute (11) Tobacco use Status: Acute (12) Toe gangrene Status: Acute (13) Type 2 diabetes mellitus with other specified complication Status: Acute (14) CAD (coronary artery disease) Status: Chronic (15) Essential (primary) hypertension Status: Chronic (16) PVD (peripheral vascular disease) with claudication Status: Chronic (17) Stented coronary artery Status: Chronic - Assessment and Plan (Free Text) Plan: plan discussed with patient moderate complexity of care cr 0.6 glucose 325 Plavix Vasotec Motrin NovoLog Levemir ativan Cozaar eliquis Lopressor Protonix Lidoderm Crestor Ultram Coumadin medications reviewed vitals reviewed labs reviewed
[2019-03-31] MEDS: Insulin Detemir 100 units/ml Vial (Levemir) SC SCH (21:58)
[2019-04-01] MEDS: Lactated Ringer's 1,000 ML IV SCH ×3 (01:03→11:20)
[2019-04-01 07:44] LABS: INR 1.2
[2019-04-01] MEDS: (Novolog) Insulin Aspart, Recombinant 100 u/ml 10 ml vial SC SCH ×7 (08:15→21:31)
--- NOTE | 2019-04-01 08:29 | CP.PCM.PN ---
<Thanh,Rachel - Last Filed: 04/01/19 08:29> Subjective - Date & Time of Evaluation Date of Evaluation: 04/01/19 Time of Evaluation: 06:55 - Subjective Subjective: GI Fellow PGY5 Progress Note Pt seen and evaluated at bedside, pt reports feeling good, no abdominal pain. Tolerated diet last night. ROS: A 12pt ROS was negative except as above. Objective - Vital Signs/Intake and Output Vital Signs (last 24 hours): Temp Pulse Resp BP Pulse Ox 97.9 F 62 20 156/79 H 95 04/01/19 07:00 04/01/19 07:00 04/01/19 07:00 04/01/19 07:00 04/01/19 07:00 Intake and Output: 04/01/19 04/01/19 06:59 18:59 Intake Total 1800 Output Total 1250 Balance 550 - Medications Medications: Current Medications Apixaban (Eliquis) 5 mg PO DAILY [facility] Last Admin: 03/31/19 10:01 Dose: 5 mg Clopidogrel Bisulfate (Plavix) 75 mg PO DAILY [facility] Last Admin: 03/31/19 10:01 Dose: 75 mg Enalapril Maleate (Vasotec) 5 mg PO DAILY [facility] Last Admin: 03/31/19 10:01 Dose: 5 mg Lactated Ringer's (Lactated Ringer's) 1,000 mls @ 100 mls/hr IV .Q10H [facility] Last Admin: 04/01/19 01:03 Dose: 100 mls/hr Ibuprofen (Motrin Tab) 800 mg PO Q8H PRN PRN Reason: Pain, moderate (4-7) Last Admin: 04/01/19 01:01 Dose: 800 mg Insulin Aspart (Novolog) 5 unit SC AC [facility] Last Admin: 03/31/19 17:20 Dose: Not Given Insulin Aspart (Novolog) 0 unit SC ACHS [facility]; Protocol Last Admin: 03/31/19 22:07 Dose: Not Given Insulin Detemir (Levemir) 25 unit SC HS [facility] Last Admin: 03/31/19 21:58 Dose: 25 units Lidocaine (Lidoderm) 1 ea TD DAILY [facility] Last Admin: 03/31/19 10:00 Dose: 1 ea Lorazepam (Ativan) 2 mg PO HS PRN PRN Reason: Anxiety Losartan Potassium (Cozaar) 50 mg PO DAILY [facility] Last Admin: 03/31/19 10:01 Dose: 50 mg Metoprolol Tartrate (Lopressor) 50 mg PO BID [facility] Last Admin: 03/31/19 17:20 Dose: Not Given Pantoprazole Sodium (Protonix Ec Tab) 40 mg PO DAILY PRN PRN Reason: Heartburn Last Admin: 03/31/19 10:01 Dose: 40 mg Pregabalin (Lyrica) 75 mg PO TID [facility] Last Admin: 03/31/19 17:41 Dose: 75 mg Rosuvastatin Calcium (Crestor) 10 mg PO HS [facility] Last Admin: 03/31/19 21:58 Dose: 10 mg Tramadol HCl (Ultram) 50 mg PO TID [facility] Last Admin: 03/31/19 17:41 Dose: 50 mg - Labs Labs: 03/28/19 14:13 03/28/19 14:13 PT 13.0 SECONDS (9.7-12.2) H 04/01/19 07:09 INR 1.2 04/01/19 07:09 APTT 31.0 SECONDS (21-34) 03/28/19 14:13 - Constitutional Appears: Non-toxic, No Acute Distress - Head Exam Head Exam: ATRAUMATIC, NORMAL INSPECTION, NORMOCEPHALIC - Eye Exam Eye Exam: EOMI, Normal appearance, PERRL - ENT Exam ENT Exam: Mucous Membranes Moist, Normal Exam - Neck Exam Neck Exam: Full ROM, Normal Inspection - Respiratory Exam Respiratory Exam: Clear to Ausculation Bilateral, NORMAL BREATHING PATTERN - Cardiovascular Exam Cardiovascular Exam: REGULAR RHYTHM, RRR, +S1, +S2 - GI/Abdominal Exam GI & Abdominal Exam: Soft, Normal Bowel Sounds. absent: Firm, Guarding, Tenderness - Neurological Exam Neurological Exam: Alert, Awake, Oriented x3 - Psychiatric Exam Psychiatric exam: Normal Affect, Normal Mood - Skin Skin Exam: Dry, Intact, Normal Color, Warm Assessment and Plan - Assessment and Plan (Free Text) Assessment: 1. Abd pain and Nausea 2. Diabetes, uncontrolled BG 3. CAD 4. Chest pain 5. Left ventricle Thrombus 6. Acute Pancreatitis, dilated PD 7. Constipation -MRCP reviewed with no underlying pancreatic lesion -Diet low fat diet with small meals -Recommend tight glyceimic control -Anti-emetics prns -PPI daily -Miralax bid for severe constipation -IgG4 to r/o autoimmune pancreatitis -Medical management per primary team -Will continue to follow pt closely <Manav Canchola - Last Filed: 04/01/19 15:19> Objective - Vital Signs/Intake and Output Vital Signs (last 24 hours): Temp Pulse Resp BP Pulse Ox 97.9 F 67 20 156/79 H 95 04/01/19 07:00 04/01/19 11:11 04/01/19 07:00 04/01/19 09:04 04/01/19 07:00 Intake and Output: 04/01/19 04/01/19 06:59 18:59 Intake Total 1800 Output Total 1250 Balance 550 - Medications Medications: Current Medications Apixaban (Eliquis) 5 mg PO DAILY [facility] Last Admin: 04/01/19 09:05 Dose: 5 mg Clopidogrel Bisulfate (Plavix) 75 mg PO DAILY [facility] Last Admin: 04/01/19 09:04 Dose: 75 mg Enalapril Maleate (Vasotec) 5 mg PO DAILY [facility] Last Admin: 04/01/19 09:04 Dose: 5 mg Ibuprofen (Motrin Tab) 800 mg PO Q8H PRN PRN Reason: Pain, moderate (4-7) Last Admin: 04/01/19 11:14 Dose: 800 mg Insulin Aspart (Novolog) 5 unit SC AC [facility] Last Admin: 04/01/19 12:05 Dose: 5 units Insulin Aspart (Novolog) 0 unit SC ACHS [facility]; Protocol Last Admin: 04/01/19 12:11 Dose: Not Given Insulin Detemir (Levemir) 25 unit SC HS [facility] Last Admin: 03/31/19 21:58 Dose: 25 units Lidocaine (Lidoderm) 1 ea TD DAILY [facility] Last Admin: 04/01/19 09:05 Dose: Not Given Lorazepam (Ativan) 2 mg PO HS PRN PRN Reason: Anxiety Losartan Potassium (Cozaar) 50 mg PO DAILY [facility] Last Admin: 04/01/19 09:04 Dose: 50 mg Metoprolol Tartrate (Lopressor) 50 mg PO BID [facility] Last Admin: 04/01/19 10:22 Dose: Not Given Pantoprazole Sodium (Protonix Ec Tab) 40 mg PO DAILY PRN PRN Reason: Heartburn Last Admin: 04/01/19 09:05 Dose: 40 mg Pregabalin (Lyrica) 75 mg PO TID [facility] Last Admin: 04/01/19 13:42 Dose: 75 mg Rosuvastatin Calcium (Crestor) 10 mg PO HS [facility] Last Admin: 03/31/19 21:58 Dose: 10 mg Tramadol HCl (Ultram) 50 mg PO TID [facility] Last Admin: 04/01/19 13:41 Dose: 50 mg - Labs Labs: 03/28/19 14:13 03/28/19 14:13 PT 13.0 SECONDS (9.7-12.2) H 04/01/19 07:09 INR 1.2 04/01/19 07:09 APTT 31.0 SECONDS (21-34) 03/28/19 14:13 Attending/Attestation - Attestation I have personally seen and examined this patient.: Yes I have fully participated in the care of the patient.: Yes I have reviewed all pertinent clinical information, including history, physical exam and plan: Yes Notes (Text): 04/01/19 15:16 I have seen and examined patient with GI fellow. No acute events overnight, he is seen resting in bed comfortably. He denies abdominal pain, nausea, vomiting, fever/chills. Tolerating PO diet without difficulty. DM CAD PVD s/p bilateral BKA LV thrombus Constipation - Low fat diet as tolerated - Strict glycemic control - Maintain bowel regimen to prevent recurrent constipation - Follow up IGG4 results. MRCP does not show any pancreatic abnormalities. - No further planned GI intervention at this time, will sign off case. Please reconsult as necessary, thank you.
[2019-04-01] MEDS: Pantoprazole 40 mg EC Tab PO PRN (09:05)
[2019-04-01] MEDS: Lidocaine 5% Patch TD SCH (09:05)
--- NOTE | 2019-04-01 20:59 | CP.PCM.PN ---
Subjective - Date & Time of Evaluation Date of Evaluation: 04/01/19 - Subjective Subjective: patient examined today no nausea, no vomiting, no dizziness, no diarrhea, no fever, no shortness of breath Objective - Vital Signs/Intake and Output Vital Signs (last 24 hours): Temp Pulse Resp BP Pulse Ox 97.6 F 60 20 138/74 96 04/01/19 16:39 04/01/19 16:39 04/01/19 16:39 04/01/19 16:39 04/01/19 16:39 - Medications Medications: Current Medications Apixaban (Eliquis) 5 mg PO DAILY [facility] Last Admin: 04/01/19 09:05 Dose: 5 mg Clopidogrel Bisulfate (Plavix) 75 mg PO DAILY [facility] Last Admin: 04/01/19 09:04 Dose: 75 mg Enalapril Maleate (Vasotec) 5 mg PO DAILY [facility] Last Admin: 04/01/19 09:04 Dose: 5 mg Ibuprofen (Motrin Tab) 800 mg PO Q8H PRN PRN Reason: Pain, moderate (4-7) Last Admin: 04/01/19 11:14 Dose: 800 mg Insulin Aspart (Novolog) 5 unit SC AC [facility] Last Admin: 04/01/19 17:13 Dose: Not Given Insulin Aspart (Novolog) 0 unit SC [facility]; Protocol Last Admin: 04/01/19 17:14 Dose: Not Given Insulin Detemir (Levemir) 25 unit SC [facility] Last Admin: 03/31/19 21:58 Dose: 25 units Lidocaine (Lidoderm) 1 ea TD DAILY [facility] Last Admin: 04/01/19 09:05 Dose: Not Given Lorazepam (Ativan) 2 mg PO HS PRN PRN Reason: Anxiety Losartan Potassium (Cozaar) 50 mg PO DAILY [facility] Last Admin: 04/01/19 09:04 Dose: 50 mg Metoprolol Tartrate (Lopressor) 50 mg PO BID [facility] Last Admin: 04/01/19 17:14 Dose: Not Given Pantoprazole Sodium (Protonix Ec Tab) 40 mg PO DAILY PRN PRN Reason: Heartburn Last Admin: 04/01/19 09:05 Dose: 40 mg Pregabalin (Lyrica) 75 mg PO TID [facility] Last Admin: 04/01/19 18:07 Dose: 75 mg Rosuvastatin Calcium (Crestor) 10 mg PO [facility] Last Admin: 03/31/19 21:58 Dose: 10 mg Tramadol HCl (Ultram) 50 mg PO TID [facility] Last Admin: 04/01/19 18:07 Dose: 50 mg - Labs Labs: 03/28/19 14:13 03/28/19 14:13 PT 13.0 SECONDS (9.7-12.2) H 04/01/19 07:09 INR 1.2 04/01/19 07:09 APTT 31.0 SECONDS (21-34) 03/28/19 14:13 - Constitutional Appears: Well - Head Exam Head Exam: ATRAUMATIC, NORMAL INSPECTION, NORMOCEPHALIC - Eye Exam Eye Exam: EOMI, Normal appearance, PERRL Pupil Exam: NORMAL ACCOMODATION, PERRL - ENT Exam ENT Exam: Mucous Membranes Moist, Normal Exam - Neck Exam Neck Exam: Full ROM, Normal Inspection. absent: Lymphadenopathy - Respiratory Exam Respiratory Exam: Decreased Breath Sounds - Cardiovascular Exam Cardiovascular Exam: REGULAR RHYTHM, +S1, +S2 - GI/Abdominal Exam GI & Abdominal Exam: Soft, Diminished Bowel Sounds - Rectal Exam Rectal Exam: Deferred - Neurological Exam Neurological Exam: Oriented x3 Assessment and Plan (1) Chest pain Status: Acute (2) Hyperglycemia Status: Acute (3) Chest pain due to coronary artery disease Status: Acute (4) Chronic back pain Status: Acute (5) Chronic pain Status: Acute (6) History of diabetes mellitus Status: Acute (7) History of hyperlipidemia Status: Acute (8) Ischemic cardiomyopathy Status: Acute (9) Left ventricular thrombus Status: Acute (10) Prophylactic measure Status: Acute (11) Tobacco use Status: Acute (12) Toe gangrene Status: Acute (13) Type 2 diabetes mellitus with other specified complication Status: Acute (14) CAD (coronary artery disease) Status: Chronic (15) Essential (primary) hypertension Status: Chronic (16) PVD (peripheral vascular disease) with claudication Status: Chronic (17) Stented coronary artery Status: Chronic - Assessment and Plan (Free Text) Plan: Plavix Vasotec Motrin NovoLog Levemir ativan Cozaar eliquis Lopressor Protonix Lidoderm Crestor Ultram Coumadin medications reviewed vitals reviewed labs reviewed
[2019-04-01] MEDS: Insulin Detemir 100 units/ml Vial (Levemir) SC SCH (21:32)
--- NOTE | 2019-04-02 00:14 | CARD ---
APPROVED REPORT Date of service: 03/28/2019 EKG Measurement Heart [id number] <Conclusion> Normal sinus rhythm Possible Left atrial enlargement Left axis deviation Low voltage QRS Inferior infarct, age undetermined Anterolateral infarct, age undetermined Abnormal ECG
[2019-04-02 07:24] VITALS: TEMP 98
[2019-04-02] MEDS: (Novolog) Insulin Aspart, Recombinant 100 u/ml 10 ml vial SC SCH ×6 (08:28→16:47)
[2019-04-02] MEDS: Pantoprazole 40 mg EC Tab PO PRN (09:25)
[2019-04-02] MEDS: Lidocaine 5% Patch TD SCH (09:27)
--- NOTE | 2019-04-02 10:54 | PCM.PCON ---
History of Present Illness - History of Present Illness History of Present Illness: Palliative consult requested by Doctor Yvan mae for goals of care discussion and support Patient is a 68 o male admitted from home after subjective complaints of left sided chest pain since 7am on day of admission. Chest discomfort was fallowed by nausea. patient took ASA with no relief. Patient denied abdominal pain, N/V. CXR: mid left atelectasis MRCP: possible splenic infarct, Doctor Venod on consult Labs: WBC 5.6, Hb 14.2, afebrile Meds: Ativan Q HS, Motrin , protonix, Crestor, Levemir, Lyrica, Plavix Code status: Full Code, there is no Advance directive on chart PPS: 30% ALL:NKA PMH: DM, ischemic [id number], PVD, B/L AKA, acute pancreatitis recently treated Soc. Hx: , lives at home with his son, sleeps on couch, does not use WC for mobility, bedridden, ex smokker, used to smoke 2 pack a day Fam. Hx: denied Review of Systems - Constitutional Constitutional: absent: As Per HPI, Anorexia, Chills, Daytime Sleepiness, Excessive Sweating, Fatigue, Fever, Frequent Falls, Headache, Increased Appetite, Lethargy, Malaise, Night Sweats, Snoring, Sleep Apnea, Weight Gain, Weight Loss, Weakness, Other - EENT Eyes: absent: As Per HPI, Blind Spots, Blurred Vision, Change in Vision, Decreased Night Vision, Diplopia, Discharge, Dry Eye, Exophthalmos, Floaters, Irritation, Itchy Eyes, Loss of Peripheral Vision, Pain, Photophobia, Requires Corrective Lenses, Sees Flashes, Spots in Vision, Tunnel Vision, Other Visual Disturbances, Loss of Vision, Other Ears: absent: As Per HPI, Decreased Hearing, Ear Discharge, Ear Pain, Tinnitus, Abnormal Hearing, Disequilibrium, Dizziness, Other Nose/Mouth/Throat: absent: As Per HPI, Epistaxis, Nasal Congestion, Nasal Discharge, Nasal Obstruction, Nasal Trauma, Nose Pain, Post Nasal Drip, Sinus Pain, Sinus Pressure, Bleeding Gums, Change in Voice, Dental Pain, Dry Mouth, Dysphagia, Halitosis, Hoarsness, Lip Swelling, Mouth Lesions, Mouth Pain, Odynophagia, Sore Throat, Throat Swelling, Tongue Swelling, Facial Pain, Neck Pain, Neck Mass, Other - Cardiovascular Cardiovascular: absent: As Per HPI, Acrocyanosis, Chest Pain, Chest Pain at Rest, Chest Pain with Activity, Claudication, Diaphoresis, Dyspnea, Dyspnea on Exertion, Edema, Irregular Heart Rhythm, Pain Radiating to Arm/Neck/Jaw, Leg Edema, Leg Ulcers, Lightheadedness, Orthopnea, Palpitations, Paroxysmal Nocturnal Dyspnea, Pedal Edema, Radiating Pain, Rapid Heart Rate, Slow Heart Rate, Syncope, Other - Respiratory Respiratory: absent: As Per HPI, Cough, Dyspnea, Hemoptysis, Dyspnea on Exertion, Wheezing, Snoring, Stridor, Pain on Inspiration, Chest Congestion, Excessive Mucous Production, Change in Mucous Color, Pain with Coughing, Other - Gastrointestinal Gastrointestinal: Constipation - Genitourinary Genitourinary: Urinary Incontinence - Musculoskeletal Musculoskeletal: Radiating Pain into Limb Additional comments: right stump pain - Integumentary Additional comments: right stump healed surgical wound - Neurological Neurological: Abnormal Gait, Lack of Coordination - Psychiatric Psychiatric: absent: As Per HPI, Abnormal Sleep Pattern, Anhedonia, Anxiety, Auditory Hallucinations, Behavioral Changes, Change in Appetite, Change in Libido, Confusion, Depression, Difficulty Concentrating, Hallucinations, Homicidal Ideation, Hopelessness, Irritability, Memory Loss, Mood Swings, Panic Attacks, Paranoia, Suicidal Ideation, Visual Hallucinations, Tactile Hallucinations, Other - Endocrine Endocrine: Change in Body Appearance - Hematologic/Lymphatic Hematologic: absent: As Per HPI, Easy Bleeding, Easy Bruising, Lymphadenopathy, Other Physical Exam - Constitutional Appears: No Acute Distress, Chronically Ill - Head Exam Head Exam: ATRAUMATIC, NORMAL INSPECTION, NORMOCEPHALIC - Eye Exam Eye Exam: EOMI, Normal appearance, PERRL Pupil Exam: Fixed, NORMAL ACCOMODATION, PERRL - ENT Exam ENT Exam: Mucous Membranes Moist, Normal Exam Additional comments: edentulous - Neck Exam Neck exam: Positive for: Normal Inspection - Respiratory Exam Respiratory Exam: Clear to Auscultation Bilateral, NORMAL BREATHING PATTERN - Cardiovascular Exam Cardiovascular Exam: REGULAR RHYTHM, +S1, +S2 - GI/Abdominal Exam GI & Abdominal Exam: Diminished Bowel Sounds, Distended Additional comments: last BM 3 days ago. uses MgCitrate at home for constipation - Rectal Exam Rectal Exam: Deferred - Exam Exam: NORMAL INSPECTION - Extremities Exam Additional comments: B/L AKA - Back Exam Back exam: NORMAL INSPECTION - Neurological Exam Neurological exam: Alert, Oriented x3 - Psychiatric Exam Psychiatric exam: Normal Affect, Normal Mood - Skin Skin Exam: Dry, Intact, Normal Color, Warm Palliative Care Assessment - Modified MRC Dyspnea Scale Modified MRC Dyspnea Scale: Not troubled by breathlessness except on strenous exercise Grade: 1 - Pain Scale Pain Scale Used: Numeric - Pain Location Left, Right or Bilateral: Right Pain Location Body Site: Thigh - Pain Description Description: Constant, Throbbing Intensity of pain at present: 8 Pain Behavior: Moaning, Irritability, Facial Grimacing Aggravating Factors: Changing Position Alleviating Factors/Management Techniques: Medication, Distraction Effects of Pain: affect mood, sleep and appetite. Effectiveness of Techniques: Reports no good relief from current pain meds - Farrukh Scale Sensory Perception: No Impairment Moisture: Occasionally Moist Activity: Bedfast Mobility: Very Limited Nutrition: Adequate Friction & Shear: Potential Problem Total Score - Skin Risk Assessment: 15 - Psychosocial Distress Patient screened for psychosocial distress: Yes Psychosocial Intervention(s): patient is concerned with his pain level. Patient is requesting Morphine for pain. I made him aware was to discuss it with Doctor Yvan Quach. Patient stated sa tisfaction. I informed patient of Motrin 800 mg Po Q 8 hr PRN available and instructed him to report his pain promptly. I reviewd Lyrica for pain as well. patient stated understanding. Outcome: Resolved Palliative Care - Goals Goal(s) of care: Goals of care discussed with patient. He wishes to return home when stable. Patient feels he is well taken care of at home by his son. Patient understand he does not qualify for home services due to his insurance, as he was told by . Patient accepted that. Treatment Goal(s): Alleviate symptoms, Improve ADLs, Improve quality of life End of life care discussed: Yes End of life discussion: Goals for end of life care discussed. Patient wishes to be assisted with symptoms control and to remain at home. Patient wishes to be hospitalized as needed. If his condition worsens and he may need life support to promote his life, patient would like to be kept alive. if patient's condition does not improve, he would like to be removed from life support upon agreement with his son. Assessment & Plan - Assessment and Plan (Free Text) Assessment: Assessment * Chronically ill male with chest pain like symptoms, most likely caused by stool retention and abdominal distention * Debility, B/L AKA, requires max asistancewith ADLa * At risk for skin break down, Farrukh scale of 16 * Edentulous, difficulties chewing solid food * Constipation * Requesting Full Code status Suggestions * Consider Mg Citrate PO for constipation, as patient is used to it at home * Assist with ADLs * Soft food diet * Promote skin integrity, turn and position Q 2 hr, change as needed * Full Code Palliative care will sign of at this time. Advance care discussion 57 min.
[2019-04-02 16:00] VITALS: BP 129/69; PULSE 57; O2SAT 96
--- NOTE | 2019-04-02 19:12 | CP.PCM.PN ---
Subjective - Date & Time of Evaluation Date of Evaluation: 04/02/19 - Subjective Subjective: patient seen today no nausea, no diarrhea, no fever, no vomiting, no diarrhea no shortness of breath Objective - Vital Signs/Intake and Output Vital Signs (last 24 hours): Temp Pulse Resp BP Pulse Ox 98.0 F 57 L 20 129/69 96 04/02/19 15:59 04/02/19 15:59 04/02/19 15:59 04/02/19 15:59 04/02/19 15:59 Intake and Output: 04/02/19 04/03/19 18:59 06:59 Intake Total 800 Output Total 800 Balance 0 - Medications Medications: Current Medications Apixaban (Eliquis) 5 mg PO DAILY [facility] Last Admin: 04/02/19 09:24 Dose: 5 mg Clopidogrel Bisulfate (Plavix) 75 mg PO DAILY [facility] Last Admin: 04/02/19 09:35 Dose: 75 mg Enalapril Maleate (Vasotec) 5 mg PO DAILY [facility] Last Admin: 04/02/19 09:31 Dose: 5 mg Ibuprofen (Motrin Tab) 800 mg PO Q8H PRN PRN Reason: Pain, moderate (4-7) Last Admin: 04/02/19 11:53 Dose: 800 mg Insulin Aspart (Novolog) 5 unit SC AC [facility] Last Admin: 04/02/19 16:47 Dose: 5 units Insulin Aspart (Novolog) 0 unit SC ACHS [facility]; Protocol Last Admin: 04/02/19 16:47 Dose: 4 units Insulin Detemir (Levemir) 25 unit SC HS [facility] Last Admin: 04/01/19 21:32 Dose: 25 units Lidocaine (Lidoderm) 1 ea TD DAILY [facility] Last Admin: 04/02/19 09:27 Dose: Not Given Lorazepam (Ativan) 2 mg PO HS PRN PRN Reason: Anxiety Last Admin: 04/02/19 00:12 Dose: 2 mg Losartan Potassium (Cozaar) 50 mg PO DAILY [facility] Last Admin: 04/02/19 09:25 Dose: 50 mg Metoprolol Tartrate (Lopressor) 50 mg PO BID [facility] Last Admin: 04/02/19 17:49 Dose: Not Given Pantoprazole Sodium (Protonix Ec Tab) 40 mg PO DAILY PRN PRN Reason: Heartburn Last Admin: 04/02/19 09:25 Dose: 40 mg Pregabalin (Lyrica) 75 mg PO TID [facility] Last Admin: 04/02/19 17:47 Dose: 75 mg Rosuvastatin Calcium (Crestor) 10 mg PO [facility] Last Admin: 04/01/19 21:32 Dose: 10 mg Tramadol HCl (Ultram) 50 mg PO TID [facility] Last Admin: 04/02/19 17:48 Dose: 50 mg - Labs Labs: 03/28/19 14:13 03/28/19 14:13 PT 13.0 SECONDS (9.7-12.2) H 04/01/19 07:09 INR 1.2 04/01/19 07:09 APTT 31.0 SECONDS (21-34) 03/28/19 14:13 - Constitutional Appears: Well - Head Exam Head Exam: ATRAUMATIC, NORMAL INSPECTION, NORMOCEPHALIC - Eye Exam Eye Exam: EOMI, Normal appearance, PERRL Pupil Exam: NORMAL ACCOMODATION, PERRL - ENT Exam ENT Exam: Mucous Membranes Moist, Normal Exam - Neck Exam Neck Exam: Full ROM, Normal Inspection. absent: Lymphadenopathy - Respiratory Exam Respiratory Exam: Decreased Breath Sounds - Cardiovascular Exam Cardiovascular Exam: REGULAR RHYTHM, +S1, +S2 - GI/Abdominal Exam GI & Abdominal Exam: Soft, Diminished Bowel Sounds - Rectal Exam Rectal Exam: Deferred - Neurological Exam Neurological Exam: Oriented x3 Assessment and Plan - Assessment and Plan (Free Text) Plan: plan discussed with patient moderate complexity of care Plavix Vasotec Motrin NovoLog Levemir ativan Cozaar eliquis Lopressor Protonix Lidoderm Crestor Ultram Coumadin medications reviewed vitals reviewed labs reviewed
--- NOTE | 2019-04-03 08:21 | CP.PCM.DIS ---
Provider - Provider Date of Admission: 03/31/19 11:56 Attending physician: Betty Carrasco MD Consults: 03/28/19 18:57 Nursing Referral for Wound Care Routine Comment: Physician Instructions: Reason For Exam: routine 03/28/19 19:00 Physician Consult Routine Comment: Consulting Provider: Sarabjit Carrillo Consulting Physician: Sarabjit Carrillo Reason for Consult: pod 03/29/19 15:36 Cardiology Consult Routine Comment: Consulting Provider: Farshad Martínez Consulting Physician: Farshad Martínez Reason for Consult: chest pain 04/01/19 14:51 Palliative Care Consult Routine Comment: Consulting Provider: Ruchi Currie Physician Instructions: SYLVIE Carrasco Reason For Exam: Goals of care, support 04/01/19 20:06 Cardiology Consult Routine Comment: Consulting Provider: Farshad Martínez Consulting Physician: Farshad Martínez Reason for Consult: chest pain Time Spent in preparation of Discharge (in minutes): 30 Hospital Course - Lab Results Lab Results: Most Recent Lab Values WBC 5.6 K/uL (4.8-10.8) 03/28/19 14:13 RBC 5.32 Mil/uL (4.40-5.90) 03/28/19 14:13 Hgb 14.2 g/dL (12.0-18.0) 03/28/19 14:13 Hct 42.1 % (35.0-51.0) 03/28/19 14:13 MCV 79.1 fL (80.0-94.0) L 03/28/19 14:13 MCH 26.8 pg (27.0-31.0) L 03/28/19 14:13 MCHC 33.8 g/dL (33.0-37.0) 03/28/19 14:13 RDW 16.1 % (11.5-14.5) H 03/28/19 14:13 Plt Count 302 K/uL (130-400) D 03/28/19 14:13 MPV 9.5 fL (7.2-11.7) 03/28/19 14:13 Neut % (Auto) 55.8 % (50.0-75.0) 03/28/19 14:13 Lymph % (Auto) 31.9 % (20.0-40.0) 03/28/19 14:13 [place] % (Auto) 10.9 % (0.0-10.0) H 03/28/19 14:13 Eos % (Auto) 0.8 % (0.0-4.0) 03/28/19 14:13 Baso % (Auto) 0.6 % (0.0-2.0) 03/28/19 14:13 Neut # (Auto) 3.1 K/uL (1.8-7.0) 03/28/19 14:13 Lymph # (Auto) 1.8 K/uL (1.0-4.3) 03/28/19 14:13 [place] # (Auto) 0.6 K/uL (0.0-0.8) 03/28/19 14:13 Eos # (Auto) 0.0 K/uL (0.0-0.7) 03/28/19 14:13 Baso # (Auto) 0.0 K/uL (0.0-0.2) 03/28/19 14:13 PT 13.0 SECONDS (9.7-12.2) H 04/01/19 07:09 INR 1.2 04/01/19 07:09 APTT 31.0 SECONDS (21-34) 03/28/19 14:13 Sodium 134 mmol/L (132-148) 03/28/19 14:13 Potassium 4.2 mmol/L (3.6-5.2) 03/28/19 14:13 Chloride 101 mmol/L (98-107) 03/28/19 14:13 Carbon Dioxide 23 mmol/L (22-30) 03/28/19 14:13 Anion Gap 14 (10-20) 03/28/19 14:13 BUN 13 mg/dL (9-20) 03/28/19 14:13 Creatinine 0.6 mg/dL (0.8-1.5) L 03/28/19 14:13 Est GFR ( Amer) > 60 03/28/19 14:13 Est GFR (Non-Af Amer) > 60 03/28/19 14:13 POC Glucose (mg/dL) 209 mg/dL (65-110) H 04/02/19 16:23 Random Glucose 325 mg/dL (75-110) H 03/28/19 14:13 Calcium 9.3 mg/dl (8.6-10.4) 03/28/19 14:13 Total Bilirubin 0.4 mg/dL (0.2-1.3) 03/28/19 14:13 AST 15 U/L (17-59) L 03/28/19 14:13 ALT 24 U/L (21-72) 03/28/19 14:13 Alkaline Phosphatase 106 U/L (38-126) 03/28/19 14:13 Total Creatine Kinase 27 U/L (55-170) L 03/29/19 07:49 CK-MB (Mass) 0.83 ng/mL (0.0-3.38) 03/29/19 07:49 Troponin I < 0.0120 ng/mL (0.00-0.120) 03/29/19 07:49 NT-Pro-B Natriuret Pep 394 pg/mL (0-900) 03/28/19 14:13 Total Protein 7.3 g/dL (6.3-8.3) 03/28/19 14:13 Albumin 4.0 g/dL (3.5-5.0) 03/28/19 14:13 Globulin 3.4 gm/dL (2.2-3.9) 03/28/19 14:13 Albumin/Globulin Ratio 1.2 (1.0-2.1) 03/28/19 14:13 Lipase 469 U/L (23-300) H 03/29/19 07:49 IgG Subclass 4 79.5 mg/dL (4-86) 03/31/19 13:34 Discharge Exam - Head Exam Head Exam: ATRAUMATIC, NORMAL INSPECTION, NORMOCEPHALIC Discharge Plan - Follow Up Plan Condition: STABLE Disposition: HOME/ ROUTINE Instructions: Heart Healthy Diet, Diabetes Exchange Diet, Diabetes Diet , Chest Pain (DC), Hyperglycemia, Adult (DC) Additional Instructions: Follow up in one week with Dr Yomaira Carrasco. Referrals: Farshad Martínez MD [Staff Provider] - Bobo Carrasco MD [Staff Provider] -
== END 2019-04-02 20:11 | disposition home health service (06) | DRG 303 ==
LOC: C.ER 13:37 → C.9E 14:54 → C.6T 15:50 → OBSVTOIN 03-31 11:56
PROVIDERS: ADMIT Internal Medicine Nephrology; ATTEND Internal Medicine Nephrology
DX: I25.10 Atherosclerotic heart disease of native coronary artery without angina pectoris (principal); J98.11 Atelectasis; E11.52 Type 2 diabetes mellitus with diabetic peripheral angiopathy with gangrene; I51.3 Intracardiac thrombosis, not elsewhere classified; K31.84 Gastroparesis; I25.5 Ischemic cardiomyopathy; E11.65 Type 2 diabetes mellitus with hyperglycemia; E11.43 Type 2 diabetes mellitus with diabetic autonomic (poly)neuropathy; E78.00 Pure hypercholesterolemia, unspecified; I50.9 Heart failure, unspecified; I11.0 Hypertensive heart disease with heart failure; J44.9 Chronic obstructive pulmonary disease, unspecified; Z95.5 Presence of coronary angioplasty implant and graft; M25.512 Pain in left shoulder; G54.6 Phantom limb syndrome with pain; F41.9 Anxiety disorder, unspecified; F32.9 Major depressive disorder, single episode, unspecified; K59.00 Constipation, unspecified; F17.210 Nicotine dependence, cigarettes, uncomplicated; Z89.611 Acquired absence of right leg above knee; Z79.4 Long term (current) use of insulin

== ENCOUNTER 2019-04-04 10:56 | Inpatient (IN) | payer MEDICARE, BC ==
[2019-04-04 11:07] VITALS: BMI 65.7
[2019-04-04 12:24] LABS: BASO % 0.7 % (0.0-2.0); EOS # 0.1 K/uL (0.0-0.7); EOS % 1.6 % (0.0-4.0); HEMOGLOBIN 14.8 g/dL (12.0-18.0); LYMPH # 1.5 K/uL (1.0-4.3); LYMPH % 22.2 % (20.0-40.0); MEAN CORPUSCULAR HEMOGLOBIN 26.7 pg (27.0-31.0); MEAN CORPUSCULAR HGB CONC 32.9 g/dL (33.0-37.0); MONO # 0.6 K/uL (0.0-0.8); MONO % 9.1 % (0.0-10.0); NEUT # 4.4 K/uL (1.8-7.0); NEUT % 66.4 % (50.0-75.0); NRBC % 0.1 % (0.0-2.0); RBC 5.55 Mil/uL (4.40-5.90); RED CELL DISTRIBUTION WIDTH 16.5 % (11.5-14.5); WHITE BLOOD COUNT 6.6 K/uL (4.8-10.8)
[2019-04-04 12:26] LABS: MEAN CELL VOLUME 81.4 fL (80.0-94.0)
[2019-04-04 12:46] LABS: ALB/GLOB RATIO 1.2 (1.0-2.1); ALT/SGPT 20 U/L (21-72); AST/SGOT 26 U/L (17-59); BLOOD UREA NITROGEN 17 mg/dL (9-20); CK-MB 1.48 ng/mL (0.0-3.38); GFR NON-AFRICAN AMERICAN > 60
[2019-04-04 12:47] LABS: INR 1.1; PROTHROMBIN TIME 12.2 SECONDS (9.7-12.2)
--- NOTE | 2019-04-04 13:16 | C.PDOC ---
History Of Present Illness 68 y/o male pt with hx of HTN and DM presents to the ER c/o chest pain that started this morning. Pain radiated to the left arm. As per EMS, pt received nitroglycerin and aspirin. Pt denies fever, chills, SOB, cough and any other ass ociated sx or complaints at this time. Chief Complaint (Nursing): Chest Pain History Per: Patient History/Exam Limitations: no limitations Onset/Duration Of Symptoms: Hrs Current Symptoms Are (Timing): Still Present Past Medical History Reviewed: Historical Data, Nursing Documentation, Vital Signs Vital Signs: Last Vital Signs Temp 98.2 F 04/04/19 11:00 Pulse 80 04/04/19 11:00 Resp 16 04/04/19 11:00 BP 103/71 04/04/19 11:00 Pulse Ox 100 04/04/19 11:00 Primary Care Provider: Non CP Provider, - Medical History PMH: Anxiety, CAD, COPD, Depression, Diabetes, HTN, Hypercholesterolemia, Hyperlipidemia Surgical History: Coronary Stent (x7) - [facility] Procedures DETACHMENT AT RIGHT 3RD TOE, COMPLETE, OPEN APPROACH (12/02/15) ING HERNIA REP-GRAFT NOS (01/31/00) Family History: States: Unknown Family Hx - Social History Hx Alcohol Use: No Hx Substance Use: No - Immunization History Hx Tetanus Toxoid Vaccination: No Hx Influenza Vaccination: No Hx Pneumococcal Vaccination: No Review Of Systems Except As Marked, All Systems Reviewed And Found Negative. Constitutional: Negative for: Fever, Chills Cardiovascular: Positive for: Chest Pain Respiratory: Negative for: Cough, Shortness of Breath Physical Exam - Physical Exam Appears: Non-toxic, No Acute Distress Skin: Warm, Dry Head: Normacephalic Eye(s): bilateral: Normal Inspection Neck: Normal ROM Chest: Symmetrical, No Deformity Cardiovascular: Rhythm Regular Respiratory: Normal Breath Sounds Gastrointestinal/Abdominal: Soft, No Tenderness, No Distention, No Guarding Extremity: Other (LE b/l amputee, stumps are well healed ) Neurological/Psych: Oriented x3, Normal Speech, Normal Cognition ED Course And Treatment - Laboratory Results Result Diagrams: 04/04/19 12:16 04/04/19 12:16 Lab Results: PT 12.2 SECONDS (9.7-12.2) 04/04/19 12:16 INR 1.1 04/04/19 12:16 APTT 28.0 SECONDS (21-34) 04/04/19 12:16 Troponin I < 0.0120 ng/mL (0.00-0.120) 04/04/19 12:16 Total Bilirubin 0.5 mg/dL (0.2-1.3) 04/04/19 12:16 AST 26 U/L (17-59) 04/04/19 12:16 ALT 20 U/L (21-72) L 04/04/19 12:16 Alkaline Phosphatase 95 U/L (38-126) 04/04/19 12:16 Total Protein 7.5 g/dL (6.3-8.3) 04/04/19 12:16 Albumin 4.0 g/dL (3.5-5.0) 04/04/19 12:16 Globulin 3.5 gm/dL (2.2-3.9) 04/04/19 12:16 Albumin/Globulin Ratio 1.2 (1.0-2.1) 04/04/19 12:16 ECG: Interpreted By Me, Viewed By Me ECG Rhythm: Sinus Rhythm Interpretation Of ECG: ocassional PVC, has ST abnormalities mostly in the anterior leads and Q waves in the anterior leads Rate From EC O2 Sat by Pulse Oximetry: 100 Progress Note: Pt reports even though he received nitroglycerin and aspirin in ambulance, his sx still perists. Plans: -- Labs. -- Morphine. -- Nitroglycerin. Discuss with Dr. Tomas Carrasco, Dr. Carrasco accepts pt to be admitted under him. 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 - Scribe Statement The provider has reviewed the documentation as recorded by the Yelena Cabrera Do All medical record entries made by the Scribe were at my direction and personally dictated by me. I have reviewed the chart and agree that the record accurately reflects my personal performance of the history, physical exam, medical decision making, and the department course for this patient. I have also personally directed, reviewed, and agree with the discharge instructions and disposition. Decision To Admit - Pt Status Changed To: Hospital Disposition Of: Observation - . Bed Request Type: Telemetry Admitting Physician: Bobo Carrasco Patient Diagnosis: Chest pain
[2019-04-04] MEDS ORDERED: Nitroglycerin 2% Ointment Foilpak UD TOP STA (13:58)
[2019-04-04] MEDS ORDERED: Nitroglycerin 2% Ointment Foilpak UD TOP ONE (14:09)
[2019-04-04] MEDS ORDERED: Glucagon Recombinant 1 mg Inj IM PRN (16:07)
[2019-04-04] MEDS ORDERED: Dextrose 50% SYRINGE Inj (50 ml) IV PRN (16:07)
[2019-04-04] MEDS: Morphine 4 MG/ML VIAL IVP PRN (16:58)
[2019-04-04] MEDS: Enoxaparin 40 mg Syringe SC SCH (16:59)
[2019-04-04] MEDS: (Novolog) Insulin Aspart, Recombinant 100 u/ml 10 ml vial SC SCH ×2 (16:59→21:00)
--- NOTE | 2019-04-04 20:47 | CP.PCM.HP ---
Past Patient History - Infectious Disease Hx of Infectious Diseases: None - Past Medical History & Family History Past Medical History?: Yes - Past Social History Smoking Status: Heavy Smoker > 10 Cigarettes Daily - CARDIAC Hx Hypercholesterolemia: Yes Hx Hypertension: Yes - PULMONARY Hx Chronic Obstructive Pulmonary Disease (COPD): Yes - NEUROLOGICAL Hx Neurological Disorder: No - HEENT Hx Cataracts: Yes - RENAL Hx Chronic Kidney Disease: No - ENDOCRINE/METABOLIC Hx Diabetes Mellitus Type 2: Yes - HEMATOLOGICAL/ONCOLOGICAL Hx Blood Disorders: No - INTEGUMENTARY Hx Dermatological Problems: No - MUSCULOSKELETAL/RHEUMATOLOGICAL Hx Falls: No Hx Spinal Stenosis: Yes - GASTROINTESTINAL Hx Gastrointestinal Disorders: No - GENITOURINARY/GYNECOLOGICAL Hx Genitourinary Disorders: No - PSYCHIATRIC Hx Anxiety: Yes Hx Depression: Yes Hx Substance Use: No - SURGICAL HISTORY Hx Coronary Stent: Yes (x7) - ANESTHESIA Hx Anesthesia: Yes Hx Anesthesia Reactions: No Meds Allergies/Adverse Reactions: Allergies Allergy/AdvReac Type Severity Reaction Status Date / Time ciprofloxacin AdvReac RASH, Verified 03/28/19 13:50 ITCHINESS Penicillins AdvReac passed out Verified 03/28/19 13:50 Physical Exam - Constitutional Appears: Well - Head Exam Head Exam: ATRAUMATIC, NORMAL INSPECTION, NORMOCEPHALIC - Eye Exam Eye Exam: EOMI, Normal appearance, PERRL Pupil Exam: NORMAL ACCOMODATION, PERRL - ENT Exam ENT Exam: Mucous Membranes Moist, Normal Exam - Neck Exam Neck exam: Positive for: Normal Inspection - Respiratory Exam Respiratory Exam: Decreased Breath Sounds - Cardiovascular Exam Cardiovascular Exam: REGULAR RHYTHM, +S1, +S2 - GI/Abdominal Exam GI & Abdominal Exam: Diminished Bowel Sounds, Soft - Rectal Exam Rectal Exam: Deferred - Neurological Exam Neurological exam: Oriented x3 Results - Vital Signs Recent Vital Signs: Last Vital Signs Temp 98.4 F 04/04/19 15:00 Pulse 82 04/04/19 15:00 Resp 20 04/04/19 15:00 BP 114/67 04/04/19 15:00 Pulse Ox 100 04/04/19 18:47 - Labs Result Diagrams: 04/04/19 12:16 04/04/19 12:16 Labs: Laboratory Results - last 24 hr 04/04/19 04/04/19 04/04/19 12:16 12:16 12:16 WBC 6.6 RBC 5.55 Hgb 14.8 Hct 45.2 MCV 81.4 D MCH 26.7 L MCHC 32.9 L RDW 16.5 H Plt Count 283 MPV 10.0 Neut % (Auto) 66.4 Lymph % (Auto) 22.2 [place] % (Auto) 9.1 Eos % (Auto) 1.6 Baso % (Auto) 0.7 Neut # (Auto) 4.4 Lymph # (Auto) 1.5 [place] # (Auto) 0.6 Eos # (Auto) 0.1 Baso # (Auto) 0.0 PT 12.2 INR 1.1 APTT 28.0 Sodium 137 Potassium 4.5 Chloride 103 Carbon Dioxide 22 Anion Gap 16 BUN 17 Creatinine 0.7 L Est GFR ( Amer) > 60 Est GFR (Non-Af Amer) > 60 POC Glucose (mg/dL) Random Glucose 262 H Calcium 9.0 Total Bilirubin 0.5 AST 26 ALT 20 L Alkaline Phosphatase 95 Total Creatine Kinase 45 L CK-MB (Mass) 1.48 Troponin I < 0.0120 Total Protein 7.5 Albumin 4.0 Globulin 3.5 Albumin/Globulin Ratio 1.2 04/04/19 04/04/19 16:02 20:22 WBC RBC Hgb Hct MCV MCH MCHC RDW Plt Count MPV Neut % (Auto) Lymph % (Auto) [place] % (Auto) Eos % (Auto) Baso % (Auto) Neut # (Auto) Lymph # (Auto) [place] # (Auto) Eos # (Auto) Baso # (Auto) PT INR APTT Sodium Potassium Chloride Carbon Dioxide Anion Gap BUN Creatinine Est GFR ( Amer) Est GFR (Non-Af Amer) POC Glucose (mg/dL) 332 H Random Glucose Calcium Total Bilirubin AST ALT Alkaline Phosphatase Total Creatine Kinase 48 L CK-MB (Mass) Troponin I Total Protein Albumin Globulin Albumin/Globulin Ratio
--- NOTE | 2019-04-04 20:53 | RAD ---
Date of service: 04/04/2019 PROCEDURE: CHEST RADIOGRAPH, 1 VIEW HISTORY: pain COMPARISON: 03/28/2019 FINDINGS: LUNGS: Bibasilar opacities may represent atelectasis. Otherwise no interval changes in the lungs. PLEURA: No pneumothorax or pleural fluid seen. CARDIOVASCULAR: No aortic atherosclerotic calcification present. Normal. OSSEOUS STRUCTURES: No significant abnormalities. VISUALIZED UPPER ABDOMEN: Normal. OTHER FINDINGS: None. IMPRESSION: Bibasilar opacities likely atelectasis.
[2019-04-04 20:54] LABS: CK-MB 1.34 ng/mL (0.0-3.38)
[2019-04-04] MEDS: Insulin Detemir 100 units/ml Vial (Levemir) SC SCH (22:04)
[2019-04-05] MEDS: Morphine 4 MG/ML VIAL IVP PRN ×5 (03:07→21:41)
[2019-04-05] MEDS: (Novolog) Insulin Aspart, Recombinant 100 u/ml 10 ml vial SC SCH ×4 (07:50→21:59)
[2019-04-05 08:07] LABS: BASO % 0.7 % (0.0-2.0); EOS # 0.1 K/uL (0.0-0.7); EOS % 2.6 % (0.0-4.0); HEMOGLOBIN 13.2 g/dL (12.0-18.0); LYMPH % 40.5 % (20.0-40.0); MEAN CELL VOLUME 79.6 fL (80.0-94.0); MEAN CORPUSCULAR HEMOGLOBIN 26.1 pg (27.0-31.0); MEAN CORPUSCULAR HGB CONC 32.8 g/dL (33.0-37.0); MONO # 0.6 K/uL (0.0-0.8); MONO % 11.9 % (0.0-10.0); NEUT # 2.2 K/uL (1.8-7.0); NEUT % 44.3 % (50.0-75.0); NRBC % 0.1 % (0.0-2.0); RBC 5.07 Mil/uL (4.40-5.90); RED CELL DISTRIBUTION WIDTH 16.5 % (11.5-14.5)
[2019-04-05 08:30] LABS: ALB/GLOB RATIO 1.4 (1.0-2.1); ALBUMIN 3.9 g/dL (3.5-5.0); ALT/SGPT 12 U/L (21-72); AST/SGOT 16 U/L (17-59); BLOOD UREA NITROGEN 19 mg/dL (9-20); CALCIUM 8.9 mg/dl (8.6-10.4); GFR NON-AFRICAN AMERICAN > 60
[2019-04-05 08:34] LABS: CK-MB 1.12 ng/mL (0.0-3.38)
--- NOTE | 2019-04-05 09:17 | CP.PCM.CON ---
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 He has been seen multiple times for abdominal pain complaints with symptoms attributed to pancreatitis (unclear etiology, MRCP with mild main PD dilation in early March, repeast study w/o dilation, no mass, IgG4 WNL, no stones nor EtOH) and constipation. He returned with complaints of chest pain. GI consulted for abd pain. Pt reports some transient epigastric discomfort. Sometimes worse with PO intake, but relieved by bowel movements. Of note, he was instructed to take miralax BID upon last DC but he has been non-compliant and states last BM was 3-4 days ago. Last BM was without melena nor hematochezia. 12pt ROS was negative except as above MHx: See above SurgHx: See above Meds: Reviewed in chart FamHx: Denied GI malig SocHx: Denies tobacco, drugs, etoh All: Cipro, PCN Past Patient History - Infectious Disease Hx of Infectious Diseases: None - Past Medical History & Family History Past Medical History?: Yes - Past Social History Smoking Status: Heavy Smoker > 10 Cigarettes Daily - CARDIAC Hx Hypercholesterolemia: Yes Hx Hypertension: Yes - PULMONARY Hx Chronic Obstructive Pulmonary Disease (COPD): Yes - NEUROLOGICAL Hx Neurological Disorder: No - HEENT Hx Cataracts: Yes - RENAL Hx Chronic Kidney Disease: No - ENDOCRINE/METABOLIC Hx Diabetes Mellitus Type 2: Yes - HEMATOLOGICAL/ONCOLOGICAL Hx Blood Disorders: No - INTEGUMENTARY Hx Dermatological Problems: No - MUSCULOSKELETAL/RHEUMATOLOGICAL Hx Falls: No Hx Spinal Stenosis: Yes - GASTROINTESTINAL Hx Gastrointestinal Disorders: No - GENITOURINARY/GYNECOLOGICAL Hx Genitourinary Disorders: No - PSYCHIATRIC Hx Anxiety: Yes Hx Depression: Yes Hx Substance Use: No - SURGICAL HISTORY Hx Coronary Stent: Yes (x7) - ANESTHESIA Hx Anesthesia: Yes Hx Anesthesia Reactions: No Meds Allergies/Adverse Reactions: Allergies Allergy/AdvReac Type Severity Reaction Status Date / Time ciprofloxacin AdvReac RASH, Verified 03/28/19 13:50 ITCHINESS Penicillins AdvReac passed out Verified 03/28/19 13:50 - Medications Medications: Current Medications Aspirin (Aspirin) 325 mg PO DAILY [facility] Last Admin: 04/04/19 17:00 Dose: 325 mg Clopidogrel Bisulfate (Plavix) 75 mg PO DAILY [facility] Dextrose (Dextrose 50% Inj) 0 ml IV STAT PRN; Protocol PRN Reason: Hypoglycemia Protocol Dextrose (Glutose 15) 0 gm PO ONCE PRN; Protocol PRN Reason: Hypoglycemia Protocol Enoxaparin Sodium (Lovenox) 40 mg SC DAILY [facility] Last Admin: 04/04/19 16:59 Dose: 40 mg Glucagon (Glucagen Diagnostic Kit) 0 mg IM STAT PRN; Protocol PRN Reason: Hypoglycemia Protocol Dextrose (Dextrose 5% In Water 1000 Ml) 1,000 mls @ 0 mls/hr IV .Q0M PRN; Protocol PRN Reason: Hypoglycemia Protocol Insulin Aspart (Novolog) 0 unit SC [facility]; Protocol Last Admin: 04/05/19 07:50 Dose: 2 unit Insulin Detemir (Levemir) 25 unit SC [facility] Last Admin: 04/04/19 22:04 Dose: 25 unit Lisinopril (Zestril) 2.5 mg PO DAILY [facility] Lorazepam (Ativan) 1 mg PO HS PRN PRN Reason: Anxiety Metoprolol Tartrate (Lopressor) 25 mg PO BID [facility] Morphine Sulfate (Morphine) 4 mg IVP Q4 PRN PRN Reason: Pain, moderate (4-7) Last Admin: 04/05/19 07:50 Dose: 4 mg Pantoprazole Sodium (Protonix Inj) 40 mg IVP DAILY [facility] Last Admin: 04/04/19 16:59 Dose: 40 mg Pregabalin (Lyrica) 75 mg PO TID [facility] Last Admin: 04/04/19 17:06 Dose: 75 mg Rosuvastatin Calcium (Crestor) 40 mg PO [facility] Physical Exam - Constitutional Appears: No Acute Distress, Chronically Ill - Head Exam Head Exam: ATRAUMATIC, NORMAL INSPECTION - Eye Exam Eye Exam: EOMI. absent: Scleral icterus - ENT Exam ENT Exam: Mucous Membranes Moist. absent: Mucous Membranes Dry - Respiratory Exam Respiratory Exam: NORMAL BREATHING PATTERN. absent: Accessory Muscle Use - Cardiovascular Exam Cardiovascular Exam: REGULAR RHYTHM. absent: Bradycardia, Tachycardia - GI/Abdominal Exam GI & Abdominal Exam: Distended (mildly), Normal Bowel Sounds, Soft. absent: Bruit, Diminished Bowel Sounds, Firm, Guarding, Hernia, Organomegaly, Pulsatile Mass, Rigid, Tenderness - Extremities Exam Extremities exam: Negative for: tenderness Additional comments: bilateral AKAs - Neurological Exam Neurological exam: Alert, Oriented x3 - Psychiatric Exam Psychiatric exam: Normal Affect, Normal Mood - Skin Skin Exam: Normal Color, Warm Results - Vital Signs Recent Vital Signs: Last Vital Signs Temp 97.7 F 04/05/19 08:43 Pulse 71 04/05/19 08:43 Resp 20 04/05/19 08:43 BP 117/72 04/05/19 08:43 Pulse Ox 98 04/05/19 08:43 - Labs Result Diagrams: 04/05/19 08:00 04/05/19 08:00 Labs: Laboratory Results - last 24 hr 04/04/19 04/04/19 04/04/19 12:16 12:16 12:16 WBC 6.6 RBC 5.55 Hgb 14.8 Hct 45.2 MCV 81.4 D MCH 26.7 L MCHC 32.9 L RDW 16.5 H Plt Count 283 MPV 10.0 Neut % (Auto) 66.4 Lymph % (Auto) 22.2 Pope % (Auto) 9.1 Eos % (Auto) 1.6 Baso % (Auto) 0.7 Neut # (Auto) 4.4 Lymph # (Auto) 1.5 Pope # (Auto) 0.6 Eos # (Auto) 0.1 Baso # (Auto) 0.0 PT 12.2 INR 1.1 APTT 28.0 Sodium 137 Potassium 4.5 Chloride 103 Carbon Dioxide 22 Anion Gap 16 BUN 17 Creatinine 0.7 L Est GFR ( Amer) > 60 Est GFR (Non-Af Amer) > 60 POC Glucose (mg/dL) Random Glucose 262 H Calcium 9.0 Total Bilirubin 0.5 AST 26 ALT 20 L Alkaline Phosphatase 95 Total Creatine Kinase 45 L CK-MB (Mass) 1.48 Troponin I < 0.0120 Total Protein 7.5 Albumin 4.0 Globulin 3.5 Albumin/Globulin Ratio 1.2 04/04/19 04/04/19 04/04/19 16:02 20:22 20:50 WBC RBC Hgb Hct MCV MCH MCHC RDW Plt Count MPV Neut % (Auto) Lymph % (Auto) Pope % (Auto) Eos % (Auto) Baso % (Auto) Neut # (Auto) Lymph # (Auto) Pope # (Auto) Eos # (Auto) Baso # (Auto) PT INR APTT Sodium Potassium Chloride Carbon Dioxide Anion Gap BUN Creatinine Est GFR ( Amer) Est GFR (Non-Af Amer) POC Glucose (mg/dL) 332 H 219 H Random Glucose Calcium Total Bilirubin AST ALT Alkaline Phosphatase Total Creatine Kinase 48 L CK-MB (Mass) 1.34 Troponin I < 0.0120 Total Protein Albumin Globulin Albumin/Globulin Ratio 04/05/19 04/05/19 04/05/19 06:21 08:00 08:00 WBC 5.0 RBC 5.07 Hgb 13.2 Hct 40.3 MCV 79.6 L MCH 26.1 L MCHC 32.8 L RDW 16.5 H Plt Count 259 MPV 10.0 Neut % (Auto) 44.3 L Lymph % (Auto) 40.5 H Pope % (Auto) 11.9 H Eos % (Auto) 2.6 Baso % (Auto) 0.7 Neut # (Auto) 2.2 Lymph # (Auto) 2.0 Pope # (Auto) 0.6 Eos # (Auto) 0.1 Baso # (Auto) 0.0 PT INR APTT 31.2 Sodium Potassium Chloride Carbon Dioxide Anion Gap BUN Creatinine Est GFR ( Amer) Est GFR (Non-Af Amer) POC Glucose (mg/dL) 241 H Random Glucose Calcium Total Bilirubin AST ALT Alkaline Phosphatase Total Creatine Kinase CK-MB (Mass) Troponin I Total Protein Albumin Globulin Albumin/Globulin Ratio 04/05/19 08:00 WBC RBC Hgb Hct MCV MCH MCHC RDW Plt Count MPV Neut % (Auto) Lymph % (Auto) Pope % (Auto) Eos % (Auto) Baso % (Auto) Neut # (Auto) Lymph # (Auto) Pope # (Auto) Eos # (Auto) Baso # (Auto) PT INR APTT Sodium 137 Potassium 4.6 Chloride 100 Carbon Dioxide 26 Anion Gap 16 BUN 19 Creatinine 0.8 Est GFR ( Amer) > 60 Est GFR (Non-Af Amer) > 60 POC Glucose (mg/dL) Random Glucose 262 H Calcium 8.9 Total Bilirubin 0.3 AST 16 L D ALT 12 L D Alkaline Phosphatase 85 Total Creatine Kinase 173 H CK-MB (Mass) 1.12 Troponin I < 0.0120 Total Protein 6.7 Albumin 3.9 Globulin 2.8 Albumin/Globulin Ratio 1.4 Assessment & Plan - Assessment and Plan (Free Text) Assessment: # Abd pain and Nausea: h/o Acute Pancreatitis, dilated PD. 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 Heredia; please see attestation for further recs/changes. <Lorena Herdeia - Last Filed: 04/05/19 16:12> Meds - Medications Medications: Current Medications Aspirin (Aspirin) 325 mg PO DAILY [facility] Last Admin: 04/05/19 09:55 Dose: 325 mg Clopidogrel Bisulfate (Plavix) 75 mg PO DAILY [facility] Last Admin: 04/05/19 09:57 Dose: 75 mg Dextrose (Dextrose 50% Inj) 0 ml IV STAT PRN; Protocol PRN Reason: Hypoglycemia Protocol Dextrose (Glutose 15) 0 gm PO ONCE PRN; Protocol PRN Reason: Hypoglycemia Protocol Enoxaparin Sodium (Lovenox) 40 mg SC DAILY [facility] Last Admin: 04/05/19 09:57 Dose: 40 mg Glucagon (Glucagen Diagnostic Kit) 0 mg IM STAT PRN; Protocol PRN Reason: Hypoglycemia Protocol Dextrose (Dextrose 5% In Water 1000 Ml) 1,000 mls @ 0 mls/hr IV .Q0M PRN; Protocol PRN Reason: Hypoglycemia Protocol Insulin Aspart (Novolog) 0 unit SC [facility]; Protocol Last Admin: 04/05/19 13:11 Dose: 4 unit Insulin Detemir (Levemir) 25 unit SC [facility] Last Admin: 04/04/19 22:04 Dose: 25 unit Lisinopril (Zestril) 2.5 mg PO DAILY [facility] Last Admin: 04/05/19 09:56 Dose: 2.5 mg Lorazepam (Ativan) 1 mg PO HS PRN PRN Reason: Anxiety Metoprolol Tartrate (Lopressor) 25 mg PO BID [facility] Last Admin: 04/05/19 09:57 Dose: 25 mg Morphine Sulfate (Morphine) 4 mg IVP Q4 PRN PRN Reason: Pain, moderate (4-7) Last Admin: 04/05/19 13:16 Dose: 4 mg Pantoprazole Sodium (Protonix Inj) 40 mg IVP DAILY [facility] Last Admin: 04/05/19 09:55 Dose: 40 mg Polyethylene Glycol (Miralax) 17 gm PO BID [facility] Last Admin: 04/05/19 13:12 Dose: Not Given Pregabalin (Lyrica) 75 mg PO TID [facility] Last Admin: 04/05/19 13:11 Dose: 75 mg Rosuvastatin Calcium (Crestor) 40 mg PO [facility] Results - Vital Signs Recent Vital Signs: Last Vital Signs Temp 97.7 F 04/05/19 08:43 Pulse 71 04/05/19 13:15 Resp 18 04/05/19 13:15 BP 136/80 04/05/19 13:15 Pulse Ox 97 04/05/19 13:15 - Labs Result Diagrams: 04/05/19 08:00 04/05/19 08:00 Labs: Laboratory Results - last 24 hr 04/04/19 04/04/19 04/05/19 20:22 20:50 06:21 WBC RBC Hgb Hct MCV MCH MCHC RDW Plt Count MPV Neut % (Auto) Lymph % (Auto) Pope % (Auto) Eos % (Auto) Baso % (Auto) Neut # (Auto) Lymph # (Auto) Pope # (Auto) Eos # (Auto) Baso # (Auto) APTT Sodium Potassium Chloride Carbon Dioxide Anion Gap BUN Creatinine Est GFR ( Amer) Est GFR (Non-Af Amer) POC Glucose (mg/dL) 219 H 241 H Random Glucose Calcium Total Bilirubin AST ALT Alkaline Phosphatase Total Creatine Kinase 48 L CK-MB (Mass) 1.34 Troponin I < 0.0120 Total Protein Albumin Globulin Albumin/Globulin Ratio 04/05/19 04/05/19 04/05/19 08:00 08:00 08:00 WBC 5.0 RBC 5.07 Hgb 13.2 Hct 40.3 MCV 79.6 L MCH 26.1 L MCHC 32.8 L RDW 16.5 H Plt Count 259 MPV 10.0 Neut % (Auto) 44.3 L Lymph % (Auto) 40.5 H Pope % (Auto) 11.9 H Eos % (Auto) 2.6 Baso % (Auto) 0.7 Neut # (Auto) 2.2 Lymph # (Auto) 2.0 Pope # (Auto) 0.6 Eos # (Auto) 0.1 Baso # (Auto) 0.0 APTT 31.2 Sodium 137 Potassium 4.6 Chloride 100 Carbon Dioxide 26 Anion Gap 16 BUN 19 Creatinine 0.8 Est GFR ( Amer) > 60 Est GFR (Non-Af Amer) > 60 POC Glucose (mg/dL) Random Glucose 262 H Calcium 8.9 Total Bilirubin 0.3 AST 16 L D ALT 12 L D Alkaline Phosphatase 85 Total Creatine Kinase 173 H CK-MB (Mass) 1.12 Troponin I < 0.0120 Total Protein 6.7 Albumin 3.9 Globulin 2.8 Albumin/Globulin Ratio 1.4 04/05/19 11:48 WBC RBC Hgb Hct MCV MCH MCHC RDW Plt Count MPV Neut % (Auto) Lymph % (Auto) Pope % (Auto) Eos % (Auto) Baso % (Auto) Neut # (Auto) Lymph # (Auto) Pope # (Auto) Eos # (Auto) Baso # (Auto) APTT Sodium Potassium Chloride Carbon Dioxide Anion Gap BUN Creatinine Est GFR ( Amer) Est GFR (Non-Af Amer) POC Glucose (mg/dL) 313 H Random Glucose Calcium Total Bilirubin AST ALT Alkaline Phosphatase Total Creatine Kinase CK-MB (Mass) Troponin I Total Protein Albumin Globulin Albumin/Globulin Ratio Attending/Attestation - Attestation I have personally seen and examined this patient.: Yes I have fully participated in the care of the patient.: Yes I have reviewed all pertinent clinical information: Yes Notes (Text): 04/05/19 16:08 I have seen and examined the pt with the GI fellow. 68 yo M with CAD s/p stent, DM, HLD ischemic cardiomyopathy, LV thrombus on a/c and b/l AKA mostly bedbound p/w chest pain - r/o ACS - but also with intermittent epigastric abdominal pain. Pt with constipation recently and no BMs for the past few days. Notes abdominal pain improved after defecation. No etiology for abdominal pain currently and has since resolved. Suspect related to underlying constipation. No pancreatic pathology. Miralax 17 gm po bid. D/w pt.
[2019-04-05] MEDS: Enoxaparin 40 mg Syringe SC SCH (09:57)
[2019-04-05] MEDS: POLYETHYLENE GLYCOL 3350 17 GM/Dose PACKET PO SCH ×2 (13:12→18:22)
--- NOTE | 2019-04-05 17:02 | CP.PCM.PN ---
Subjective - Date & Time of Evaluation Date of Evaluation: 04/05/19 Time of Evaluation: 08:15 - Subjective Subjective: patient seen today no dizziness, no diarrhea, no fever, no vomiting, no nausea no shortness of breath Objective - Vital Signs/Intake and Output Vital Signs (last 24 hours): Temp Pulse Resp BP Pulse Ox 98.1 F 63 20 114/66 97 04/05/19 16:00 04/05/19 16:17 04/05/19 16:00 04/05/19 16:00 04/05/19 16:17 - Medications Medications: Current Medications Aspirin (Aspirin) 325 mg PO DAILY [facility] Last Admin: 04/05/19 09:55 Dose: 325 mg Clopidogrel Bisulfate (Plavix) 75 mg PO DAILY [facility] Last Admin: 04/05/19 09:57 Dose: 75 mg Dextrose (Dextrose 50% Inj) 0 ml IV STAT PRN; Protocol PRN Reason: Hypoglycemia Protocol Dextrose (Glutose 15) 0 gm PO ONCE PRN; Protocol PRN Reason: Hypoglycemia Protocol Enoxaparin Sodium (Lovenox) 40 mg SC DAILY [facility] Last Admin: 04/05/19 09:57 Dose: 40 mg Glucagon (Glucagen Diagnostic Kit) 0 mg IM STAT PRN; Protocol PRN Reason: Hypoglycemia Protocol Dextrose (Dextrose 5% In Water 1000 Ml) 1,000 mls @ 0 mls/hr IV .Q0M PRN; Protocol PRN Reason: Hypoglycemia Protocol Insulin Aspart (Novolog) 0 unit SC [facility]; Protocol Last Admin: 04/05/19 13:11 Dose: 4 unit Insulin Detemir (Levemir) 25 unit SC HS [facility] Last Admin: 04/04/19 22:04 Dose: 25 unit Lisinopril (Zestril) 2.5 mg PO DAILY [facility] Last Admin: 04/05/19 09:56 Dose: 2.5 mg Lorazepam (Ativan) 1 mg PO HS PRN PRN Reason: Anxiety Metoprolol Tartrate (Lopressor) 25 mg PO BID [facility] Last Admin: 04/05/19 09:57 Dose: 25 mg Morphine Sulfate (Morphine) 4 mg IVP Q4 PRN PRN Reason: Pain, moderate (4-7) Last Admin: 04/05/19 13:16 Dose: 4 mg Pantoprazole Sodium (Protonix Inj) 40 mg IVP DAILY [facility] Last Admin: 04/05/19 09:55 Dose: 40 mg Polyethylene Glycol (Miralax) 17 gm PO BID [facility] Last Admin: 04/05/19 13:12 Dose: Not Given Pregabalin (Lyrica) 75 mg PO TID [facility] Last Admin: 04/05/19 13:11 Dose: 75 mg Rosuvastatin Calcium (Crestor) 40 mg PO HS [facility] - Labs Labs: 04/05/19 08:00 04/05/19 08:00 PT 12.2 SECONDS (9.7-12.2) 04/04/19 12:16 INR 1.1 04/04/19 12:16 APTT 31.2 SECONDS (21-34) 04/05/19 08:00 - Constitutional Appears: Well - Head Exam Head Exam: ATRAUMATIC, NORMAL INSPECTION, NORMOCEPHALIC - Eye Exam Eye Exam: EOMI, Normal appearance, PERRL Pupil Exam: NORMAL ACCOMODATION, PERRL - ENT Exam ENT Exam: Mucous Membranes Moist, Normal Exam - Neck Exam Neck Exam: Full ROM, Normal Inspection. absent: Lymphadenopathy - Respiratory Exam Respiratory Exam: Decreased Breath Sounds - Cardiovascular Exam Cardiovascular Exam: REGULAR RHYTHM, +S1, +S2 - GI/Abdominal Exam GI & Abdominal Exam: Soft, Diminished Bowel Sounds - Rectal Exam Rectal Exam: Deferred - Neurological Exam Neurological Exam: Oriented x3 Assessment and Plan - Assessment and Plan (Free Text) Plan: plan discussed with patient moderate complexity of care medications reviewed labs reviewed vitals reviewed aspirin crestor dextrose %5 dextrose 50% glucagen diagnostic kit glutose 15 levemir lovenox lopressor lyrica miralax morphine novolog phenergan/codeine oral syrup plavix protonix inj senokot tab zestril
[2019-04-05] MEDS: Insulin Detemir 100 units/ml Vial (Levemir) SC SCH (21:59)
[2019-04-06] MEDS: Morphine 4 MG/ML VIAL IVP PRN ×4 (02:13→18:41)
[2019-04-06] MEDS: (Novolog) Insulin Aspart, Recombinant 100 u/ml 10 ml vial SC SCH ×4 (08:47→21:21)
[2019-04-06 08:57] LABS: ALB/GLOB RATIO 1.2 (1.0-2.1); ALBUMIN 3.6 g/dL (3.5-5.0); ALT/SGPT 15 U/L (21-72); AST/SGOT 14 U/L (17-59); BLOOD UREA NITROGEN 20 mg/dL (9-20); CALCIUM 8.8 mg/dl (8.6-10.4); GFR NON-AFRICAN AMERICAN > 60
[2019-04-06] MEDS: POLYETHYLENE GLYCOL 3350 17 GM/Dose PACKET PO SCH ×2 (10:47→17:27)
[2019-04-06] MEDS: Enoxaparin 40 mg Syringe SC SCH (10:47)
--- NOTE | 2019-04-06 15:08 | CP.PCM.PN ---
<KelseaLarryangy - Last Filed: 04/06/19 15:14> Subjective - Date & Time of Evaluation Date of Evaluation: 04/06/19 Time of Evaluation: 14:30 - Subjective Subjective: PGY-4 GI Fellow Prog Note Pt in bed when seen this PM. States no further abd pain but has not had BM. Tolerating diet. 5 point ROS negative other than stated above Objective - Vital Signs/Intake and Output Vital Signs (last 24 hours): Temp Pulse Resp BP Pulse Ox 97.9 F 59 L 18 116/71 96 04/06/19 07:00 04/06/19 10:43 04/06/19 10:43 04/06/19 10:43 04/06/19 10:43 - Medications Medications: Current Medications Aspirin (Aspirin) 325 mg PO DAILY [facility] Last Admin: 04/06/19 10:46 Dose: 325 mg Clopidogrel Bisulfate (Plavix) 75 mg PO DAILY [facility] Last Admin: 04/06/19 10:46 Dose: 75 mg Dextrose (Dextrose 50% Inj) 0 ml IV STAT PRN; Protocol PRN Reason: Hypoglycemia Protocol Dextrose (Glutose 15) 0 gm PO ONCE PRN; Protocol PRN Reason: Hypoglycemia Protocol Enoxaparin Sodium (Lovenox) 40 mg SC DAILY [facility] Last Admin: 04/06/19 10:47 Dose: 40 mg Glucagon (Glucagen Diagnostic Kit) 0 mg IM STAT PRN; Protocol PRN Reason: Hypoglycemia Protocol Dextrose (Dextrose 5% In Water 1000 Ml) 1,000 mls @ 0 mls/hr IV .Q0M PRN; Pro tocol PRN Reason: Hypoglycemia Protocol Insulin Aspart (Novolog) 0 unit SC [facility]; Protocol Last Admin: 04/06/19 12:46 Dose: 3 unit Insulin Detemir (Levemir) 25 unit SC HS [facility] Last Admin: 04/05/19 21:59 Dose: 25 unit Lisinopril (Zestril) 2.5 mg PO DAILY [facility] Last Admin: 04/06/19 10:46 Dose: 2.5 mg Metoprolol Tartrate (Lopressor) 25 mg PO BID [facility] Last Admin: 04/06/19 10:47 Dose: Not Given Morphine Sulfate (Morphine) 4 mg IVP Q4 PRN PRN Reason: Pain, moderate (4-7) Last Admin: 04/06/19 12:47 Dose: 4 mg Pantoprazole Sodium (Protonix Inj) 40 mg IVP DAILY [facility] Last Admin: 04/06/19 10:46 Dose: 40 mg Polyethylene Glycol (Miralax) 17 gm PO BID [facility] Last Admin: 04/06/19 10:47 Dose: 17 gm Pregabalin (Lyrica) 75 mg PO TID [facility] Last Admin: 04/06/19 14:30 Dose: 75 mg Promethazine HCl/Codeine (Phenergan/Codeine Oral Syrup) 10 ml PO Q6 PRN PRN Reason: Cough Rosuvastatin Calcium (Crestor) 40 mg PO [facility] Last Admin: 04/05/19 21:41 Dose: 40 mg - Labs Labs: 04/05/19 08:00 04/06/19 08:28 PT 12.2 SECONDS (9.7-12.2) 04/04/19 12:16 INR 1.1 04/04/19 12:16 APTT 31.2 SECONDS (21-34) 04/05/19 08:00 - Constitutional Appears: No Acute Distress, Chronically Ill - Head Exam Head Exam: ATRAUMATIC, NORMAL INSPECTION - Eye Exam Eye Exam: EOMI. absent: Scleral icterus - ENT Exam ENT Exam: Mucous Membranes Moist. absent: Mucous Membranes Dry - Respiratory Exam Respiratory Exam: NORMAL BREATHING PATTERN. absent: Accessory Muscle Use - GI/Abdominal Exam GI & Abdominal Exam: Soft, Normal Bowel Sounds. absent: Distended, Firm, Guarding, Rigid, Tenderness Assessment and Plan - Assessment and Plan (Free Text) Assessment: # Abd pain and Nausea: h/o Acute Pancreatitis, dilated PD. 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 Heredia; please see attestation for further recs/changes. <Lorena Heredia - Last Filed: 04/06/19 15:35> Objective - Vital Signs/Intake and Output Vital Signs (last 24 hours): Temp Pulse Resp BP Pulse Ox 97.9 F 59 L 18 116/71 96 04/06/19 07:00 04/06/19 10:43 04/06/19 10:43 04/06/19 10:43 04/06/19 10:43 - Medications Medications: Current Medications Aspirin (Aspirin) 325 mg PO DAILY [facility] Last Admin: 04/06/19 10:46 Dose: 325 mg Clopidogrel Bisulfate (Plavix) 75 mg PO DAILY [facility] Last Admin: 04/06/19 10:46 Dose: 75 mg Dextrose (Dextrose 50% Inj) 0 ml IV STAT PRN; Protocol PRN Reason: Hypoglycemia Protocol Dextrose (Glutose 15) 0 gm PO ONCE PRN; Protocol PRN Reason: Hypoglycemia Protocol Enoxaparin Sodium (Lovenox) 40 mg SC DAILY [facility] Last Admin: 04/06/19 10:47 Dose: 40 mg Glucagon (Glucagen Diagnostic Kit) 0 mg IM STAT PRN; Protocol PRN Reason: Hypoglycemia Protocol Dextrose (Dextrose 5% In Water 1000 Ml) 1,000 mls @ 0 mls/hr IV .Q0M PRN; Protocol PRN Reason: Hypoglycemia Protocol Insulin Aspart (Novolog) 0 unit SC [facility]; Protocol Last Admin: 04/06/19 12:46 Dose: 3 unit Insulin Detemir (Levemir) 25 unit SC [facility] Last Admin: 04/05/19 21:59 Dose: 25 unit Lisinopril (Zestril) 2.5 mg PO DAILY [facility] Last Admin: 04/06/19 10:46 Dose: 2.5 mg Metoprolol Tartrate (Lopressor) 25 mg PO BID [facility] Last Admin: 04/06/19 10:47 Dose: Not Given Morphine Sulfate (Morphine) 4 mg IVP Q4 PRN PRN Reason: Pain, moderate (4-7) Last Admin: 04/06/19 12:47 Dose: 4 mg Pantoprazole Sodium (Protonix Inj) 40 mg IVP DAILY [facility] Last Admin: 04/06/19 10:46 Dose: 40 mg Polyethylene Glycol (Miralax) 17 gm PO BID [facility] Last Admin: 04/06/19 10:47 Dose: 17 gm Pregabalin (Lyrica) 75 mg PO TID [facility] Last Admin: 04/06/19 14:30 Dose: 75 mg Promethazine HCl/Codeine (Phenergan/Codeine Oral Syrup) 10 ml PO Q6 PRN PRN Reason: Cough Rosuvastatin Calcium (Crestor) 40 mg PO HS [facility] Last Admin: 04/05/19 21:41 Dose: 40 mg Sennosides (Senokot Tab) 17.2 mg PO HS [facility] - Labs Labs: 04/05/19 08:00 04/06/19 08:28 PT 12.2 SECONDS (9.7-12.2) 04/04/19 12:16 INR 1.1 04/04/19 12:16 APTT 31.2 SECONDS (21-34) 04/05/19 08:00 Attending/Attestation - Attestation I have personally seen and examined this patient.: No I have fully participated in the care of the patient.: Yes I have reviewed all pertinent clinical information, including history, physical exam and plan: Yes Notes (Text): 04/06/19 15:35 I have reviewed the patient care with the GI fellow and agree with above assessment/plan.
--- NOTE | 2019-04-06 16:58 | CP.PCM.PN ---
Subjective - Date & Time of Evaluation Date of Evaluation: 04/06/19 Time of Evaluation: 10:40 - Subjective Subjective: patient seen today no nausea no vomiting no dizziness no diarrhea no fever no shortness of breath Objective - Vital Signs/Intake and Output Vital Signs (last 24 hours): Temp Pulse Resp BP Pulse Ox 97.8 F 61 20 123/78 96 04/06/19 15:00 04/06/19 16:00 04/06/19 15:00 04/06/19 15:00 04/06/19 16:20 - Medications Medications: Current Medications Aspirin (Aspirin) 325 mg PO DAILY [facility] Last Admin: 04/06/19 10:46 Dose: 325 mg Clopidogrel Bisulfate (Plavix) 75 mg PO DAILY [facility] Last Admin: 04/06/19 10:46 Dose: 75 mg Dextrose (Dextrose 50% Inj) 0 ml IV STAT PRN; Protocol PRN Reason: Hypoglycemia Protocol Dextrose (Glutose 15) 0 gm PO ONCE PRN; Protocol PRN Reason: Hypoglycemia Protocol Enoxaparin Sodium (Lovenox) 40 mg SC DAILY [facility] Last Admin: 04/06/19 10:47 Dose: 40 mg Glucagon (Glucagen Diagnostic Kit) 0 mg IM STAT PRN; Protocol PRN Reason: Hypoglycemia Protocol Dextrose (Dextrose 5% In Water 1000 Ml) 1,000 mls @ 0 mls/hr IV .Q0M PRN; Protocol PRN Reason: Hypoglycemia Protocol Insulin Aspart (Novolog) 0 unit SC [facility]; Protocol Last Admin: 04/06/19 12:46 Dose: 3 unit Insulin Detemir (Levemir) 25 unit SC [facility] Last Admin: 04/05/19 21:59 Dose: 25 unit Lisinopril (Zestril) 2.5 mg PO DAILY [facility] Last Admin: 04/06/19 10:46 Dose: 2.5 mg Metoprolol Tartrate (Lopressor) 25 mg PO BID [facility] Last Admin: 04/06/19 10:47 Dose: Not Given Morphine Sulfate (Morphine) 4 mg IVP Q4 PRN PRN Reason: Pain, moderate (4-7) Last Admin: 04/06/19 12:47 Dose: 4 mg Pantoprazole Sodium (Protonix Inj) 40 mg IVP DAILY [facility] Last Admin: 04/06/19 10:46 Dose: 40 mg Polyethylene Glycol (Miralax) 17 gm PO BID [facility] Last Admin: 04/06/19 10:47 Dose: 17 gm Pregabalin (Lyrica) 75 mg PO TID [facility] Last Admin: 04/06/19 14:30 Dose: 75 mg Promethazine HCl/Codeine (Phenergan/Codeine Oral Syrup) 10 ml PO Q6 PRN PRN Reason: Cough Rosuvastatin Calcium (Crestor) 40 mg PO [facility] Last Admin: 04/05/19 21:41 Dose: 40 mg Sennosides (Senokot Tab) 17.2 mg PO [facility] - Labs Labs: 04/05/19 08:00 04/06/19 08:28 PT 12.2 SECONDS (9.7-12.2) 04/04/19 12:16 INR 1.1 04/04/19 12:16 APTT 31.2 SECONDS (21-34) 04/05/19 08:00 - Constitutional Appears: Well - Head Exam Head Exam: ATRAUMATIC, NORMAL INSPECTION, NORMOCEPHALIC - Eye Exam Eye Exam: EOMI, Normal appearance, PERRL Pupil Exam: NORMAL ACCOMODATION, PERRL - ENT Exam ENT Exam: Mucous Membranes Moist, Normal Exam - Neck Exam Neck Exam: Full ROM, Normal Inspection. absent: Lymphadenopathy - Respiratory Exam Respiratory Exam: Decreased Breath Sounds - Cardiovascular Exam Cardiovascular Exam: REGULAR RHYTHM, +S1, +S2 - GI/Abdominal Exam GI & Abdominal Exam: Soft, Diminished Bowel Sounds - Rectal Exam Rectal Exam: Deferred - Neurological Exam Neurological Exam: Oriented x3 Assessment and Plan - Assessment and Plan (Free Text) Plan: plan discussed with patient and family moderate to severe complexity of care medications reviewed labs reviewed vitals reviewed aspirin crestor dextrose %5 dextrose 50% glucagen diagnostic kit glutose 15 levemir lovenox lopressor lyrica miralax morphine novolog phenergan/codeine oral syrup plavix protonix inj senokot tab zestril
[2019-04-06] MEDS ORDERED: HYDROmorphone 1 mg/ml ISec IVP ONE (21:00)
[2019-04-06] MEDS: Insulin Detemir 100 units/ml Vial (Levemir) SC SCH (21:25)
[2019-04-06] MEDS: Promethazine/Cod 6.25mg-10mg/5ml Syr UD PO PRN (22:13)
[2019-04-07] MEDS: Morphine 4 MG/ML VIAL IVP PRN ×5 (02:04→22:06)
--- NOTE | 2019-04-07 07:16 | CON ---
I was asked to see the patient because of chest pain. HISTORY OF PRESENT ILLNESS: The patient is a 68-year-old gentleman with history of hypertension, diabetes, smoking, hypercholesterolemia, and no significant history of alcohol use. The patient has had four myocardial infarctions and several stents. The last stent was done several years ago. The patient also has peripheral vascular disease and has had bilateral [id number]. The patient lives by himself. He is sedentary in his activities. On the day of admission, the patient states that he started having chest pain lasted for about 40 minutes associated with sweating. No other associated symptoms. resolved spontaneously. The patient in view of cardiac history decided to come to the hospital. PAST MEDICAL HISTORY: Significant as above. PERSONAL HISTORY: The patient is a . FAMILY HISTORY: Mother had coronary artery disease. REVIEW OF SYSTEMS: As above. All other systems are negative. ALLERGIES: PENICILLIN. PHYSICAL EXAMINATION: GENERAL: The patient is alert and oriented x3. No jugular venous distention. VITAL SIGNS: Blood pressure 114/67, pulse rate 77, respiratory rate 18. HEENT: Extraocular movements are normal. LUNGS: Clinically clear. HEART: S1, S2, ejection systolic murmur. ABDOMEN: Soft. No organomegaly or tenderness. EXTREMITIES: No edema of the thigh. No cyanosis. NEUROLOGIC: Affect is normal. EKG shows normal sinus rhythm, inferior wall and anterior wall DC pattern. Chest x-ray did not show any changes. ASSESSMENT AND PLAN: The patient's troponins were negative. At this point, we will increase Lopressor to 25 mg p.o. b.i.d. We will add ramipril 2.5 mg p.o. daily. We will increase Crestor to 40 mg daily, will be discontinued. Echocardiogram will be obtained. Based on the echo further recommendations regarding cardiac cath or stress testing will be done. CMP will be obtained in a.m. This was discussed with the patient at length. Tobin Parr MD
[2019-04-07] MEDS: (Novolog) Insulin Aspart, Recombinant 100 u/ml 10 ml vial SC SCH ×5 (08:19→22:18)
--- NOTE | 2019-04-07 09:10 | CP.PCM.PN ---
<ThanhRachel - Last Filed: 04/07/19 09:07> Subjective - Date & Time of Evaluation Date of Evaluation: 04/07/19 Time of Evaluation: 08:00 - Subjective Subjective: GI Fellow PGY5 Progress Note Pt seen and evaluated at bedside, pt reports no BM in a few days, tolerating diet. ROS: A 12pt ROS was negative except as above. Objective - Vital Signs/Intake and Output Vital Signs (last 24 hours): Temp Pulse Resp BP Pulse Ox 97.8 F 54 L 20 110/63 95 04/07/19 07:09 04/07/19 07:09 04/07/19 07:09 04/07/19 07:09 04/07/19 07:09 Intake and Output: 04/07/19 04/07/19 06:59 18:59 Intake Total 300 Output Total 500 Balance -200 - Medications Medications: Current Medications Aspirin (Aspirin) 325 mg PO DAILY [facility] Last Admin: 04/06/19 10:46 Dose: 325 mg Clopidogrel Bisulfate (Plavix) 75 mg PO DAILY [facility] Last Admin: 04/06/19 10:46 Dose: 75 mg Dextrose (Dextrose 50% Inj) 0 ml IV STAT PRN; Protocol PRN Reason: Hypoglycemia Protocol Dextrose (Glutose 15) 0 gm PO ONCE PRN; Protocol PRN Reason: Hypoglycemia Protocol Enoxaparin Sodium (Lovenox) 40 mg SC DAILY [facility] Last Admin: 04/06/19 10:47 Dose: 40 mg Glucagon (Glucagen Diagnostic Kit) 0 mg IM STAT PRN; Protocol PRN Reason: Hypoglycemia Protocol Dextrose (Dextrose 5% In Water 1000 Ml) 1,000 mls @ 0 mls/hr IV .Q0M PRN; Protocol PRN Reason: Hypoglycemia Protocol Insulin Aspart (Novolog) 0 unit SC [facility]; Protocol Last Admin: 04/07/19 08:19 Dose: 3 unit Insulin Detemir (Levemir) 25 unit SC HS [facility] Last Admin: 04/06/19 21:25 Dose: 25 unit Lisinopril (Zestril) 2.5 mg PO DAILY [facility] Last Admin: 04/06/19 10:46 Dose: 2.5 mg Metoprolol Tartrate (Lopressor) 25 mg PO BID [facility] Last Admin: 04/06/19 17:26 Dose: 25 mg Morphine Sulfate (Morphine) 4 mg IVP Q4 PRN PRN Reason: Pain, moderate (4-7) Last Admin: 04/07/19 02:04 Dose: 4 mg Pantoprazole Sodium (Protonix Inj) 40 mg IVP DAILY [facility] Last Admin: 04/06/19 10:46 Dose: 40 mg Polyethylene Glycol (Miralax) 17 gm PO BID [facility] Last Admin: 04/06/19 17:27 Dose: Not Given Pregabalin (Lyrica) 75 mg PO TID [facility] Last Admin: 04/06/19 17:26 Dose: 75 mg Promethazine HCl/Codeine (Phenergan/Codeine Oral Syrup) 10 ml PO Q6 PRN PRN Reason: Cough Last Admin: 04/06/19 22:13 Dose: 10 ml Rosuvastatin Calcium (Crestor) 40 mg PO [facility] Last Admin: 04/06/19 21:02 Dose: 40 mg Sennosides (Senokot Tab) 17.2 mg PO [facility] Last Admin: 04/06/19 21:03 Dose: Not Given - Labs Labs: 04/05/19 08:00 04/06/19 08:28 PT 12.2 SECONDS (9.7-12.2) 04/04/19 12:16 INR 1.1 04/04/19 12:16 APTT 31.2 SECONDS (21-34) 04/05/19 08:00 - Constitutional Appears: Non-toxic, No Acute Distress - Head Exam Head Exam: ATRAUMATIC, NORMAL INSPECTION, NORMOCEPHALIC - Eye Exam Eye Exam: EOMI, Normal appearance, PERRL - ENT Exam ENT Exam: Mucous Membranes Moist, Normal Exam - Neck Exam Neck Exam: Full ROM, Normal Inspection - Respiratory Exam Respiratory Exam: Clear to Ausculation Bilateral, NORMAL BREATHING PATTERN - Cardiovascular Exam Cardiovascular Exam: REGULAR RHYTHM, RRR, +S1, +S2 - GI/Abdominal Exam GI & Abdominal Exam: Soft, Normal Bowel Sounds. absent: Distended, Firm, Guarding, Tenderness - Neurological Exam Neurological Exam: Alert, Awake, Oriented x3 - Psychiatric Exam Psychiatric exam: Normal Affect, Normal Mood Assessment and Plan - Assessment and Plan (Free Text) Assessment: 1. Abd pain and Nausea: h/o Acute Pancreatitis, dilated PD. Constipation 2. Diabetes, uncontrolled BG 3. CAD, Chest pain, Left ventricle Thrombus on OAC, PVD s/p bilateral AKAs 4. Constipation Plan: -Miralax BID and Senna -Will give one time dose of tap water enema today, pt agreeable -MRCP reviewed with no underlying pancreatic lesion -Diet low fat diet with small meals -Glyceimic control -Anti-emetics prns -PPI daily -IgG4 WNL -Medical management per primary team <Manav Canchola - Last Filed: 04/07/19 10:11> Objective - Vital Signs/Intake and Output Vital Signs (last 24 hours): Temp Pulse Resp BP Pulse Ox 97.8 F 54 L 20 110/63 95 04/07/19 07:09 04/07/19 07:09 04/07/19 07:09 04/07/19 09:27 04/07/19 07:09 Intake and Output: 04/07/19 04/07/19 06:59 18:59 Intake Total 300 Output Total 500 Balance -200 - Medications Medications: Current Medications Aspirin (Aspirin) 325 mg PO DAILY [facility] Last Admin: 04/06/19 10:46 Dose: 325 mg Clopidogrel Bisulfate (Plavix) 75 mg PO DAILY [facility] Last Admin: 04/07/19 09:27 Dose: 75 mg Dextrose (Dextrose 50% Inj) 0 ml IV STAT PRN; Protocol PRN Reason: Hypoglycemia Protocol Dextrose (Glutose 15) 0 gm PO ONCE PRN; Protocol PRN Reason: Hypoglycemia Protocol Enoxaparin Sodium (Lovenox) 40 mg SC DAILY [facility] Last Admin: 04/07/19 09:26 Dose: 40 mg Glucagon (Glucagen Diagnostic Kit) 0 mg IM STAT PRN; Protocol PRN Reason: Hypoglycemia Protocol Dextrose (Dextrose 5% In Water 1000 Ml) 1,000 mls @ 0 mls/hr IV .Q0M PRN; Protocol PRN Reason: Hypoglycemia Protocol Insulin Aspart (Novolog) 0 unit SC [facility]; Protocol Last Admin: 04/07/19 08:19 Dose: 3 unit Insulin Detemir (Levemir) 25 unit SC HS [facility] Last Admin: 04/06/19 21:25 Dose: 25 unit Lisinopril (Zestril) 2.5 mg PO DAILY [facility] Last Admin: 04/07/19 09:27 Dose: 2.5 mg Metoprolol Tartrate (Lopressor) 25 mg PO BID [facility] Last Admin: 04/07/19 09:27 Dose: 25 mg Morphine Sulfate (Morphine) 4 mg IVP Q4 PRN PRN Reason: Pain, moderate (4-7) Last Admin: 04/07/19 09:28 Dose: 4 mg Pantoprazole Sodium (Protonix Inj) 40 mg IVP DAILY [facility] Last Admin: 04/07/19 09:27 Dose: 40 mg Polyethylene Glycol (Miralax) 17 gm PO BID [facility] Last Admin: 04/06/19 17:27 Dose: Not Given Pregabalin (Lyrica) 75 mg PO TID [facility] Last Admin: 04/07/19 09:27 Dose: 75 mg Promethazine HCl/Codeine (Phenergan/Codeine Oral Syrup) 10 ml PO Q6 PRN PRN Reason: Cough Last Admin: 04/06/19 22:13 Dose: 10 ml Rosuvastatin Calcium (Crestor) 40 mg PO HS [facility] Last Admin: 04/06/19 21:02 Dose: 40 mg Sennosides (Senokot Tab) 17.2 mg PO [facility] Last Admin: 04/06/19 21:03 Dose: Not Given - Labs Labs: 04/05/19 08:00 04/06/19 08:28 PT 12.2 SECONDS (9.7-12.2) 04/04/19 12:16 INR 1.1 04/04/19 12:16 APTT 31.2 SECONDS (21-34) 04/05/19 08:00 Attending/Attestation - Attestation I have personally seen and examined this patient.: Yes I have fully participated in the care of the patient.: Yes I have reviewed all pertinent clinical information, including history, physical exam and plan: Yes Notes (Text): 04/07/19 10:09 I have seen and examined patient with GI fellow. No acute events overnight, he is seen resting in bed comfortably. He denies abdominal pain, nausea, vomiting, fever/chills. Tolerating PO diet without difficulty. No bowel movements in past 4 days. CAD s/p stent PVD s/p bilateral BKA DM LV thrombus Chronic constipation - Diet as tolerated - Patient agreeable to receiving enema, will observe clinical response - Maintain bowel regimen to prevent recurrent constipation - Will continue to monitor patient clinical course
[2019-04-07] MEDS: Enoxaparin 40 mg Syringe SC SCH (09:26)
[2019-04-07] MEDS: POLYETHYLENE GLYCOL 3350 17 GM/Dose PACKET PO SCH ×2 (10:28→17:28)
--- NOTE | 2019-04-07 13:03 | CP.PCM.PN ---
Subjective - Date & Time of Evaluation Date of Evaluation: 04/07/19 Time of Evaluation: 07:50 - Subjective Subjective: patient examined today no nausea no vomiting no dizziness no diarrhea no fever no shortness of breath Objective - Vital Signs/Intake and Output Vital Signs (last 24 hours): Temp Pulse Resp BP Pulse Ox 97.8 F 54 L 20 110/63 95 04/07/19 07:09 04/07/19 07:09 04/07/19 07:09 04/07/19 09:27 04/07/19 07:09 Intake and Output: 04/07/19 04/07/19 06:59 18:59 Intake Total 300 Output Total 500 Balance -200 - Medications Medications: Current Medications Aspirin (Aspirin) 325 mg PO DAILY [facility] Last Admin: 04/07/19 10:28 Dose: 325 mg Clopidogrel Bisulfate (Plavix) 75 mg PO DAILY [facility] Last Admin: 04/07/19 09:27 Dose: 75 mg Dextrose (Dextrose 50% Inj) 0 ml IV STAT PRN; Protocol PRN Reason: Hypoglycemia Protocol Dextrose (Glutose 15) 0 gm PO ONCE PRN; Protocol PRN Reason: Hypoglycemia Protocol Enoxaparin Sodium (Lovenox) 40 mg SC DAILY [facility] Last Admin: 04/07/19 09:26 Dose: 40 mg Glucagon (Glucagen Diagnostic Kit) 0 mg IM STAT PRN; Protocol PRN Reason: Hypoglycemia Protocol Dextrose (Dextrose 5% In Water 1000 Ml) 1,000 mls @ 0 mls/hr IV .Q0M PRN; Pr otocol PRN Reason: Hypoglycemia Protocol Insulin Aspart (Novolog) 0 unit SC [facility]; Protocol Last Admin: 04/07/19 12:16 Dose: 3 unit Insulin Detemir (Levemir) 25 unit SC [facility] Last Admin: 04/06/19 21:25 Dose: 25 unit Lisinopril (Zestril) 2.5 mg PO DAILY [facility] Last Admin: 04/07/19 09:27 Dose: 2.5 mg Metoprolol Tartrate (Lopressor) 25 mg PO BID [facility] Last Admin: 04/07/19 09:27 Dose: 25 mg Morphine Sulfate (Morphine) 4 mg IVP Q4 PRN PRN Reason: Pain, moderate (4-7) Last Admin: 04/07/19 09:28 Dose: 4 mg Pantoprazole Sodium (Protonix Inj) 40 mg IVP DAILY [facility] Last Admin: 04/07/19 09:27 Dose: 40 mg Polyethylene Glycol (Miralax) 17 gm PO BID [facility] Last Admin: 04/07/19 10:28 Dose: 17 gm Pregabalin (Lyrica) 75 mg PO TID [facility] Last Admin: 04/07/19 09:27 Dose: 75 mg Promethazine HCl/Codeine (Phenergan/Codeine Oral Syrup) 10 ml PO Q6 PRN PRN Reason: Cough Last Admin: 04/06/19 22:13 Dose: 10 ml Rosuvastatin Calcium (Crestor) 40 mg PO [facility] Last Admin: 04/06/19 21:02 Dose: 40 mg Sennosides (Senokot Tab) 17.2 mg PO [facility] Last Admin: 04/06/19 21:03 Dose: Not Given - Labs Labs: 04/05/19 08:00 04/06/19 08:28 PT 12.2 SECONDS (9.7-12.2) 04/04/19 12:16 INR 1.1 04/04/19 12:16 APTT 31.2 SECONDS (21-34) 04/05/19 08:00 - Constitutional Appears: Well - Head Exam Head Exam: ATRAUMATIC, NORMAL INSPECTION, NORMOCEPHALIC - Eye Exam Eye Exam: EOMI, Normal appearance, PERRL Pupil Exam: NORMAL ACCOMODATION, PERRL - ENT Exam ENT Exam: Mucous Membranes Moist, Normal Exam - Neck Exam Neck Exam: Full ROM, Normal Inspection. absent: Lymphadenopathy - Respiratory Exam Respiratory Exam: Decreased Breath Sounds - Cardiovascular Exam Cardiovascular Exam: REGULAR RHYTHM, +S1, +S2 - GI/Abdominal Exam GI & Abdominal Exam: Soft, Diminished Bowel Sounds - Rectal Exam Rectal Exam: Deferred - Neurological Exam Neurological Exam: Oriented x3 Assessment and Plan - Assessment and Plan (Free Text) Plan: plan disucssed with patient moderate complexity of care aspirin crestor dextrose 5% dextrose 50% glucagen diagnostic kit glutose 15 levemir lopressor lovenox lyrica miralax morhpine novolog phenergan/codeine oral syrup plavix protonix inj senokot tab zestril medication reviewed labs reviewed vitals reviewed
--- NOTE | 2019-04-07 19:18 | CARD ---
APPROVED REPORT Date of service: 04/07/2019 EXAM: Two-dimensional and M-mode echocardiogram with Doppler and color Doppler. INDICATION Chest Pain CAD, STENTED CORONARY ARTERY RISK FACTORS Hypertension Diabetes Smoking 2D DIMENSIONS LVEF (Carlson's)47.32 % Mitral Valve E/A ratio0.0 TDI E/Lateral E'0.0E/Medial E'0.0 LEFT VENTRICLE The left ventricle is normal size. There is normal left ventricular wall thickness. The systolic function is severely impaired. Akinetic [place] Apical thrombus larger compared to recent study 02/27/2019 and appears mobile. RIGHT VENTRICLE The right ventricle is normal size. There is normal right ventricular wall thickness. The right ventricular systolic function is normal. ATRIA The left atrium size is normal. The right atrium size is normal. <Conclusion> Limited study The left ventricle is normal size. There is normal left ventricular wall thickness. The systolic function is severely impaired. Akinetic [place] Apical thrombus larger compared to recent study 02/27/2019 and appears mobile.
[2019-04-07] MEDS: Promethazine/Cod 6.25mg-10mg/5ml Syr UD PO PRN (21:37)
[2019-04-07] MEDS: Insulin Detemir 100 units/ml Vial (Levemir) SC SCH (21:39)
--- NOTE | 2019-04-08 00:04 | CARD ---
APPROVED REPORT Date of service: 04/04/2019 EKG Measurement Heart [id number] <Conclusion> Sinus rhythm with occasional premature ventricular complexes Possible Left atrial enlargement Left axis deviation Low voltage QRS Inferior infarct, age undetermined Anterolateral infarct, age undetermined Abnormal ECG
[2019-04-08] MEDS: Morphine 4 MG/ML VIAL IVP PRN ×5 (02:15→22:09)
--- NOTE | 2019-04-08 07:47 | CP.PCM.PN ---
<Rachel Law - Last Filed: 04/08/19 07:47> Subjective - Date & Time of Evaluation Date of Evaluation: 04/08/19 Time of Evaluation: 07:00 - Subjective Subjective: GI Fellow PGY5 Progress Note Pt seen and evaluated at bedside, pt reports no BM in a few days, tolerating diet. Per Nursing and documentation pt has 3 BM yesterday and has regular BMs, is very forgetful and pt refused enema. ROS: A 12pt ROS was negative except as above. Objective - Vital Signs/Intake and Output Vital Signs (last 24 hours): Temp Pulse Resp BP Pulse Ox 97.9 F 63 20 111/62 95 04/07/19 23:35 04/08/19 00:11 04/07/19 23:35 04/07/19 23:35 04/07/19 23:35 Intake and Output: 04/08/19 04/08/19 06:59 18:59 Intake Total 500 Output Total 1400 Balance -900 - Medications Medications: Current Medications Aspirin (Aspirin) 325 mg PO DAILY [facility] Last Admin: 04/07/19 10:28 Dose: 325 mg Clopidogrel Bisulfate (Plavix) 75 mg PO DAILY [facility] Last Admin: 04/07/19 09:27 Dose: 75 mg Dextrose (Dextrose 50% Inj) 0 ml IV STAT PRN; Protocol PRN Reason: Hypoglycemia Protocol Dextrose (Glutose 15) 0 gm PO ONCE PRN; Protocol PRN Reason: Hypoglycemia Protocol Enoxaparin Sodium (Lovenox) 40 mg SC DAILY [facility] Last Admin: 04/07/19 09:26 Dose: 40 mg Glucagon (Glucagen Diagnostic Kit) 0 mg IM STAT PRN; Protocol PRN Reason: Hypoglycemia Protocol Insulin Aspart (Novolog) 0 unit SC [facility]; Protocol Last Admin: 04/07/19 22:18 Dose: Not Given Insulin Detemir (Levemir) 25 unit SC HS [facility] Last Admin: 04/07/19 21:39 Dose: 25 unit Lisinopril (Zestril) 2.5 mg PO DAILY [facility] Last Admin: 04/07/19 09:27 Dose: 2.5 mg Metoprolol Tartrate (Lopressor) 25 mg PO BID [facility] Last Admin: 04/07/19 17:27 Dose: 25 mg Morphine Sulfate (Morphine) 4 mg IVP Q4 PRN PRN Reason: Pain, moderate (4-7) Last Admin: 04/08/19 02:15 Dose: 4 mg Pantoprazole Sodium (Protonix Inj) 40 mg IVP DAILY [facility] Last Admin: 04/07/19 09:27 Dose: 40 mg Polyethylene Glycol (Miralax) 17 gm PO BID [facility] Last Admin: 04/07/19 17:28 Dose: Not Given Pregabalin (Lyrica) 75 mg PO TID [facility] Last Admin: 04/07/19 17:27 Dose: 75 mg Promethazine HCl/Codeine (Phenergan/Codeine Oral Syrup) 10 ml PO Q6 PRN PRN Reason: Cough Last Admin: 04/07/19 21:37 Dose: 10 ml Rosuvastatin Calcium (Crestor) 40 mg PO [facility] Last Admin: 04/07/19 21:05 Dose: 40 mg Sennosides (Senokot Tab) 17.2 mg PO [facility] Last Admin: 04/07/19 21:08 Dose: Not Given - Labs Labs: 04/05/19 08:00 04/06/19 08:28 PT 12.2 SECONDS (9.7-12.2) 04/04/19 12:16 INR 1.1 04/04/19 12:16 APTT 31.2 SECONDS (21-34) 04/05/19 08:00 - Constitutional Appears: Non-toxic, No Acute Distress - Head Exam Head Exam: ATRAUMATIC, NORMAL INSPECTION, NORMOCEPHALIC - Eye Exam Eye Exam: EOMI, Normal appearance Pupil Exam: PERRL - ENT Exam ENT Exam: Mucous Membranes Moist - Neck Exam Neck Exam: Full ROM, Normal Inspection - Respiratory Exam Respiratory Exam: Clear to Ausculation Bilateral, NORMAL BREATHING PATTERN - GI/Abdominal Exam GI & Abdominal Exam: Soft, Normal Bowel Sounds - Neurological Exam Neurological Exam: Alert, Awake, Oriented x3 - Psychiatric Exam Psychiatric exam: Normal Affect, Normal Mood - Skin Skin Exam: Dry, Intact, Normal Color, Warm Assessment and Plan - Assessment and Plan (Free Text) Assessment: 1. Abd pain and Nausea: h/o Acute Pancreatitis, dilated PD 2. Diabetes, uncontrolled BG 3. CAD, Chest pain, Left ventricle Thrombus on OAC, PVD s/p bilateral AKAs 4. Constipation Plan: -Pt with multiple BMS yesterday, refused enema -Miralax BID and Senna -MRCP reviewed with no underlying pancreatic lesion -Diet low fat diet with small meals -Glyceimic control -Anti-emetics prns -PPI daily -IgG4 WNL -Medical management per primary team <Manav Canchola - Last Filed: 04/08/19 13:43> Objective - Vital Signs/Intake and Output Vital Signs (last 24 hours): Temp Pulse Resp BP Pulse Ox 97.8 F 57 L 20 130/55 L 96 04/08/19 08:00 04/08/19 08:00 04/08/19 08:00 04/08/19 09:02 04/08/19 08:00 Intake and Output: 04/08/19 04/08/19 06:59 18:59 Intake Total 500 300 Output Total 1400 Balance -900 300 - Medications Medications: Current Medications Apixaban (Eliquis) 5 mg PO BID [facility] Clopidogrel Bisulfate (Plavix) 75 mg PO DAILY [facility] Last Admin: 04/08/19 09:01 Dose: 75 mg Dextrose (Dextrose 50% Inj) 0 ml IV STAT PRN; Protocol PRN Reason: Hypoglycemia Protocol Dextrose (Glutose 15) 0 gm PO ONCE PRN; Protocol PRN Reason: Hypoglycemia Protocol Glucagon (Glucagen Diagnostic Kit) 0 mg IM STAT PRN; Protocol PRN Reason: Hypoglycemia Protocol Insulin Aspart (Novolog) 0 unit SC [facility]; Protocol Last Admin: 04/08/19 11:42 Dose: 1 unit Insulin Detemir (Levemir) 25 unit SC [facility] Last Admin: 04/07/19 21:39 Dose: 25 unit Lisinopril (Zestril) 2.5 mg PO DAILY [facility] Last Admin: 04/08/19 09:02 Dose: 2.5 mg Metoprolol Tartrate (Lopressor) 25 mg PO BID [facility] Last Admin: 04/08/19 09:02 Dose: 25 mg Morphine Sulfate (Morphine) 4 mg IVP Q4 PRN PRN Reason: Pain, moderate (4-7) Last Admin: 04/08/19 13:30 Dose: 4 mg Pantoprazole Sodium (Protonix Inj) 40 mg IVP DAILY [facility] Last Admin: 04/08/19 09:02 Dose: 40 mg Polyethylene Glycol (Miralax) 17 gm PO BID [facility] Last Admin: 04/08/19 09:03 Dose: Not Given Pregabalin (Lyrica) 75 mg PO TID [facility] Last Admin: 04/08/19 13:31 Dose: 75 mg Promethazine HCl/Codeine (Phenergan/Codeine Oral Syrup) 10 ml PO Q6 PRN PRN Reason: Cough Last Admin: 04/07/19 21:37 Dose: 10 ml Rosuvastatin Calcium (Crestor) 40 mg PO [facility] Last Admin: 04/07/19 21:05 Dose: 40 mg Sennosides (Senokot Tab) 17.2 mg PO [facility] Last Admin: 04/07/19 21:08 Dose: Not Given - Labs Labs: 04/05/19 08:00 04/06/19 08:28 PT 12.2 SECONDS (9.7-12.2) 04/04/19 12:16 INR 1.1 04/04/19 12:16 APTT 31.2 SECONDS (21-34) 04/05/19 08:00 Attending/Attestation - Attestation I have personally seen and examined this patient.: Yes I have fully participated in the care of the patient.: Yes I have reviewed all pertinent clinical information, including history, physical exam and plan: Yes Notes (Text): 04/08/19 13:41 I have seen and examined patient with GI fellow. No acute events overnight, he is seen resting in bed comfortably. He had nearly 3 bowel movements over past 24 hours and denies abdominal pain, nausea, vomiting. Tolerating PO diet without difficulty. CAD DM PVD s/p bilateral BKA Constipation LV thrombus on anticoagulation therapy - Diet as tolerated - Maintain bowel regimen to prevent constipation - Follow up cardiology recommendations - No further planned GI interventions, will sign off case. Please reconsult as necessary, thank you.
[2019-04-08] MEDS: (Novolog) Insulin Aspart, Recombinant 100 u/ml 10 ml vial SC SCH ×4 (08:55→21:23)
[2019-04-08] MEDS: Enoxaparin 40 mg Syringe SC SCH (09:01)
[2019-04-08] MEDS: POLYETHYLENE GLYCOL 3350 17 GM/Dose PACKET PO SCH ×2 (09:03→17:42)
--- NOTE | 2019-04-08 20:03 | CP.PCM.PN ---
Subjective - Date & Time of Evaluation Date of Evaluation: 04/08/19 - Subjective Subjective: patient examined today no nausea, no vomiting, no dizziness, no fever, no diarrhea no shortness of breath Objective - Vital Signs/Intake and Output Vital Signs (last 24 hours): Temp Pulse Resp BP Pulse Ox 98.2 F 63 20 135/65 96 04/08/19 16:00 04/08/19 19:40 04/08/19 16:00 04/08/19 17:40 04/08/19 16:29 Intake and Output: 04/08/19 04/09/19 18:59 06:59 Intake Total 300 Balance 300 - Medications Medications: Current Medications Apixaban (Eliquis) 5 mg PO BID [facility] Last Admin: 04/08/19 17:40 Dose: 5 mg Clopidogrel Bisulfate (Plavix) 75 mg PO DAILY [facility] Last Admin: 04/08/19 09:01 Dose: 75 mg Dextrose (Dextrose 50% Inj) 0 ml IV STAT PRN; Protocol PRN Reason: Hypoglycemia Protocol Dextrose (Glutose 15) 0 gm PO ONCE PRN; Protocol PRN Reason: Hypoglycemia Protocol Glucagon (Glucagen Diagnostic Kit) 0 mg IM STAT PRN; Protocol PRN Reason: Hypoglycemia Protocol Insulin Aspart (Novolog) 0 unit SC [facility]; Protocol Last Admin: 04/08/19 17:41 Dose: 4 unit Insulin Detemir (Levemir) 25 unit SC [facility] Last Admin: 04/07/19 21:39 Dose: 25 unit Lisinopril (Zestril) 2.5 mg PO DAILY [facility] Last Admin: 04/08/19 09:02 Dose: 2.5 mg Metoprolol Tartrate (Lopressor) 25 mg PO BID [facility] Last Admin: 04/08/19 17:40 Dose: 25 mg Morphine Sulfate (Morphine) 4 mg IVP Q4 PRN PRN Reason: Pain, moderate (4-7) Last Admin: 04/08/19 17:40 Dose: 4 mg Pantoprazole Sodium (Protonix Ec Tab) 40 mg PO DAILY [facility] Polyethylene Glycol (Miralax) 17 gm PO BID [facility] Last Admin: 04/08/19 17:42 Dose: Not Given Pregabalin (Lyrica) 75 mg PO TID [facility] Last Admin: 04/08/19 17:40 Dose: 75 mg Promethazine HCl/Codeine (Phenergan/Codeine Oral Syrup) 10 ml PO Q6 PRN PRN Reason: Cough Last Admin: 04/07/19 21:37 Dose: 10 ml Rosuvastatin Calcium (Crestor) 40 mg PO HS [facility] Last Admin: 04/07/19 21:05 Dose: 40 mg Sennosides (Senokot Tab) 17.2 mg PO HS [facility] Last Admin: 04/07/19 21:08 Dose: Not Given - Labs Labs: 04/05/19 08:00 04/06/19 08:28 PT 12.2 SECONDS (9.7-12.2) 04/04/19 12:16 INR 1.1 04/04/19 12:16 APTT 31.2 SECONDS (21-34) 04/05/19 08:00 - Constitutional Appears: Well - Head Exam Head Exam: ATRAUMATIC, NORMAL INSPECTION, NORMOCEPHALIC - Eye Exam Eye Exam: EOMI, Normal appearance, PERRL Pupil Exam: NORMAL ACCOMODATION, PERRL - ENT Exam ENT Exam: Mucous Membranes Moist, Normal Exam - Neck Exam Neck Exam: Full ROM, Normal Inspection. absent: Lymphadenopathy - Respiratory Exam Respiratory Exam: Decreased Breath Sounds - Cardiovascular Exam Cardiovascular Exam: REGULAR RHYTHM, +S1, +S2 - GI/Abdominal Exam GI & Abdominal Exam: Soft, Diminished Bowel Sounds - Rectal Exam Rectal Exam: Deferred - Neurological Exam Neurological Exam: Oriented x3 Assessment and Plan - Assessment and Plan (Free Text) Plan: plan discussed with patient moderate complexity of care medication reviewed labs reviewed vitals reviewed aspirin crestor dextrose 5% dextrose 50% glucagen diagnostic kit glutose 15 levemir lopressor lovenox lyrica miralax morhpine novolog phenergan/codeine oral syrup plavix protonix inj senokot tab zestril
[2019-04-08] MEDS: Insulin Detemir 100 units/ml Vial (Levemir) SC SCH (21:23)
[2019-04-09 06:56] LABS: CK-MB 0.81 ng/mL (0.0-3.38)
[2019-04-09] MEDS: (Novolog) Insulin Aspart, Recombinant 100 u/ml 10 ml vial SC SCH ×4 (07:57→21:49)
[2019-04-09] MEDS: Morphine 4 MG/ML VIAL IVP PRN ×4 (07:57→20:05)
[2019-04-09] MEDS: Pantoprazole 40 mg EC Tab PO SCH (09:38)
[2019-04-09] MEDS: POLYETHYLENE GLYCOL 3350 17 GM/Dose PACKET PO SCH ×2 (09:39→18:34)
--- NOTE | 2019-04-09 14:20 | CP.PCM.PN ---
Subjective - Date & Time of Evaluation Date of Evaluation: 04/09/19 - Subjective Subjective: patient seen and examined today no nausea no dizziness no fever no vomiting no diarrhea no shortness of breath Objective - Vital Signs/Intake and Output Vital Signs (last 24 hours): Temp Pulse Resp BP Pulse Ox 97.3 F L 69 18 122/66 94 L 04/09/19 07:00 04/09/19 09:33 04/09/19 09:33 04/09/19 09:37 04/09/19 09:33 Intake and Output: 04/09/19 04/09/19 06:59 18:59 Intake Total 500 Output Total 700 Balance -200 - Medications Medications: Current Medications Apixaban (Eliquis) 5 mg PO BID [facility] Last Admin: 04/09/19 09:38 Dose: 5 mg Clopidogrel Bisulfate (Plavix) 75 mg PO DAILY [facility] Last Admin: 04/09/19 09:37 Dose: 75 mg Dextrose (Dextrose 50% Inj) 0 ml IV STAT PRN; Protocol PRN Reason: Hypoglycemia Protocol Dextrose (Glutose 15) 0 gm PO ONCE PRN; Protocol PRN Reason: Hypoglycemia Protocol Glucagon (Glucagen Diagnostic Kit) 0 mg IM STAT PRN; Protocol PRN Reason: Hypoglycemia Protocol Insulin Aspart (Novolog) 0 unit SC [facility]; Protocol Last Admin: 04/09/19 12:04 Dose: 3 units Insulin Detemir (Levemir) 25 unit SC [facility] Last Admin: 04/08/19 21:23 Dose: 25 unit Lisinopril (Zestril) 2.5 mg PO DAILY [facility] Last Admin: 04/09/19 09:38 Dose: 2.5 mg Metoprolol Tartrate (Lopressor) 25 mg PO BID [facility] Last Admin: 04/09/19 09:37 Dose: 25 mg Morphine Sulfate (Morphine) 4 mg IVP Q4 PRN PRN Reason: Pain, moderate (4-7) Last Admin: 04/09/19 12:03 Dose: 4 mg Pantoprazole Sodium (Protonix Ec Tab) 40 mg PO DAILY [facility] Last Admin: 04/09/19 09:38 Dose: 40 mg Polyethylene Glycol (Miralax) 17 gm PO BID [facility] Last Admin: 04/09/19 09:39 Dose: 17 gm Pregabalin (Lyrica) 75 mg PO TID [facility] Last Admin: 04/09/19 13:44 Dose: 75 mg Promethazine HCl/Codeine (Phenergan/Codeine Oral Syrup) 10 ml PO Q6 PRN PRN Reason: Cough Last Admin: 04/07/19 21:37 Dose: 10 ml Rosuvastatin Calcium (Crestor) 40 mg PO HS [facility] Last Admin: 04/08/19 21:22 Dose: 40 mg Sennosides (Senokot Tab) 17.2 mg PO HS [facility] Last Admin: 04/08/19 21:23 Dose: Not Given - Labs Labs: 04/05/19 08:00 04/06/19 08:28 PT 12.2 SECONDS (9.7-12.2) 04/04/19 12:16 INR 1.1 04/04/19 12:16 APTT 31.2 SECONDS (21-34) 04/05/19 08:00 - Constitutional Appears: Well - Head Exam Head Exam: ATRAUMATIC, NORMAL INSPECTION, NORMOCEPHALIC - Eye Exam Eye Exam: EOMI, Normal appearance, PERRL Pupil Exam: NORMAL ACCOMODATION, PERRL - ENT Exam ENT Exam: Mucous Membranes Moist, Normal Exam - Neck Exam Neck Exam: Full ROM, Normal Inspection. absent: Lymphadenopathy - Respiratory Exam Respiratory Exam: Decreased Breath Sounds - Cardiovascular Exam Cardiovascular Exam: REGULAR RHYTHM, +S1, +S2 - GI/Abdominal Exam GI & Abdominal Exam: Soft, Diminished Bowel Sounds - Rectal Exam Rectal Exam: Deferred - Neurological Exam Neurological Exam: Oriented x3
[2019-04-09 14:44] LABS: CK-MB 0.78 ng/mL (0.0-3.38)
[2019-04-09 15:41] VITALS: RESP 20
--- NOTE | 2019-04-09 17:39 | CT ---
Date of service: 04/09/2019 PROCEDURE: CT Chest without contrast HISTORY: chest pain COMPARISON: None available. TECHNIQUE: Contiguous axial images were obtained through the chest without intravenous contrast enhancement. Sagittal and coronal reconstructions were performed. Radiation dose: Total exam DLP = 872.64 mGy-cm. This CT exam was performed using one or more of the following dose reduction techniques: Automated exposure control, adjustment of the mA and/or kV according to patient size, and/or use of iterative reconstruction technique. FINDINGS: LUNGS: No suspicious pulmonary nodules, masses or infiltrates. Bronchitic changes possible focal bronchiectasis both lower lobes right greater than left. Visualized airway clear MEDIASTINUM: Unremarkable thoracic aorta. No aneurysm. Normal sized heart. Main pulmonary artery unremarkable. No vascular congestion. No lymphadenopathy. Atherosclerotic calcification and mural plaque present. Findings are seen throughout the aorta which is non aneurysmal. PLEURA: No pleural fluid. No pneumothorax. BONES: No fracture. No destructive lesion. UPPER ABDOMEN: Grossly unremarkable. OTHER FINDINGS: None. IMPRESSION: No significant or acute findings to account for/ related to the clinical presentation. Additional benign and/or incidental findings described above.
[2019-04-09] MEDS: Insulin Detemir 100 units/ml Vial (Levemir) SC SCH (21:54)
[2019-04-10] MEDS: Morphine 4 MG/ML VIAL IVP PRN ×6 (01:39→23:49)
[2019-04-10] MEDS: (Novolog) Insulin Aspart, Recombinant 100 u/ml 10 ml vial SC SCH ×4 (08:50→21:58)
[2019-04-10] MEDS: Pantoprazole 40 mg EC Tab PO SCH (11:02)
[2019-04-10] MEDS: POLYETHYLENE GLYCOL 3350 17 GM/Dose PACKET PO SCH ×2 (11:05→17:52)
--- NOTE | 2019-04-10 12:08 | CARD ---
APPROVED REPORT Date of service: 04/09/2019 EKG Measurement Heart [id number] <Conclusion> Sinus bradycardia Left axis deviation Low voltage QRS Inferior infarct, age undetermined Anterolateral infarct, age undetermined Abnormal ECG
--- NOTE | 2019-04-10 14:45 | CP.PCM.PN ---
Subjective - Date & Time of Evaluation Date of Evaluation: 04/10/19 Time of Evaluation: 14:45 - Subjective Subjective: PATIENT SEEN AND EXAMINED AT THE BEDSIDE Objective - Vital Signs/Intake and Output Vital Signs (last 24 hours): Temp Pulse Resp BP Pulse Ox 97.9 F 71 20 104/58 L 96 04/10/19 07:00 04/10/19 08:00 04/10/19 07:00 04/10/19 10:13 04/10/19 07:00 Intake and Output: 04/10/19 04/10/19 06:59 18:59 Intake Total 800 Output Total 700 Balance 100 - Medications Medications: Current Medications Acetaminophen (Tylenol 325mg Tab) 650 mg PO ONCE ONE Stop: 04/10/19 15:01 Apixaban (Eliquis) 5 mg PO BID [facility] Last Admin: 04/10/19 11:02 Dose: 5 mg Clopidogrel Bisulfate (Plavix) 75 mg PO DAILY [facility] Last Admin: 04/10/19 11:02 Dose: 75 mg Dextrose (Dextrose 50% Inj) 0 ml IV STAT PRN; Protocol PRN Reason: Hypoglycemia Protocol Dextrose (Glutose 15) 0 gm PO ONCE PRN; Protocol PRN Reason: Hypoglycemia Protocol Glucagon (Glucagen Diagnostic Kit) 0 mg IM STAT PRN; Protocol PRN Reason: Hypoglycemia Protocol Insulin Aspart (Novolog) 0 unit SC [facility]; Protocol Last Admin: 04/10/19 13:11 Dose: 2 units Insulin Detemir (Levemir) 25 unit SC [facility] Last Admin: 04/09/19 21:54 Dose: 25 unit Lisinopril (Zestril) 2.5 mg PO DAILY [facility] Last Admin: 04/10/19 11:01 Dose: 2.5 mg Metoprolol Tartrate (Lopressor) 25 mg PO BID [facility] Last Admin: 04/10/19 10:13 Dose: Not Given Morphine Sulfate (Morphine) 4 mg IVP Q4 PRN PRN Reason: Pain, moderate (4-7) Last Admin: 04/10/19 11:01 Dose: 4 mg Pantoprazole Sodium (Protonix Ec Tab) 40 mg PO DAILY [facility] Last Admin: 04/10/19 11:02 Dose: 40 mg Polyethylene Glycol (Miralax) 17 gm PO BID [facility] Last Admin: 04/10/19 11:05 Dose: Not Given Pregabalin (Lyrica) 75 mg PO TID [facility] Last Admin: 04/10/19 13:11 Dose: 75 mg Promethazine HCl/Codeine (Phenergan/Codeine Oral Syrup) 10 ml PO Q6 PRN PRN Reason: Cough Last Admin: 04/07/19 21:37 Dose: 10 ml Rosuvastatin Calcium (Crestor) 40 mg PO [facility] Last Admin: 04/09/19 21:54 Dose: 40 mg Sennosides (Senokot Tab) 17.2 mg PO [facility] Last Admin: 04/09/19 21:56 Dose: Not Given - Labs Labs: 04/05/19 08:00 04/06/19 08:28 PT 12.2 SECONDS (9.7-12.2) 04/04/19 12:16 INR 1.1 04/04/19 12:16 APTT 31.2 SECONDS (21-34) 04/05/19 08:00 Assessment and Plan - Assessment and Plan (Free Text) Assessment: FOLLOW UP WITH DR Yvan FORD IN HIS OFFICE FOLLOW UP WITH DR ZAMUDIO IN HIS OFFICE CONTINUE HOME MEDICATION NEW PRESCRIPTION GIVEN ELIQUIS 5 MG PO BID LISINOPRIL 2.5 MG PO DAILY LOPRESSOR 25 MG PO BID STOP TAKING COUMADIN, LOPRESSOR 50 MG PO DAILY ACTIVITY TOLERATED CALL DR Yvan FORD OR GO TO THE EMERGENCY ROOM IF SYMPTOM RETURN OR WORSENING
[2019-04-10 16:24] VITALS: PULSE 65
[2019-04-10 17:53] VITALS: BP 122/70
[2019-04-10 18:06] VITALS: TEMP 97.7; O2SAT 95
--- NOTE | 2019-04-10 19:36 | CP.PCM.PN ---
Subjective - Date & Time of Evaluation Date of Evaluation: 04/10/19 Objective - Vital Signs/Intake and Output Vital Signs (last 24 hours): Temp Pulse Resp BP Pulse Ox 97.7 F 65 20 122/70 95 04/10/19 16:00 04/10/19 16:21 04/10/19 16:00 04/10/19 17:53 04/10/19 16:00 Intake and Output: 04/10/19 04/11/19 18:59 06:59 Output Total 200 Balance -200 - Medications Medications: Current Medications Apixaban (Eliquis) 5 mg PO BID [facility] Last Admin: 04/10/19 17:53 Dose: 5 mg Clopidogrel Bisulfate (Plavix) 75 mg PO DAILY [facility] Last Admin: 04/10/19 11:02 Dose: 75 mg Dextrose (Dextrose 50% Inj) 0 ml IV STAT PRN; Protocol PRN Reason: Hypoglycemia Protocol Dextrose (Glutose 15) 0 gm PO ONCE PRN; Protocol PRN Reason: Hypoglycemia Protocol Glucagon (Glucagen Diagnostic Kit) 0 mg IM STAT PRN; Protocol PRN Reason: Hypoglycemia Protocol Insulin Aspart (Novolog) 0 unit SC [facility]; Protocol Last Admin: 04/10/19 17:52 Dose: 2 units Insulin Detemir (Levemir) 25 unit SC [facility] Last Admin: 04/09/19 21:54 Dose: 25 unit Lisinopril (Zestril) 2.5 mg PO DAILY [facility] Last Admin: 04/10/19 11:01 Dose: 2.5 mg Metoprolol Tartrate (Lopressor) 25 mg PO BID [facility] Last Admin: 04/10/19 17:53 Dose: 25 mg Morphine Sulfate (Morphine) 4 mg IVP Q4 PRN PRN Reason: Pain, moderate (4-7) Last Admin: 04/10/19 19:07 Dose: 4 mg Pantoprazole Sodium (Protonix Ec Tab) 40 mg PO DAILY [facility] Last Admin: 04/10/19 11:02 Dose: 40 mg Polyethylene Glycol (Miralax) 17 gm PO BID [facility] Last Admin: 04/10/19 17:52 Dose: Not Given Pregabalin (Lyrica) 75 mg PO TID [facility] Last Admin: 04/10/19 17:53 Dose: 75 mg Promethazine HCl/Codeine (Phenergan/Codeine Oral Syrup) 10 ml PO Q6 PRN PRN Reason: Cough Last Admin: 04/07/19 21:37 Dose: 10 ml Rosuvastatin Calcium (Crestor) 40 mg PO HS [facility] Last Admin: 04/09/19 21:54 Dose: 40 mg Sennosides (Senokot Tab) 17.2 mg PO HS [facility] Last Admin: 04/09/19 21:56 Dose: Not Given - Labs Labs: 04/05/19 08:00 04/06/19 08:28 PT 12.2 SECONDS (9.7-12.2) 04/04/19 12:16 INR 1.1 04/04/19 12:16 APTT 31.2 SECONDS (21-34) 04/05/19 08:00
[2019-04-10] MEDS: Insulin Detemir 100 units/ml Vial (Levemir) SC SCH (21:57)
--- NOTE | 2019-04-15 09:05 | CP.PCM.DIS ---
Provider - Provider Date of Admission: 04/08/19 17:32 Attending physician: Betty Ford MD Consults: 04/04/19 16:07 Cardiology Consult Routine Comment: Consulting Provider: Farshad Zamudio Consulting Physician: Farshad Zamudio Reason for Consult: chest pain 04/08/19 18:40 Case Management Referral Routine Comment: Physician Instructions: Reason For Exam: lives alone, wants assistance Reason for Referral: Discharge Planning Inpatient ADULT MANAGER Core Measures Referral Routine Comment: Physician Instructions: Reason For Exam: chf Nursing Referral for Wound Care Routine Comment: Physician Instructions: Reason For Exam: left buttock Time Spent in preparation of Discharge (in minutes): 30 Hospital Course - Lab Results Lab Results: Most Recent Lab Values WBC 5.0 K/uL (4.8-10.8) 04/05/19 08:00 RBC 5.07 Mil/uL (4.40-5.90) 04/05/19 08:00 Hgb 13.2 g/dL (12.0-18.0) 04/05/19 08:00 Hct 40.3 % (35.0-51.0) 04/05/19 08:00 MCV 79.6 fL (80.0-94.0) L 04/05/19 08:00 MCH 26.1 pg (27.0-31.0) L 04/05/19 08:00 MCHC 32.8 g/dL (33.0-37.0) L 04/05/19 08:00 RDW 16.5 % (11.5-14.5) H 04/05/19 08:00 Plt Count 259 K/uL (130-400) 04/05/19 08:00 MPV 10.0 fL (7.2-11.7) 04/05/19 08:00 Neut % (Auto) 44.3 % (50.0-75.0) L 04/05/19 08:00 Lymph % (Auto) 40.5 % (20.0-40.0) H 04/05/19 08:00 [place] % (Auto) 11.9 % (0.0-10.0) H 04/05/19 08:00 Eos % (Auto) 2.6 % (0.0-4.0) 04/05/19 08:00 Baso % (Auto) 0.7 % (0.0-2.0) 04/05/19 08:00 Neut # (Auto) 2.2 K/uL (1.8-7.0) 04/05/19 08:00 Lymph # (Auto) 2.0 K/uL (1.0-4.3) 04/05/19 08:00 [place] # (Auto) 0.6 K/uL (0.0-0.8) 04/05/19 08:00 Eos # (Auto) 0.1 K/uL (0.0-0.7) 04/05/19 08:00 Baso # (Auto) 0.0 K/uL (0.0-0.2) 04/05/19 08:00 PT 12.2 SECONDS (9.7-12.2) 04/04/19 12:16 INR 1.1 04/04/19 12:16 APTT 31.2 SECONDS (21-34) 04/05/19 08:00 Sodium 134 mmol/L (132-148) 04/06/19 08:28 Potassium 4.4 mmol/L (3.6-5.2) 04/06/19 08:28 Chloride 100 mmol/L (98-107) 04/06/19 08:28 Carbon Dioxide 26 mmol/L (22-30) 04/06/19 08:28 Anion Gap 12 (10-20) 04/06/19 08:28 BUN 20 mg/dL (9-20) 04/06/19 08:28 Creatinine 1.1 mg/dL (0.8-1.5) 04/06/19 08:28 Est GFR ( Amer) > 60 04/06/19 08:28 Est GFR (Non-Af Amer) > 60 04/06/19 08:28 POC Glucose (mg/dL) 308 mg/dL (65-110) H 04/10/19 21:29 Random Glucose 229 mg/dL (75-110) H 04/06/19 08:28 Calcium 8.8 mg/dl (8.6-10.4) 04/06/19 08:28 Total Bilirubin 0.2 mg/dL (0.2-1.3) 04/06/19 08:28 AST 14 U/L (17-59) L 04/06/19 08:28 ALT 15 U/L (21-72) L D 04/06/19 08:28 Alkaline Phosphatase 88 U/L (38-126) 04/06/19 08:28 Total Creatine Kinase 70 U/L (55-170) 04/09/19 23:46 CK-MB (Mass) 1.20 ng/mL (0.0-3.38) 04/09/19 23:46 Troponin I < 0.0120 ng/mL (0.00-0.120) 04/09/19 23:46 Total Protein 6.7 g/dL (6.3-8.3) 04/06/19 08:28 Albumin 3.6 g/dL (3.5-5.0) 04/06/19 08:28 Globulin 3.1 gm/dL (2.2-3.9) 04/06/19 08:28 Albumin/Globulin Ratio 1.2 (1.0-2.1) 04/06/19 08:28 - Hospital Course Hospital Course: 68-year-old gentleman admitted because of the chest pain on the left side status post stent in the past patient also has 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 Plan of care discussed with patient &/or family & staff. Medications reviewed and reconciled. Labs reviewed. Vitals reviewed. Discharge Exam - Head Exam Head Exam: ATRAUMATIC, NORMAL INSPECTION, NORMOCEPHALIC - Eye Exam Eye Exam: EOMI, Normal appearance, PERRL Pupil Exam: NORMAL ACCOMODATION, PERRL - ENT Exam ENT Exam: Mucous Membranes Moist - Neck Exam Neck exam: Full Rom - Respiratory Exam Respiratory Exam: Decreased Breath Sounds - Cardiovascular Exam Cardiovascular Exam: +S1, +S2 - GI/Abdominal Exam GI & Abdominal Exam: Diminished Bowel Sounds, Distended - Rectal Exam Rectal Exam: Deferred - Neurological Exam Neurological exam: Oriented x3 Additional comments: bilateral aka Discharge Plan - Discharge Medications Prescriptions: Apixaban [Eliquis] 5 mg PO BID 30 Days tab Metoprolol Tartrate [Lopressor] 25 mg PO BID 30 Days tab Lisinopril [Zestril] 2.5 mg PO DAILY 30 Days tab - Follow Up Plan Condition: FAIR Disposition: HOME/ ROUTINE Instructions: Heart Failure, Adult (DC), Chest Pain (DC), Apixaban, Lisinopril, Metoprolol, Back Pain (GEN) Additional Instructions: FOLLOW UP WITH DR Yvan FORD IN HIS OFFICE FOLLOW UP WITH DR ZAMUDIO IN HIS OFFICE CONTINUE HOME MEDICATION NEW PRESCRIPTION GIVEN ELIQUIS 5 MG PO BID LISINOPRIL 2.5 MG PO DAILY LOPRESSOR 25 MG PO BID STOP TAKING COUMADIN, LOPRESSOR 50 MG PO DAILY ACTIVITY TOLERATED CALL DR Yvan FORD OR GO TO THE EMERGENCY ROOM IF SYMPTOM RETURN OR WORSENING Referrals: Farshad Zamudio MD [Staff Provider] - Bobo Ford MD [Staff Provider] -
== END 2019-04-11 00:30 | disposition home or self-care (01) | DRG 302 ==
LOC: C.ER 10:56 → C.9OBSV 13:33 → C.5S 14:23 → C.ER 04-08 10:56 → OBSVTOIN 04-08 17:32 → C.5S 04-08 23:53
PROVIDERS: ADMIT Internal Medicine Nephrology; ATTEND Internal Medicine Nephrology
DX: I25.10 Atherosclerotic heart disease of native coronary artery without angina pectoris (principal); K85.90 Acute pancreatitis without necrosis or infection, unspecified; I51.3 Intracardiac thrombosis, not elsewhere classified; E78.00 Pure hypercholesterolemia, unspecified; E11.65 Type 2 diabetes mellitus with hyperglycemia; E11.51 Type 2 diabetes mellitus with diabetic peripheral angiopathy without gangrene; I25.5 Ischemic cardiomyopathy; J44.9 Chronic obstructive pulmonary disease, unspecified; I50.9 Heart failure, unspecified; I11.0 Hypertensive heart disease with heart failure; Z95.5 Presence of coronary angioplasty implant and graft